=== PATIENT | female | born 1950 | race Caucasian/White ===

== ENCOUNTER 2017-05-13 20:02 | Emergency (ER) | payer MEDICARE ==
--- NOTE | 2017-05-13 23:23 | ER Document Report ---
ED General - General Chief Complaint: Vision Problem Stated Complaint: VISION ISSUE Time Seen by Provider: 05/13/17 23:11 Notes: History of complain-67 years old female was brought in because she was giving conflicting and confusing story. Started seeing unknown person called [place] was stopped by her nephew. And referred to her age as 89. Otherwise has no focal weakness no blurring of vision. No numbness tingling sensation. No fever chills or other constitutional symptoms. REVIEW OF SYSTEMS: CONSTITUTIONAL : Denies fever, chills, or sweats. Denies recent illness. EENT: Denies eye, ear, throat, or mouth pain or symptoms. Denies nasal or sinus congestion or discharge. Denies throat, tongue, or mouth swelling or difficulty swallowing. CARDIOVASCULAR: Denies chest pain. Denies palpitations or racing or irregular heart beat. Denies ankle edema. RESPIRATORY: Denies cough, cold, or chest congestion. Denies shortness of breath, difficulty breathing, or wheezing. GASTROINTESTINAL: Denies abdominal pain or distention. Denies nausea, vomiting , or diarrhea. Denies blood in vomitus, stools, or per rectum. Denies black, tarry stools. Denies constipation. GENITOURINARY: Denies difficulty urinating, painful urination, burning, frequency, blood in urine, or discharge. FEMALE GENITOURINARY: Denies vaginal bleeding, heavy or abnormal periods, irregular periods. Denies vaginal discharge or odor. MUSCULOSKELETAL: Denies back or neck pain or stiffness. Denies joint pain or swelling. SKIN: Denies rash, lesions or sores. HEMATOLOGIC : Denies easy bruising or bleeding. LYMPHATIC: Denies swollen, enlarged glands. NEUROLOGICAL: Denies confusion or altered mental status. Denies passing out or loss of consciousness. Denies dizziness or lightheadedness. Denies headache. Denies weakness or paralysis or loss of use of either side. Denies problems with gait or speech. Denies sensory loss, numbness, or tingling. Denies seizures. PSYCHIATRIC: Denies anxiety or stress. Denies depression, suicidal ideation, or homicidal ideation. ALL OTHER SYSTEMS REVIEWED AND NEGATIVE. PHYSICAL EXAMINATION: GENERAL: Well-appearing, well-nourished and in no acute distress. HEAD: Atraumatic, normocephalic. EYES: Pupils equal round and reactive to light, extraocular movements intact, conjunctiva are normal. ENT: Nares patent, oropharynx clear without exudates. Moist mucous membranes. NECK: Normal range of motion, supple without lymphadenopathy LUNGS: Breath sounds clear to auscultation bilaterally and equal. No wheezes rales or rhonchi. HEART: Regular rate and rhythm without murmurs ABDOMEN: Soft, nontender, nondistended abdomen. No guarding, no rebound. No masses appreciated. Female : deferred Musculoskeletal: Normal range of motion, no pitting or edema. No cyanosis. NEUROLOGICAL: Cranial nerves grossly intact. Normal speech, normal gait. Normal sensory, motor exams PSYCH: Normal mood, normal affect. SKIN: Warm, Dry, normal turgor, no rashes or lesions noted. Dictation was performed using [employer] voice recognition software history of complain TRAVEL OUTSIDE OF THE [place] IN LAST 30 DAYS: No - HPI Onset: Last week - Related Data Allergies/Adverse Reactions: No Known Allergies Allergy (Unverified 05/13/17 20:54) Past Medical History - Social History Smoking Status: Former Smoker Chew tobacco use (# tins/day): No Frequency of alcohol use: None Drug Abuse: None Family History: Reviewed & Not Pertinent Patient has suicidal ideation: No Patient has homicidal ideation: No Renal/ Medical History: Denies: Hx Peritoneal Dialysis Review of Systems - Review of Systems Notes: As per history of complain Physical Exam - Vital signs Vitals: Temp Pulse Resp BP Pulse Ox 98.5 F 72 16 137/75 H 96 05/13/17 20:34 05/13/17 20:34 05/13/17 20:34 05/13/17 20:34 05/13/17 20:34 Course - Re-evaluation Re-evalutation: 05/14/17 02:03 Patient case was discussed with [facility] neurology service, Dr. Banks. Currently arrangements are made to transfer. She was given Decadron 10 and Keppra thousand IV - Vital Signs Vital signs: Temp Pulse Resp BP Pulse Ox 97.4 F 72 14 115/69 97 05/14/17 03:40 05/13/17 20:34 05/14/17 03:40 05/14/17 03:40 05/14/17 03:40 - Laboratory Result Diagrams: 05/13/17 23:30 05/13/17 23:30 Laboratory results interpreted by me: 05/13/17 23:30 Calcium 10.3 H - Diagnostic Test Radiology reviewed: Reports reviewed - CT of the head reported by radiologist reviewed, indicates to intracerebral tumors one on the right side frontal region one on the left side the parietal region. Discharge - Discharge Clinical Impression: Intracranial malignant neoplasm Condition: Poor Disposition: [facility] Referrals: BEBETO WONG MD [Primary Care Provider] - Follow up as needed
[2017-05-13 23:44] LABS: ABSOLUTE BASOPHILS # (AUTO) 0.1 10^3/uL (0.0-0.2); ABSOLUTE EOSINOPHILS # (AUTO) 0.1 10^3/uL (0.0-0.6); ABSOLUTE LYMPHOCYTES (AUTO) 1.9 10^3/uL (0.5-4.7); ABSOLUTE MONOCYTES (AUTO) 0.6 10^3/uL (0.1-1.4); ABSOLUTE NEUT (AUTO) 4.4 10^3/uL (1.7-8.2); BASOPHILS % (AUTO) 0.9 % (0-2); HEMATOCRIT 39.7 % (36.0-47.0); HEMOGLOBIN 13.3 g/dL (12.0-15.5); MEAN CORPUSCULAR HEMOGLOBIN 29.7 pg (27.0-33.4); MEAN CORPUSCULAR HGB CONC 33.5 g/dL (32.0-36.0); MEAN CORPUSCULAR VOLUME 89 fl (80-97); MONOCYTES % (AUTO) 8.6 % (3-13); PLATELET COUNT 188 10^3/uL (150-450); RED BLOOD COUNT 4.48 10^6/uL (3.72-5.28); SEGMENTED NEUTROPHILS % (AUTO) 61.5 % (42-78); TOTAL CELLS COUNTED % (AUTO) 100 %; WHITE BLOOD COUNT 7.2 10^3/uL (4.0-10.5)
[2017-05-13 23:53] LABS: ALANINE AMINOTRANSFERASE 21 U/L (9-52); ALBUMIN 4.6 g/dL (3.5-5.0); ALKALINE PHOSPHATASE 60 U/L (38-126); ANION GAP 13 (5-19); ASPARTATE AMINO TRANSFERASE 23 U/L (14-36); BILIRUBIN,DIRECT 0.2 mg/dL (0.0-0.4); BILIRUBIN,TOTAL 0.5 mg/dL (0.2-1.3); BLOOD UREA NITROGEN 17 mg/dL (7-20); CALCIUM 10.3 mg/dL (8.4-10.2); CARBON DIOXIDE 25 mmol/L (22-30); CHLORIDE 104 mmol/L (98-107); GLUCOSE 102 mg/dL (75-110); POTASSIUM 3.9 mmol/L (3.6-5.0); SODIUM 142.2 mmol/L (137-145); TOTAL PROTEIN 7.2 g/dL (6.3-8.2)
--- NOTE | 2017-05-14 00:33 | RADIOLOGY REPORT (SQ) ---
EXAM DESCRIPTION: CT HEAD WITHOUT CLINICAL HISTORY: 67 years Female, confusion COMPARISON: None. TECHNIQUE: No contrast. Coronal and sagittal reformat. This exam was performed according to our departmental dose-optimization program, which includes automated exposure control, adjustment of the mA and/or kV according to patient size and/or use of iterative reconstruction technique. FINDINGS: Complex left frontal lobe mass near the midline measures 3.5 x 2.5 x 3.4 cm, extensive frontal cytotoxic edema. The mass crosses/displaces the midline by 1.0 cm from right to left. Moderate compression of the frontal horns of the lateral ventricles, left more than right. There is a second complex 1.4 x 1.8 x 1.4 cm ovoid right parietal mass at the cortex with small cytotoxic edema. Extra-axial structures appear otherwise grossly intact. Impression: 3.5 cm left frontal mass and 1.8 cm right parietal mass. The 3.5 cm left frontal mass crosses/displaces the midline and causes moderate compression of the frontal horns of the ventricular system. Malignancy/metastases including glioblastoma multiforme (GBM) is of first consideration. Contrast MRI of the brain and Neurosurgical consultation recommended.
[2017-05-14] MEDS ORDERED: LEVETIRACETAM 1000 MG/NACL-ISO 1,000 MG/100 ML RTUPB IV ONE (01:05)
[2017-05-14] MEDS ORDERED: DEXAMETHASONE SOD PHOS INJ 10 MG/1 ML VIAL IV ONE (01:05)
--- NOTE | 2017-05-14 02:31 | RADIOLOGY REPORT (SQ) ---
EXAM DESCRIPTION: CHEST SINGLE VIEW CLINICAL HISTORY: 67 years Female, Lung tumor COMPARISON: None. NUMBER OF VIEWS/TECHNIQUE: 1/AP LIMITATIONS: None. FINDINGS: Increased lung volume, clear parenchyma, normal cardiac silhouette, and intact bony thorax. IMPRESSION: No acute cardiopulmonary findings.
[2017-05-14 03:54] VITALS: BP 115/69
== END 2017-05-14 04:05 | disposition short-term general hospital (02) ==
LOC: ER 20:02
DX: C71.9 Malignant neoplasm of brain, unspecified (principal); Z87.891 Personal history of nicotine dependence
CPT/HCPCS: 99285; 96375; 96365; 36415; 85025; 80053; 71045; 70450; J1100; J1953

== ENCOUNTER → 2017-06-13 | Outpatient (CLI) | payer MEDICARE ==
--- NOTE | 2017-06-14 11:34 | RADIOLOGY REPORT (SQ) ---
EXAM DESCRIPTION: PET CT WHOLE BODY COMPLETED DATE/TIME: 06/13/2017 9:12 pm REASON FOR STUDY: MALIGNANT NEOPLASM BREAST/MELANOMA C50.811 MALIGNANT NEOPLASM OF OVRLP SITES OF R IGHT FEMALE BR C43.59 MALIGNANT MELANOMA OF OTHER PART OF TRUNK COMPARISON: CT brain 05/13/2017 RADIONUCLIDE AND DOSE: 12.0 mCi F18 FDG The route of agent administration: Intravenous FASTING BLOOD SUGAR: 85 mg/dl CONTRAST TYPE AND DOSE: No CT contrast given. TECHNIQUE: Blood glucose level was verified. Above dose of FDG was injected intravenously. 2-D seg mented attenuation correction images were obtained through the entire body. Noncontrast CT images we re obtained for attenuation correction and fusion with emission images. CT images were performed wit hout oral or intravenous contrast and are not sensitive for parenchymal lesions. A series of overlap ping emission PET images were obtained. Images reviewed and manipulated at independent work station by the radiologist. Images stored on PACS. LIMITATIONS: None. FINDINGS: HEAD AND NECK: Post frontal craniotomy for resection of an anterior falx melanoma metastat ic lesion. There is decreased cerebral edema in the left frontal lobe compared to CT brain 05/13/2017 . Persistent 1.5 x 1.6 right parieto-occipital lowe-white junction cortical metastatic lesion unchanged from 05/13/2017. CHEST: 8 mm hypermetabolic nodule left upper lobe axial image 121, with SUV of 3.6. There is minimal airspace disease in the medial right lung base with SUV 2.5, question early or devel oping pneumonia. ABDOMEN AND PELVIS: A 5 mm aortocaval lymph node is present on axial image 230, with SUV of 5.0. There is a non metabolic 4.5 x 3.5 cm well-circumscribed cystic lesion in the left deep pelvic ischio rectal fossa fat. This is non metabolic and best shown on axial image 274. LOWER EXTREMITIES: No areas of abnormal metabolic activity in the soft tissues of the lower extremiti es. BONES: No abnormal metabolic activity in the visualized skeleton. ADDITIONAL CT FINDINGS: Bilateral mastectomies with implants. Calcified aortic valve. Minimal coron jovita artery calcifications. Tiny calcified gallstones. Few colonic diverticuli without CT signs of a cute diverticulitis. OTHER: Liver background activity 1.8 SUV. Blood pool background activity 1.6 SUV. IMPRESSION: 8 mm hypermetabolic nodule left upper lobe. 5 mm hypermetabolic aortocaval lymph node. TECHNICAL DOCUMENTATION: JOB ID: [id number] [employer]- All Rights Reserved Reading location - IP/workstation name: [email or web address]
== END ==
LOC: RAD 19:02
PROVIDERS: ATTEND Internal Medicine Medical Oncology
DX: C50.811 Malignant neoplasm of overlapping sites of right female breast (principal); C43.59 Malignant melanoma of other part of trunk; Z90.13 Acquired absence of bilateral breasts and nipples
CPT/HCPCS: 78816; A9552

== ENCOUNTER → 2017-06-21 | Outpatient (CLI) | payer MEDICARE ==
[2017-06-21 13:58] LABS: ABSOLUTE BASOPHILS # (AUTO) 0.1 10^3/uL (0.0-0.2); ABSOLUTE EOSINOPHILS # (AUTO) 0.1 10^3/uL (0.0-0.6); ABSOLUTE LYMPHOCYTES (AUTO) 1.6 10^3/uL (0.5-4.7); ABSOLUTE MONOCYTES (AUTO) 0.8 10^3/uL (0.1-1.4); ABSOLUTE NEUT (AUTO) 4.2 10^3/uL (1.7-8.2); BASOPHILS % (AUTO) 1.3 % (0-2); EOSINOPHILS % (AUTO) 1.9 % (0-6); HEMOGLOBIN 12.1 g/dL (12.0-15.5); LYMPHOCYTES % (AUTO) 23.1 % (13-45); MEAN CORPUSCULAR HEMOGLOBIN 30.6 pg (27.0-33.4); MEAN CORPUSCULAR HGB CONC 33.6 g/dL (32.0-36.0); MEAN CORPUSCULAR VOLUME 91 fl (80-97); MONOCYTES % (AUTO) 11.5 % (3-13); PLATELET COUNT 390 10^3/uL (150-450); RED BLOOD COUNT 3.95 10^6/uL (3.72-5.28); RED CELL DISTRIBUTION WIDTH 15.2 % (11.5-14.0); SEGMENTED NEUTROPHILS % (AUTO) 62.2 % (42-78); TOTAL CELLS COUNTED % (AUTO) 100 %; WHITE BLOOD COUNT 6.8 10^3/uL (4.0-10.5)
== END ==
LOC: OD 13:05
PROVIDERS: ATTEND Radiology Radiation Oncology
DX: C43.61 Malignant melanoma of right upper limb, including shoulder (principal); C79.31 Secondary malignant neoplasm of brain
CPT/HCPCS: 36415; 85025

== ENCOUNTER → 2017-09-13 | Outpatient (CLI) | payer MEDICARE ==
[2017-09-13 16:43] LABS: HEMATOCRIT 43.2 % (36.0-47.0); MEAN CORPUSCULAR HEMOGLOBIN 29.7 pg (27.0-33.4); MEAN CORPUSCULAR HGB CONC 34.7 g/dL (32.0-36.0); MEAN CORPUSCULAR VOLUME 86 fl (80-97); PLATELET COUNT 354 10^3/uL (150-450); RED BLOOD COUNT 5.04 10^6/uL (3.72-5.28); RED CELL DISTRIBUTION WIDTH 14.5 % (11.5-14.0); WHITE BLOOD COUNT 20.5 10^3/uL (4.0-10.5)
== END ==
LOC: OD 15:47
PROVIDERS: ATTEND Internal Medicine Gastroenterology
DX: R19.7 Diarrhea, unspecified (principal)
CPT/HCPCS: 36415; 85027

== ENCOUNTER 2017-09-14 15:15 | Inpatient (IN) | payer MEDICARE ==
[2017-09-14] MEDS ORDERED: NORMAL SALINE 1000 ML 1,000 ML IV ONE ×2 (15:55→18:46)
[2017-09-14] MEDS ORDERED: LANSOPRAZOLE 30 MG TAB.RAP.DR PO ONE (16:22)
[2017-09-14] MEDS ORDERED: LIDOCAINE 2% VISCOUS SOLN 20 ML UDCUP PO ONE (16:22)
--- NOTE | 2017-09-14 16:25 | ER Document Report ---
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 chacko office due to dehydration and low blood pressure despite 2 liters of NS. Her friend Mary drove her. She has caregivers daily. Chief c/o watery diarrhea 3 x per day for 2 weeks with blood 1-2 days ago. No cx. done. saw Dr. Neal but no studies yet. No abd. pain but does get hearburrn. Chemo 7 weeks ago. Last void 3 hours ago. TRAVEL OUTSIDE OF THE [place] IN LAST 30 DAYS: No - Related Data Allergies/Adverse Reactions: No Known Allergies Allergy (Unverified 05/13/17 20:54) Past Medical History - General Information source: Patient - Social History Smoking Status: Former Smoker Chew tobacco use (# tins/day): No Frequency of alcohol use: None Drug Abuse: None Lives with: Family Family History: Reviewed & Not Pertinent Patient has suicidal ideation: No Patient has homicidal ideation: No - Past Medical History Cardiac Medical History: Reports: Hx Heart Murmur Other: heart murmur years Neurological Medical History: Reports: Other - brain cancer Endocrine Medical History: Denies: Hx Hypothyroidism Renal/ Medical History: Denies: Hx Peritoneal Dialysis Malignancy Medical History: Reports: Hx Brain Cancer, Hx Breast Cancer, Hx Skin Cancer Review of Systems - Review of Systems Constitutional: Weakness - 2-3 weeks EENT: No symptoms reported Cardiovascular: No symptoms reported Respiratory: No symptoms reported Gastrointestinal: Diarrhea, Poor appetite, Poor fluid intake Genitourinary: No symptoms reported Female Genitourinary: No symptoms reported Musculoskeletal: No symptoms reported Skin: No symptoms reported Hematologic/Lymphatic: No symptoms reported Neurological/Psychological: No symptoms reported Physical Exam - Vital signs Vitals: BP 92/60 L 09/14/17 15:31 Interpretation: Hypotensive, Tachycardic - General General appearance: Alert, Other - chornically ill appearring - HEENT Head: Normocephalic, Atraumatic Eyes: Normal Conjunctiva: Normal Pupils: PERRL Mucous membranes: Dry Neck: Supple. No: Lymphadenopathy - Respiratory Respiratory status: No respiratory distress Chest status: Nontender Breath sounds: Normal Chest palpation: Normal - Cardiovascular Rhythm: Regular Heart sounds: Normal auscultation Murmur: Yes - Abdominal Inspection: Normal Distension: No distension Bowel sounds: Normal Tenderness: Nontender. No: Tender Organomegaly: No organomegaly - Back Back: Normal, Nontender. No: CVA tenderness - Extremities General upper extremity: Normal inspection, Nontender, Normal color, Normal ROM , Normal temperature General lower extremity: Normal inspection, Nontender, Normal color, Normal ROM , Normal temperature, Normal weight bearing. No: Blas's sign - Neurological Neuro grossly intact: Yes Cognition: Normal Orientation: AAOx4 Nessa Coma Scale Eye Opening: Spontaneous [place] Coma Scale Verbal: Oriented Nessa Coma Scale Motor: Obeys Commands Nessa Coma Scale Total: 15 Speech: Normal Motor strength normal: LUE, RUE, LLE, RLE Sensory: Normal - Psychological Associated symptoms: Normal affect, Normal mood - Skin Skin Temperature: Warm Skin Moisture: Dry Skin Color: Normal Skin irregularity: negative: Rash Course - Re-evaluation Re-evalutation: 09/14/17 18:41 Patient looks better her sodium is 130 that is after 2 L, her systolic blood pressure is 95. Stool is Hemoccult positive the C. difficile is pending. White count is 18.6 with segs 84%. Lactic acid is 1.2. PCP is Dr. Rouse. Urinalysis is negative for UTI. Specific gravity is 1.014. She was started back on dexamethasone By Dr. Richter. no chemo for 7 weeks. One diarrhea stool here in the emergency department. C. difficile is negative. 09/14/17 19:02 I discussed the case with Dr. Swartz and if the patient wants to go home she can probably go home but she did also be admitted for the hyponatremia diarrhea and dehydration. The patient wants to go home but Mary who would be staying with her is hesitant about her going home the patient does have an a follow-up appointment with Dr. Neal on September 23. Oxygen d/c'd to see how she does without it. 09/14/17 19:15 09/14/17 19:37 will admit to IMCU, pt willing to be admitted. - Vital Signs Vital signs: Temp Pulse Resp BP Pulse Ox 22 H 100/53 L 95 09/14/17 19:45 09/14/17 19:45 09/14/17 19:45 - Laboratory Result Diagrams: 09/14/17 16:55 09/14/17 16:55 Laboratory results interpreted by me: 09/14/17 09/14/17 09/14/17 16:55 16:55 17:20 WBC 18.6 H RDW 14.5 H Seg Neuts % (Manual) 84 H Band Neutrophils % 2 L Lymphocytes % (Manual) 7 L Abs Neuts (Manual) 16.0 H VBG pH VBG HCO3 Sodium 130.0 L Carbon Dioxide 17 L Calcium 7.5 L Total Protein 4.4 L Albumin 2.2 L Urine Glucose (UA) 50 H Urine Ascorbic Acid 40 H 09/14/17 18:55 WBC RDW Seg Neuts % (Manual) Band Neutrophils % Lymphocytes % (Manual) Abs Neuts (Manual) VBG pH 7.28 L VBG HCO3 18.8 L Sodium Carbon Dioxide Calcium Total Protein Albumin Urine Glucose (UA) Urine Ascorbic Acid Discharge - Discharge Clinical Impression: Leukocytosis, Diarrhea, Positive stool for Hemoccult, Weakness, Dehydration, Hyponatremia Condition: Fair Disposition: ADMITTED INPATIENT Admitting Provider: Hospitalist Unit Admitted: IMCU Referrals: PEDRO RICHTER MD [Primary Care Provider] - Follow up as needed
[2017-09-14 17:16] LABS: HEMATOCRIT 37.2 % (36.0-47.0); MEAN CORPUSCULAR HEMOGLOBIN 29.5 pg (27.0-33.4); MEAN CORPUSCULAR HGB CONC 34.1 g/dL (32.0-36.0); MEAN CORPUSCULAR VOLUME 87 fl (80-97); PLATELET COUNT 286 10^3/uL (150-450); RED CELL DISTRIBUTION WIDTH 14.5 % (11.5-14.0); WHITE BLOOD COUNT 18.6 10^3/uL (4.0-10.5)
[2017-09-14 17:22] LABS: PROTHROMBIN TIME 14.8 SEC (11.4-15.4)
[2017-09-14 17:25] LABS: HEMOGLOBIN 12.7 g/dL (12.0-15.5)
[2017-09-14 17:34] LABS: ALANINE AMINOTRANSFERASE 24 U/L (9-52); ALBUMIN 2.2 g/dL (3.5-5.0); ALKALINE PHOSPHATASE 49 U/L (38-126); ANION GAP 9 (5-19); ASPARTATE AMINO TRANSFERASE 18 U/L (14-36); BILIRUBIN,DIRECT 0.2 mg/dL (0.0-0.4); BILIRUBIN,TOTAL 0.3 mg/dL (0.2-1.3); BLOOD UREA NITROGEN 15 mg/dL (7-20); CALCIUM 7.5 mg/dL (8.4-10.2); CARBON DIOXIDE 17 mmol/L (22-30); CHLORIDE 104 mmol/L (98-107); CREATINE KINASE 80 U/L (30-135); GLUCOSE 80 mg/dL (75-110); LIPASE 44.6 U/L (23-300); POTASSIUM 4.3 mmol/L (3.6-5.0); TOTAL PROTEIN 4.4 g/dL (6.3-8.2)
[2017-09-14 17:44] LABS: ABSOLUTE LYMPHOCYTES# (MANUAL) 1.3 10^3/uL (0.5-4.7); ABSOLUTE MONOCYTES # (MANUAL) 1.1 10^3/uL (0.1-1.4); BAND NEUTROPHILS % (MANUAL) 2 % (3-5); BASOPHILS % (MANUAL) 0 % (0-2); EOSINOPHILS % (MANUAL) 1 % (0-6); LYMPHOCYTES % (MANUAL) 7 % (13-45); MONOCYTES % (MANUAL) 6 % (3-13); SEGMENTED NEUTROPHILS % (MAN) 84 % (42-78); TOTAL CELLS COUNTED 100
[2017-09-14 17:45] LABS: ANISOCYTOSIS SLIGHT; CREATINE KINASE MB 2.79 ng/mL (<4.55); PLATELET COMMENT ADEQUATE; TOXIC GRANULATION SLIGHT
[2017-09-14 17:46] LABS: TROPONIN I < 0.012 ng/mL
[2017-09-14 18:10] LABS: APPEARANCE,URINE SLIGHTLY-CLOUDY; BILIRUBIN,URINE NEGATIVE (NEGATIVE); COLOR,URINE AMBER; GLUCOSE, URINE 50 mg/dL (NEGATIVE); KETONES,URINE NEGATIVE (NEGATIVE); LEUKOCYTE ESTERASE,URINE NEGATIVE (NEGATIVE); NITRITE,URINE NEGATIVE (NEGATIVE); PROTEIN,URINE NEGATIVE (NEGATIVE); URINE SPECIFIC GRAVITY 1.014; UROBILINOGEN,URINE NEGATIVE mg/dL (<2.0)
[2017-09-14] MEDS ORDERED: CEFTRIAXONE INJ 1000 MG VIAL IV ONE (18:16)
[2017-09-14] MEDS ORDERED: LOPERAMIDE HCL 2 MG CAPSULE PO ONE (19:01)
[2017-09-14 19:34] LABS: VENOUS BLOOD BASE EXCESS -7.5 mmol/L; VENOUS BLOOD HCO3 18.8 mmol/L (20-32); VENOUS BLOOD PH 7.28 (7.30-7.42)
[2017-09-14] MEDS ORDERED: ONDANSETRON HCL INJ/PF 4 MG/2 ML SDV IV PRN (19:47)
[2017-09-14] MEDS ORDERED: ACETAMINOPHEN 325 MG TABLET PO PRN (19:47)
--- NOTE | 2017-09-14 20:48 | PDOC H&P ---
History of Present Illness Admission Date/PCP: 09/14/17 20:06 PEDRO RICHTER MD Patient complains of: diarrhea; weakness History of Present Illness: HILARY PEDERSEN is a 67 year old female with metastatic melanoma with metastases to brain who is currently under chemotherapy; last chemo was 7 weeks ago presents to the emergency room with persistent diarrhea for last 3 weeks. Patient reports multiple episode of watery diarrhea at least 4 times a day for last 3 weeks. Patient reports mainly watery diarrhea however she had noticed some time sticks of blood. Patient denies fever or chills or abdominal pain however she had sometimes cramps. Patient denies nausea or vomiting. Patient reports that she is feeling extremely fatigued and weak. She has been started on dexamethasone by oncologist a few days ago. Patient went to see oncologist today and she was found hypotensive and dehydrated and was given 2 L of IV bolus fluid in clinic. Patient remained persistently hypotensive so was sent to the emergency room for further evaluation. On arrival to emergency room patient's initial blood pressure was 87/54 with heart rate of 110. Patient was afebrile. Patient received another liter of fluid in the emergency room however she is persistently on the lower blood pressure site. Her laboratory workup shows white count of 18,000 with normal hemoglobin and platelets. Serum chemistry is unremarkable except low bicarb 17. TSH is normal. UA is unremarkable. Stool for C. difficile is negative. Stool for guaiac is scantly positive. Patient was referred to hospitalist service. Patient is scheduled to see GI service next week for persistent diarrhea. Past Medical History Cardiac Medical History: Reports: Heart Murmur Neurological Medical History: Reports: Other - brain cancer Endocrine Medical History: Denies: Hypothyroidism Malignancy Medical History: Reports: Brain Cancer, Breast Cancer, Skin Cancer Past Surgical History Past Surgical History: Reports: Mastectomy Social History Information Source: Patient Lives with: Family Smoking Status: Current Some Day Smoker Frequency of Alcohol Use: None Hx Recreational Drug Use: No Family History Family History: Reviewed & Not Pertinent Parental Family History Reviewed: No Children Family History Reviewed: No Sibling(s) Family History Reviewed.: No Medication/Allergy Home Medications: Buspirone HCl [Buspar 15 mg Tablet] 15 mg PO Q12 09/14/17 Dexamethasone 2 mg PO DAILY 09/14/17 Duloxetine HCl [Cymbalta] 30 mg PO Q12 09/14/17 Eszopiclone [Lunesta] 2 mg PO HSP PRN 09/14/17 Gabapentin [Neurontin] 800 mg PO 0800,1100,1700,2200 09/14/17 Lisinopril [Prinivil 5 mg Tablet] 5 mg PO DAILY 09/14/17 Lorazepam [Ativan 1 mg Tablet] 1 mg PO Q6HP PRN 09/14/17 Omeprazole 40 mg PO DAILY 09/14/17 Allergies/Adverse Reactions: No Known Allergies Allergy (Unverified 05/13/17 20:54) Review of Systems All systems: reviewed and no additional remarkable complaints except as stated Physical Exam Vital Signs: Temp Pulse Resp BP Pulse Ox 97.5 F 19 96/54 L 97 09/14/17 20:19 09/14/17 20:00 09/14/17 20:00 09/14/17 20:00 General appearance: PRESENT: no acute distress, cooperative, mild distress, well -developed, well-nourished Head exam: PRESENT: atraumatic, normocephalic Eye exam: ABSENT: conjunctival injection, conjunctiva pink, conjunctiva pale, EOMI, nystagmus, periorbital swelling, PERRLA, scleral icterus, other Ear exam: ABSENT: bleeding, drainage, normal external ear exam, TM's normal bilaterally, other Mouth exam: PRESENT: dry mucosa Neck exam: ABSENT: carotid bruit, JVD, thyromegaly Respiratory exam: PRESENT: clear to auscultation dex. ABSENT: crackles, wheezes Cardiovascular exam: PRESENT: RRR, +S1, +S2, tachycardia Vascular exam: PRESENT: normal capillary refill GI/Abdominal exam: PRESENT: normal bowel sounds, soft. ABSENT: organolmegaly, tenderness Rectal exam: PRESENT: heme (+) stool Gentrourinary exam: ABSENT: ecchymosis, erythema, lacerations, lesions, scrotal swelling, testicular tenderness, urethral discharge, indwelling catheter, other Extremities exam: ABSENT: calf tenderness, clubbing, full ROM, joint swelling, pedal edema, tenderness, +1 edema, +2 edema, other Musculoskeletal exam: PRESENT: ambulatory Neurological exam: PRESENT: alert, altered, awake, oriented to person, oriented to place, oriented to time, oriented to situation. ABSENT: motor sensory deficit Psychiatric exam: ABSENT: homicidal ideation, suicidal ideation Skin exam: ABSENT: rash Results Laboratory Results: All labs reviewed EKG Comments: Sinus tach with nonspecific ST-T changes. Personally reviewed by me. Status: Image reviewed by me Assessment & Plan - Diagnosis (1) Diarrhea Is this a current diagnosis for this admission?: Yes Plan: Patient with 3 weeks of persistent diarrhea. Likely chemotherapy-induced. Patient is currently on dexamethasone. Patient has a leukocytosis secondary to that. Patient has scant guaiac positive stool but no sadiq blood in stool. C. difficile is negative. Will check stool for ova parasite as well as WBC and culture. Consider GI evaluation. (2) Dehydration Is this a current diagnosis for this admission?: Yes Plan: Patient is extremely dehydrated secondary to diarrhea. Patient was hypotensive. No signs of sepsis or infection. Will continue IV fluid and resuscitation. Patient will be admitted to IM for close monitoring. (3) Hyponatremia Is this a current diagnosis for this admission?: Yes Plan: Secondary to dehydration and diarrhea. Continue IV fluid. (4) Metastatic melanoma Is this a current diagnosis for this admission?: No Plan: Patient is on chemotherapy. - Time Time Spent: 30 to 50 Minutes - Inpatient Certification Based on my medical assessment, after consideration of the patient's comorbidities, presenting symptoms, or acuity I expect that the services needed warrant INPATIENT care.: Yes I certify that my determination is in accordance with my understanding of Medicare's requirements for reasonable and necessary INPATIENT services [42 CFR 412.3e].: Yes Medical Necessity: Need For IV Fluids, Need For Continuous Telemetry Monitoring
--- NOTE | 2017-09-14 22:19 | EKG REPORT ---
SEVERITY:- ABNORMAL ECG - SINUS TACHYCARDIA PROBABLE LEFT ATRIAL ABNORMALITY LEFT VENTRICULAR HYPERTROPHY NONSPECIFIC T ABNORMALITIES, INFERIOR LEADS : Confirmed by: Inge Wooten 14-Sep-2017 22:18:24
[2017-09-15] MEDS ORDERED: NORMAL SALINE 1000 ML 1,000 ML IV PRN (01:12)
[2017-09-15] MEDS ORDERED: (PENDING PHARMACY ID) (Eszopiclone [Lunesta] 2 MG) PO PRN (01:21)
[2017-09-15] MEDS ORDERED: LOPERAMIDE HCL 2 MG CAPSULE PO ONE (01:30)
[2017-09-15] MEDS ORDERED: GABAPENTIN 400 MG CAPSULE PO ONE (02:00)
[2017-09-15 05:00] LABS: ANION GAP 7 (5-19); BLOOD UREA NITROGEN 8 mg/dL (7-20); CALCIUM 7.1 mg/dL (8.4-10.2); CARBON DIOXIDE 15 mmol/L (22-30); CHLORIDE 110 mmol/L (98-107); GLUCOSE 77 mg/dL (75-110); POTASSIUM 3.7 mmol/L (3.6-5.0); SODIUM 131.7 mmol/L (137-145)
[2017-09-15 05:32] LABS: ABSOLUTE LYMPHOCYTES (AUTO) 0.8 10^3/uL (0.5-4.7); ABSOLUTE MONOCYTES (AUTO) 0.8 10^3/uL (0.1-1.4); ABSOLUTE NEUT (AUTO) 14.9 10^3/uL (1.7-8.2); BASOPHILS % (AUTO) 0.1 % (0-2); EOSINOPHILS % (AUTO) 0.1 % (0-6); HEMATOCRIT 32.5 % (36.0-47.0); HEMOGLOBIN 11.4 g/dL (12.0-15.5); MEAN CORPUSCULAR HEMOGLOBIN 29.5 pg (27.0-33.4); MEAN CORPUSCULAR VOLUME 84 fl (80-97); MONOCYTES % (AUTO) 5.1 % (3-13); PLATELET COUNT 267 10^3/uL (150-450); RED BLOOD COUNT 3.86 10^6/uL (3.72-5.28); RED CELL DISTRIBUTION WIDTH 14.6 % (11.5-14.0); SEGMENTED NEUTROPHILS % (AUTO) 89.7 % (42-78); TOTAL CELLS COUNTED % (AUTO) 100 %; WHITE BLOOD COUNT 16.6 10^3/uL (4.0-10.5)
[2017-09-15] MEDS: LANSOPRAZOLE 30 MG TAB.RAP.DR PO SCH (06:01)
[2017-09-15] MEDS ORDERED: DEXTROSE 5%-WATER 1000 ML 1,000 ML with SODIUM BICARBONATE 50 MEQ IV PRN ×2 (07:52)
[2017-09-15] MEDS ORDERED: POTASSI CL 20 MEQ/1/2NS 1L 20 MEQ/1,000 ML RTUINJ IV PRN (07:52)
[2017-09-15] MEDS: BUSPIRONE HCL 10 MG TABLET PO SCH ×2 (09:57→22:51)
[2017-09-15] MEDS: DULOXETINE HCL 30 MG CAPSULE.DR PO SCH ×2 (09:58→22:51)
[2017-09-15] MEDS: DEXAMETHASONE 4 MG TABLET PO SCH (09:58)
[2017-09-15] MEDS: GABAPENTIN 400 MG CAPSULE PO SCH ×4 (09:59→22:51)
[2017-09-15] MEDS: LISINOPRIL 5 MG TABLET PO SCH (10:00)
[2017-09-15] MEDS: SODIUM BICARBONATE IV PRN ×6 (14:13→23:12)
[2017-09-15] MEDS: POTASSIUM CHLORIDE IV PRN ×6 (14:13→23:12)
[2017-09-15] MEDS: 1/2 NORMAL SALINE IV PRN ×6 (14:13→23:12)
[2017-09-15 18:22] LABS: HEMATOCRIT 34.5 % (36.0-47.0); HEMOGLOBIN 11.7 g/dL (12.0-15.5); MEAN CORPUSCULAR HEMOGLOBIN 28.9 pg (27.0-33.4); MEAN CORPUSCULAR HGB CONC 33.9 g/dL (32.0-36.0); MEAN CORPUSCULAR VOLUME 85 fl (80-97); PLATELET COUNT 294 10^3/uL (150-450); RED BLOOD COUNT 4.05 10^6/uL (3.72-5.28); RED CELL DISTRIBUTION WIDTH 14.4 % (11.5-14.0)
--- NOTE | 2017-09-15 19:27 | PDOC PROGRESS REPORT ---
Subjective Progress Note for:: 09/15/17 Subjective:: The patient is an unfortunate 67-year-old female with metastatic melanoma. She has known brain metastases. She currently is undergoing treatment directed by Dr. Argueta. Her last chemo was 7 weeks ago. The patient presented to the emergency room with persistent diarrhea for the past 3 weeks. She has had no fever or chills. She has had no abdominal pain. She was started on dexamethasone by her oncologist a few days ago. The patient went for her the patient went for an outpatient appointment was found to be quite hypotensive in the clinic. She was given a 2 L IV fluid bolus but remained persistently hypotensive so she was sent to the emergency room for further evaluation. In the emergency room she remained hypotensive. She received another liter of fluid with improvement of her blood pressure. White blood cell count is 18, 000. She has normal hemoglobin and platelets. UA is unremarkable and her stool tested negative for Clostridium difficile infection. Stool was positive for occult blood. The patient does have an outpatient appointment to see the GI service next week for the persistent diarrhea. Today when I saw her she states she has had 3 episodes of watery diarrhea. She is quite frustrated over this because it is keeping her from getting further therapy for her cancer. She denies fever chills. No chest pain, shortness of breath or cough. She has no abdominal pain. She is feeling better after receiving IV fluids. She does not feel as weak. She denies any urinary complaints. She states that she has been having increasing difficulty ambulating and would like to see physical therapy. Later in the day I received a call from the nurse. The patient had eaten some red Jell-O earlier in the day. She had a bowel movement that was red color. I did obtain a repeat H&H and her hemoglobin actually has gone up a little bit. It is stable at 11.7. Reason For Visit: DEHYDRATION,DIARRHEA Physical Exam Vital Signs: Temp Pulse Resp BP Pulse Ox 97.8 F 112 H 19 110/49 L 98 09/15/17 18:10 09/15/17 18:10 09/15/17 18:10 09/15/17 18:10 09/15/17 18:10 Intake & Output 09/14/17 09/15/17 09/16/17 06:59 06:59 06:59 Intake Total 4154 Balance 4154 Weight 70 kg General appearance: PRESENT: no acute distress, well-developed, well-nourished Head exam: PRESENT: atraumatic, normocephalic Mouth exam: PRESENT: moist, tongue midline Respiratory exam: PRESENT: clear to auscultation dex. ABSENT: rales, rhonchi, wheezes Cardiovascular exam: PRESENT: RRR. ABSENT: diastolic murmur, rubs, systolic murmur GI/Abdominal exam: PRESENT: hyperactive bowel sounds, soft. ABSENT: distended, guarding, mass, organolmegaly, rebound, tenderness Rectal exam: PRESENT: deferred Extremities exam: PRESENT: full ROM. ABSENT: calf tenderness, clubbing, pedal edema Neurological exam: PRESENT: alert, awake, oriented to person, oriented to place , oriented to time, oriented to situation, CN II-XII grossly intact. ABSENT: motor sensory deficit Psychiatric exam: PRESENT: appropriate affect, normal mood. ABSENT: homicidal ideation, suicidal ideation Skin exam: PRESENT: dry, intact, warm. ABSENT: cyanosis, rash Results Laboratory Results: 09/15/17 18:15 09/15/17 04:30 09/15/17 09/15/17 09/15/17 00:55 04:30 04:30 WBC 16.6 H RBC 3.86 Hgb 11.4 L Hct 32.5 L MCV 84 MCH 29.5 MCHC 35.0 RDW 14.6 H Plt Count 267 Seg Neutrophils % 89.7 H Lymphocytes % 5.0 L Monocytes % 5.1 Eosinophils % 0.1 Basophils % 0.1 Absolute Neutrophils 14.9 H Absolute Lymphocytes 0.8 Absolute Monocytes 0.8 Absolute Eosinophils 0.0 Absolute Basophils 0.0 Sodium 131.7 L Potassium 3.7 Chloride 110 H Carbon Dioxide 15 L Anion Gap 7 BUN 8 Creatinine 0.44 L Est GFR ( Amer) > 60 Est GFR (Non-Af Amer) > 60 Glucose 77 Calcium 7.1 L Stool for White Cells NO WBCs SEEN 09/15/17 18:15 WBC 16.0 H RBC 4.05 Hgb 11.7 L Hct 34.5 L MCV 85 MCH 28.9 MCHC 33.9 RDW 14.4 H Plt Count 294 Seg Neutrophils % Lymphocytes % Monocytes % Eosinophils % Basophils % Absolute Neutrophils Absolute Lymphocytes Absolute Monocytes Absolute Eosinophils Absolute Basophils Sodium Potassium Chloride Carbon Dioxide Anion Gap BUN Creatinine Est GFR ( Amer) Est GFR (Non-Af Amer) Glucose Calcium Stool for White Cells Assessment & Plan - Diagnosis (1) Intractable diarrhea Is this a current diagnosis for this admission?: Yes Plan: The patient has been receiving Opdiva which can cause diarrhea and up to 35% of the people who receive it. She has not received treatment in 6 weeks I am not sure if this could be the cause of her diarrhea. Stool cultures are pending. She tested negative for Clostridium difficile infection. We will hold off on antibiotics at this point she does not appear to be acutely infected. She does have leukocytosis but she has been on dexamethasone. Nursing staff did report that she had a stool that appeared to have blood in it. Will check serial H&H' s overnight to document stability of her hemoglobin. (2) Metastatic melanoma Is this a current diagnosis for this admission?: Yes Plan: Her oncologist has been consulted for further recommendations. She has not seen the patient at the time of my visit. (3) Dehydration Is this a current diagnosis for this admission?: Yes Plan: Secondary to diarrhea. Resolving (4) Hyponatremia Is this a current diagnosis for this admission?: Yes Plan: Somewhat improved. This is likely due to dehydration as well as her underlying malignancy. (5) Anemia Is this a current diagnosis for this admission?: Yes Plan: Her hemoglobin was normal at the time of admission. She has had a little drop in her hemoglobin likely due to hemodilution. (6) Metabolic acidosis Is this a current diagnosis for this admission?: Yes Plan: Secondary to diarrhea. Her CO2 level dropped further. I have added an amp of bicarb to her IV fluids. She will have a chemistry panel checked in the morning. (7) Full code status Is this a current diagnosis for this admission?: Yes - Time Time Spent with patient: 25-34 minutes - Inpatient Certification Medical Necessity: Need For IV Fluids - Inpatient hospitalization remains necessary. This patient has multiple comorbidities. She has ongoing diarrhea. She is borderline hypotensive. She is requiring IV fluids. She now may be having bloody stools. She needs close monitoring of her hemoglobin. Timing of disposition will be determined by her clinical course, Other
[2017-09-15 19:58] LABS: HEMATOCRIT 30.6 % (36.0-47.0); HEMOGLOBIN 10.8 g/dL (12.0-15.5); MEAN CORPUSCULAR HEMOGLOBIN 29.6 pg (27.0-33.4); MEAN CORPUSCULAR HGB CONC 35.1 g/dL (32.0-36.0); MEAN CORPUSCULAR VOLUME 84 fl (80-97); PLATELET COUNT 268 10^3/uL (150-450); RED BLOOD COUNT 3.63 10^6/uL (3.72-5.28); RED CELL DISTRIBUTION WIDTH 14.5 % (11.5-14.0); WHITE BLOOD COUNT 14.7 10^3/uL (4.0-10.5)
[2017-09-15 20:16] LABS: ABSOLUTE LYMPHOCYTES# (MANUAL) 0.7 10^3/uL (0.5-4.7); ABSOLUTE MONOCYTES # (MANUAL) 0.7 10^3/uL (0.1-1.4); ABSOLUTE NEUTROPHILS# (MANUAL) 13.1 10^3/uL (1.7-8.2); BAND NEUTROPHILS % (MANUAL) 3 % (3-5); BASOPHILS % (MANUAL) 0 % (0-2); EOSINOPHILS % (MANUAL) 1 % (0-6); LYMPHOCYTES % (MANUAL) 5 % (13-45); MONOCYTES % (MANUAL) 5 % (3-13); SEGMENTED NEUTROPHILS % (MAN) 86 % (42-78); TOTAL CELLS COUNTED 100
[2017-09-15 20:17] LABS: ANISOCYTOSIS SLIGHT; OVALOCYTES SLIGHT; PLATELET COMMENT ADEQUATE; TOXIC GRANULATION SLIGHT
[2017-09-16 03:55] LABS: HEMATOCRIT 33.4 % (36.0-47.0); HEMOGLOBIN 11.8 g/dL (12.0-15.5); MEAN CORPUSCULAR HEMOGLOBIN 29.6 pg (27.0-33.4); MEAN CORPUSCULAR HGB CONC 35.2 g/dL (32.0-36.0); MEAN CORPUSCULAR VOLUME 84 fl (80-97); PLATELET COUNT 281 10^3/uL (150-450); RED BLOOD COUNT 3.97 10^6/uL (3.72-5.28); RED CELL DISTRIBUTION WIDTH 14.7 % (11.5-14.0); WHITE BLOOD COUNT 15.2 10^3/uL (4.0-10.5)
[2017-09-16 04:03] LABS: ANION GAP 6 (5-19); BLOOD UREA NITROGEN 4 mg/dL (7-20); CALCIUM 7.7 mg/dL (8.4-10.2); CARBON DIOXIDE 24 mmol/L (22-30); CHLORIDE 105 mmol/L (98-107); GLUCOSE 86 mg/dL (75-110); POTASSIUM 3.8 mmol/L (3.6-5.0); SODIUM 134.7 mmol/L (137-145)
[2017-09-16 04:22] LABS: ABSOLUTE LYMPHOCYTES# (MANUAL) 1.7 10^3/uL (0.5-4.7); ABSOLUTE MONOCYTES # (MANUAL) 0.6 10^3/uL (0.1-1.4); ABSOLUTE NEUTROPHILS# (MANUAL) 12.9 10^3/uL (1.7-8.2); BAND NEUTROPHILS % (MANUAL) 2 % (3-5); BASOPHILS % (MANUAL) 0 % (0-2); EOSINOPHILS % (MANUAL) 0 % (0-6); LYMPHOCYTES % (MANUAL) 11 % (13-45); MONOCYTES % (MANUAL) 4 % (3-13); MYELOCYTES % (MANUAL) 1 % (0); SEGMENTED NEUTROPHILS % (MAN) 82 % (42-78); TOTAL CELLS COUNTED 100; TOXIC GRANULATION 1+; TOXIC VACUOLATION PRESENT
[2017-09-16 04:23] LABS: ANISOCYTOSIS SLIGHT; BURR CELLS 1+; OVALOCYTES SLIGHT; PLATELET CLUMPS PRESENT; PLATELET COMMENT ADEQUATE; POIKILOCYTOSIS 1+; SCHISTOCYTES 1+
[2017-09-16] MEDS: LANSOPRAZOLE 30 MG TAB.RAP.DR PO SCH (05:19)
[2017-09-16] MEDS: SODIUM BICARBONATE IV PRN ×6 (08:17→17:30)
[2017-09-16] MEDS: 1/2 NORMAL SALINE IV PRN ×6 (08:17→17:30)
[2017-09-16] MEDS: POTASSIUM CHLORIDE IV PRN ×6 (08:17→17:30)
[2017-09-16] MEDS: BUSPIRONE HCL 10 MG TABLET PO SCH ×2 (09:25→21:33)
[2017-09-16] MEDS: DEXAMETHASONE 4 MG TABLET PO SCH (09:26)
[2017-09-16] MEDS: DULOXETINE HCL 30 MG CAPSULE.DR PO SCH ×2 (09:26→21:33)
[2017-09-16] MEDS: GABAPENTIN 400 MG CAPSULE PO SCH ×4 (09:27→21:33)
[2017-09-16] MEDS: LISINOPRIL 5 MG TABLET PO SCH (09:27)
[2017-09-16] MEDS ORDERED: ZOLPIDEM TARTRATE 5 MG TABLET PO PRN (09:29)
[2017-09-16] MEDS ORDERED: ONDANSETRON HCL INJ/PF 4 MG/2 ML SDV IV PRN (09:30)
[2017-09-16 13:08] LABS: HEMATOCRIT 32.4 % (36.0-47.0); HEMOGLOBIN 11.2 g/dL (12.0-15.5); MEAN CORPUSCULAR HEMOGLOBIN 29.3 pg (27.0-33.4); MEAN CORPUSCULAR HGB CONC 34.5 g/dL (32.0-36.0); MEAN CORPUSCULAR VOLUME 85 fl (80-97); PLATELET COUNT 273 10^3/uL (150-450); RED BLOOD COUNT 3.82 10^6/uL (3.72-5.28); RED CELL DISTRIBUTION WIDTH 14.7 % (11.5-14.0)
[2017-09-16 13:35] LABS: ABSOLUTE LYMPHOCYTES# (MANUAL) 0.9 10^3/uL (0.5-4.7); ABSOLUTE MONOCYTES # (MANUAL) 0.9 10^3/uL (0.1-1.4); ABSOLUTE NEUTROPHILS# (MANUAL) 15.3 10^3/uL (1.7-8.2); BAND NEUTROPHILS % (MANUAL) 1 % (3-5); BASOPHILS % (MANUAL) 0 % (0-2); EOSINOPHILS % (MANUAL) 0 % (0-6); LYMPHOCYTES % (MANUAL) 5 % (13-45); MONOCYTES % (MANUAL) 5 % (3-13); PLATELET COMMENT ADEQUATE; RBC MORPHOLOGY COMMENT NORMO-CYTIC/CHROMIC; SEGMENTED NEUTROPHILS % (MAN) 89 % (42-78); TOTAL CELLS COUNTED 100; TOXIC GRANULATION SLIGHT
--- NOTE | 2017-09-16 16:53 | PDOC PROGRESS REPORT ---
Subjective Progress Note for:: 09/16/17 Subjective:: Patient has metastatic melanoma and going chemo treatment. She was admitted for chronic diarrhea for over 3 weeks. She also was receiving dexamethasone by her oncologist. I spoke with Dr. Argueta regarding this case. Patient apparently was receiving opdivo which is known to cause colitis and diarrhea. So far she responded to conservative management and now has more formed stool and about 3 times daily now. She is on clear liquid diet and we will advance her diet today. She has no abdominal pain. Reason For Visit: DEHYDRATION,DIARRHEA Physical Exam Vital Signs: Temp Pulse Resp BP Pulse Ox 97.2 F 88 16 109/49 L 98 09/16/17 11:35 09/16/17 14:00 09/16/17 11:35 09/16/17 11:35 09/16/17 11:35 Intake & Output 09/15/17 09/16/17 09/17/17 06:59 06:59 06:59 Intake Total 5214 1060 Output Total 0 Balance 5214 1060 Weight 154 lb 5.177 oz 154 lb 5.177 oz Additional comments: Patient no acute distress Alert oriented to time place person No anxiety or depression Head atraumatic normocephalic Pupils are equal reactive Regular rate and rhythm Lungs clear no distress Abdomen nontender nondistended Neurological exam unremarkable Results Laboratory Results: 09/16/17 12:23 09/16/17 03:44 09/15/17 09/15/17 09/16/17 18:15 19:45 03:44 WBC 16.0 H 14.7 H 15.2 H RBC 4.05 3.63 L 3.97 Hgb 11.7 L 10.8 L 11.8 L Hct 34.5 L 30.6 L 33.4 L MCV 85 84 84 MCH 28.9 29.6 29.6 MCHC 33.9 35.1 35.2 RDW 14.4 H 14.5 H 14.7 H Plt Count 294 268 281 Seg Neutrophils % Not Reportable Not Reportable Lymphocytes % Not Reportable Not Reportable Monocytes % Not Reportable Not Reportable Eosinophils % Not Reportable Not Reportable Basophils % Not Reportable Not Reportable Absolute Neutrophils Not Reportable Not Reportable Absolute Lymphocytes Not Reportable Not Reportable Absolute Monocytes Not Reportable Not Reportable Absolute Eosinophils Not Reportable Not Reportable Absolute Basophils Not Reportable Not Reportable Sodium Potassium Chloride Carbon Dioxide Anion Gap BUN Creatinine Est GFR ( Amer) Est GFR (Non-Af Amer) Glucose Calcium Magnesium 09/16/17 09/16/17 03:44 12:23 WBC 17.0 H RBC 3.82 Hgb 11.2 L Hct 32.4 L MCV 85 MCH 29.3 MCHC 34.5 RDW 14.7 H Plt Count 273 Seg Neutrophils % Not Reportable Lymphocytes % Not Reportable Monocytes % Not Reportable Eosinophils % Not Reportable Basophils % Not Reportable Absolute Neutrophils Not Reportable Absolute Lymphocytes Not Reportable Absolute Monocytes Not Reportable Absolute Eosinophils Not Reportable Absolute Basophils Not Reportable Sodium 134.7 L Potassium 3.8 Chloride 105 Carbon Dioxide 24 Anion Gap 6 BUN 4 L Creatinine 0.45 L Est GFR ( Amer) > 60 Est GFR (Non-Af Amer) > 60 Glucose 86 Calcium 7.7 L Magnesium 1.8 Assessment & Plan - Diagnosis (1) Intractable diarrhea Is this a current diagnosis for this admission?: Yes Plan: Most likely due to chemotherapy and steroids. She is responded to conservative management. Continue to monitor today and advance her diet. Possible discharge in the morning (2) Metastatic melanoma Is this a current diagnosis for this admission?: Yes Plan: She should continue treatment with oncology after discharge (3) Dehydration Is this a current diagnosis for this admission?: Yes Plan: Responding well to IV fluid hydration (4) Anemia Is this a current diagnosis for this admission?: Yes Plan: Hemoglobin is stable continue to monitor (5) Hyponatremia Is this a current diagnosis for this admission?: Yes
[2017-09-17] MEDS: POTASSIUM CHLORIDE IV PRN ×6 (04:07→14:15)
[2017-09-17] MEDS: 1/2 NORMAL SALINE IV PRN ×6 (04:07→14:15)
[2017-09-17] MEDS: SODIUM BICARBONATE IV PRN ×6 (04:07→14:15)
[2017-09-17] MEDS: LANSOPRAZOLE 30 MG TAB.RAP.DR PO SCH (06:06)
[2017-09-17 06:20] LABS: HEMATOCRIT 30.8 % (36.0-47.0); HEMOGLOBIN 10.7 g/dL (12.0-15.5); MEAN CORPUSCULAR HEMOGLOBIN 29.4 pg (27.0-33.4); MEAN CORPUSCULAR HGB CONC 34.9 g/dL (32.0-36.0); MEAN CORPUSCULAR VOLUME 84 fl (80-97); PLATELET COUNT 304 10^3/uL (150-450); RED BLOOD COUNT 3.65 10^6/uL (3.72-5.28); RED CELL DISTRIBUTION WIDTH 14.6 % (11.5-14.0); WHITE BLOOD COUNT 15.8 10^3/uL (4.0-10.5)
[2017-09-17 06:31] LABS: ALANINE AMINOTRANSFERASE 24 U/L (9-52); ALBUMIN 1.9 g/dL (3.5-5.0); ALKALINE PHOSPHATASE 42 U/L (38-126); ANION GAP 7 (5-19); ASPARTATE AMINO TRANSFERASE 19 U/L (14-36); BILIRUBIN,DIRECT 0.1 mg/dL (0.0-0.4); BILIRUBIN,TOTAL 0.1 mg/dL (0.2-1.3); BLOOD UREA NITROGEN 4 mg/dL (7-20); CALCIUM 7.7 mg/dL (8.4-10.2); CARBON DIOXIDE 23 mmol/L (22-30); CHLORIDE 104 mmol/L (98-107); GLUCOSE 69 mg/dL (75-110); POTASSIUM 3.8 mmol/L (3.6-5.0); SODIUM 134.3 mmol/L (137-145)
[2017-09-17 06:43] LABS: ABSOLUTE LYMPHOCYTES# (MANUAL) 0.8 10^3/uL (0.5-4.7); ABSOLUTE MONOCYTES # (MANUAL) 0.3 10^3/uL (0.1-1.4); ABSOLUTE NEUTROPHILS# (MANUAL) 14.7 10^3/uL (1.7-8.2); BAND NEUTROPHILS % (MANUAL) 9 % (3-5); BASOPHILS % (MANUAL) 0 % (0-2); EOSINOPHILS % (MANUAL) 0 % (0-6); LYMPHOCYTES % (MANUAL) 5 % (13-45); MONOCYTES % (MANUAL) 2 % (3-13); PROMYELOCYTES % (MANUAL) 1 % (0); SEGMENTED NEUTROPHILS % (MAN) 83 % (42-78); TOTAL CELLS COUNTED 100
[2017-09-17 06:44] LABS: ACANTHOCYTES SLIGHT; ANISOCYTOSIS SLIGHT; BURR CELLS SLIGHT; PLATELET COMMENT ADEQUATE; POIKILOCYTOSIS 1+; SCHISTOCYTES SLIGHT
[2017-09-17] MEDS: BUSPIRONE HCL 10 MG TABLET PO SCH ×2 (10:17→21:35)
[2017-09-17] MEDS: DEXAMETHASONE 4 MG TABLET PO SCH (10:19)
[2017-09-17] MEDS: GABAPENTIN 400 MG CAPSULE PO SCH ×4 (10:19→21:35)
[2017-09-17] MEDS: LISINOPRIL 5 MG TABLET PO SCH (10:19)
[2017-09-17] MEDS: DULOXETINE HCL 30 MG CAPSULE.DR PO SCH ×2 (10:19→21:35)
--- NOTE | 2017-09-17 10:54 | CONSULTATION REPORT E ---
Consultation Report NAME: HILARY PEDERSEN : 1950 AGE: 67Y DATE: 09/16/2017 325 A TO: PEDRO RICHTER M.D. FROM: MATILDE PURDY M.D. Requesting Physician REFERRED BY: SURENDRA Schmitt REASON FOR CONSULTATION: Malignant melanoma with colitis. CONSULTATION REPORT: The patient is a 67-year-old woman who has metastatic melanoma. She had presented with altered mental status, changes, in May 2017. She underwent craniotomy with tumor resection, was started on Keppra and Decadron taper, and referred to both medical and radiation oncology. She underwent gamma knife radiation in [place] in July 2017, and was started on ipilimumab and nivolumab on 07/31/2017. She received a total of 2 cycles, and has had diarrhea for about 3 weeks. She was hydrated as an outpatient. However, she continued to have electrolyte imbalance and was hyponatremic. Referred to the hospital for hospitalization. She is currently doing a lot better. She has been on IV hydration. Steroids were restarted and she has had 4 bowel movements yesterday, but in the last 24 hours she has only had 3 bowel movements. She was sitting at the bedside. She is alert, awake, answering all questions appropriately. PAST MEDICAL HISTORY: 1. History of malignant melanoma. 2. History of breast cancer. She was diagnosed in 2010, underwent bilateral mastectomy followed by chemotherapy. She had stage 2 breast cancer. At the time of her breast reconstruction, she was found to have melanoma in her shoulder, Anthony level 2. She underwent a wide local excision. Was doing well until the recent recurrence. 3. History of degenerative joint disease. 4. Diverticulosis. 5. Prior history of gastrointestinal bleeding. 6. Emphysema. PHYSICAL EXAMINATION: GENERAL: She is an elderly woman. She is not acutely ill looking. She is alert and answers all questions appropriately. EXTREMITIES: Lower extremities with no edema. ABDOMEN: Soft. LABORATORY: From 09/14/2017: White count 18, hemoglobin 12.7, platelet count 286. Her electrolytes from 09/16/2017: Sodium 134.7, magnesium 1.8, potassium 3.8. IMPRESSION/PLAN: THE PATIENT IS A 67-YEAR-OLD WITH MALIGNANT MELANOMA ON IMMUNOTHERAPY, WITH IPILIMUMAB AND NIVOLUMAB. SHE UNFORTUNATELY HAS DIARRHEA AND COLITIS THAT IS ASSOCIATED WITH TREATMENT WITH THESE IMMUNOTHERAPY DRUGS. SHE HAS SYMPTOMS WITH 4-6 PER DAY OVER HER BASELINE. SHE WAS STARTED ON ORAL STEROIDS AN OUTPATIENT--CONTINUES. THE DIARRHEA TENDS TO BE BETTER. SHE HAS BEEN HYDRATED AND HER ELECTROLYTES HAVE BEEN REPLACED. I HAD A LONG DISCUSSION WITH HER, EXPLAINING TO HER THAT IF THE DIARRHEA PERSISTS, THEN THE TREATMENT OF CHOICE WILL BE (INFLIXIMAB) 0.5 MG/KG GIVEN A SINGLE DOSE. THIS IS RECOMMENDED FOR PATIENTS WHO DO NOT RESPOND TO HYDRATION, LOMOTIL, AND STEROIDS. SHE APPEARS TO BE DOING A LOT BETTER CLINICALLY, SO THIS CAN BE OMITTED FOR NOW. I EXPLAINED THAT FOLLOWING DISCHARGE, I WILL CONSIDER RESTARTING CHEMOTHERAPY, POSSIBLY OMITTING THE IPILIMUMAB AND USING NIVOLUMAB A SINGLE AGENT. SHE TO CONTINUE TREATMENTS BECAUSE OF HER MALIGNANT MELANOMA. IN THE INTERIM, I HAVE ASKED HER TO CONCENTRATE ON GETTING BETTER AND GETTING THE COLITIS AND THE SYMPTOMS RESOLVED. I HAVE ENCOURAGED HER TO TRY TO GET OUT OF BED. SHE WAS SEEN BY PHYSICAL THERAPY TODAY AND PLANS ON DOING ALL OF THE EXERCISES PRESCRIBED. IF SHE GETS DISCHARGED, I WILL BE GLAD TO SEE HER AN OUTPATIENT ON WEDNESDAY. Thank you for during this hospitalization and for allowing me to be part of her care. DICTATING PHYSICIAN: PEDRO RICHTER M.D. [id number] PHY#: [id number] ID: [id number] JOB#: [id number] ACCT: [id number] cc:PEDRO RICHTER M.D. >
--- NOTE | 2017-09-17 15:14 | PDOC PROGRESS REPORT ---
Subjective Progress Note for:: 09/17/17 Subjective:: Patient has metastatic melanoma and on chemo treatment. She was admitted for chronic diarrhea for over 3 weeks. She also was receiving dexamethasone by her oncologist. I spoke with Dr. Argueta regarding this case. Patient apparently was receiving opdivo which is known to cause colitis and diarrhea. she was doing better yesterday but since last night she has had much more severe diarrhea. Reason For Visit: DEHYDRATION,DIARRHEA Physical Exam Vital Signs: Temp Pulse Resp BP Pulse Ox 97.7 F 89 16 105/52 L 98 09/17/17 11:23 09/17/17 11:23 09/17/17 11:23 09/17/17 11:23 09/17/17 11:23 Intake & Output 09/16/17 09/17/17 09/18/17 06:59 06:59 06:59 Intake Total 5214 5150 1415 Output Total 0 Balance 5214 5150 1415 Weight 154 lb 5.177 oz 157 lb 6.561 oz General appearance: PRESENT: no acute distress, cooperative Head exam: ABSENT: atraumatic Eye exam: ABSENT: conjunctival injection Ear exam: ABSENT: bleeding, drainage Throat exam: ABSENT: post pharyngeal erythema Neck exam: ABSENT: JVD, tenderness, thyromegaly Respiratory exam: PRESENT: clear to auscultation dex. ABSENT: rales, rhonchi Cardiovascular exam: PRESENT: RRR GI/Abdominal exam: PRESENT: normal bowel sounds, soft. ABSENT: distended, guarding, mass, organolmegaly, rebound, tenderness Musculoskeletal exam: PRESENT: normal inspection. ABSENT: tenderness Neurological exam: PRESENT: alert, awake, oriented to person, oriented to place , oriented to time, oriented to situation, CN II-XII grossly intact. ABSENT: motor sensory deficit Results Laboratory Results: 09/17/17 05:25 09/17/17 05:25 09/17/17 09/17/17 05:25 05:25 WBC 15.8 H RBC 3.65 L Hgb 10.7 L Hct 30.8 L MCV 84 MCH 29.4 MCHC 34.9 RDW 14.6 H Plt Count 304 Seg Neutrophils % Not Reportable Lymphocytes % Not Reportable Monocytes % Not Reportable Eosinophils % Not Reportable Basophils % Not Reportable Absolute Neutrophils Not Reportable Absolute Lymphocytes Not Reportable Absolute Monocytes Not Reportable Absolute Eosinophils Not Reportable Absolute Basophils Not Reportable Sodium 134.3 L Potassium 3.8 Chloride 104 Carbon Dioxide 23 Anion Gap 7 BUN 4 L Creatinine 0.38 L Est GFR ( Amer) > 60 Est GFR (Non-Af Amer) > 60 Glucose 69 L Calcium 7.7 L Total Bilirubin 0.1 L AST 19 ALT 24 Alkaline Phosphatase 42 Total Protein 4.0 L Albumin 1.9 L Assessment & Plan - Diagnosis (1) Intractable diarrhea Is this a current diagnosis for this admission?: Yes Plan: Most likely due to chemotherapy. She responded initially to conservative management but now she is worsening. Continue dexamethasone treatment. (2) Metastatic melanoma Is this a current diagnosis for this admission?: Yes Plan: She should continue treatment with oncology after discharge (3) Dehydration Is this a current diagnosis for this admission?: Yes Plan: Continue IV fluid hydration (4) Anemia Is this a current diagnosis for this admission?: Yes Plan: Hemoglobin is stable continue to monitor (5) Hyponatremia Is this a current diagnosis for this admission?: Yes
[2017-09-18 05:23] LABS: HEMATOCRIT 32.6 % (36.0-47.0); HEMOGLOBIN 11.2 g/dL (12.0-15.5); MEAN CORPUSCULAR HEMOGLOBIN 29.1 pg (27.0-33.4); MEAN CORPUSCULAR HGB CONC 34.4 g/dL (32.0-36.0); MEAN CORPUSCULAR VOLUME 85 fl (80-97); PLATELET COUNT 340 10^3/uL (150-450); RED BLOOD COUNT 3.86 10^6/uL (3.72-5.28); RED CELL DISTRIBUTION WIDTH 14.8 % (11.5-14.0); WHITE BLOOD COUNT 18.9 10^3/uL (4.0-10.5)
[2017-09-18 05:41] LABS: ALANINE AMINOTRANSFERASE 28 U/L (9-52); ALKALINE PHOSPHATASE 47 U/L (38-126); ANION GAP 6 (5-19); ASPARTATE AMINO TRANSFERASE 20 U/L (14-36); BILIRUBIN,DIRECT 0.1 mg/dL (0.0-0.4); BILIRUBIN,TOTAL 0.1 mg/dL (0.2-1.3); BLOOD UREA NITROGEN 4 mg/dL (7-20); CALCIUM 7.8 mg/dL (8.4-10.2); CARBON DIOXIDE 25 mmol/L (22-30); CHLORIDE 104 mmol/L (98-107); GLUCOSE 72 mg/dL (75-110); POTASSIUM 3.8 mmol/L (3.6-5.0); SODIUM 135.4 mmol/L (137-145); TOTAL PROTEIN 4.1 g/dL (6.3-8.2)
[2017-09-18] MEDS: LANSOPRAZOLE 30 MG TAB.RAP.DR PO SCH (05:58)
[2017-09-18 07:32] LABS: ABSOLUTE LYMPHOCYTES# (MANUAL) 1.3 10^3/uL (0.5-4.7); ABSOLUTE MONOCYTES # (MANUAL) 1.1 10^3/uL (0.1-1.4); ABSOLUTE NEUTROPHILS# (MANUAL) 16.4 10^3/uL (1.7-8.2); BASOPHILS % (MANUAL) 0 % (0-2); EOSINOPHILS % (MANUAL) 0 % (0-6); LYMPHOCYTES % (MANUAL) 5 % (13-45); MONOCYTES % (MANUAL) 6 % (3-13); SEGMENTED NEUTROPHILS % (MAN) 87 % (42-78); TOTAL CELLS COUNTED 100
[2017-09-18 07:34] LABS: ANISOCYTOSIS SLIGHT; OVALOCYTES SLIGHT; PLATELET COMMENT ADEQUATE; POIKILOCYTOSIS SLIGHT; POLYCHROMASIA SLIGHT
[2017-09-18 09:40] VITALS: BP 126/60
[2017-09-18] MEDS: BUSPIRONE HCL 10 MG TABLET PO SCH (09:47)
[2017-09-18] MEDS: DULOXETINE HCL 30 MG CAPSULE.DR PO SCH (09:48)
[2017-09-18] MEDS: GABAPENTIN 400 MG CAPSULE PO SCH (09:48)
[2017-09-18] MEDS: DEXAMETHASONE 4 MG TABLET PO SCH (09:48)
[2017-09-18] MEDS: LISINOPRIL 5 MG TABLET PO SCH (09:49)
--- NOTE | 2017-09-18 14:24 | PDOC DISCHARGE SUMMARY ---
General - Admit/Disc Date/PCP Admission Date/Primary Care Provider: 09/14/17 20:06 PEDRO RICHTER MD Discharge Date: 09/18/17 - Discharge Diagnosis (1) Intractable diarrhea Is this a current diagnosis for this admission?: Yes (2) Metastatic melanoma Is this a current diagnosis for this admission?: Yes (3) Dehydration Is this a current diagnosis for this admission?: Yes (4) Anemia Is this a current diagnosis for this admission?: Yes (5) Hyponatremia Is this a current diagnosis for this admission?: Yes - Additional Information Resuscitation Status: Full Code Discharge Diet: As Tolerated Discharge Activity: Activity As Tolerated Home Medications: Buspirone HCl [Buspar 15 mg Tablet] 15 mg PO Q12 09/14/17 Dexamethasone 2 mg PO DAILY 09/14/17 Duloxetine HCl [Cymbalta] 30 mg PO Q12 09/14/17 Eszopiclone [Lunesta] 2 mg PO HSP PRN 09/14/17 Gabapentin [Neurontin] 800 mg PO 0800,1100,1700,2200 09/14/17 Lisinopril [Prinivil 5 mg Tablet] 5 mg PO DAILY 09/14/17 Lorazepam [Ativan 1 mg Tablet] 1 mg PO Q6HP PRN 09/14/17 Omeprazole 40 mg PO DAILY 09/14/17 History of Present Illness History of Present Illness: HILARY PEDERSEN is a 67 year old female Who has history of metastatic melanoma undergoing chemotherapy. Her last chemotherapy was 7 weeks prior to admission. Patient received Opdivo treatment. She was complaining of persistent diarrhea for at least 3 weeks prior to admission. She was admitted and was treated conservatively with IV fluids and steroids. Infectious etiology has been ruled out. Patient was also being followed up in the hospital by oncology. At one point we were about to start Remicade treatment but she improved and had a good solid bowel movements and she is tolerating diet and stable for discharge. Physical Exam Vital Signs: Temp Pulse Resp BP Pulse Ox 97.7 F 88 12 126/60 H 94 09/18/17 11:47 09/18/17 11:47 09/18/17 11:47 09/18/17 11:47 09/18/17 11:47 Intake & Output 09/17/17 09/18/17 09/19/17 06:59 06:59 06:59 Intake Total 5150 1651 340 Balance 5150 1651 340 Weight 157 lb 6.561 oz 158 lb 11.725 oz General appearance: PRESENT: cooperative. ABSENT: no acute distress Eye exam: ABSENT: conjunctival injection, periorbital swelling Ear exam: ABSENT: bleeding, drainage Throat exam: ABSENT: post pharyngeal erythema Neck exam: ABSENT: JVD, tenderness, thyromegaly Respiratory exam: PRESENT: clear to auscultation dex. ABSENT: rales, rhonchi, wheezes Cardiovascular exam: PRESENT: RRR. ABSENT: diastolic murmur, rubs, systolic murmur Vascular exam: PRESENT: normal capillary refill GI/Abdominal exam: PRESENT: normal bowel sounds, soft. ABSENT: distended, guarding, mass, organolmegaly, rebound, tenderness Neurological exam: PRESENT: alert, awake, oriented to person, oriented to place , oriented to time, oriented to situation, CN II-XII grossly intact. ABSENT: motor sensory deficit Results Laboratory Results: 09/18/17 04:33 09/18/17 04:33 09/18/17 09/18/17 04:33 04:33 WBC 18.9 H RBC 3.86 Hgb 11.2 L Hct 32.6 L MCV 85 MCH 29.1 MCHC 34.4 RDW 14.8 H Plt Count 340 Seg Neutrophils % Not Reportable Lymphocytes % Not Reportable Monocytes % Not Reportable Eosinophils % Not Reportable Basophils % Not Reportable Absolute Neutrophils Not Reportable Absolute Lymphocytes Not Reportable Absolute Monocytes Not Reportable Absolute Eosinophils Not Reportable Absolute Basophils Not Reportable Sodium 135.4 L Potassium 3.8 Chloride 104 Carbon Dioxide 25 Anion Gap 6 BUN 4 L Creatinine 0.35 L Est GFR ( Amer) > 60 Est GFR (Non-Af Amer) > 60 Glucose 72 L Calcium 7.8 L Total Bilirubin 0.1 L AST 20 ALT 28 Alkaline Phosphatase 47 Total Protein 4.1 L Albumin 2.0 L Qualifiers - * PATIENT BEING DISCHARGED WITH ANY OF THE FOLLOWING DIAGNOSIS: No
== END 2017-09-18 13:43 | disposition home or self-care (01) | DRG 394 ==
LOC: ER 15:15 → EH 20:06 → 3W 22:13
PROVIDERS: ADMIT Internal Medicine; ATTEND Internal Medicine
DX: K52.1 Toxic gastroenteritis and colitis (principal); C79.31 Secondary malignant neoplasm of brain; E87.1 Hypo-osmolality and hyponatremia; E87.2 Acidosis; C43.60 Malignant melanoma of unspecified upper limb, including shoulder; E86.0 Dehydration; T45.1X5A Adverse effect of antineoplastic and immunosuppressive drugs, initial encounter; I95.89 Other hypotension; F17.200 Nicotine dependence, unspecified, uncomplicated; R19.5 Other fecal abnormalities; J43.9 Emphysema, unspecified; D64.9 Anemia, unspecified; Z79.899 Other long term (current) drug therapy; Z85.3 Personal history of malignant neoplasm of breast; Z90.13 Acquired absence of bilateral breasts and nipples; Z98.890 Other specified postprocedural states
CPT/HCPCS: 36415; 51701; 80048; 80053; 81001; 82272; 82550; 82553; 82803; 83605; 83690; 83735; 84443; 84484; 85025; 85027; 85610; 87040; 87045; 87086; 87177; 87205; 87493; 89055; 93005; 93010; 99285; G8978-GP; G8979-GP; J3480; J3490; J7030; J7060

== ENCOUNTER 2017-09-21 06:02 | Emergency (ER) | payer MEDICARE ==
--- NOTE | 2017-09-21 07:27 | ER Document Report ---
ED General - General Chief Complaint: Bloody Stools Stated Complaint: BLOODY STOOL Time Seen by Provider: 09/21/17 06:42 Mode of Arrival: Ambulatory Information source: Patient TRAVEL OUTSIDE OF THE [place] 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 States blood is red in color, denies any coffee-ground emesis or black tarry stools. Patient has undergone 2 rounds of chemotherapy patient states that she has had diarrhea intermittently over the last month or so, was recently admitted on September 14 for dehydration and diarrhea, patient states she was recently seen in Dr. Ajith Neal's office last week where she tested negative for C. difficile. She is under the care of Dr. Salguero, oncologist. Patient states that the bloody stools new for her. Denies fevers, chills, chest pain,palpitations, shortness of breath, dyspnea, nausea, vomiting, abdominal pain, hematuria,blurred vision, double vision, loss of vision, speech changes, LH, dizziness, syncope, headaches, wheezing, ST, URI, neck pain, weakness, bowel or bladder dysfunction, saddle anesthesia, numbness or tingling in bilateral upper or lower extremities equally, muscle paralysis, weakness in bilateral upper or lower extremities equally or rash. Denies IV drug use. - Related Data Allergies/Adverse Reactions: No Known Allergies Allergy (Verified 09/21/17 07:52) Past Medical History - General Information source: Patient, Relative - Social History Smoking Status: Unknown if Ever Smoked Family History: Reviewed & Not Pertinent - Past Medical History Cardiac Medical History: Reports: Hx Heart Murmur Endocrine Medical History: Denies: Hx Hypothyroidism Renal/ Medical History: Denies: Hx Peritoneal Dialysis Malignancy Medical History: Reports: Hx Brain Cancer, Hx Breast Cancer, Hx Skin Cancer Past Surgical History: Reports: Hx Mastectomy - Immunizations Hx Pneumococcal Vaccination: 11/15/16 Review of Systems - Review of Systems Constitutional: No symptoms reported, See HPI EENT: No symptoms reported Cardiovascular: No symptoms reported Respiratory: No symptoms reported Gastrointestinal: See HPI Genitourinary: No symptoms reported Female Genitourinary: No symptoms reported Musculoskeletal: No symptoms reported Skin: No symptoms reported Hematologic/Lymphatic: See HPI Neurological/Psychological: No symptoms reported Physical Exam - Vital signs Vitals: Temp Pulse Resp BP Pulse Ox 98.0 F 99 18 94/72 L 95 09/21/17 06:08 09/21/17 06:08 09/21/17 06:08 09/21/17 06:08 09/21/17 06:08 - Notes Notes: PHYSICAL EXAMINATION: GENERAL: Well-appearing, well-nourished and in no acute distress. HEAD: Atraumatic, normocephalic. EYES: Pupils equal round and reactive to light, extraocular movements intact, conjunctiva are normal. ENT: Nares patent, oropharynx clear without exudates. Moist mucous membranes. NECK: Normal range of motion, supple without lymphadenopathy LUNGS: Breath sounds clear to auscultation bilaterally and equal. No wheezes rales or rhonchi. HEART: Regular rate and rhythm without murmurs ABDOMEN: Soft, nontender, nondistended abdomen. No guarding, no rebound. No masses appreciated. Female : deferred rectal: Normal sphincter tone, no hemorrhoids or masses palpable Musculoskeletal: Normal range of motion, no pitting or edema. No cyanosis. NEUROLOGICAL: Cranial nerves grossly intact. Normal speech, normal gait. Normal sensory, motor exams PSYCH: Normal mood, normal affect. SKIN: Warm, Dry, normal turgor, no rashes or lesions noted. Course - Re-evaluation Re-evalutation: 09/21/17 10:33 67-year-old female with a medical history of metastatic melanoma presents for evaluation of bloody stools that started last night. Patient has been battling colitis due to her immunoglobulin therapy for the last 2 weeks. Patient reports that bloody stools no for her. CBC shows a leukocytosis of 24.2. H&H normal, CMP unremarkable, no hyponatremia, hypokalemia, no hepatic or renal deficiency. Urinalysis does show a slight leukocytosis however for culture, unsure if this is not contaminated specimen. Cardiac enzymes negative, patient was not complaining of any chest pain or shortness of breath, guaiac was negative. Consulted with Dr. Arnol Swartz, ER attending, advised to consult Dr. Salguero regarding pertinent lab results. Attempted to consult dr. salguero at 10am, was unable to reach Dr. Salguero. called office again at 1030- spoke with Dr. Alina Salguero. She stated that patient's leukocytosis is due to taking oral steroids to help treat her colitis that can be a caused by immunotherapy. Dr. Salguero stated that she is tapering her down from steriods, however, the next step of treatment will be taking Remicade for her colitis which they do use and ulcerative colitis. No bloody stool while patient is in the emergency room. Patient has remained afebrile, vitals stable and in no distress. C. difficile negative while at Dr. Neal's office, patient did see Dr. Salguero last week, they ruled out any infectious source. patient does have an appointment today, Dr. Salguero stated for patient to come to her office now for medication. I have reevaluated this patient multiple times and no significant life threatening changes, no signs of toxicity, sepsis or peritonitis are noted. The patient and I have discussed the diagnosis and risks , and we agree with discharging home and close follow-up. We also discussed returning to the Emergency Department immediately if new or worsening symptoms occur with the understanding that symptoms and presentations can change. At this time will discharge with return precautions and follow-up recommendations. Verbal discharge instructions given a the bedside and opportunity for questions given. We have discussed the symptoms which are most concerning (e.g. , saddle anesthesia, black tarry stool, urinary or bowel incontinence or retention, changing or worsening pain) that necessitate immediate return. Medication warnings reviewed. All questions and concerns answered by this provider. Patient is in agreement with this plan and has verbalized understanding of return precautions and the need for primary care follow-up in the next 24-72 hours. Patient verbalized understanding of plan of care and agree with plan of care. - Vital Signs Vital signs: Temp Pulse Resp BP Pulse Ox 98.1 F 99 20 117/68 98 09/21/17 11:01 09/21/17 06:08 09/21/17 11:01 09/21/17 11:00 09/21/17 11:01 - Laboratory Result Diagrams: 09/21/17 07:30 09/21/17 07:30 Laboratory results interpreted by me: 09/21/17 09/21/17 09/21/17 07:30 07:30 07:30 WBC 24.2 H RDW 14.6 H Seg Neuts % (Manual) 79 H Band Neutrophils % 2 L Lymphocytes % (Manual) 9 L Abs Neuts (Manual) 19.6 H Abs Monocytes (Manual) 2.2 H Creatinine 0.45 L Glucose 63 L Creatine Kinase < 20 L Total Protein 5.4 L Albumin 2.6 L Urine Protein Ur Leukocyte Esterase 09/21/17 08:00 WBC RDW Seg Neuts % (Manual) Band Neutrophils % Lymphocytes % (Manual) Abs Neuts (Manual) Abs Monocytes (Manual) Creatinine Glucose Creatine Kinase Total Protein Albumin Urine Protein 30 H Ur Leukocyte Esterase SMALL H - EKG Interpretation by Oh EKG shows normal: Sinus rhythm Rate: Normal Rhythm: NSR - no stemi Discharge - Discharge Clinical Impression: Leukocytosis secondary to steroids, Colitis, Metastatic melanoma, Diarrhea Condition: Stable Disposition: HOME, SELF-CARE Instructions: Colitis, Nonspecific ([facility]), Diarrhea, Nonspecific ([facility]) Additional Instructions: Go to Dr. Salguero's office right after leaving the emergency room. She is expecting you to arrive. Return immediately for any new or worsening symptoms. Follow up with primary care provider, call tomorrow to make followup appointment. Referrals: ALINA SALGUERO MD [Primary Care Provider] - 09/21/17 (go right to her office per Dr. Salguero. )
[2017-09-21] MEDS ORDERED: NORMAL SALINE 1000 ML 1,000 ML IV ONE (07:30)
[2017-09-21 07:55] LABS: HEMATOCRIT 38.1 % (36.0-47.0); HEMOGLOBIN 12.8 g/dL (12.0-15.5); MEAN CORPUSCULAR HEMOGLOBIN 29.2 pg (27.0-33.4); MEAN CORPUSCULAR HGB CONC 33.7 g/dL (32.0-36.0); MEAN CORPUSCULAR VOLUME 87 fl (80-97); PLATELET COUNT 402 10^3/uL (150-450); RED CELL DISTRIBUTION WIDTH 14.6 % (11.5-14.0); WHITE BLOOD COUNT 24.2 10^3/uL (4.0-10.5)
[2017-09-21 07:56] LABS: INTERNATIONAL RATION (INR) 0.97; PROTHROMBIN TIME 13.3 SEC (11.4-15.4)
[2017-09-21 07:57] LABS: PARTIAL THROMBOPLASTIN TIME 25.1 SEC (23.5-35.8)
[2017-09-21 08:05] LABS: ALANINE AMINOTRANSFERASE 33 U/L (9-52); ALBUMIN 2.6 g/dL (3.5-5.0); ALKALINE PHOSPHATASE 52 U/L (38-126); ANION GAP 8 (5-19); ASPARTATE AMINO TRANSFERASE 27 U/L (14-36); BILIRUBIN,DIRECT 0.3 mg/dL (0.0-0.4); BILIRUBIN,TOTAL 0.4 mg/dL (0.2-1.3); BLOOD UREA NITROGEN 11 mg/dL (7-20); CALCIUM 8.6 mg/dL (8.4-10.2); CARBON DIOXIDE 27 mmol/L (22-30); CHLORIDE 104 mmol/L (98-107); GLUCOSE 63 mg/dL (75-110); POTASSIUM 3.6 mmol/L (3.6-5.0); SODIUM 139.3 mmol/L (137-145); TOTAL PROTEIN 5.4 g/dL (6.3-8.2)
[2017-09-21 08:15] LABS: ABSOLUTE LYMPHOCYTES# (MANUAL) 2.4 10^3/uL (0.5-4.7); ABSOLUTE MONOCYTES # (MANUAL) 2.2 10^3/uL (0.1-1.4); ABSOLUTE NEUTROPHILS# (MANUAL) 19.6 10^3/uL (1.7-8.2); BAND NEUTROPHILS % (MANUAL) 2 % (3-5); BASOPHILS % (MANUAL) 0 % (0-2); EOSINOPHILS % (MANUAL) 0 % (0-6); LYMPHOCYTES % (MANUAL) 9 % (13-45); MONOCYTES % (MANUAL) 9 % (3-13); SEGMENTED NEUTROPHILS % (MAN) 79 % (42-78); TOTAL CELLS COUNTED 100
[2017-09-21 08:16] LABS: ANISOCYTOSIS SLIGHT; OVALOCYTES 1+; PLATELET COMMENT ADEQUATE; POIKILOCYTOSIS 1+; SCHISTOCYTES SLIGHT; TOXIC GRANULATION 2+; TOXIC VACUOLATION PRESENT
[2017-09-21 08:28] LABS: CREATINE KINASE MB 0.46 ng/mL (<4.55)
[2017-09-21 08:30] LABS: TROPONIN I < 0.012 ng/mL
[2017-09-21 08:32] LABS: APPEARANCE,URINE CLOUDY; BILIRUBIN,URINE NEGATIVE (NEGATIVE); GLUCOSE, URINE NEGATIVE (NEGATIVE); KETONES,URINE NEGATIVE (NEGATIVE); LEUKOCYTE ESTERASE,URINE SMALL (NEGATIVE); NITRITE,URINE NEGATIVE (NEGATIVE); PROTEIN,URINE 30 mg/dL (NEGATIVE); URINE SPECIFIC GRAVITY 1.018; UROBILINOGEN,URINE NEGATIVE mg/dL (<2.0)
[2017-09-21 08:33] LABS: COLOR,URINE YELLOW
--- NOTE | 2017-09-21 08:59 | RADIOLOGY REPORT (SQ) ---
EXAM DESCRIPTION: CHEST SINGLE VIEW COMPLETED DATE/TIME: 09/21/2017 8:29 am REASON FOR STUDY: hypotension COMPARISON: None. EXAM PARAMETERS: NUMBER OF VIEWS: One view. TECHNIQUE: Single frontal radiographic view of the chest acquired. RADIATION DOSE: NA LIMITATIONS: None. FINDINGS: LUNGS AND PLEURA: Hyperinflation. No infiltrates or effusions. MEDIASTINUM AND HILAR STRUCTURES: No masses. Contour normal. HEART AND VASCULAR STRUCTURES: Heart normal in size. Normal vasculature. BONES: No acute findings. HARDWARE: None in the chest. OTHER: No other significant finding. IMPRESSION: NO ACUTE RADIOGRAPHIC FINDING IN THE CHEST. COPD. TECHNICAL DOCUMENTATION: JOB ID: [id number] [employer]- All Rights Reserved Reading location - IP/workstation name: [email or web address]
[2017-09-21 11:18] VITALS: BP 117/68
--- NOTE | 2017-09-21 13:45 | EKG REPORT ---
SEVERITY:- ABNORMAL ECG - SINUS RHYTHM LVH WITH SECONDARY REPOLARIZATION ABNORMALITY : Confirmed by: Irene Hathaway MD 21-Sep-2017 13:44:07
== END 2017-09-21 11:18 | disposition home or self-care (01) ==
LOC: ER 06:02
DX: D72.829 Elevated white blood cell count, unspecified (principal); R19.7 Diarrhea, unspecified; C79.81 Secondary malignant neoplasm of breast; C78.00 Secondary malignant neoplasm of unspecified lung; C79.31 Secondary malignant neoplasm of brain; R19.5 Other fecal abnormalities; Z79.52 Long term (current) use of systemic steroids
CPT/HCPCS: 93005; 99285; 96360; 36415; 87045; 87086; 87205; 82553; 82550; 85025; 85610; 85730; 82272; 80053; 81001; 84484; 87493; 71045; 93010; J7030

== ENCOUNTER → 2017-09-26 | Outpatient (CLI) | payer MEDICARE ==
--- NOTE | 2017-09-27 10:17 | RADIOLOGY REPORT (SQ) ---
EXAM DESCRIPTION: PET CT WHOLE BODY COMPLETED DATE/TIME: 09/26/2017 7:38 pm REASON FOR STUDY: SECONDARY MALIGNANT NEOPLASM BRAIN,MELANONA C79.31 SECONDARY MALIGNANT NEOPLASM O F BRAIN C43.8 MALIGNANT MELANOMA OF OVERLAPPING SITES OF SKIN COMPARISON: 06/13/2017 RADIONUCLIDE AND DOSE: 10.6 mCi F18 FDG The route of agent administration: Intravenous FASTING BLOOD SUGAR: 98 mg/dl CONTRAST TYPE AND DOSE: No CT contrast given. TECHNIQUE: Blood glucose level was verified. Above dose of FDG was injected intravenously. 2-D seg mented attenuation correction images were obtained through the entire body. Noncontrast CT images we re obtained for attenuation correction and fusion with emission images. CT images were performed wit hout oral or intravenous contrast and are not sensitive for parenchymal lesions. A series of overlap ping emission PET images were obtained. Images reviewed and manipulated at independent work station by the radiologist. Images stored on PACS. LIMITATIONS: None. FINDINGS: HEAD AND NECK: Prior frontal craniotomy. Unchanged right parieto-occipital lowe-white mat ter junction lesion measuring about 1.5 cm. CHEST: Hypermetabolic left upper lobe nodule 3.9 to 4.4 SUV. Morphologically 8 mm not significantly changed. ABDOMEN AND PELVIS: New hypermetabolic 1 cm right aortocaval node 3.9 to 4.2 SUV. The previously rukhsana cribed smaller aortocaval node is unchanged morphologically but no longer hypermetabolic. LOWER EXTREMITIES: No areas of abnormal metabolic activity in the soft tissues of the lower extremiti es. BONES: No abnormal metabolic activity in the visualized skeleton. ADDITIONAL CT FINDINGS: No significant change since prior. OTHER: No other significant findings. IMPRESSION: Hypermetabolic left upper lobe nodule not significantly changed. 1 cm right aortocaval node. See above . TECHNICAL DOCUMENTATION: JOB ID: [id number] [employer]- All Rights Reserved Reading location - IP/workstation name: [email or web address]
== END ==
LOC: RAD 16:49
PROVIDERS: ATTEND Internal Medicine Medical Oncology
DX: C79.31 Secondary malignant neoplasm of brain (principal); C43.8 Malignant melanoma of overlapping sites of skin
CPT/HCPCS: 78816; A9552

== ENCOUNTER 2017-10-19 07:49 | Inpatient (IN) | payer MEDICARE ==
--- NOTE | 2017-10-19 08:35 | ER Document Report ---
ED General - General Information source: Patient TRAVEL OUTSIDE OF THE [place] IN LAST 30 DAYS: No <CAROLE LAINEZ - Last Filed: 10/19/17 13:44> <ADRIANE DAVIS - Last Filed: 10/19/17 16:52> - General Chief Complaint: Diarrhea Stated Complaint: DIARRHEA Time Seen by Provider: 10/19/17 08:26 Notes: 67-year-old female who presents to the emergency department today with complaints of diarrhea. Patient has had ongoing diarrhea for months now. At the end of August she was negative for C. difficile, white blood cells in her stool, and had negative cultures done. Patient has metastatic melanoma with known lesions to her kidneys and brain. (CAROLE LAINEZ) - Related Data Allergies/Adverse Reactions: No Known Allergies Allergy (Verified 09/21/17 07:52) Past Medical History - General Information source: Patient - Social History Smoking Status: Unknown if Ever Smoked Cigarette use (# per day): No Frequency of alcohol use: None Drug Abuse: None Lives with: Family Family History: Reviewed & Not Pertinent Patient has suicidal ideation: No Patient has homicidal ideation: No - Past Medical History Cardiac Medical History: Reports: Hx Heart Murmur Endocrine Medical History: Denies: Hx Hypothyroidism Malignancy Medical History: Reports: Hx Brain Cancer, Hx Breast Cancer, Hx Skin Cancer Past Surgical History: Reports: Hx Abdominal Surgery - hernia repair, Hx Section - x2, Hx Mastectomy - Immunizations Hx Pneumococcal Vaccination: 11/15/16 <CAROLE LAINEZ - Last Filed: 10/19/17 13:44> Review of Systems - Review of Systems Constitutional: No symptoms reported EENT: No symptoms reported Cardiovascular: No symptoms reported Respiratory: No symptoms reported Gastrointestinal: See HPI, Diarrhea Genitourinary: No symptoms reported Female Genitourinary: No symptoms reported Musculoskeletal: No symptoms reported Skin: No symptoms reported Hematologic/Lymphatic: No symptoms reported Neurological/Psychological: No symptoms reported -: Yes All other systems reviewed and negative <CAROLE LAINEZ - Last Filed: 10/19/17 13:44> Physical Exam <CAROLE LAINEZ - Last Filed: 10/19/17 13:44> <ADRIANE DAVIS - Last Filed: 10/19/17 16:52> - Vital signs Vitals: Temp Pulse Resp BP Pulse Ox 97.5 F 121 H 16 89/49 L 97 10/19/17 07:58 10/19/17 07:58 10/19/17 07:58 10/19/17 07:58 10/19/17 07:58 - Notes Notes: Physical Exam: General: Alert, appears dry. HEENT: Normocephalic. Atraumatic. PERRL. Extraocular movements intact. Oropharynx clear. Neck: Supple. Non-tender. Respiratory: No respiratory distress. Clear and equal breath sounds bilaterally. Cardiovascular: Tachycardic, regular rhythm. Abdominal: Normal Inspection. Non-tender. No distension. Normal Bowel Sounds. Back: Non-tender. No deformity or step off. Extremities: Moves all four extremities. Upper extremities: Normal inspection. Normal ROM. Lower extremities: Normal inspection. No edema. Normal ROM. Neurological: Normal cognition. AAOx4. Normal speech. Psychological: Normal affect. Normal Mood. Skin: Warm. Dry. Normal color. (CAROLE LAINEZ) Course - Laboratory Result Diagrams: 10/19/17 08:11 10/19/17 08:11 <CAROLE LAINEZ - Last Filed: 10/19/17 13:44> - Laboratory Result Diagrams: 10/19/17 08:11 10/19/17 08:11 - Consults Dr. Dunn Time consulted: 16:47 Consulted provider: will come to ER <ADRIANE DAVIS - Last Filed: 10/19/17 16:52> - Re-evaluation Re-evalutation: 10/19/17 14:19 About an hour ago, the patient went to the restroom where she had a diarrheal stool. She states it is the first 1 she is had today. When she was getting up and walking toward the sink she felt a little lightheaded and had to let herself down to the floor. She did bump her head but states she really was not injured. At this time she is feeling better, her blood pressure is 102 systolic with heart rate is 69. The patient would very much like to not have to stay in the hospital if we can get her adequately hydrated to go home. She is quite dehydrated, as her hemoglobin has gone from 11.2 to 14.7 in 1 month. 10/19/17 16:49 The patient was walked in the hallway, she did not tolerate walking due to orthostatic symptoms. At this point, I would consider her very high risk for falls and fractures, so she will be admitted to the hospital. (ADRIANE DAVIS) - Vital Signs Vital signs: Temp Pulse Resp BP Pulse Ox 97.5 F 121 H 21 H 107/65 98 10/19/17 07:58 10/19/17 07:58 10/19/17 16:40 10/19/17 16:40 10/19/17 16:40 - Laboratory Laboratory results interpreted by me: 10/19/17 10/19/17 08:11 08:11 WBC 19.4 H RDW 15.4 H Absolute Neutrophils 12.4 H Absolute Lymphocytes 4.9 H Absolute Monocytes 1.9 H Sodium 131.9 L Potassium 3.5 L Chloride 97 L Est GFR (Non-Af Amer) 55 L Glucose 111 H Total Protein 6.2 L Albumin 3.0 L Discharge <CAROLE LAINEZ - Last Filed: 10/19/17 13:44> - Discharge Admitting Provider: Hospitalist <ADRIANE DAVIS - Last Filed: 10/19/17 16:52> - Discharge Clinical Impression: Chronic diarrhea, Dehydration Hypotension Qualifiers: Hypotension type: other hypotension type Qualified Code(s): I95.89 - Other hypotension Condition: Stable Disposition: ADMITTED INPATIENT Referrals: SAE SANDHU PA-C [Primary Care Provider] - Follow up as needed Scribe Attestation: 10/19/17 09:05 I personally performed the services described in the documentation, reviewed and edited the documentation which was dictated to the scribe in my presence, and it accurately records my words and actions. (ADRIANE DAVIS) Scribe Documentation - Scribe Written by Scribe:: Mela Collins, 10/19/2017 1350 acting as scribe for :: Fiona <CAROLE LAINEZ - Last Filed: 10/19/17 13:44>
[2017-10-19] MEDS ORDERED: NORMAL SALINE 1000 ML 1,000 ML IV ONE (08:41)
[2017-10-19 08:46] LABS: ABSOLUTE EOSINOPHILS # (AUTO) 0.1 10^3/uL (0.0-0.6); ABSOLUTE LYMPHOCYTES (AUTO) 4.9 10^3/uL (0.5-4.7); ABSOLUTE MONOCYTES (AUTO) 1.9 10^3/uL (0.1-1.4); ABSOLUTE NEUT (AUTO) 12.4 10^3/uL (1.7-8.2); BASOPHILS % (AUTO) 0.2 % (0-2); EOSINOPHILS % (AUTO) 0.7 % (0-6); HEMATOCRIT 43.3 % (36.0-47.0); HEMOGLOBIN 14.7 g/dL (12.0-15.5); LYMPHOCYTES % (AUTO) 25.3 % (13-45); MEAN CORPUSCULAR HEMOGLOBIN 28.5 pg (27.0-33.4); MEAN CORPUSCULAR HGB CONC 34.1 g/dL (32.0-36.0); MEAN CORPUSCULAR VOLUME 84 fl (80-97); MONOCYTES % (AUTO) 9.8 % (3-13); PLATELET COUNT 283 10^3/uL (150-450); RED BLOOD COUNT 5.17 10^6/uL (3.72-5.28); RED CELL DISTRIBUTION WIDTH 15.4 % (11.5-14.0); TOTAL CELLS COUNTED % (AUTO) 100 %; WHITE BLOOD COUNT 19.4 10^3/uL (4.0-10.5)
[2017-10-19 08:49] LABS: ALANINE AMINOTRANSFERASE 15 U/L (9-52); ALKALINE PHOSPHATASE 87 U/L (38-126); ANION GAP 11 (5-19); ASPARTATE AMINO TRANSFERASE 21 U/L (14-36); BILIRUBIN,DIRECT 0.3 mg/dL (0.0-0.4); BILIRUBIN,TOTAL 0.5 mg/dL (0.2-1.3); BLOOD UREA NITROGEN 20 mg/dL (7-20); CALCIUM 9.8 mg/dL (8.4-10.2); CARBON DIOXIDE 24 mmol/L (22-30); CHLORIDE 97 mmol/L (98-107); GLUCOSE 111 mg/dL (75-110); POTASSIUM 3.5 mmol/L (3.6-5.0); SODIUM 131.9 mmol/L (137-145); TOTAL PROTEIN 6.2 g/dL (6.3-8.2)
[2017-10-19] MEDS ORDERED: DEXTROSE 5%-LACTATED RINGERS 1,000 ML IV ONE ×2 (09:06→12:19)
[2017-10-19] MEDS ORDERED: DIPHENOXYLATE HCL/ATROP SULF 2.5-0.025 MG TABLET PO ONE (12:19)
[2017-10-19 17:41] LABS: APPEARANCE,URINE SLIGHTLY-CLOUDY; BILIRUBIN,URINE NEGATIVE (NEGATIVE); CALCIUM OXALATE CRYSTALS,URINE RARE /HPF; COLOR,URINE YELLOW; GLUCOSE, URINE 150 mg/dL (NEGATIVE); KETONES,URINE NEGATIVE (NEGATIVE); LEUKOCYTE ESTERASE,URINE NEGATIVE (NEGATIVE); NITRITE,URINE NEGATIVE (NEGATIVE); PROTEIN,URINE 30 mg/dL (NEGATIVE); URINE SPECIFIC GRAVITY 1.017; UROBILINOGEN,URINE NEGATIVE mg/dL (<2.0)
--- NOTE | 2017-10-19 18:04 | PDOC H&P ---
History of Present Illness Admission Date/PCP: SAE SANDHU PA-C Patient complains of: Weakness, diarrhea. History of Present Illness: HILARY PEDERSEN is a 67 year old female who has metastatic melanoma with mets to kidneys and brain. She presents complaining of weakness due to diarrhea that she has had for months. The patient is not a good historian. She is not sure if her diarrhea is from her chemotherapy or another cause. She states that she has about 5 loose BM's a day. She states that lately it has been worse. She states that she "treats it" at home, but can't tell me how or with what. She cannot tell me what her chemotherapy is. She was recently inpatient and cultures were taken then were negative and she was negative for C diff colitis. This was more than a month ago. In the ED the patient has been tachycardic and orthostatic. She is unable to walk on her own. Past Medical History Cardiac Medical History: Reports: Heart Murmur Endocrine Medical History: Denies: Hypothyroidism Malignancy Medical History: Reports: Brain Cancer, Breast Cancer, Skin Cancer, Other - 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 Past Surgical History Past Surgical History: Reports: Section - x2, Mastectomy Social History Lives with: Family Smoking Status: Unknown if Ever Smoked Frequency of Alcohol Use: None Hx Recreational Drug Use: No Family History Family History: Reviewed & Not Pertinent Parental Family History Reviewed: Yes Children Family History Reviewed: Yes Sibling(s) Family History Reviewed.: Yes Medication/Allergy Home Medications: Buspirone HCl [Buspar 15 mg Tablet] 15 mg PO Q12 09/14/17 Dexamethasone 2 mg PO DAILY 09/14/17 Duloxetine HCl [Cymbalta] 30 mg PO Q12 09/14/17 Eszopiclone [Lunesta] 2 mg PO HSP PRN 09/14/17 Gabapentin [Neurontin] 800 mg PO 0800,1100,1700,2200 09/14/17 Lisinopril [Prinivil 5 mg Tablet] 5 mg PO DAILY 09/14/17 Lorazepam [Ativan 1 mg Tablet] 1 mg PO Q6HP PRN 09/14/17 Omeprazole 40 mg PO DAILY 09/14/17 Allergies/Adverse Reactions: No Known Allergies Allergy (Verified 09/21/17 07:52) Review of Systems ROS unobtainable: Other - The patient is very confusing in her history with multiple ramblings and contradictions. There is no family present. I am unable to get a history from her for this reason. Physical Exam Vital Signs: Temp Pulse Resp BP Pulse Ox 97.5 F 121 H 25 H 122/64 98 10/19/17 07:58 10/19/17 07:58 10/19/17 17:01 10/19/17 17:00 10/19/17 17:01 Intake & Output 10/18/17 10/19/17 10/20/17 06:59 06:59 06:59 Intake Total 3000 Balance 3000 Weight 60.328 kg General appearance: PRESENT: no acute distress, cooperative, thin, other - The patient is elderly, weak, and frail. No acute distress. Eye exam: PRESENT: EOMI, PERRLA. ABSENT: conjunctival injection, scleral icterus Ear exam: PRESENT: normal external ear exam. ABSENT: bleeding, drainage Mouth exam: PRESENT: dry mucosa, tongue midline. ABSENT: laceration Throat exam: ABSENT: post pharyngeal erythema, tonsillar erythema, tonsillar exudate, tonsillogmegaly Neck exam: ABSENT: JVD, lymphadenopathy, tenderness, thyromegaly Respiratory exam: PRESENT: other - No increased work of breathing.. ABSENT: rales, rhonchi, wheezes Cardiovascular exam: PRESENT: RRR. ABSENT: gallop, rubs, systolic murmur GI/Abdominal exam: PRESENT: distended - slightly, hyperactive bowel sounds, soft. ABSENT: mass, organolmegaly, tenderness Extremities exam: ABSENT: joint swelling, pedal edema, tenderness Musculoskeletal exam: PRESENT: full ROM, normal inspection. ABSENT: deformity, dislocation, tenderness Neurological exam: PRESENT: alert, awake, oriented to person, oriented to place , oriented to time, oriented to situation, CN II-XII grossly intact. ABSENT: motor sensory deficit Psychiatric exam: PRESENT: appropriate affect, normal mood Skin exam: PRESENT: dry, intact, warm Results Laboratory Results: 10/19/17 08:11 10/19/17 08:11 10/19/17 10/19/17 08:11 08:11 WBC 19.4 H RBC 5.17 Hgb 14.7 Hct 43.3 MCV 84 MCH 28.5 MCHC 34.1 RDW 15.4 H Plt Count 283 Seg Neutrophils % 64.0 Lymphocytes % 25.3 Monocytes % 9.8 Eosinophils % 0.7 Basophils % 0.2 Absolute Neutrophils 12.4 H Absolute Lymphocytes 4.9 H Absolute Monocytes 1.9 H Absolute Eosinophils 0.1 Absolute Basophils 0.0 Sodium 131.9 L Potassium 3.5 L Chloride 97 L Carbon Dioxide 24 Anion Gap 11 BUN 20 Creatinine 1.00 Est GFR ( Amer) > 60 Est GFR (Non-Af Amer) 55 L Glucose 111 H Calcium 9.8 Total Bilirubin 0.5 AST 21 ALT 15 Alkaline Phosphatase 87 Total Protein 6.2 L Albumin 3.0 L Assessment & Plan - Diagnosis (1) Metastatic melanoma Is this a current diagnosis for this admission?: Yes Plan: Pt states that she is receiving "aromatherapy" and chemotherapy. She states that she believes that her diarrhea is due to her chemotherapy, abut she isn't sure. I believe when she says that she is receiving aromatherapy she means aromatase therapy for her history of breast cancer. (2) Orthostatic hypotension Is this a current diagnosis for this admission?: Yes Plan: Will give IV fluids and follow orthostatic vitals. (3) Chronic diarrhea Is this a current diagnosis for this admission?: Yes Plan: Unsure of cause. Possibly due to chemotherapy. The patient has previously been admitted for this complaint. At that time cultures were negative as was C Diff studies. I will consult GI tomorrow. The patient states that she has been "treated" for this diarrhea, but is unable to tell me how. (4) Dehydration Plan: Mild. Volume depletion is more severe. (5) Full code status Is this a current diagnosis for this admission?: Yes (6) Volume depletion, gastrointestinal loss Is this a current diagnosis for this admission?: Yes Plan: IV fluids. - Time Time Spent: Greater than 70 Minutes Medications reviewed and adjusted accordingly: Yes
[2017-10-20] MEDS: RINGERS SOLUTION,LACTATED 1,000 ML IV PRN ×2 (01:52→14:40)
[2017-10-20 05:36] LABS: ABSOLUTE EOSINOPHILS # (AUTO) 0.2 10^3/uL (0.0-0.6); ABSOLUTE MONOCYTES (AUTO) 1.4 10^3/uL (0.1-1.4); ABSOLUTE NEUT (AUTO) 10.8 10^3/uL (1.7-8.2); ALANINE AMINOTRANSFERASE 16 U/L (9-52); ALBUMIN 2.4 g/dL (3.5-5.0); ALKALINE PHOSPHATASE 71 U/L (38-126); ANION GAP 6 (5-19); ASPARTATE AMINO TRANSFERASE 55 U/L (14-36); BASOPHILS % (AUTO) 0.2 % (0-2); BILIRUBIN,DIRECT 0.3 mg/dL (0.0-0.4); BILIRUBIN,TOTAL 0.4 mg/dL (0.2-1.3); BLOOD UREA NITROGEN 13 mg/dL (7-20); CARBON DIOXIDE 25 mmol/L (22-30); CHLORIDE 100 mmol/L (98-107); EOSINOPHILS % (AUTO) 1.5 % (0-6); GLUCOSE 83 mg/dL (75-110); HEMATOCRIT 35.1 % (36.0-47.0); LYMPHOCYTES % (AUTO) 19.2 % (13-45); MEAN CORPUSCULAR HEMOGLOBIN 29.3 pg (27.0-33.4); MEAN CORPUSCULAR HGB CONC 35.2 g/dL (32.0-36.0); MEAN CORPUSCULAR VOLUME 83 fl (80-97); MONOCYTES % (AUTO) 9.2 % (3-13); PHOSPHORUS 2.7 mg/dL (2.5-4.5); PLATELET COUNT 205 10^3/uL (150-450); RED BLOOD COUNT 4.22 10^6/uL (3.72-5.28); RED CELL DISTRIBUTION WIDTH 15.3 % (11.5-14.0); SEGMENTED NEUTROPHILS % (AUTO) 69.9 % (42-78); SODIUM 131.1 mmol/L (137-145); TOTAL CELLS COUNTED % (AUTO) 100 %; TOTAL PROTEIN 5.2 g/dL (6.3-8.2); WHITE BLOOD COUNT 15.4 10^3/uL (4.0-10.5)
[2017-10-20 05:41] LABS: HEMOGLOBIN 12.4 g/dL (12.0-15.5)
[2017-10-20 06:06] LABS: POTASSIUM 2.4 mmol/L (3.6-5.0)
[2017-10-20] MEDS ORDERED: POTASSIUM CHLORIDE 20 MEQ/50 ML RTU IV ONE (06:15)
[2017-10-20] MEDS ORDERED: POTASSIUM CHLORIDE 10 MEQ CAPSULE.ER PO ONE (07:00)
[2017-10-20] MEDS: ONDANSETRON HCL INJ/PF 4 MG/2 ML SDV IV PRN ×2 (10:12→16:20)
[2017-10-20] MEDS: ENOXAPARIN SODIUM INJ 30 MG/0.3 ML DISP.SYRIN SUBCUT SCH (10:12)
--- NOTE | 2017-10-20 12:54 | PDOC PROGRESS REPORT ---
Subjective Progress Note for:: 10/20/17 Subjective:: The patient is unable to report to me the number or timing of stools. She thinks that they are better, but cannot remember specifics. I wonder if this patient has some cognitive deficits related to her brain mets, chemotherapy, or even dementia. She continues to be a terrible historian. Reason For Visit: ORTHOSTATIC HYPOTENSION,DIARRHEA Physical Exam Vital Signs: Temp Pulse Resp BP Pulse Ox 97.4 F 115 H 16 120/78 92 10/20/17 08:11 10/20/17 08:11 10/20/17 08:11 10/20/17 08:11 10/20/17 08:11 Intake & Output 10/19/17 10/20/17 10/21/17 06:59 06:59 06:59 Intake Total 100 Balance 100 Weight 60.6 kg General appearance: PRESENT: no acute distress, thin Respiratory exam: PRESENT: other - No increased work of breathing.. ABSENT: rales, rhonchi, wheezes Cardiovascular exam: PRESENT: RRR, other - No lateral PMI No thrills.. ABSENT: diastolic murmur, systolic murmur Pulses: PRESENT: normal femoral pulses, normal dorsalis pedis pul GI/Abdominal exam: PRESENT: distended - slightly, soft. ABSENT: guarding, hernia, mass, organolmegaly, tenderness Extremities exam: ABSENT: clubbing, pedal edema, tenderness Musculoskeletal exam: PRESENT: normal inspection. ABSENT: deformity, dislocation, tenderness Neurological exam: PRESENT: alert, awake, oriented to person, oriented to place , oriented to time, oriented to situation, CN II-XII grossly intact. ABSENT: motor sensory deficit Skin exam: PRESENT: dry, intact, warm Results Laboratory Results: 10/20/17 04:27 10/20/17 04:27 10/20/17 10/20/17 04:27 04:27 WBC 15.4 H RBC 4.22 Hgb 12.4 D Hct 35.1 L MCV 83 MCH 29.3 MCHC 35.2 RDW 15.3 H Plt Count 205 Seg Neutrophils % 69.9 Lymphocytes % 19.2 Monocytes % 9.2 Eosinophils % 1.5 Basophils % 0.2 Absolute Neutrophils 10.8 H Absolute Lymphocytes 3.0 Absolute Monocytes 1.4 Absolute Eosinophils 0.2 Absolute Basophils 0.0 Sodium 131.1 L Potassium 2.4 L* D Chloride 100 Carbon Dioxide 25 Anion Gap 6 BUN 13 Creatinine 0.38 L Est GFR ( Amer) > 60 Est GFR (Non-Af Amer) > 60 Glucose 83 Calcium 8.0 L Phosphorus 2.7 Magnesium 1.6 Total Bilirubin 0.4 AST 55 H ALT 16 Alkaline Phosphatase 71 Total Protein 5.2 L Albumin 2.4 L 10/19/17 10/19/17 10/20/17 08:11 08:11 04:27 WBC 19.4 H 15.4 H RBC 5.17 4.22 Hgb 14.7 12.4 D Hct 43.3 35.1 L MCV 84 83 MCH 28.5 29.3 MCHC 34.1 35.2 RDW 15.4 H 15.3 H Plt Count 283 205 Seg Neutrophils % 64.0 69.9 Lymphocytes % 25.3 19.2 Monocytes % 9.8 9.2 Eosinophils % 0.7 1.5 Basophils % 0.2 0.2 Absolute Neutrophils 12.4 H 10.8 H Absolute Lymphocytes 4.9 H 3.0 Absolute Monocytes 1.9 H 1.4 Absolute Eosinophils 0.1 0.2 Absolute Basophils 0.0 0.0 Sodium 131.9 L Potassium 3.5 L Chloride 97 L Carbon Dioxide 24 Anion Gap 11 BUN 20 Creatinine 1.00 Est GFR ( Amer) > 60 Est GFR (Non-Af Amer) 55 L Glucose 111 H Calcium 9.8 Phosphorus Magnesium Total Bilirubin 0.5 Direct Bilirubin 0.3 AST 21 ALT 15 Alkaline Phosphatase 87 Total Protein 6.2 L Albumin 3.0 L 10/20/17 04:27 WBC RBC Hgb Hct MCV MCH MCHC RDW Plt Count Seg Neutrophils % Lymphocytes % Monocytes % Eosinophils % Basophils % Absolute Neutrophils Absolute Lymphocytes Absolute Monocytes Absolute Eosinophils Absolute Basophils Sodium 131.1 L Potassium 2.4 L* D Chloride 100 Carbon Dioxide 25 Anion Gap 6 BUN 13 Creatinine 0.38 L Est GFR ( Amer) > 60 Est GFR (Non-Af Amer) > 60 Glucose 83 Calcium 8.0 L Phosphorus 2.7 Magnesium 1.6 Total Bilirubin 0.4 Direct Bilirubin 0.3 AST 55 H ALT 16 Alkaline Phosphatase 71 Total Protein 5.2 L Albumin 2.4 L Assessment & Plan - Diagnosis (1) Metastatic melanoma Is this a current diagnosis for this admission?: Yes Plan: Pt states that she is receiving "aromatherapy" and chemotherapy. She states that she believes that her diarrhea is due to her chemotherapy, abut she isn't sure. I believe when she says that she is receiving aromatherapy she means aromatase therapy for her history of breast cancer and chemotherapy for her metastatic melanoma. The patient is a very poor historian. (2) Orthostatic hypotension Is this a current diagnosis for this admission?: Yes Plan: Will give IV fluids and follow orthostatic vitals. (3) Chronic diarrhea Is this a current diagnosis for this admission?: Yes Plan: Unsure of cause. Possibly due to mucositis and chemotherapy. Another note i n the patient's EHR suggest colitis. The patient has previously been admitted for this complaint. At that time cultures were negative as was C Diff studies. I will consult GI tomorrow. The patient states that she has been "treated" for this diarrhea, but is unable to tell me how. Dr. Cervantes for GI has been consulted and stool studies ordered. Does pt need colonoscopy? (4) Dehydration Is this a current diagnosis for this admission?: Yes Plan: IV fluids. (5) Full code status Is this a current diagnosis for this admission?: Yes (6) Volume depletion, gastrointestinal loss Is this a current diagnosis for this admission?: Yes Plan: IV fluids and check orthostatics. - Time Time Spent with patient: 25-34 minutes Medications reviewed and adjusted accordingly: Yes
--- NOTE | 2017-10-20 14:28 | PDOC CONSULTATION ---
Consultation Consult Date: 10/20/17 Attending physician:: TOREY HALL Consult reason:: Chronic diarrhea with associated hypokalemia History of Present Illness Admission Date/PCP: 10/19/17 18:12 SAE SANDHU PA-C History of Present Illness: HILARY PEDERSEN is a 67 year old female Asked to see this patient who is having chronic diarrhea along with associated hypokalemia is on chemo due to metastatic melanoma patient is a poor historian patient is negative for C.Diff denies any abdominal pain potassium is being corrected GI consultation is requested rule out any colonic source for her diarrhea patient may have a small bowel source as well Past Medical History Cardiac Medical History: Reports: Heart Murmur Endocrine Medical History: Denies: Hypothyroidism Malignancy Medical History: Reports: Brain Cancer, Breast Cancer, Skin Cancer, Other - 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 Past Surgical History Past Surgical History: Reports: Section - x2, Mastectomy Social History Lives with: Family Smoking Status: Current Every Day Smoker Cigarettes Packs Per Day: 1 Frequency of Alcohol Use: None Hx Recreational Drug Use: No Drugs: None Family History Family History: Reviewed & Not Pertinent Parental Family History Reviewed: Yes Children Family History Reviewed: Unknown Sibling(s) Family History Reviewed.: Unknown Medication/Allergy Home Medications: Buspirone HCl [Buspar 15 mg Tablet] 15 mg PO Q12 09/14/17 Duloxetine HCl [Cymbalta] 30 mg PO Q12 09/14/17 Eszopiclone [Lunesta] 2 mg PO HSP PRN 09/14/17 Gabapentin [Neurontin] 800 mg PO 0800,1100,1700,2200 09/14/17 Lisinopril [Prinivil 5 mg Tablet] 5 mg PO DAILY 09/14/17 Rivaroxaban [Xarelto] 20 mg PO DAILY 10/19/17 Simvastatin [Zocor 10 mg Tablet] 10 mg PO DAILY 10/19/17 Allergies/Adverse Reactions: No Known Allergies Allergy (Verified 09/21/17 07:52) Review of Systems Constitutional: ABSENT: fever(s), headache(s), night sweats Ears: ABSENT: hearing changes Nose, Mouth, and Throat: ABSENT: mouth pain, sore throat Cardiovascular: ABSENT: edema, orthropnea Respiratory: ABSENT: dyspnea, hemoptysis Gastrointestinal: PRESENT: diarrhea. ABSENT: melena, nausea, vomiting Musculoskeletal: ABSENT: deformity, joint swelling Neurological: ABSENT: syncope, tingling, tremor(s), vertigo Endocrine: ABSENT: polydipsia, polyphagia, polyuria Hematologic/Lymphatic: ABSENT: easy bruising Physical Exam Vital Signs: Temp Pulse Resp BP Pulse Ox 98.3 F 116 H 16 122/53 L 100 10/20/17 12:04 10/20/17 12:04 10/20/17 12:04 10/20/17 12:04 10/20/17 12:04 Intake & Output 10/19/17 10/20/17 10/21/17 06:59 06:59 06:59 Intake Total 100 Balance 100 Weight 60.6 kg General appearance: PRESENT: mild distress Head exam: PRESENT: atraumatic, normocephalic Eye exam: PRESENT: EOMI, PERRLA. ABSENT: nystagmus, periorbital swelling, scleral icterus Mouth exam: PRESENT: moist, neck supple Throat exam: ABSENT: tonsillar exudate, tonsillogmegaly Neck exam: ABSENT: meningismus, tenderness, thyromegaly Respiratory exam: PRESENT: symmetrical, unlabored. ABSENT: tachypnea, wheezes Cardiovascular exam: PRESENT: RRR, +S1, +S2 GI/Abdominal exam: PRESENT: soft. ABSENT: rebound, rigid, tenderness Extremities exam: ABSENT: joint swelling Musculoskeletal exam: PRESENT: full ROM Neurological exam: PRESENT: alert, oriented to time, oriented to situation, CN II-XII grossly intact Focused psych exam: ABSENT: restlessness Skin exam: PRESENT: normal color. ABSENT: pallor, petechiae, urticaria, vesicles Results Laboratory Results: 10/20/17 04:27 10/20/17 10/20/17 04:27 04:27 WBC 15.4 H RBC 4.22 Hgb 12.4 D Hct 35.1 L MCV 83 MCH 29.3 MCHC 35.2 RDW 15.3 H Plt Count 205 Seg Neutrophils % 69.9 Lymphocytes % 19.2 Monocytes % 9.2 Eosinophils % 1.5 Basophils % 0.2 Absolute Neutrophils 10.8 H Absolute Lymphocytes 3.0 Absolute Monocytes 1.4 Absolute Eosinophils 0.2 Absolute Basophils 0.0 Sodium 131.1 L Potassium 2.4 L* D Chloride 100 Carbon Dioxide 25 Anion Gap 6 BUN 13 Creatinine 0.38 L Est GFR ( Amer) > 60 Est GFR (Non-Af Amer) > 60 Glucose 83 Calcium 8.0 L Phosphorus 2.7 Magnesium 1.6 Total Bilirubin 0.4 AST 55 H ALT 16 Alkaline Phosphatase 71 Total Protein 5.2 L Albumin 2.4 L Assessment & Plan - Diagnosis (1) Chronic diarrhea Is this a current diagnosis for this admission?: Yes Plan: C. difficile is negative Consultation requested for colonoscopy; differential would be lymphocytic, microscopic, collagenous colitis We will get colonoscopy done However with metastatic melanoma initiation of chemotherapy could have a secretory diarrhea based on small bowel etiology If colonoscopy is negative, consider Sandostatin use in an attempt to control diarrhea There is evidence alternatives of the procedure including risks of bleeding, perforation requiring surgery are explained to the patient detail informed consent is obtained for the recommendations will be based upon findings - Time Time Spent: 50 to 70 Minutes
[2017-10-20 14:32] LABS: ANION GAP 6 (5-19); BLOOD UREA NITROGEN 12 mg/dL (7-20); CARBON DIOXIDE 22 mmol/L (22-30); CHLORIDE 104 mmol/L (98-107); GLUCOSE 87 mg/dL (75-110); POTASSIUM 3.3 mmol/L (3.6-5.0); SODIUM 131.6 mmol/L (137-145)
[2017-10-20] MEDS ORDERED: PEG 3350/NA SULF,BICARB,CL/KCL 4000 ML PO ONE (16:00)
[2017-10-21 01:14] LABS: ANION GAP 9 (5-19); BLOOD UREA NITROGEN 12 mg/dL (7-20); CALCIUM 7.8 mg/dL (8.4-10.2); CARBON DIOXIDE 21 mmol/L (22-30); CHLORIDE 102 mmol/L (98-107); GLUCOSE 97 mg/dL (75-110); POTASSIUM 3.1 mmol/L (3.6-5.0); SODIUM 131.9 mmol/L (137-145)
[2017-10-21] MEDS: RINGERS SOLUTION,LACTATED 1,000 ML IV PRN (03:57)
[2017-10-21] MEDS: ONDANSETRON HCL INJ/PF 4 MG/2 ML SDV IV PRN (08:05)
[2017-10-21] MEDS: ENOXAPARIN SODIUM INJ 30 MG/0.3 ML DISP.SYRIN SUBCUT SCH (10:34)
[2017-10-21] MEDS ORDERED: DIPHENHYDRAMINE HCL 50 MG/ML VIAL ONE (11:26)
[2017-10-21] MEDS ORDERED: ONDANSETRON HCL INJ/PF 4 MG/2 ML SDV ONE (11:26)
[2017-10-21] MEDS ORDERED: NALOXONE HCL INJ/PF 0.4 MG/1 ML SDV ONE (11:27)
[2017-10-21] MEDS ORDERED: EPINEPHRINE INJ 1 MG/10 ML DISP.SYRIN ONE (11:27)
[2017-10-21] MEDS ORDERED: FLUMAZENIL INJ 0.5 MG/5 ML VIAL ONE (11:27)
[2017-10-21] MEDS ORDERED: GLUCAGON,HUMAN RECOMB 1 MG INJ ONE (11:27)
[2017-10-21] MEDS: MIDAZOLAM 2 MG/2 ML INJ ONE ×2 (12:17→12:21)
[2017-10-21] MEDS: FENTANYL CITRATE INJ/PF 100 MCG/2 ML AMPUL ONE ×2 (12:19→12:23)
--- NOTE | 2017-10-21 12:53 | Operative Report ---
Operative Report DATE OF SURGERY: 10/21/17 Operative Report: Risks, benefits and alternatives of the procedure including the risks of bleeding, perforation requiring surgery are explained to the patient in detail and informed consent was obtained. Patient has brought back to the endoscopy suite and placed in a left, lateral decubital position. Timeout was called. Conscious sedation medications are provided. A rectal examination is done which did not reveal any masses, tears or fissures. An Olympus videoscope was inserted into the patient's rectum. The scope was then carefully advanced all the way to the cecum. The cecum was identified by the usual anatomical landmarks including the ileocecal valve as well as the appendiceal office. Photodocumentation is obtained. The scope was then sequentially pulled back via the rest segments of the colon including the ascending colon, hepatic flexure, transverse colon, splenic flexure, descending colon and finally into the rectosigmoid portions of the colon. Retroflexion maneuver is performed. PREOPERATIVE DIAGNOSIS: Chronic diarrhea POSTOPERATIVE DIAGNOSIS: Diffuse colitis from rectum to the cecum status post biopsy. Diverticulosis. No ulcers noted. No bleeding noted. No pseudomembranes noted. Intubation of the terminal ileum is done biopsies to rule out Crohn's disease. OPERATION: Colonoscopy with biopsy SURGEON: TOREY HALL ANESTHESIA: Moderate Sedation - 4 mg of Versed, 75 mcg of fentanyl. Conscious sedation monitoring time 30 minutes. TISSUE REMOVED OR ALTERED: As noted above. COMPLICATIONS: None. ESTIMATED BLOOD LOSS: None. INTRAOPERATIVE FINDINGS: As noted above. PROCEDURE: Patient tolerated procedure well. No immediate postprocedure comp occasions are noted. Patient is sent back to her room in good condition. Resume previous diet as tolerated Resume previous medications Resume previous activity level Wait on the pathology to determine further treatment
[2017-10-21] MEDS: POTASSI CL 20 MEQ/50 ML RIDER 20 MEQ/50 ML RTUPB IV SCH ×2 (19:25→21:47)
[2017-10-22] MEDS: POTASSI CL 20 MEQ/50 ML RIDER 20 MEQ/50 ML RTUPB IV SCH (02:59)
[2017-10-22 05:53] LABS: BLOOD UREA NITROGEN 10 mg/dL (7-20); CALCIUM 7.7 mg/dL (8.4-10.2); CARBON DIOXIDE 25 mmol/L (22-30); CHLORIDE 102 mmol/L (98-107); GLUCOSE 83 mg/dL (75-110); POTASSIUM 3.2 mmol/L (3.6-5.0); SODIUM 129.8 mmol/L (137-145)
[2017-10-22 05:54] LABS: ANION GAP 3 (5-19)
[2017-10-22] MEDS: ENOXAPARIN SODIUM INJ 30 MG/0.3 ML DISP.SYRIN SUBCUT SCH (10:16)
[2017-10-22] MEDS: RINGERS SOLUTION,LACTATED 1,000 ML IV PRN (10:19)
--- NOTE | 2017-10-22 12:50 | PDOC PROGRESS REPORT ---
Subjective Progress Note for:: 10/22/17 Subjective:: Results of biopsy are noted No Crohn's however there is a diffuse superficial colitis noted from rectum to cecum biopsies do not indicate an ulcerative colitis could be due to chemo that patient received need to try Sandostatin to see if that would help no post procedure complications are noted Reason For Visit: ORTHOSTATIC HYPOTENSION,DIARRHEA Physical Exam Vital Signs: Temp Pulse Resp BP Pulse Ox 98.8 F 106 H 22 H 139/72 H 97 10/22/17 12:00 10/22/17 11:54 10/22/17 11:54 10/22/17 11:54 10/22/17 11:54 Intake & Output 10/21/17 10/22/17 10/23/17 06:59 06:59 06:59 Intake Total 470 520 Balance 470 520 Weight 51.8 kg General appearance: PRESENT: mild distress, well-developed, well-nourished Head exam: PRESENT: atraumatic, normocephalic Eye exam: PRESENT: EOMI, PERRLA. ABSENT: nystagmus, periorbital swelling, scleral icterus Mouth exam: PRESENT: moist, neck supple Throat exam: ABSENT: tonsillar exudate, tonsillogmegaly Respiratory exam: PRESENT: symmetrical, unlabored. ABSENT: tachypnea, wheezes Cardiovascular exam: PRESENT: RRR, +S1, +S2 GI/Abdominal exam: PRESENT: soft. ABSENT: rebound, rigid, tenderness Extremities exam: ABSENT: joint swelling Musculoskeletal exam: PRESENT: full ROM Neurological exam: PRESENT: awake, oriented to time, oriented to situation, CN II-XII grossly intact Focused psych exam: ABSENT: restlessness Skin exam: PRESENT: normal color. ABSENT: mottled, pallor, urticaria, vesicles Results Laboratory Results: 10/22/17 05:02 10/22/17 05:02 Sodium 129.8 L Potassium 3.2 L Chloride 102 Carbon Dioxide 25 Anion Gap 3 L BUN 10 Creatinine 0.37 L Est GFR ( Amer) > 60 Est GFR (Non-Af Amer) > 60 Glucose 83 Calcium 7.7 L Assessment & Plan - Diagnosis (1) Chronic diarrhea Is this a current diagnosis for this admission?: Yes Plan: no evidence of lymphocytic, collagenous , ulcerative colitis biopsies are negative for Crohn's C.Diff is stool culture negative consider chemo induced colitis consider use of Sandostatin to see if that would help - Time Time Spent with patient: 15-24 minutes
[2017-10-23] MEDS: ENOXAPARIN SODIUM INJ 30 MG/0.3 ML DISP.SYRIN SUBCUT SCH (09:30)
[2017-10-23 11:46] LABS: ANION GAP 7 (5-19); BLOOD UREA NITROGEN 9 mg/dL (7-20); CALCIUM 7.7 mg/dL (8.4-10.2); CARBON DIOXIDE 26 mmol/L (22-30); CHLORIDE 100 mmol/L (98-107); GLUCOSE 67 mg/dL (75-110); POTASSIUM 3.2 mmol/L (3.6-5.0); SODIUM 132.6 mmol/L (137-145)
--- NOTE | 2017-10-23 17:53 | PDOC PROGRESS REPORT ---
Subjective Progress Note for:: 10/22/17 Subjective:: The patient continues to have diarrhea. No new complaints. Reason For Visit: DIFFUSE COLITIS, ORTHOSTATIC HYPOTENSION, Physical Exam Vital Signs: Temp Pulse Resp BP Pulse Ox 100.5 F H 108 H 17 130/67 H 97 10/23/17 15:57 10/23/17 15:57 10/23/17 15:57 10/23/17 15:57 10/23/17 15:57 Intake & Output 10/22/17 10/23/17 10/24/17 06:59 06:59 06:59 Intake Total 470 1375 Balance 470 1375 Weight 51.8 kg 61.2 kg General appearance: PRESENT: no acute distress, cooperative Respiratory exam: ABSENT: rales, rhonchi, wheezes Cardiovascular exam: PRESENT: RRR. ABSENT: gallop, rubs, systolic murmur GI/Abdominal exam: PRESENT: distended, normal bowel sounds, soft. ABSENT: hernia, mass, organolmegaly, tenderness Extremities exam: ABSENT: clubbing, pedal edema, tenderness Musculoskeletal exam: PRESENT: normal inspection. ABSENT: deformity, dislocation, tenderness Neurological exam: PRESENT: alert, awake, oriented to person, oriented to place , oriented to time, oriented to situation, CN II-XII grossly intact. ABSENT: motor sensory deficit Psychiatric exam: PRESENT: appropriate affect, normal mood Skin exam: PRESENT: dry, intact, warm Results Laboratory Results: 10/23/17 10:17 10/23/17 10:17 Sodium 132.6 L Potassium 3.2 L Chloride 100 Carbon Dioxide 26 Anion Gap 7 BUN 9 Creatinine 0.40 L Est GFR ( Amer) > 60 Est GFR (Non-Af Amer) > 60 Glucose 67 L Calcium 7.7 L Assessment & Plan - Diagnosis (1) Orthostatic hypotension Is this a current diagnosis for this admission?: Yes Plan: IV fluids. Orthostatic vitals. (2) Chronic diarrhea Is this a current diagnosis for this admission?: Yes Plan: Unsure of cause. Possibly due to mucositis and chemotherapy. Another note i n the patient's EHR suggest colitis. The patient has previously been admitted for this complaint. At that time cultures were negative as was C Diff studies. I will consult GI tomorrow. The patient states that she has been "treated" for this diarrhea, but is unable to tell me how. The patient has undergone a colonoscopy. Biopsies are taken. Pathology pending. (3) Dehydration Is this a current diagnosis for this admission?: Yes Plan: IV fluids. (4) Metastatic melanoma Is this a current diagnosis for this admission?: Yes (5) Full code status Is this a current diagnosis for this admission?: Yes (6) Volume depletion, gastrointestinal loss Is this a current diagnosis for this admission?: Yes - Time Time Spent with patient: 25-34 minutes
--- NOTE | 2017-10-23 18:03 | PDOC PROGRESS REPORT ---
Subjective Progress Note for:: 10/23/17 Subjective:: The patient continues to have diarrhea. No new complaints. Reason For Visit: DIFFUSE COLITIS, ORTHOSTATIC HYPOTENSION, Physical Exam Vital Signs: Temp Pulse Resp BP Pulse Ox 100.5 F H 108 H 17 130/67 H 97 10/23/17 15:57 10/23/17 15:57 10/23/17 15:57 10/23/17 15:57 10/23/17 15:57 Intake & Output 10/22/17 10/23/17 10/24/17 06:59 06:59 06:59 Intake Total 470 1375 Balance 470 1375 Weight 51.8 kg 61.2 kg General appearance: PRESENT: no acute distress Respiratory exam: PRESENT: other - No increased work of breathing. ABSENT: rales, rhonchi, wheezes Cardiovascular exam: PRESENT: RRR. ABSENT: gallop, +S2 Pulses: PRESENT: other - Diminished distal pulses GI/Abdominal exam: PRESENT: distended, hyperactive bowel sounds, soft. ABSENT: mass, organolmegaly, tenderness Extremities exam: ABSENT: clubbing, pedal edema, tenderness Musculoskeletal exam: PRESENT: deformity, dislocation, normal inspection. ABSENT: tenderness Neurological exam: PRESENT: alert, awake, oriented to person, oriented to place , oriented to time, oriented to situation, CN II-XII grossly intact. ABSENT: motor sensory deficit Skin exam: PRESENT: dry, intact, warm Results Laboratory Results: 10/23/17 10:17 10/23/17 10:17 Sodium 132.6 L Potassium 3.2 L Chloride 100 Carbon Dioxide 26 Anion Gap 7 BUN 9 Creatinine 0.40 L Est GFR ( Amer) > 60 Est GFR (Non-Af Amer) > 60 Glucose 67 L Calcium 7.7 L Assessment & Plan - Diagnosis (1) Orthostatic hypotension Is this a current diagnosis for this admission?: Yes Plan: IV fluids. Orthostatic vitals. (2) Chronic diarrhea Is this a current diagnosis for this admission?: Yes Plan: Pt underwent colonoscopy yesterday. I appreciate GI's assistance. He feels that this diarrhea is most likely due to the patient's chemotherapy and is s secretory diarrhea. I will start the patient on sandostatin as he recommends. (3) Dehydration Is this a current diagnosis for this admission?: Yes Plan: Resolved. (4) Metastatic melanoma Is this a current diagnosis for this admission?: Yes Plan: Pt states that she is receiving "aromatherapy" and chemotherapy. She states that she believes that her diarrhea is due to her chemotherapy, abut she isn't sure. I believe when she says that she is receiving aromatherapy she means aromatase therapy for her history of breast cancer and chemotherapy for her metastatic melanoma. The patient is a very poor historian. (5) Full code status Is this a current diagnosis for this admission?: Yes Plan: Noted. (6) Volume depletion, gastrointestinal loss Is this a current diagnosis for this admission?: Yes Plan: IV fluids and check orthostatics. - Time Time Spent with patient: 25-34 minutes Medications reviewed and adjusted accordingly: Yes
[2017-10-23] MEDS: POTASSI CL 20 MEQ/50 ML RIDER 20 MEQ/50 ML RTUPB IV SCH ×2 (18:56→22:54)
[2017-10-23] MEDS: RINGERS SOLUTION,LACTATED 1,000 ML IV PRN (22:37)
[2017-10-23] MEDS ORDERED: OCTREOTIDE ACETATE INJ/PF 100 MCG/1 ML SDV ONE (22:42)
[2017-10-23] MEDS: OCTREOTIDE ACETATE INJ/PF 100 MCG/1 ML SDV SUBCUT SCH (22:49)
[2017-10-24] MEDS: POTASSI CL 20 MEQ/50 ML RIDER 20 MEQ/50 ML RTUPB IV SCH (00:51)
[2017-10-24] MEDS: OCTREOTIDE ACETATE INJ/PF 100 MCG/1 ML SDV SUBCUT SCH ×3 (06:45→23:15)
[2017-10-24 07:27] LABS: ANION GAP 5 (5-19); BLOOD UREA NITROGEN 8 mg/dL (7-20); CALCIUM 7.5 mg/dL (8.4-10.2); CARBON DIOXIDE 23 mmol/L (22-30); CHLORIDE 102 mmol/L (98-107); GLUCOSE 74 mg/dL (75-110); POTASSIUM 3.7 mmol/L (3.6-5.0)
[2017-10-24] MEDS ORDERED: NORMAL SALINE 1000 ML 500 ML IV ONE (09:31)
[2017-10-24] MEDS: ENOXAPARIN SODIUM INJ 30 MG/0.3 ML DISP.SYRIN SUBCUT SCH (09:55)
[2017-10-25] MEDS: OCTREOTIDE ACETATE INJ/PF 100 MCG/1 ML SDV SUBCUT SCH ×3 (05:48→21:09)
[2017-10-25 06:45] LABS: BLOOD UREA NITROGEN 9 mg/dL (7-20); CALCIUM 7.2 mg/dL (8.4-10.2); GLUCOSE 75 mg/dL (75-110); POTASSIUM 3.5 mmol/L (3.6-5.0)
[2017-10-25 06:51] LABS: CARBON DIOXIDE 22 mmol/L (22-30); CHLORIDE 104 mmol/L (98-107); SODIUM 130.4 mmol/L (137-145)
[2017-10-25 06:57] LABS: ANION GAP 4 (5-19)
[2017-10-25 07:04] LABS: HEMATOCRIT 34.1 % (36.0-47.0); HEMOGLOBIN 11.8 g/dL (12.0-15.5); MEAN CORPUSCULAR HEMOGLOBIN 28.4 pg (27.0-33.4); MEAN CORPUSCULAR HGB CONC 34.4 g/dL (32.0-36.0); MEAN CORPUSCULAR VOLUME 83 fl (80-97); PLATELET COUNT 167 10^3/uL (150-450); RED BLOOD COUNT 4.14 10^6/uL (3.72-5.28); RED CELL DISTRIBUTION WIDTH 15.1 % (11.5-14.0); WHITE BLOOD COUNT 14.1 10^3/uL (4.0-10.5)
[2017-10-25 07:28] LABS: ABSOLUTE LYMPHOCYTES# (MANUAL) 1.3 10^3/uL (0.5-4.7); ABSOLUTE MONOCYTES # (MANUAL) 0.8 10^3/uL (0.1-1.4); ACANTHOCYTES SLIGHT; BAND NEUTROPHILS % (MANUAL) 7 % (3-5); BASOPHILS % (MANUAL) 0 % (0-2); EOSINOPHILS % (MANUAL) 0 % (0-6); LYMPHOCYTES % (MANUAL) 9 % (13-45); METAMYELOCYTES % (MANUAL) 2 % (0); MONOCYTES % (MANUAL) 6 % (3-13); OVALOCYTES SLIGHT; PLATELET COMMENT ADEQUATE; POIKILOCYTOSIS SLIGHT; SEGMENTED NEUTROPHILS % (MAN) 76 % (42-78); TOTAL CELLS COUNTED 100
[2017-10-25] MEDS: ENOXAPARIN SODIUM INJ 30 MG/0.3 ML DISP.SYRIN SUBCUT SCH (10:53)
--- NOTE | 2017-10-25 16:19 | PDOC PROGRESS REPORT ---
Subjective Progress Note for:: 10/24/17 Subjective:: The patient states that she is still having sever diarrhea. Six stools so far this am. Reason For Visit: DIFFUSE COLITIS, ORTHOSTATIC HYPOTENSION, Physical Exam Vital Signs: Temp Pulse Resp BP Pulse Ox 98.0 F 102 H 17 100/87 H 96 10/25/17 11:13 10/25/17 11:13 10/25/17 11:13 10/25/17 11:13 10/25/17 11:13 Intake & Output 10/24/17 10/25/17 10/26/17 06:59 06:59 06:59 Intake Total 1059 2100 Balance 1059 2100 Weight 53.9 kg 55.5 kg General appearance: PRESENT: no acute distress, cooperative Respiratory exam: PRESENT: other - No increased work of breathing.. ABSENT: rales, rhonchi, wheezes Cardiovascular exam: PRESENT: RRR. ABSENT: diastolic murmur, rubs, systolic murmur Pulses: PRESENT: other - Diminished distal pulses. GI/Abdominal exam: PRESENT: distended, hyperactive bowel sounds, soft. ABSENT: hernia, mass, organolmegaly, tenderness Extremities exam: ABSENT: clubbing, pedal edema, tenderness Musculoskeletal exam: PRESENT: normal inspection. ABSENT: deformity, dislocation, tenderness Neurological exam: PRESENT: alert, awake, oriented to person, oriented to place , oriented to time, oriented to situation, CN II-XII grossly intact. ABSENT: motor sensory deficit Psychiatric exam: PRESENT: appropriate affect, normal mood Skin exam: PRESENT: dry, intact, warm Results Laboratory Results: 10/25/17 05:47 10/25/17 05:47 10/25/17 10/25/17 05:47 05:47 WBC 14.1 H RBC 4.14 Hgb 11.8 L Hct 34.1 L MCV 83 MCH 28.4 MCHC 34.4 RDW 15.1 H Plt Count 167 Seg Neutrophils % Not Reportable Lymphocytes % Not Reportable Monocytes % Not Reportable Eosinophils % Not Reportable Basophils % Not Reportable Absolute Neutrophils Not Reportable Absolute Lymphocytes Not Reportable Absolute Monocytes Not Reportable Absolute Eosinophils Not Reportable Absolute Basophils Not Reportable Sodium 130.4 L Potassium 3.5 L Chloride 104 Carbon Dioxide 22 Anion Gap 4 L BUN 9 Creatinine 0.35 L Est GFR ( Amer) > 60 Est GFR (Non-Af Amer) > 60 Glucose 75 Calcium 7.2 L Assessment & Plan - Diagnosis (1) Orthostatic hypotension Is this a current diagnosis for this admission?: Yes Plan: Continue IV fluids. (2) Chronic diarrhea Is this a current diagnosis for this admission?: Yes Plan: Thus far Sandostatin does not seem to have helped the patient's diarrhea. Will continue. (3) Dehydration Is this a current diagnosis for this admission?: Yes (4) Metastatic melanoma Is this a current diagnosis for this admission?: Yes (5) Full code status Is this a current diagnosis for this admission?: Yes (6) Volume depletion, gastrointestinal loss Is this a current diagnosis for this admission?: Yes - Time Time Spent with patient: 25-34 minutes Medications reviewed and adjusted accordingly: Yes
--- NOTE | 2017-10-25 16:23 | PDOC PROGRESS REPORT ---
Subjective Progress Note for:: 10/25/17 Subjective:: The patient states that she believes that her stools are becoming fewer. No new complaints. Reason For Visit: DIFFUSE COLITIS, ORTHOSTATIC HYPOTENSION, Physical Exam Vital Signs: Temp Pulse Resp BP Pulse Ox 98.0 F 102 H 17 100/87 H 96 10/25/17 11:13 10/25/17 11:13 10/25/17 11:13 10/25/17 11:13 10/25/17 11:13 Intake & Output 10/24/17 10/25/17 10/26/17 06:59 06:59 06:59 Intake Total 1059 2100 Balance 1059 2100 Weight 53.9 kg 55.5 kg General appearance: PRESENT: no acute distress, cooperative Respiratory exam: PRESENT: other - No increased work of breathing.. ABSENT: rales, rhonchi, wheezes Cardiovascular exam: PRESENT: RRR, other - No lateral PMI. No thrills.. ABSENT : gallop, rubs, systolic murmur Pulses: PRESENT: other - Diminished distal pulses. GI/Abdominal exam: PRESENT: soft. ABSENT: distended, hernia, mass, organolmegaly, tenderness Extremities exam: PRESENT: tenderness. ABSENT: clubbing, pedal edema Musculoskeletal exam: PRESENT: normal inspection. ABSENT: deformity, dislocation, tenderness Neurological exam: PRESENT: alert, awake, oriented to person, oriented to place , oriented to time, oriented to situation, CN II-XII grossly intact. ABSENT: motor sensory deficit Psychiatric exam: PRESENT: appropriate affect, normal mood Skin exam: PRESENT: dry, intact, warm Results Laboratory Results: 10/25/17 05:47 10/25/17 05:47 10/25/17 10/25/17 05:47 05:47 WBC 14.1 H RBC 4.14 Hgb 11.8 L Hct 34.1 L MCV 83 MCH 28.4 MCHC 34.4 RDW 15.1 H Plt Count 167 Seg Neutrophils % Not Reportable Lymphocytes % Not Reportable Monocytes % Not Reportable Eosinophils % Not Reportable Basophils % Not Reportable Absolute Neutrophils Not Reportable Absolute Lymphocytes Not Reportable Absolute Monocytes Not Reportable Absolute Eosinophils Not Reportable Absolute Basophils Not Reportable Sodium 130.4 L Potassium 3.5 L Chloride 104 Carbon Dioxide 22 Anion Gap 4 L BUN 9 Creatinine 0.35 L Est GFR ( Amer) > 60 Est GFR (Non-Af Amer) > 60 Glucose 75 Calcium 7.2 L Assessment & Plan - Diagnosis (1) Orthostatic hypotension Is this a current diagnosis for this admission?: Yes Plan: Will stop IV fluids and evaluate orthostatics in the am. If negative the patient can be discharged to home. (2) Chronic diarrhea Is this a current diagnosis for this admission?: Yes Plan: Stools are decreasing per patient. Will continue sandostatin and stop IV fluids to assess whether or not the patient will be able to maintain her own volume status at home. (3) Dehydration Is this a current diagnosis for this admission?: Yes Plan: Resolved. (4) Metastatic melanoma Is this a current diagnosis for this admission?: Yes (5) Full code status Is this a current diagnosis for this admission?: Yes (6) Volume depletion, gastrointestinal loss Is this a current diagnosis for this admission?: Yes Plan: Resolving. - Time Time Spent with patient: 25-34 minutes Medications reviewed and adjusted accordingly: Yes
[2017-10-25] MEDS: NORMAL SALINE 1000 ML 1,000 ML IV PRN (20:56)
--- NOTE | 2017-10-25 23:05 | EKG REPORT ---
SEVERITY:- ABNORMAL ECG - SINUS TACHYCARDIA MARITZA, CONSIDER BIATRIAL ABNORMALITIES NONSPECIFIC T ABNORMALITIES, LATERAL LEADS : Confirmed by: Inge Wooten 25-Oct-2017 23:05:06
[2017-10-26] MEDS: OCTREOTIDE ACETATE INJ/PF 100 MCG/1 ML SDV SUBCUT SCH ×3 (05:14→21:21)
[2017-10-26] MEDS: NORMAL SALINE 1000 ML 1,000 ML IV PRN ×2 (06:12→16:34)
[2017-10-26] MEDS: ENOXAPARIN SODIUM INJ 30 MG/0.3 ML DISP.SYRIN SUBCUT SCH (10:23)
--- NOTE | 2017-10-26 15:19 | PDOC PROGRESS REPORT ---
Subjective Progress Note for:: 10/26/17 Subjective:: Patient was admitted with diarrhea. He was also found to be dehydrated. She has been started on octreotide. She does have a history of chronic diarrhea. Patient has a history of metastatic melanoma. She has a history of DVT and had been on Xarelto prior to admission. Currently she is not on Xarelto although not sure why. Patient had a colonoscopy done which revealed diffuse colitis from rectum to the cecum status post biopsy. There is no pseudomembranes noted Reason For Visit: DIFFUSE COLITIS, ORTHOSTATIC HYPOTENSION, Physical Exam Vital Signs: Temp Pulse Resp BP Pulse Ox 98.3 F 113 H 16 129/66 H 96 10/26/17 11:22 10/26/17 11:22 10/26/17 11:22 10/26/17 11:22 10/26/17 11:22 Intake & Output 10/25/17 10/26/17 10/27/17 06:59 06:59 06:59 Intake Total 2100 1335 236 Balance 2100 1335 236 Weight 55.5 kg 55.6 kg General appearance: PRESENT: no acute distress, well-developed, well-nourished Head exam: PRESENT: atraumatic, normocephalic Eye exam: PRESENT: conjunctiva pink, EOMI, PERRLA. ABSENT: scleral icterus Ear exam: PRESENT: normal external ear exam Mouth exam: PRESENT: moist, tongue midline Neck exam: ABSENT: carotid bruit, JVD, lymphadenopathy, thyromegaly Respiratory exam: PRESENT: clear to auscultation dex. ABSENT: rales, rhonchi, wheezes Cardiovascular exam: PRESENT: RRR. ABSENT: diastolic murmur, rubs, systolic murmur Pulses: PRESENT: normal dorsalis pedis pul Vascular exam: PRESENT: normal capillary refill GI/Abdominal exam: PRESENT: normal bowel sounds, soft. ABSENT: distended, guarding, mass, organolmegaly, rebound, tenderness Rectal exam: PRESENT: deferred Extremities exam: PRESENT: full ROM. ABSENT: calf tenderness, clubbing, pedal edema Neurological exam: PRESENT: alert, awake, oriented to person, oriented to place , oriented to time, oriented to situation, CN II-XII grossly intact. ABSENT: motor sensory deficit Psychiatric exam: PRESENT: appropriate affect, normal mood. ABSENT: homicidal ideation, suicidal ideation Skin exam: PRESENT: dry, intact, warm. ABSENT: cyanosis, rash Results Laboratory Results: 10/25/17 05:47 10/25/17 05:47 Assessment & Plan - Time Time Spent with patient: 15-24 minutes Medications reviewed and adjusted accordingly: Yes Anticipated discharge: Home Within: within 48 hours - Inpatient Certification Based on my medical assessment, after consideration of the patient's comorbidities, presenting symptoms, or acuity I expect that the services needed warrant INPATIENT care.: Yes Medical Necessity: Need For IV Fluids, Risk of Complication if Not Cared For in Hospital - Plan Summary Plan Summary: Orthostatic hypotension this has improved. Will continue with IV fluids 2. Chronic diarrhea with diffuse colitis. Will follow up with biopsy. Symptoms seem to have improved with subcutaneous octreotide. Is unclear if patient will be able to afford this as outpatient and will need case management involvement #3 dehydration we will continue with cautious IV fluid 4. History of metastatic melanoma 5. Questionable history of deep venous thrombosis on Xarelto
[2017-10-26] MEDS: RIVAROXABAN 10 MG TABLET PO SCH (17:35)
[2017-10-26] MEDS: DULOXETINE HCL 30 MG CAPSULE.DR PO SCH (21:20)
[2017-10-26] MEDS: BUSPIRONE HCL 10 MG TABLET PO SCH (21:21)
[2017-10-27] MEDS: NORMAL SALINE 1000 ML 1,000 ML IV PRN ×2 (02:53→14:48)
[2017-10-27] MEDS: OCTREOTIDE ACETATE INJ/PF 100 MCG/1 ML SDV SUBCUT SCH ×3 (05:20→21:00)
[2017-10-27] MEDS: SIMVASTATIN 10 MG TABLET PO SCH (09:08)
[2017-10-27] MEDS: DULOXETINE HCL 30 MG CAPSULE.DR PO SCH ×2 (09:08→21:00)
[2017-10-27] MEDS: BUSPIRONE HCL 10 MG TABLET PO SCH ×2 (09:08→21:00)
[2017-10-27] MEDS: RIVAROXABAN 10 MG TABLET PO SCH (09:08)
--- NOTE | 2017-10-27 17:42 | PDOC PROGRESS REPORT ---
Subjective Progress Note for:: 10/27/17 Subjective:: Patient was admitted with diarrhea. He was also found to be dehydrated. She has been started on octreotide. She does have a history of chronic diarrhea. Patient has a history of metastatic melanoma. She has a history of DVT and had been on Xarelto prior to admission. Currently she is not on Xarelto although not sure why. Patient had a colonoscopy done which revealed diffuse colitis from rectum to the cecum status post biopsy. There is no pseudomembranes noted Reason For Visit: DIFFUSE COLITIS, ORTHOSTATIC HYPOTENSION, Physical Exam Vital Signs: Temp Pulse Resp BP Pulse Ox 98.3 F 112 H 16 127/71 H 96 10/27/17 08:00 10/27/17 08:00 10/27/17 08:00 10/27/17 08:00 10/27/17 08:00 Intake & Output 10/26/17 10/27/17 10/28/17 06:59 06:59 06:59 Intake Total 1335 2576 Balance 1335 2576 Weight 55.6 kg 54.6 kg General appearance: PRESENT: no acute distress, other Head exam: PRESENT: atraumatic, normocephalic Eye exam: PRESENT: EOMI, PERRLA, other - mild pink discoloration. ABSENT: scleral icterus Ear exam: PRESENT: normal external ear exam Mouth exam: PRESENT: moist, tongue midline Neck exam: ABSENT: carotid bruit, JVD, lymphadenopathy, thyromegaly Respiratory exam: PRESENT: clear to auscultation dex. ABSENT: rales, rhonchi, wheezes Cardiovascular exam: PRESENT: RRR. ABSENT: diastolic murmur, rubs, systolic murmur Pulses: PRESENT: normal dorsalis pedis pul Vascular exam: PRESENT: normal capillary refill GI/Abdominal exam: PRESENT: normal bowel sounds, soft. ABSENT: distended, guarding, mass, organolmegaly, rebound, tenderness Rectal exam: PRESENT: deferred Extremities exam: PRESENT: full ROM. ABSENT: calf tenderness, clubbing, pedal edema Neurological exam: PRESENT: alert, awake, oriented to person, oriented to place , oriented to time, CN II-XII grossly intact, other - confused. ABSENT: motor sensory deficit Psychiatric exam: PRESENT: appropriate affect, normal mood. ABSENT: homicidal ideation, suicidal ideation Skin exam: PRESENT: dry, intact, warm. ABSENT: cyanosis, rash Results Laboratory Results: 10/25/17 05:47 10/25/17 05:47 Assessment & Plan - Time Time Spent with patient: 15-24 minutes Medications reviewed and adjusted accordingly: Yes Anticipated discharge: Home Within: within 48 hours - Inpatient Certification Medical Necessity: Need Close Monitoring Due to Risk of Patient Decompensation, Risk of Complication if Not Cared For in Hospital - Plan Summary Plan Summary: Orthostatic hypotension this has resolved 2. Chronic diarrhea with diffuse colitis. Will follow up with biopsy. Symptoms seem to have improved with subcutaneous octreotide. Is unclear if patient will be able to afford this as outpatient and will need case management involvement #3 dehydration we will continue with cautious IV fluid 4. History of metastatic melanoma 5. history of deep venous thrombosis on Xarelto Patient requesting Rehab at [place] Will consult PT, manager public
[2017-10-27] MEDS ORDERED: POLYVINYL ALCOHOL 1.4% OPH SOLN 15 ML OU PRN (17:45)
[2017-10-27] MEDS: GABAPENTIN 400 MG CAPSULE PO SCH (21:03)
[2017-10-27] MEDS ORDERED: (PENDING PHARMACY ID) (Gabapentin [Neurontin] 400 MG) PO SCH (22:00)
[2017-10-28] MEDS: NORMAL SALINE 1000 ML 1,000 ML IV PRN ×2 (00:56→18:10)
[2017-10-28 05:32] LABS: HEMATOCRIT 38.5 % (36.0-47.0); HEMOGLOBIN 12.9 g/dL (12.0-15.5); MEAN CORPUSCULAR HEMOGLOBIN 28.2 pg (27.0-33.4); MEAN CORPUSCULAR HGB CONC 33.4 g/dL (32.0-36.0); MEAN CORPUSCULAR VOLUME 84 fl (80-97); PLATELET COUNT 163 10^3/uL (150-450); RED BLOOD COUNT 4.57 10^6/uL (3.72-5.28); RED CELL DISTRIBUTION WIDTH 15.7 % (11.5-14.0); WHITE BLOOD COUNT 16.9 10^3/uL (4.0-10.5)
[2017-10-28 05:49] LABS: ALANINE AMINOTRANSFERASE 27 U/L (9-52); ALBUMIN 1.6 g/dL (3.5-5.0); ALKALINE PHOSPHATASE 76 U/L (38-126); ANION GAP 6 (5-19); ASPARTATE AMINO TRANSFERASE 19 U/L (14-36); BILIRUBIN,DIRECT 0.3 mg/dL (0.0-0.4); BILIRUBIN,TOTAL 0.4 mg/dL (0.2-1.3); BLOOD UREA NITROGEN 11 mg/dL (7-20); CALCIUM 7.1 mg/dL (8.4-10.2); CARBON DIOXIDE 19 mmol/L (22-30); CHLORIDE 109 mmol/L (98-107); GLUCOSE 69 mg/dL (75-110); POTASSIUM 3.2 mmol/L (3.6-5.0); SODIUM 133.7 mmol/L (137-145); TOTAL PROTEIN 4.1 g/dL (6.3-8.2)
[2017-10-28 06:18] LABS: ABSOLUTE LYMPHOCYTES# (MANUAL) 0.8 10^3/uL (0.5-4.7); BASOPHILS % (MANUAL) 0 % (0-2); EOSINOPHILS % (MANUAL) 0 % (0-6); LYMPHOCYTES % (MANUAL) 4 % (13-45); MONOCYTES % (MANUAL) 6 % (3-13); TOTAL CELLS COUNTED 100
[2017-10-28 06:21] LABS: TOXIC GRANULATION 1+; TOXIC VACUOLATION PRESENT
[2017-10-28 06:22] LABS: ANISOCYTOSIS 1+; BURR CELLS 3+; HELMET CELLS 3+; PLATELET COMMENT ADEQUATE; POIKILOCYTOSIS 1+; TEAR DROP CELLS SLIGHT
[2017-10-28] MEDS: OCTREOTIDE ACETATE INJ/PF 100 MCG/1 ML SDV SUBCUT SCH ×3 (06:22→21:36)
[2017-10-28] MEDS: GABAPENTIN 400 MG CAPSULE PO SCH ×4 (08:36→21:35)
[2017-10-28] MEDS: RIVAROXABAN 10 MG TABLET PO SCH (10:44)
[2017-10-28] MEDS: LISINOPRIL 5 MG TABLET PO SCH (10:44)
[2017-10-28] MEDS: SIMVASTATIN 10 MG TABLET PO SCH (10:44)
[2017-10-28] MEDS: DULOXETINE HCL 30 MG CAPSULE.DR PO SCH ×2 (10:45→21:35)
[2017-10-28] MEDS: BUSPIRONE HCL 10 MG TABLET PO SCH ×2 (10:45→21:35)
--- NOTE | 2017-10-28 11:54 | PDOC PROGRESS REPORT ---
Subjective Progress Note for:: 10/28/17 Subjective:: Patient was admitted with diarrhea. He was also found to be dehydrated. She has been started on octreotide. She does have a history of chronic diarrhea. Patient has a history of metastatic melanoma. She has a history of DVT and had been on Xarelto prior to admission. Currently she is not on Xarelto although not sure why. Patient had a colonoscopy done which revealed diffuse colitis from rectum to the cecum status post biopsy. There is no pseudomembranes noted Patient says she has less diarrhea, denies abdominal pain Reason For Visit: DIFFUSE COLITIS, ORTHOSTATIC HYPOTENSION, Physical Exam Vital Signs: Temp Pulse Resp BP Pulse Ox 97.5 F 122 H 14 118/96 H 90 L 10/28/17 07:28 10/28/17 07:28 10/28/17 07:28 10/28/17 07:28 10/28/17 07:28 Intake & Output 10/27/17 10/28/17 10/29/17 06:59 06:59 06:59 Intake Total 2576 2494 Balance 2576 2494 Weight 54.6 kg 55.2 kg General appearance: PRESENT: no acute distress, thin, well-developed Head exam: PRESENT: atraumatic, normocephalic Eye exam: PRESENT: conjunctiva pink, EOMI, PERRLA. ABSENT: scleral icterus Ear exam: PRESENT: normal external ear exam Mouth exam: PRESENT: moist, tongue midline Neck exam: ABSENT: carotid bruit, JVD, lymphadenopathy, thyromegaly Respiratory exam: PRESENT: clear to auscultation dex. ABSENT: rales, rhonchi, wheezes Cardiovascular exam: PRESENT: RRR, +S1, +S2. ABSENT: diastolic murmur, rubs, systolic murmur Pulses: PRESENT: normal dorsalis pedis pul Vascular exam: PRESENT: normal capillary refill GI/Abdominal exam: PRESENT: normal bowel sounds, soft. ABSENT: distended, guarding, mass, organolmegaly, rebound, tenderness Rectal exam: PRESENT: deferred Extremities exam: PRESENT: full ROM. ABSENT: calf tenderness, clubbing, pedal edema Neurological exam: PRESENT: alert, awake, oriented to person, oriented to place , CN II-XII grossly intact, other - confused. ABSENT: motor sensory deficit Psychiatric exam: PRESENT: appropriate affect, normal mood. ABSENT: homicidal ideation, suicidal ideation Skin exam: PRESENT: dry, intact, warm. ABSENT: cyanosis, rash Results Laboratory Results: 10/28/17 04:25 10/28/17 04:25 10/28/17 10/28/17 04:25 04:25 WBC 16.9 H RBC 4.57 Hgb 12.9 Hct 38.5 MCV 84 MCH 28.2 MCHC 33.4 RDW 15.7 H Plt Count 163 Seg Neutrophils % Not Reportable Lymphocytes % Not Reportable Monocytes % Not Reportable Eosinophils % Not Reportable Basophils % Not Reportable Absolute Neutrophils Not Reportable Absolute Lymphocytes Not Reportable Absolute Monocytes Not Reportable Absolute Eosinophils Not Reportable Absolute Basophils Not Reportable Sodium 133.7 L Potassium 3.2 L Chloride 109 H Carbon Dioxide 19 L Anion Gap 6 BUN 11 Creatinine 0.41 L Est GFR ( Amer) > 60 Est GFR (Non-Af Amer) > 60 Glucose 69 L Calcium 7.1 L Total Bilirubin 0.4 AST 19 ALT 27 Alkaline Phosphatase 76 Total Protein 4.1 L Albumin 1.6 L Assessment & Plan - Time Time Spent with patient: 15-24 minutes Medications reviewed and adjusted accordingly: Yes Anticipated discharge: SNF Within: within 72 hours - Inpatient Certification Based on my medical assessment, after consideration of the patient's comorbidities, presenting symptoms, or acuity I expect that the services needed warrant INPATIENT care.: Yes Medical Necessity: Need Close Monitoring Due to Risk of Patient Decompensation, Risk of Complication if Not Cared For in Hospital - Plan Summary Plan Summary: 1. Patient noted to still be tachycardic and has worsening leukocytosis. There is no fever. Etiology of this is really not clear. Patient is largely asymptomatic however she is immunosuppressed. Patient does have diffuse colitis and she has not been on any antibiotics so I will go ahead and start on empiric antibiotic. If needed further interventions will be obtained C. difficile PCR was negative. 2. Chronic diarrhea with diffuse colitis. follow up with biopsy. Symptoms seem to have improved with subcutaneous octreotide. I #3 dehydration we will continue with cautious IV fluid 4. History of metastatic melanoma 5. history of deep venous thrombosis on Xarelto Patient requesting Rehab at [place]. 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
--- NOTE | 2017-10-28 13:05 | RADIOLOGY REPORT (SQ) ---
EXAM DESCRIPTION: CHEST 2 VIEWS COMPLETED DATE/TIME: 10/28/2017 12:55 pm REASON FOR STUDY: Abdominal pain, leukocytosis COMPARISON: 09/21/2017 EXAM PARAMETERS: NUMBER OF VIEWS: two views TECHNIQUE: Digital Frontal and Lateral radiographic views of the chest acquired. RADIATION DOSE: NA LIMITATIONS: none FINDINGS: LUNGS AND PLEURA: Interval development of parenchymal opacity at the right lung base. Lef t lung is clear. No pneumothorax. MEDIASTINUM AND HILAR STRUCTURES: No masses or contour abnormalities. HEART AND VASCULAR STRUCTURES: Heart normal size. No evidence for failure. BONES: No acute findings. HARDWARE: None in the chest. OTHER: No other significant finding. IMPRESSION: Right basilar pneumonitis. TECHNICAL DOCUMENTATION: JOB ID: [id number] [employer]- All Rights Reserved Reading location - IP/workstation name: [email or web address]
[2017-10-28] MEDS: METRONIDAZOLE 500 MG/NS RTU 500 MG/100 ML RTUPB IV SCH ×2 (14:26→18:02)
[2017-10-28] MEDS: POTASSIUM CHLORIDE 10 MEQ CAPSULE.ER PO SCH ×2 (14:26→21:35)
[2017-10-29] MEDS: METRONIDAZOLE 500 MG/NS RTU 500 MG/100 ML RTUPB IV SCH ×4 (01:47→17:10)
[2017-10-29] MEDS: ONDANSETRON HCL INJ/PF 4 MG/2 ML SDV IV PRN (04:23)
[2017-10-29] MEDS: OCTREOTIDE ACETATE INJ/PF 100 MCG/1 ML SDV SUBCUT SCH ×3 (05:45→21:22)
[2017-10-29 06:30] LABS: HEMATOCRIT 46.3 % (36.0-47.0); HEMOGLOBIN 14.9 g/dL (12.0-15.5); MEAN CORPUSCULAR HEMOGLOBIN 27.6 pg (27.0-33.4); MEAN CORPUSCULAR HGB CONC 32.1 g/dL (32.0-36.0); MEAN CORPUSCULAR VOLUME 86 fl (80-97); PLATELET COUNT 146 10^3/uL (150-450); RED BLOOD COUNT 5.39 10^6/uL (3.72-5.28); RED CELL DISTRIBUTION WIDTH 15.9 % (11.5-14.0); WHITE BLOOD COUNT 20.1 10^3/uL (4.0-10.5)
[2017-10-29 06:42] LABS: ANION GAP 10 (5-19); BLOOD UREA NITROGEN 14 mg/dL (7-20); CALCIUM 7.6 mg/dL (8.4-10.2); CARBON DIOXIDE 19 mmol/L (22-30); CHLORIDE 107 mmol/L (98-107); GLUCOSE 126 mg/dL (75-110); POTASSIUM 3.8 mmol/L (3.6-5.0); SODIUM 136.3 mmol/L (137-145)
[2017-10-29 06:45] LABS: ABSOLUTE MONOCYTES # (MANUAL) 2.8 10^3/uL (0.1-1.4); ABSOLUTE NEUTROPHILS# (MANUAL) 15.1 10^3/uL (1.7-8.2); BAND NEUTROPHILS % (MANUAL) 9 % (3-5); BASOPHILS % (MANUAL) 0 % (0-2); EOSINOPHILS % (MANUAL) 1 % (0-6); LYMPHOCYTES % (MANUAL) 10 % (13-45); MONOCYTES % (MANUAL) 14 % (3-13); PROMYELOCYTES % (MANUAL) 1 % (0); SEGMENTED NEUTROPHILS % (MAN) 65 % (42-78); TOTAL CELLS COUNTED 100
[2017-10-29 06:48] LABS: ANISOCYTOSIS SLIGHT; BURR CELLS 2+; OVALOCYTES 1+; PLATELET COMMENT ADEQUATE; POIKILOCYTOSIS 2+; TOXIC GRANULATION SLIGHT
[2017-10-29] MEDS: GABAPENTIN 400 MG CAPSULE PO SCH ×4 (07:38→21:21)
[2017-10-29] MEDS: NORMAL SALINE 1000 ML 1,000 ML IV PRN (08:42)
[2017-10-29] MEDS: DULOXETINE HCL 30 MG CAPSULE.DR PO SCH ×2 (09:04→21:21)
[2017-10-29] MEDS: RIVAROXABAN 10 MG TABLET PO SCH (09:04)
[2017-10-29] MEDS: BUSPIRONE HCL 10 MG TABLET PO SCH ×2 (09:04→21:21)
[2017-10-29] MEDS: SIMVASTATIN 10 MG TABLET PO SCH (09:06)
[2017-10-29] MEDS: LISINOPRIL 5 MG TABLET PO SCH (09:07)
--- NOTE | 2017-10-29 11:55 | PDOC PROGRESS REPORT ---
Subjective Progress Note for:: 10/29/17 Subjective:: Patient was admitted with diarrhea. He was also found to be dehydrated. She has been started on octreotide. She does have a history of chronic diarrhea. Patient has a history of metastatic melanoma. She has a history of DVT and had been on Xarelto prior to admission. Currently restarted on Xarelto. Patient had a colonoscopy done which revealed diffuse colitis from rectum to the cecum status post biopsy. There is no pseudomembranes noted Patient says she has less diarrhea, denies abdominal pain She remains confused Reason For Visit: DIFFUSE COLITIS, ORTHOSTATIC HYPOTENSION, Physical Exam Vital Signs: Temp Pulse Resp BP Pulse Ox 98 F 123 H 16 104/54 L 90 L 10/29/17 08:00 10/29/17 08:00 10/29/17 08:00 10/29/17 08:00 10/29/17 08:00 Intake & Output 10/28/17 10/29/17 10/30/17 06:59 06:59 06:59 Intake Total 2494 3340 Balance 2494 3340 Weight 55.2 kg General appearance: PRESENT: no acute distress, well-developed, well-nourished Head exam: PRESENT: atraumatic, normocephalic Eye exam: PRESENT: conjunctiva pink, EOMI, PERRLA. ABSENT: scleral icterus Ear exam: PRESENT: normal external ear exam Mouth exam: PRESENT: moist, tongue midline Neck exam: ABSENT: carotid bruit, JVD, lymphadenopathy, thyromegaly Respiratory exam: PRESENT: clear to auscultation dex. ABSENT: rales, rhonchi, wheezes Cardiovascular exam: PRESENT: +S1, +S2, tachycardia. ABSENT: diastolic murmur, rubs, systolic murmur Pulses: PRESENT: normal dorsalis pedis pul Vascular exam: PRESENT: normal capillary refill GI/Abdominal exam: PRESENT: normal bowel sounds, soft. ABSENT: distended, guarding, mass, organolmegaly, rebound, tenderness Rectal exam: PRESENT: deferred Extremities exam: PRESENT: full ROM. ABSENT: calf tenderness, clubbing, pedal edema Neurological exam: PRESENT: alert, awake, oriented to person, oriented to place , oriented to situation, other - confused. ABSENT: motor sensory deficit Psychiatric exam: PRESENT: appropriate affect, normal mood. ABSENT: homicidal ideation, suicidal ideation Skin exam: PRESENT: dry, intact, warm. ABSENT: cyanosis, rash Results Laboratory Results: 10/29/17 05:16 10/29/17 05:16 10/29/17 10/29/17 05:16 05:16 WBC 20.1 H RBC 5.39 H Hgb 14.9 Hct 46.3 MCV 86 MCH 27.6 MCHC 32.1 RDW 15.9 H Plt Count 146 L Seg Neutrophils % Not Reportable Lymphocytes % Not Reportable Monocytes % Not Reportable Eosinophils % Not Reportable Basophils % Not Reportable Absolute Neutrophils Not Reportable Absolute Lymphocytes Not Reportable Absolute Monocytes Not Reportable Absolute Eosinophils Not Reportable Absolute Basophils Not Reportable Sodium 136.3 L Potassium 3.8 Chloride 107 Carbon Dioxide 19 L Anion Gap 10 BUN 14 Creatinine 0.50 L Est GFR ( Amer) > 60 Est GFR (Non-Af Amer) > 60 Glucose 126 H Calcium 7.6 L Magnesium 1.7 Impressions: Chest X-Ray 10/28/17 00:00 IMPRESSION: Right basilar pneumonitis. Assessment & Plan - Time Time Spent with patient: 15-24 minutes Medications reviewed and adjusted accordingly: Yes Anticipated discharge: SNF Within: within 48 hours - Inpatient Certification Based on my medical assessment, after consideration of the patient's comorbidities, presenting symptoms, or acuity I expect that the services needed warrant INPATIENT care.: Yes Medical Necessity: Need for IV Antibiotics - Plan Summary Plan Summary: 1. Patient still tachycardic and has worsening leukocytosis. There is no fever. Etiology of this is really not clear. Patient is largely asymptomatic however she is immunosuppressed. Patient does have diffuse colitis and she has not been on any antibiotics so i started on Cipro and Flagyl. If needed further interventions will be obtained C. difficile PCR was negative. 2. Chronic diarrhea with diffuse colitis. follow up with biopsy. Diarrhea seem to have improved with subcutaneous octreotide. I #3 dehydration we will continue with cautious IV fluid 4. 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 history of deep venous thrombosis on Xarelto 6. Will consider echo and other interventions if needed. At this time her tachycardia, hypotension and leukocytosis may be secondary to sepsis. Continue to monitor closely Patient requesting Rehab at [place] Will consult PT, recreation facility manager
[2017-10-30] MEDS: METRONIDAZOLE 500 MG/NS RTU 500 MG/100 ML RTUPB IV SCH ×4 (01:13→17:55)
[2017-10-30] MEDS: NORMAL SALINE 1000 ML 1,000 ML IV PRN ×2 (01:14→14:37)
[2017-10-30 04:01] LABS: HEMATOCRIT 39.8 % (36.0-47.0); HEMOGLOBIN 13.5 g/dL (12.0-15.5); MEAN CORPUSCULAR HEMOGLOBIN 28.6 pg (27.0-33.4); MEAN CORPUSCULAR HGB CONC 33.9 g/dL (32.0-36.0); MEAN CORPUSCULAR VOLUME 84 fl (80-97); PLATELET COUNT 127 10^3/uL (150-450); RED BLOOD COUNT 4.72 10^6/uL (3.72-5.28); RED CELL DISTRIBUTION WIDTH 15.7 % (11.5-14.0); WHITE BLOOD COUNT 19.9 10^3/uL (4.0-10.5)
[2017-10-30 04:17] LABS: BLOOD UREA NITROGEN 14 mg/dL (7-20); CALCIUM 7.3 mg/dL (8.4-10.2); GLUCOSE 101 mg/dL (75-110); POTASSIUM 3.6 mmol/L (3.6-5.0)
[2017-10-30 04:23] LABS: CARBON DIOXIDE 20 mmol/L (22-30); CHLORIDE 110 mmol/L (98-107); SODIUM 132.7 mmol/L (137-145)
[2017-10-30 04:25] LABS: ANION GAP 3 (5-19)
[2017-10-30 04:27] LABS: ABSOLUTE MONOCYTES # (MANUAL) 0.4 10^3/uL (0.1-1.4); ABSOLUTE NEUTROPHILS# (MANUAL) 18.5 10^3/uL (1.7-8.2); BASOPHILS % (MANUAL) 0 % (0-2); EOSINOPHILS % (MANUAL) 0 % (0-6); LYMPHOCYTES % (MANUAL) 4 % (13-45); MONOCYTES % (MANUAL) 2 % (3-13); SEGMENTED NEUTROPHILS % (MAN) 93 % (42-78); TOTAL CELLS COUNTED 100
[2017-10-30 04:29] LABS: TOXIC GRANULATION 3+
[2017-10-30 04:30] LABS: ANISOCYTOSIS 1+; BURR CELLS 3+; HELMET CELLS SLIGHT; OVALOCYTES SLIGHT; PLATELET COMMENT ADEQUATE; POIKILOCYTOSIS 2+; TEAR DROP CELLS 1+; TOXIC VACUOLATION PRESENT
[2017-10-30] MEDS: OCTREOTIDE ACETATE INJ/PF 100 MCG/1 ML SDV SUBCUT SCH ×3 (06:10→22:37)
[2017-10-30] MEDS: GABAPENTIN 400 MG CAPSULE PO SCH ×4 (09:11→22:30)
[2017-10-30] MEDS: RIVAROXABAN 10 MG TABLET PO SCH (11:31)
[2017-10-30] MEDS: DULOXETINE HCL 30 MG CAPSULE.DR PO SCH ×2 (11:31→22:27)
[2017-10-30] MEDS: BUSPIRONE HCL 10 MG TABLET PO SCH ×2 (11:31→22:26)
[2017-10-30] MEDS: LISINOPRIL 5 MG TABLET PO SCH (11:31)
[2017-10-30] MEDS: SIMVASTATIN 10 MG TABLET PO SCH (11:31)
--- NOTE | 2017-10-30 13:05 | PDOC PROGRESS REPORT ---
Subjective Progress Note for:: 10/30/17 Subjective:: Patient was admitted with diarrhea. He was also found to be dehydrated. She has been started on octreotide. She does have a history of chronic diarrhea. Patient has a history of metastatic melanoma. She has a history of DVT and had been on Xarelto prior to admission. Currently restarted on Xarelto. Patient had a colonoscopy done which revealed diffuse colitis from rectum to the cecum status post biopsy. There is no pseudomembranes noted Patient says she has less diarrhea, denies abdominal pain She remains confused She is still tachycardic, no chest pain or difficulty breathing Reason For Visit: DIFFUSE COLITIS, ORTHOSTATIC HYPOTENSION, Physical Exam Vital Signs: Temp Pulse Resp BP Pulse Ox 97.4 F 127 H 20 128/72 H 92 10/30/17 08:30 10/30/17 08:30 10/30/17 08:30 10/30/17 08:00 10/30/17 08:30 Intake & Output 10/29/17 10/30/17 10/31/17 06:59 06:59 06:59 Intake Total 3340 1938 100 Balance 3340 1938 100 General appearance: PRESENT: no acute distress, thin Head exam: PRESENT: atraumatic Eye exam: PRESENT: conjunctiva pink, EOMI, PERRLA. ABSENT: scleral icterus Ear exam: PRESENT: normal external ear exam Mouth exam: PRESENT: moist, tongue midline Neck exam: ABSENT: carotid bruit, JVD, lymphadenopathy, thyromegaly Respiratory exam: PRESENT: clear to auscultation dex. ABSENT: rales, rhonchi, wheezes Cardiovascular exam: PRESENT: +S1, +S2, tachycardia. ABSENT: diastolic murmur, rubs, systolic murmur Pulses: PRESENT: normal dorsalis pedis pul Vascular exam: PRESENT: normal capillary refill GI/Abdominal exam: PRESENT: normal bowel sounds, soft. ABSENT: distended, guarding, mass, organolmegaly, rebound, tenderness Rectal exam: PRESENT: deferred Extremities exam: PRESENT: full ROM. ABSENT: calf tenderness, clubbing, pedal edema Neurological exam: PRESENT: alert, awake, oriented to person, oriented to place. ABSENT: motor sensory deficit Psychiatric exam: PRESENT: appropriate affect, normal mood Skin exam: PRESENT: dry, intact, warm. ABSENT: cyanosis, rash Results Laboratory Results: 10/30/17 03:53 10/30/17 03:53 10/30/17 10/30/17 03:53 03:53 WBC 19.9 H RBC 4.72 Hgb 13.5 Hct 39.8 MCV 84 MCH 28.6 MCHC 33.9 RDW 15.7 H Plt Count 127 L Seg Neutrophils % Not Reportable Lymphocytes % Not Reportable Monocytes % Not Reportable Eosinophils % Not Reportable Basophils % Not Reportable Absolute Neutrophils Not Reportable Absolute Lymphocytes Not Reportable Absolute Monocytes Not Reportable Absolute Eosinophils Not Reportable Absolute Basophils Not Reportable Sodium 132.7 L Potassium 3.6 Chloride 110 H Carbon Dioxide 20 L Anion Gap 3 L BUN 14 Creatinine 0.46 L Est GFR ( Amer) > 60 Est GFR (Non-Af Amer) > 60 Glucose 101 Calcium 7.3 L Impressions: Chest X-Ray 10/28/17 00:00 IMPRESSION: Right basilar pneumonitis. Assessment & Plan - Time Time Spent with patient: 15-24 minutes Medications reviewed and adjusted accordingly: Yes Anticipated discharge: SNF Within: within 72 hours - Inpatient Certification Based on my medical assessment, after consideration of the patient's comorbidities, presenting symptoms, or acuity I expect that the services needed warrant INPATIENT care.: Yes Medical Necessity: Need For IV Fluids, Need for IV Antibiotics - Plan Summary Plan Summary: 1. Patient still tachycardic with leukocytosis. There is no fever. Etiology of this is still not clear. Patient is largely asymptomatic however she is immunosuppressed. Patient does have diffuse colitis and she has not been on any antibiotics so i started on Cipro and Flagyl. If needed further interventions will be obtained C. difficile PCR was negative. 2. Chronic diarrhea with diffuse colitis. follow up with biopsy. Diarrhea seem to have improved with subcutaneous octreotide. #3 dehydration we will continue with cautious IV fluid 4. 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 history of deep venous thrombosis on Xarelto. No symptoms to suggest VTE however further imaging tests if needed due to tachycardia 6. At this time her tachycardia, hypotension and leukocytosis may be secondary to sepsis. Continue to monitor closely Started on low dose Bystolic and ordered echo EKG shows sinus tachycardia Patient requesting Rehab at [place]. Will consult PT, hospitality manager
[2017-10-30] MEDS: CIPROFLOXACIN 400 MG/D5W RTU 400 MG/200 ML RTUPB IV SCH ×2 (14:09→22:27)
[2017-10-30] MEDS: NEBIVOLOL HCL 2.5 MG TABLET PO SCH ×2 (14:20→22:38)
[2017-10-31] MEDS: METRONIDAZOLE 500 MG/NS RTU 500 MG/100 ML RTUPB IV SCH ×4 (02:06→19:12)
[2017-10-31] MEDS: OCTREOTIDE ACETATE INJ/PF 100 MCG/1 ML SDV SUBCUT SCH ×3 (05:37→21:14)
[2017-10-31 05:56] LABS: HEMATOCRIT 37.3 % (36.0-47.0); HEMOGLOBIN 12.5 g/dL (12.0-15.5); MEAN CORPUSCULAR HEMOGLOBIN 28.2 pg (27.0-33.4); MEAN CORPUSCULAR HGB CONC 33.5 g/dL (32.0-36.0); MEAN CORPUSCULAR VOLUME 84 fl (80-97); PLATELET COUNT 115 10^3/uL (150-450); RED BLOOD COUNT 4.43 10^6/uL (3.72-5.28); RED CELL DISTRIBUTION WIDTH 15.8 % (11.5-14.0); WHITE BLOOD COUNT 17.5 10^3/uL (4.0-10.5)
[2017-10-31 06:08] LABS: ALANINE AMINOTRANSFERASE 27 U/L (9-52); ALBUMIN 1.3 g/dL (3.5-5.0); ALKALINE PHOSPHATASE 75 U/L (38-126); ANION GAP 5 (5-19); ASPARTATE AMINO TRANSFERASE 22 U/L (14-36); BILIRUBIN,DIRECT 0.8 mg/dL (0.0-0.4); BILIRUBIN,TOTAL 0.8 mg/dL (0.2-1.3); BLOOD UREA NITROGEN 13 mg/dL (7-20); CARBON DIOXIDE 20 mmol/L (22-30); CHLORIDE 108 mmol/L (98-107); GLUCOSE 82 mg/dL (75-110); SODIUM 133.3 mmol/L (137-145); TOTAL PROTEIN 3.6 g/dL (6.3-8.2)
[2017-10-31 06:15] LABS: ABSOLUTE LYMPHOCYTES# (MANUAL) 0.2 10^3/uL (0.5-4.7); ABSOLUTE MONOCYTES # (MANUAL) 0.5 10^3/uL (0.1-1.4); ABSOLUTE NEUTROPHILS# (MANUAL) 16.8 10^3/uL (1.7-8.2); BAND NEUTROPHILS % (MANUAL) 3 % (3-5); BASOPHILS % (MANUAL) 0 % (0-2); EOSINOPHILS % (MANUAL) 0 % (0-6); LYMPHOCYTES % (MANUAL) 1 % (13-45); MONOCYTES % (MANUAL) 3 % (3-13); SEGMENTED NEUTROPHILS % (MAN) 93 % (42-78); TOTAL CELLS COUNTED 100
[2017-10-31 06:16] LABS: TOXIC GRANULATION SLIGHT
[2017-10-31 06:17] LABS: ANISOCYTOSIS SLIGHT; BURR CELLS SLIGHT; OVALOCYTES 1+; PLATELET COMMENT DECREASED; POIKILOCYTOSIS SLIGHT
[2017-10-31 07:23] LABS: POTASSIUM 2.9 mmol/L (3.6-5.0)
[2017-10-31 07:29] LABS: CALCIUM 6.9 mg/dL (8.4-10.2)
[2017-10-31] MEDS: GABAPENTIN 400 MG CAPSULE PO SCH ×4 (07:36→21:15)
[2017-10-31] MEDS ORDERED: POTASSIUM CHLORIDE 10 MEQ CAPSULE.ER PO ONE (08:06)
[2017-10-31] MEDS: NORMAL SALINE 1000 ML 1,000 ML IV PRN ×2 (08:07→21:13)
[2017-10-31] MEDS: BUSPIRONE HCL 10 MG TABLET PO SCH ×2 (10:17→21:14)
[2017-10-31] MEDS: DULOXETINE HCL 30 MG CAPSULE.DR PO SCH ×2 (10:18→21:14)
[2017-10-31] MEDS: LISINOPRIL 5 MG TABLET PO SCH (10:18)
[2017-10-31] MEDS: CIPROFLOXACIN 400 MG/D5W RTU 400 MG/200 ML RTUPB IV SCH ×2 (10:18→21:14)
[2017-10-31] MEDS: RIVAROXABAN 10 MG TABLET PO SCH (10:18)
[2017-10-31] MEDS: SIMVASTATIN 10 MG TABLET PO SCH (10:18)
[2017-10-31] MEDS: NEBIVOLOL HCL 2.5 MG TABLET PO SCH ×2 (10:19→21:14)
[2017-10-31] MEDS ORDERED: ACETAMINOPHEN 325 MG TABLET ONE (11:44)
--- NOTE | 2017-10-31 13:21 | PDOC PROGRESS REPORT ---
Subjective Progress Note for:: 10/31/17 Subjective:: This is a very pleasant but unfortunate 67 years old female patient with history of metastatic melanoma with metastasis to the brain and kidney presented with generalized body weakness and she has underlying chronic diarrhea which has been going on for months. Morning I seen patient lying in bed. She does not have new complaint. Her blood work shows hypokalemia with potassium was 2.9. Hypocalcemia 6 calcium 6.9. Reason For Visit: DIFFUSE COLITIS, ORTHOSTATIC HYPOTENSION, Physical Exam Vital Signs: Temp Pulse Resp BP Pulse Ox 97.7 F 85 13 99/53 L 94 10/31/17 07:49 10/31/17 07:49 10/31/17 07:49 10/31/17 07:49 10/31/17 07:49 Intake & Output 10/30/17 10/31/17 11/01/17 06:59 06:59 06:59 Intake Total 2780 3600 Balance 2780 3600 Weight 56 kg General appearance: PRESENT: no acute distress Mouth exam: PRESENT: dry mucosa Respiratory exam: PRESENT: clear to auscultation dex. ABSENT: rales, rhonchi, wheezes Cardiovascular exam: PRESENT: RRR. ABSENT: diastolic murmur, rubs, systolic murmur GI/Abdominal exam: PRESENT: normal bowel sounds, soft. ABSENT: distended, guarding, mass, organolmegaly, rebound, tenderness Neurological exam: PRESENT: alert, awake Results Laboratory Results: 10/31/17 04:05 10/31/17 04:05 10/31/17 10/31/17 04:05 04:05 WBC 17.5 H RBC 4.43 Hgb 12.5 Hct 37.3 MCV 84 MCH 28.2 MCHC 33.5 RDW 15.8 H Plt Count 115 L Seg Neutrophils % Not Reportable Lymphocytes % Not Reportable Monocytes % Not Reportable Eosinophils % Not Reportable Basophils % Not Reportable Absolute Neutrophils Not Reportable Absolute Lymphocytes Not Reportable Absolute Monocytes Not Reportable Absolute Eosinophils Not Reportable Absolute Basophils Not Reportable Sodium 133.3 L Potassium 2.9 L* Chloride 108 H Carbon Dioxide 20 L Anion Gap 5 BUN 13 Creatinine 0.44 L Est GFR ( Amer) > 60 Est GFR (Non-Af Amer) > 60 Glucose 82 Calcium 6.9 L* Total Bilirubin 0.8 AST 22 ALT 27 Alkaline Phosphatase 75 Total Protein 3.6 L Albumin 1.3 L Impressions: Chest X-Ray 10/28/17 00:00 IMPRESSION: Right basilar pneumonitis. Assessment & Plan - Diagnosis (1) Hypokalemia Is this a current diagnosis for this admission?: Yes Plan: We will replete and check her BMP in a.m. (2) Hypocalcemia Is this a current diagnosis for this admission?: Yes Plan: Most probably due to hypoalbuminemia. We will determine the ionized fraction of calcium (3) Metastatic melanoma Is this a current diagnosis for this admission?: Yes Plan: Management per her primary oncologist. (4) Orthostatic hypotension Is this a current diagnosis for this admission?: Yes Plan: Stable
[2017-10-31] MEDS ORDERED: ACETAMINOPHEN 325 MG TABLET PO PRN (20:57)
[2017-11-01] MEDS: METRONIDAZOLE 500 MG/NS RTU 500 MG/100 ML RTUPB IV SCH ×4 (01:04→17:11)
[2017-11-01 05:54] LABS: HEMATOCRIT 36.7 % (36.0-47.0); HEMOGLOBIN 12.4 g/dL (12.0-15.5); MEAN CORPUSCULAR HEMOGLOBIN 28.5 pg (27.0-33.4); MEAN CORPUSCULAR HGB CONC 33.6 g/dL (32.0-36.0); MEAN CORPUSCULAR VOLUME 85 fl (80-97); PLATELET COUNT 113 10^3/uL (150-450); RED BLOOD COUNT 4.34 10^6/uL (3.72-5.28); RED CELL DISTRIBUTION WIDTH 15.8 % (11.5-14.0); WHITE BLOOD COUNT 19.8 10^3/uL (4.0-10.5)
[2017-11-01] MEDS: OCTREOTIDE ACETATE INJ/PF 100 MCG/1 ML SDV SUBCUT SCH ×3 (06:03→21:35)
[2017-11-01 06:21] LABS: ABSOLUTE LYMPHOCYTES# (MANUAL) 3.6 10^3/uL (0.5-4.7); ABSOLUTE MONOCYTES # (MANUAL) 0.4 10^3/uL (0.1-1.4); ABSOLUTE NEUTROPHILS# (MANUAL) 15.8 10^3/uL (1.7-8.2); BAND NEUTROPHILS % (MANUAL) 2 % (3-5); BASOPHILS % (MANUAL) 0 % (0-2); EOSINOPHILS % (MANUAL) 0 % (0-6); LYMPHOCYTES % (MANUAL) 18 % (13-45); MONOCYTES % (MANUAL) 2 % (3-13); SEGMENTED NEUTROPHILS % (MAN) 78 % (42-78); TOTAL CELLS COUNTED 100
[2017-11-01 06:22] LABS: ALANINE AMINOTRANSFERASE 32 U/L (9-52); ALBUMIN 1.3 g/dL (3.5-5.0); ALKALINE PHOSPHATASE 91 U/L (38-126); ANISOCYTOSIS 1+; ASPARTATE AMINO TRANSFERASE 30 U/L (14-36); BLOOD UREA NITROGEN 15 mg/dL (7-20); BURR CELLS 1+; CALCIUM 7.2 mg/dL (8.4-10.2); GLUCOSE 94 mg/dL (75-110); PLATELET COMMENT ADEQUATE; POLYCHROMASIA 1+; TOTAL PROTEIN 3.6 g/dL (6.3-8.2)
[2017-11-01 06:27] LABS: ANION GAP 5 (5-19); CARBON DIOXIDE 17 mmol/L (22-30); CHLORIDE 113 mmol/L (98-107); SODIUM 134.5 mmol/L (137-145)
[2017-11-01 06:44] LABS: POTASSIUM 2.7 mmol/L (3.6-5.0)
[2017-11-01] MEDS: GABAPENTIN 400 MG CAPSULE PO SCH ×4 (07:48→21:38)
[2017-11-01] MEDS: POTASSIUM CHLORIDE 20 MEQ/50 ML RTU IV SCH ×4 (08:41→21:39)
[2017-11-01] MEDS ORDERED: POTASSIUM CHLORIDE 20 MEQ/50 ML RTU IV SCH ×2 (09:00)
[2017-11-01] MEDS: NEBIVOLOL HCL 2.5 MG TABLET PO SCH ×2 (10:09→23:27)
[2017-11-01] MEDS: POTASSIUM CHLORIDE 10 MEQ CAPSULE.ER PO SCH (10:12)
[2017-11-01] MEDS: SIMVASTATIN 10 MG TABLET PO SCH (10:12)
[2017-11-01] MEDS: CIPROFLOXACIN 400 MG/D5W RTU 400 MG/200 ML RTUPB IV SCH ×2 (10:12→21:38)
[2017-11-01] MEDS: DULOXETINE HCL 30 MG CAPSULE.DR PO SCH ×2 (10:12→21:35)
[2017-11-01] MEDS: BUSPIRONE HCL 10 MG TABLET PO SCH ×2 (10:13→21:36)
[2017-11-01] MEDS: RIVAROXABAN 10 MG TABLET PO SCH (10:14)
[2017-11-01] MEDS: LISINOPRIL 5 MG TABLET PO SCH (10:14)
[2017-11-01] MEDS ORDERED: DRONABINOL 2.5 MG CAPSULE PO PRN (10:54)
[2017-11-01] MEDS: CYPROHEPTADINE HCL 4 MG TABLET PO SCH ×2 (13:28→21:41)
[2017-11-01] MEDS: CALCIUM CARBONATE 250 MG/VITAMIN D3 125 UNIT TABLET PO SCH ×2 (13:28→17:12)
[2017-11-01] MEDS: MEGESTROL ACETATE SUSP 400 MG/10 ML UDCUP PO SCH (13:29)
[2017-11-01 15:13] LABS: BAND NEUTROPHILS % (MANUAL) 10 % (3-5)
[2017-11-01 15:14] LABS: SEGMENTED NEUTROPHILS % (MAN) 79 % (42-78)
[2017-11-01 15:15] LABS: PATH REVIEW PATHOLOGIST REVIEWED
--- NOTE | 2017-11-01 18:25 | PDOC PROGRESS REPORT ---
Subjective Progress Note for:: 11/01/17 Subjective:: Patient is lying in bed. She is awake alert. Per the nurse in charge of her patients to has on and off brownies diarrhea. She is also anorexic. She has been started on cyproheptadine, Marinol and Megace to boost her appetite. Reason For Visit: DIFFUSE COLITIS, ORTHOSTATIC HYPOTENSION, Physical Exam Vital Signs: Temp Pulse Resp BP Pulse Ox 97.4 F 84 20 88/58 L 90 L 11/01/17 16:00 11/01/17 16:00 11/01/17 16:00 11/01/17 16:00 11/01/17 16:00 Intake & Output 10/31/17 11/01/17 11/02/17 06:59 06:59 06:59 Intake Total 3600 2897 813 Balance 3600 2897 813 Weight 56 kg 55.2 kg General appearance: PRESENT: no acute distress Eye exam: PRESENT: conjunctiva pink Mouth exam: PRESENT: dry mucosa Neck exam: ABSENT: carotid bruit, JVD, lymphadenopathy, thyromegaly Respiratory exam: PRESENT: clear to auscultation dex. ABSENT: rales, rhonchi, wheezes Cardiovascular exam: PRESENT: RRR. ABSENT: diastolic murmur, rubs, systolic murmur GI/Abdominal exam: PRESENT: normal bowel sounds, soft. ABSENT: distended, guarding, mass, organolmegaly, rebound, tenderness Neurological exam: PRESENT: alert Results Laboratory Results: 11/01/17 05:40 11/01/17 05:40 11/01/17 11/01/17 11/01/17 05:40 05:40 05:40 WBC 19.8 H RBC 4.34 Hgb 12.4 Hct 36.7 MCV 85 MCH 28.5 MCHC 33.6 RDW 15.8 H Plt Count 113 L Seg Neutrophils % Not Reportable Lymphocytes % Not Reportable Monocytes % Not Reportable Eosinophils % Not Reportable Basophils % Not Reportable Absolute Neutrophils Not Reportable Absolute Lymphocytes Not Reportable Absolute Monocytes Not Reportable Absolute Eosinophils Not Reportable Absolute Basophils Not Reportable Sodium 134.5 L Potassium 2.7 L* Chloride 113 H Carbon Dioxide 17 L Anion Gap 5 BUN 15 Creatinine 0.62 Est GFR ( Amer) > 60 Est GFR (Non-Af Amer) > 60 Glucose 94 Calcium 7.2 L Ionized Calcium Sindi 1.12 L Total Bilirubin 1.0 AST 30 ALT 32 Alkaline Phosphatase 91 Total Protein 3.6 L Albumin 1.3 L Impressions: Chest X-Ray 10/28/17 00:00 IMPRESSION: Right basilar pneumonitis. Assessment & Plan - Diagnosis (1) Hypokalemia Is this a current diagnosis for this admission?: Yes Plan: Patient still hypokalemic with potassium of 2.7. Patient has been started on K rider. (2) Hypocalcemia Is this a current diagnosis for this admission?: Yes Plan: Potassium relatively improved from 6.927.5. Her ionized fraction is also low. Patient has been on calcium carbonate in combination with vitamin D3 (3) Metastatic melanoma Is this a current diagnosis for this admission?: Yes Plan: Management per her primary oncologist. (4) Orthostatic hypotension Is this a current diagnosis for this admission?: Yes Plan: Stable
[2017-11-01] MEDS: NORMAL SALINE 1000 ML 1,000 ML IV PRN (23:28)
[2017-11-02] MEDS: METRONIDAZOLE 500 MG/NS RTU 500 MG/100 ML RTUPB IV SCH ×4 (00:21→19:42)
[2017-11-02] MEDS: OCTREOTIDE ACETATE INJ/PF 100 MCG/1 ML SDV SUBCUT SCH ×3 (05:42→23:55)
[2017-11-02] MEDS: CYPROHEPTADINE HCL 4 MG TABLET PO SCH ×3 (05:49→23:48)
[2017-11-02 06:54] LABS: ANION GAP 7 (5-19); BLOOD UREA NITROGEN 18 mg/dL (7-20); CALCIUM 7.7 mg/dL (8.4-10.2); CARBON DIOXIDE 20 mmol/L (22-30); CHLORIDE 113 mmol/L (98-107); GLUCOSE 98 mg/dL (75-110); POTASSIUM 3.5 mmol/L (3.6-5.0); SODIUM 139.7 mmol/L (137-145)
[2017-11-02] MEDS: GABAPENTIN 400 MG CAPSULE PO SCH ×4 (07:24→23:46)
[2017-11-02] MEDS: CALCIUM CARBONATE 250 MG/VITAMIN D3 125 UNIT TABLET PO SCH ×2 (07:24→16:37)
[2017-11-02] MEDS: CIPROFLOXACIN 400 MG/D5W RTU 400 MG/200 ML RTUPB IV SCH ×2 (09:30→23:38)
[2017-11-02] MEDS: DULOXETINE HCL 30 MG CAPSULE.DR PO SCH ×2 (09:30→23:45)
[2017-11-02] MEDS: POTASSIUM CHLORIDE 10 MEQ CAPSULE.ER PO SCH (09:30)
[2017-11-02] MEDS: SIMVASTATIN 10 MG TABLET PO SCH (09:30)
[2017-11-02] MEDS: LISINOPRIL 5 MG TABLET PO SCH (09:30)
[2017-11-02] MEDS: BUSPIRONE HCL 10 MG TABLET PO SCH ×2 (09:31→23:46)
[2017-11-02] MEDS: NEBIVOLOL HCL 2.5 MG TABLET PO SCH ×2 (09:32→23:46)
[2017-11-02] MEDS: MEGESTROL ACETATE SUSP 400 MG/10 ML UDCUP PO SCH (09:33)
[2017-11-02] MEDS: RIVAROXABAN 10 MG TABLET PO SCH (09:33)
[2017-11-02 18:47] LABS: HEMATOCRIT 42.2 % (36.0-47.0); HEMOGLOBIN 14.1 g/dL (12.0-15.5); MEAN CORPUSCULAR HEMOGLOBIN 28.4 pg (27.0-33.4); MEAN CORPUSCULAR HGB CONC 33.4 g/dL (32.0-36.0); MEAN CORPUSCULAR VOLUME 85 fl (80-97); PLATELET COUNT 113 10^3/uL (150-450); RED BLOOD COUNT 4.96 10^6/uL (3.72-5.28); RED CELL DISTRIBUTION WIDTH 16.6 % (11.5-14.0); WHITE BLOOD COUNT 22.9 10^3/uL (4.0-10.5)
--- NOTE | 2017-11-02 18:58 | PDOC PROGRESS REPORT ---
Subjective Progress Note for:: 11/02/17 Subjective:: HILARY PEDERSEN is a 67 year old female who has breast cancer 2011 is status post right breast reconstruction and chemotherapy, metastatic melanoma to kidneys and brain diagnosed in 1999-12-27. As per patient she has been having chronic diarrhea after her first chemotherapy in 2010 for breast cancer. However as per my conversation with his son who lives in [place] patient started having diarrhea about 8 months ago when she started having immunomodulators for her metastatic melanoma. He does not remember the name of immunomodulators. Her diarrhea resolved however patient developed another persistent diarrhea after receiving her latest dose of immunomodulators about 2 months ago. Patient had a colonoscopy on 10/21/2017 which showed diffuse colitis diverticulosis. A biopsy was obtained which came back has small bowel mucosa with flattened villi and reactive lymphoid aggregates. Patient still has a very low appetite which has mildly improved since started on Megace. She has had 2 bouts of diarrhea and she is complaining of generalized weakness. Denies any fever, chest pain, shortness of breath, nausea , vomiting, abdominal pain. Reason For Visit: DIFFUSE COLITIS, ORTHOSTATIC HYPOTENSION, Physical Exam Vital Signs: Temp Pulse Resp BP Pulse Ox 97.4 F 86 17 115/68 99 11/02/17 12:00 11/02/17 12:00 11/02/17 12:00 11/02/17 12:00 11/02/17 12:00 Intake & Output 11/01/17 11/02/17 11/03/17 06:59 06:59 06:59 Intake Total 2897 1657 400 Balance 2897 1657 400 Weight 55.2 kg 58.8 kg General appearance: PRESENT: no acute distress, well-developed, well-nourished Head exam: PRESENT: atraumatic, normocephalic Eye exam: PRESENT: conjunctiva pink, EOMI, PERRLA. ABSENT: scleral icterus Ear exam: PRESENT: normal external ear exam Mouth exam: PRESENT: moist, tongue midline Neck exam: ABSENT: carotid bruit, JVD, lymphadenopathy, thyromegaly Respiratory exam: PRESENT: clear to auscultation dex. ABSENT: rales, rhonchi, wheezes Cardiovascular exam: PRESENT: RRR. ABSENT: diastolic murmur, rubs, systolic murmur Pulses: PRESENT: normal dorsalis pedis pul Vascular exam: PRESENT: normal capillary refill GI/Abdominal exam: PRESENT: normal bowel sounds, soft. ABSENT: distended, guarding, mass, organolmegaly, rebound, tenderness Rectal exam: PRESENT: deferred Extremities exam: PRESENT: full ROM, +2 edema, other - Bilateral lower extremity edema.. ABSENT: calf tenderness, clubbing, pedal edema Neurological exam: PRESENT: alert, awake, oriented to person, oriented to place , oriented to time, oriented to situation, CN II-XII grossly intact. ABSENT: motor sensory deficit Psychiatric exam: PRESENT: appropriate affect, normal mood. ABSENT: homicidal ideation, suicidal ideation Skin exam: PRESENT: dry, intact, warm. ABSENT: cyanosis, rash Results Laboratory Results: 11/01/17 05:40 11/02/17 06:24 11/02/17 06:24 Sodium 139.7 Potassium 3.5 L Chloride 113 H Carbon Dioxide 20 L Anion Gap 7 BUN 18 Creatinine 0.75 Est GFR ( Amer) > 60 Est GFR (Non-Af Amer) > 60 Glucose 98 Calcium 7.7 L Impressions: Chest X-Ray 10/28/17 00:00 IMPRESSION: Right basilar pneumonitis. Assessment & Plan - Diagnosis (1) Leukocytosis Is this a current diagnosis for this admission?: Yes Plan: Persistent leukocytosis however tachycardia has improved. Unclear etiology. Stool workup has been negative. Currently on Cipro and metronidazole. Will get a blood culture. Patient remains afebrile. (2) Dehydration Is this a current diagnosis for this admission?: Yes Plan: Due to underlying intractable diarrhea with diffuse colitis. Volume resuscitation. (3) Hypocalcemia Is this a current diagnosis for this admission?: Yes Plan: Multi electrolyte abnormality possibly due to underlying intractable diarrhea. Replace electrolytes as needed. (4) Hypokalemia Is this a current diagnosis for this admission?: Yes Plan: Due to underlying intractable diarrhea. Replace electrolytes as needed. Daily CMP. (5) Metastatic melanoma Is this a current diagnosis for this admission?: Yes Plan: History of metastatic melanoma. Patient has outpatient oncology follow patient. Recent immunomodulator treatment x two months (6) Volume depletion, gastrointestinal loss Is this a current diagnosis for this admission?: Yes (7) Intractable diarrhea Is this a current diagnosis for this admission?: Yes Plan: Status post colonoscopy which showed diffuse colitis and biopsy showing flattened villi and reactive lymphoid aggregates. Will reconsult gastroenterology for further recommendation. Continue octreotide. Volume resuscitation and electrolyte replacement.
[2017-11-02 19:00] LABS: ALANINE AMINOTRANSFERASE 34 U/L (9-52); ALBUMIN 1.6 g/dL (3.5-5.0); ALKALINE PHOSPHATASE 128 U/L (38-126); ASPARTATE AMINO TRANSFERASE 35 U/L (14-36); BILIRUBIN,DIRECT 1.3 mg/dL (0.0-0.4); BILIRUBIN,TOTAL 1.4 mg/dL (0.2-1.3); BLOOD UREA NITROGEN 20 mg/dL (7-20); CALCIUM 7.8 mg/dL (8.4-10.2); CARBON DIOXIDE 21 mmol/L (22-30); GLUCOSE 104 mg/dL (75-110); POTASSIUM 3.7 mmol/L (3.6-5.0); TOTAL PROTEIN 4.3 g/dL (6.3-8.2)
[2017-11-02 19:02] LABS: ABSOLUTE LYMPHOCYTES# (MANUAL) 1.8 10^3/uL (0.5-4.7); ABSOLUTE MONOCYTES # (MANUAL) 1.4 10^3/uL (0.1-1.4); ABSOLUTE NEUTROPHILS# (MANUAL) 19.7 10^3/uL (1.7-8.2); BASOPHILS % (MANUAL) 0 % (0-2); EOSINOPHILS % (MANUAL) 0 % (0-6); LYMPHOCYTES % (MANUAL) 6 % (13-45); MONOCYTES % (MANUAL) 6 % (3-13); SEGMENTED NEUTROPHILS % (MAN) 86 % (42-78); TOTAL CELLS COUNTED 100
[2017-11-02 19:03] LABS: ANISOCYTOSIS 1+; BURR CELLS 2+; POIKILOCYTOSIS 2+; TOXIC GRANULATION 1+
[2017-11-02 19:04] LABS: OVALOCYTES 1+; PLATELET COMMENT DECREASED; SCHISTOCYTES SLIGHT
[2017-11-02 19:05] LABS: CHLORIDE 114 mmol/L (98-107); SODIUM 136.7 mmol/L (137-145)
[2017-11-02 19:08] LABS: ANION GAP 2 (5-19)
--- NOTE | 2017-11-02 19:47 | Operative Report ---
Operative Report DATE OF SURGERY: 11/02/17 PREOPERATIVE DIAGNOSIS: Colitis. Dehydration. Critical need for intravenous access. POSTOPERATIVE DIAGNOSIS: same OPERATION: Attempted left subclavian central line placement, right femoral triple-lumen central venous catheter placement SURGEON: JOSH ALCANTARA ANESTHESIA: Local TISSUE REMOVED OR ALTERED: None COMPLICATIONS: None ESTIMATED BLOOD LOSS: Minimal INTRAOPERATIVE FINDINGS: Unable to cannulate left subclavian vein. PROCEDURE: Informed consent was obtained. Procedure was done at the patient's bedside. Patient's left neck and chest were prepped and draped in usual sterile fashion. Local anesthetic was administered. Patient was placed in a Trendelenburg position. Despite multiple attempts, I was unable to cannulate the left subclavian vein. I suspect that the vein is collapsed due to her severe dehydration. Attempt at subclavian vein cannulation was aborted. I discussed with the patient risk of infection and deep venous thrombosis with a femoral central line but with her severe dehydration I felt that it would be a good option for her temporarily. Patient agreed to proceed. Her right femoral region was prepped and draped in usual sterile fashion. Local anesthetic was administered. Femoral artery was palpated and the needle was placed medial but initial stick yielded pulsatile flow and therefore the needle was removed and pressure applied. Subsequent stick yielded dark nonpulsatile flow. Guidewire was placed. Triple-lumen central venous catheter was placed via the Seldinger technique without difficulty. It withdrew blood and flushed easily. It was sutured in place. Dressings were applied. Patient had no apparent hematoma. patient tolerated procedure well with no apparent complications. Stat portable chest x-ray was ordered since she had an attempted subclavian cannulation.
--- NOTE | 2017-11-02 22:41 | RADIOLOGY REPORT (SQ) ---
EXAM DESCRIPTION: XR CHEST 1 VIEW COMPLETED DATE/TME: 11/02/2017 00:00 CLINICAL HISTORY: 67 years, Female, Attempted central line placement COMPARISON: None. NUMBER OF VIEWS: EXAM DESCRIPTION: CLINICAL HISTORY: Attempted central line placement COMPARISON: 10/28/2017 FINDINGS: Single view of the chest is submitted. Cardiac silhouette is enlarged. There are bilateral consolidations at the lung bases and there is a small left pleural effusion. IMPRESSION: Bilateral consolidations. Left pleural effusion.
[2017-11-02] MEDS: NORMAL SALINE 1000 ML 1,000 ML IV PRN (23:36)
[2017-11-03] MEDS: METRONIDAZOLE 500 MG/NS RTU 500 MG/100 ML RTUPB IV SCH ×4 (03:55→17:15)
[2017-11-03] MEDS: OCTREOTIDE ACETATE INJ/PF 100 MCG/1 ML SDV SUBCUT SCH ×3 (06:02→22:07)
[2017-11-03] MEDS: CYPROHEPTADINE HCL 4 MG TABLET PO SCH ×3 (06:02→22:06)
[2017-11-03] MEDS: GABAPENTIN 400 MG CAPSULE PO SCH ×4 (07:43→22:06)
[2017-11-03] MEDS: CALCIUM CARBONATE 250 MG/VITAMIN D3 125 UNIT TABLET PO SCH ×2 (07:43→17:16)
[2017-11-03 08:04] LABS: HEMATOCRIT 35.1 % (36.0-47.0); MEAN CORPUSCULAR HEMOGLOBIN 28.6 pg (27.0-33.4); MEAN CORPUSCULAR HGB CONC 33.3 g/dL (32.0-36.0); MEAN CORPUSCULAR VOLUME 86 fl (80-97); PLATELET COUNT 129 10^3/uL (150-450); RED CELL DISTRIBUTION WIDTH 16.8 % (11.5-14.0)
[2017-11-03 08:13] LABS: HEMOGLOBIN 11.7 g/dL (12.0-15.5)
[2017-11-03 08:25] LABS: ALANINE AMINOTRANSFERASE 32 U/L (9-52); ALBUMIN 1.3 g/dL (3.5-5.0); ALKALINE PHOSPHATASE 110 U/L (38-126); ASPARTATE AMINO TRANSFERASE 25 U/L (14-36); BILIRUBIN,DIRECT 1.2 mg/dL (0.0-0.4); BILIRUBIN,TOTAL 1.2 mg/dL (0.2-1.3); BLOOD UREA NITROGEN 20 mg/dL (7-20); CALCIUM 7.5 mg/dL (8.4-10.2); CARBON DIOXIDE 18 mmol/L (22-30); CHLORIDE 117 mmol/L (98-107); GLUCOSE 92 mg/dL (75-110); POTASSIUM 3.1 mmol/L (3.6-5.0); TOTAL PROTEIN 3.6 g/dL (6.3-8.2)
[2017-11-03 08:30] LABS: SODIUM 138.9 mmol/L (137-145)
[2017-11-03 08:38] LABS: ABSOLUTE LYMPHOCYTES# (MANUAL) 0.6 10^3/uL (0.5-4.7); ABSOLUTE MONOCYTES # (MANUAL) 0.8 10^3/uL (0.1-1.4); ABSOLUTE NEUTROPHILS# (MANUAL) 18.6 10^3/uL (1.7-8.2); BAND NEUTROPHILS % (MANUAL) 2 % (3-5); BASOPHILS % (MANUAL) 0 % (0-2); EOSINOPHILS % (MANUAL) 0 % (0-6); LYMPHOCYTES % (MANUAL) 3 % (13-45); MONOCYTES % (MANUAL) 4 % (3-13); SEGMENTED NEUTROPHILS % (MAN) 91 % (42-78); TOTAL CELLS COUNTED 100
[2017-11-03 08:39] LABS: ANISOCYTOSIS 1+; BURR CELLS 2+; OVALOCYTES 1+; PLATELET COMMENT DECREASED; POIKILOCYTOSIS 2+; TOXIC GRANULATION 1+
[2017-11-03 08:59] LABS: ANION GAP 4 (5-19)
[2017-11-03] MEDS: DULOXETINE HCL 30 MG CAPSULE.DR PO SCH (09:22)
[2017-11-03] MEDS: MEGESTROL ACETATE SUSP 400 MG/10 ML UDCUP PO SCH (09:22)
[2017-11-03] MEDS: SIMVASTATIN 10 MG TABLET PO SCH (09:23)
[2017-11-03] MEDS: POTASSIUM CHLORIDE 10 MEQ CAPSULE.ER PO SCH ×2 (09:23→18:47)
[2017-11-03] MEDS: BUSPIRONE HCL 10 MG TABLET PO SCH ×2 (09:23→22:06)
[2017-11-03] MEDS: RIVAROXABAN 10 MG TABLET PO SCH (09:23)
[2017-11-03] MEDS: CIPROFLOXACIN 400 MG/D5W RTU 400 MG/200 ML RTUPB IV SCH (09:24)
[2017-11-03] MEDS: LISINOPRIL 5 MG TABLET PO SCH (09:32)
[2017-11-03] MEDS: NEBIVOLOL HCL 2.5 MG TABLET PO SCH ×2 (09:32→22:26)
[2017-11-03] MEDS: NORMAL SALINE 1000 ML 1,000 ML IV PRN (11:29)
[2017-11-03] MEDS: DEXTROSE 5%-NORMAL SALINE 1,000 ML IV PRN (18:44)
[2017-11-03] MEDS: ALBUMIN HUMAN 12.5 GM/50 ML RTUINJ IV SCH ×2 (18:54→22:13)
--- NOTE | 2017-11-03 21:00 | PDOC PROGRESS REPORT ---
Subjective Subjective:: HILARY PEDERSEN is a 67 year old female who has breast cancer 2011 is status post right breast reconstruction and chemotherapy, metastatic melanoma to kidneys and brain diagnosed in 1999-12-27. As per patient she has been having chronic diarrhea after her first chemotherapy in 2010 for breast cancer. However as per my conversation with his son who lives in [place] patient started having diarrhea about 8 months ago when she started having immunomodulators for her metastatic melanoma. He does not remember the name of immunomodulators. Her diarrhea resolved however patient developed another persistent diarrhea after receiving her latest dose of immunomodulators about 2 months ago. Patient had a colonoscopy on 10/21/2017 which showed diffuse colitis diverticulosis. A biopsy was obtained which came back has small bowel mucosa with flattened villi and reactive lymphoid aggregates. Patient still has a very low appetite which has mildly improved since started on Megace. She has had 2 bouts of diarrhea and she is complaining of generalized weakness. Denies any fever, chest pain, shortness of breath, nausea , vomiting, abdominal pain. Reason For Visit: DIFFUSE COLITIS, ORTHOSTATIC HYPOTENSION, Physical Exam Vital Signs: Temp Pulse Resp BP Pulse Ox 97.3 F 53 L 14 99/59 L 91 L 11/03/17 19:55 11/03/17 19:55 11/03/17 19:55 11/03/17 19:55 11/03/17 19:55 Intake & Output 11/02/17 11/03/17 11/04/17 06:59 06:59 06:59 Intake Total 1657 2060 1650 Balance 1657 2060 1650 Weight 58.8 kg 54.2 kg General appearance: PRESENT: no acute distress Respiratory exam: PRESENT: clear to auscultation dex. ABSENT: rales, rhonchi, wheezes Cardiovascular exam: PRESENT: RRR. ABSENT: diastolic murmur, rubs, systolic murmur GI/Abdominal exam: PRESENT: normal bowel sounds, soft. ABSENT: distended, guarding, mass, organolmegaly, rebound, tenderness Extremities exam: PRESENT: +2 edema Results Laboratory Results: 11/03/17 06:30 11/03/17 06:30 11/03/17 11/03/17 06:30 06:30 WBC 20.0 H RBC 4.10 Hgb 11.7 L D Hct 35.1 L MCV 86 MCH 28.6 MCHC 33.3 RDW 16.8 H Plt Count 129 L Seg Neutrophils % Not Reportable Lymphocytes % Not Reportable Monocytes % Not Reportable Eosinophils % Not Reportable Basophils % Not Reportable Absolute Neutrophils Not Reportable Absolute Lymphocytes Not Reportable Absolute Monocytes Not Reportable Absolute Eosinophils Not Reportable Absolute Basophils Not Reportable Sodium 138.9 Potassium 3.1 L Chloride 117 H Carbon Dioxide 18 L Anion Gap 4 L BUN 20 Creatinine 0.73 Est GFR ( Amer) > 60 Est GFR (Non-Af Amer) > 60 Glucose 92 Calcium 7.5 L Magnesium 1.7 Total Bilirubin 1.2 AST 25 ALT 32 Alkaline Phosphatase 110 Total Protein 3.6 L Albumin 1.3 L Impressions: Chest X-Ray 11/02/17 00:00 pleural effusion. IMPRESSION: Bilateral consolidations. Left pleural effusion. Assessment & Plan - Diagnosis (1) Leukocytosis Is this a current diagnosis for this admission?: Yes Plan: Persistent leukocytosis however tachycardia has improved. Recent x-ray showed bilateral consolidation likely pneumonia. DC Cipro start ceftriaxone. Follow blood cultures. Patient remains afebrile. (2) Dehydration Is this a current diagnosis for this admission?: Yes Plan: Due to underlying intractable diarrhea with diffuse colitis. Continue IV fluids. (3) Hypocalcemia Is this a current diagnosis for this admission?: Yes Plan: Multi electrolyte abnormality possibly due to underlying intractable diarrhea. Replace electrolytes as needed. (4) Hypokalemia Is this a current diagnosis for this admission?: Yes Plan: Due to underlying intractable diarrhea. Increased to potassium 40 mEq twice daily. Daily CMP. (5) Metastatic melanoma Is this a current diagnosis for this admission?: Yes Plan: History of metastatic melanoma. Patient has outpatient oncology follow patient. Recent immunotherapy treatment x two months (6) Volume depletion, gastrointestinal loss Is this a current diagnosis for this admission?: Yes Plan: Continue volume resuscitation and electrolyte replacement. Continue octreotide subcutaneous. GI biopsy biopsy positive for atrophic villi and lymphocytic aggregates. Pending GI recommendations (7) Intractable diarrhea Is this a current diagnosis for this admission?: Yes Plan: Status post colonoscopy which showed diffuse colitis and biopsy showing flattened villi and reactive lymphoid aggregates. Pending GIs recommendation. Continue octreotide. Volume resuscitation and electrolyte replacement.
[2017-11-03] MEDS ORDERED: CEFTRIAXONE SODIUM 1,000 MG in DEXTROSE 5%-WATER 50 ML IV SCH (22:00)
[2017-11-03] MEDS: MIRTAZAPINE 15 MG TABLET PO SCH (22:04)
[2017-11-04] MEDS: ALBUMIN HUMAN 12.5 GM/50 ML RTUINJ IV SCH (01:16)
[2017-11-04] MEDS: METRONIDAZOLE 500 MG/NS RTU 500 MG/100 ML RTUPB IV SCH ×3 (01:16→13:30)
[2017-11-04] MEDS: CYPROHEPTADINE HCL 4 MG TABLET PO SCH ×3 (06:03→23:22)
[2017-11-04] MEDS: OCTREOTIDE ACETATE INJ/PF 100 MCG/1 ML SDV SUBCUT SCH ×3 (06:03→23:21)
[2017-11-04] MEDS: POTASSIUM CHLORIDE 10 MEQ CAPSULE.ER PO SCH ×2 (06:04→17:20)
[2017-11-04 06:56] LABS: HEMATOCRIT 30.6 % (36.0-47.0); HEMOGLOBIN 10.2 g/dL (12.0-15.5); MEAN CORPUSCULAR HEMOGLOBIN 28.5 pg (27.0-33.4); MEAN CORPUSCULAR HGB CONC 33.3 g/dL (32.0-36.0); MEAN CORPUSCULAR VOLUME 86 fl (80-97); PLATELET COUNT 118 10^3/uL (150-450); RED BLOOD COUNT 3.57 10^6/uL (3.72-5.28); RED CELL DISTRIBUTION WIDTH 17.1 % (11.5-14.0); WHITE BLOOD COUNT 15.2 10^3/uL (4.0-10.5)
[2017-11-04 07:14] LABS: ALANINE AMINOTRANSFERASE 29 U/L (9-52); ALBUMIN 1.7 g/dL (3.5-5.0); ALKALINE PHOSPHATASE 88 U/L (38-126); ASPARTATE AMINO TRANSFERASE 27 U/L (14-36); BILIRUBIN,DIRECT 1.2 mg/dL (0.0-0.4); BILIRUBIN,TOTAL 1.2 mg/dL (0.2-1.3); BLOOD UREA NITROGEN 17 mg/dL (7-20); GLUCOSE 156 mg/dL (75-110); POTASSIUM 3.5 mmol/L (3.6-5.0); TOTAL PROTEIN 3.9 g/dL (6.3-8.2)
[2017-11-04 07:19] LABS: CARBON DIOXIDE 19 mmol/L (22-30); CHLORIDE 120 mmol/L (98-107); SODIUM 142.3 mmol/L (137-145)
[2017-11-04 07:24] LABS: ANION GAP 3 (5-19)
[2017-11-04 08:07] LABS: ABSOLUTE LYMPHOCYTES# (MANUAL) 0.9 10^3/uL (0.5-4.7); ABSOLUTE MONOCYTES # (MANUAL) 0.2 10^3/uL (0.1-1.4); ABSOLUTE NEUTROPHILS# (MANUAL) 14.1 10^3/uL (1.7-8.2); ANISOCYTOSIS 2+; BAND NEUTROPHILS % (MANUAL) 2 % (3-5); BASOPHILS % (MANUAL) 0 % (0-2); EOSINOPHILS % (MANUAL) 0 % (0-6); LYMPHOCYTES % (MANUAL) 6 % (13-45); METAMYELOCYTES % (MANUAL) 1 % (0); MONOCYTES % (MANUAL) 1 % (3-13); POIKILOCYTOSIS 1+; SEGMENTED NEUTROPHILS % (MAN) 90 % (42-78); TOTAL CELLS COUNTED 100; TOXIC GRANULATION 1+
[2017-11-04 08:08] LABS: ACANTHOCYTES SLIGHT; BURR CELLS SLIGHT; PLATELET COMMENT DECREASED; SCHISTOCYTES 1+
[2017-11-04] MEDS: CALCIUM CARBONATE 250 MG/VITAMIN D3 125 UNIT TABLET PO SCH ×2 (09:00→17:20)
[2017-11-04] MEDS: GABAPENTIN 400 MG CAPSULE PO SCH ×4 (09:00→23:22)
[2017-11-04] MEDS: DEXTROSE 5%-NORMAL SALINE 1,000 ML IV PRN ×2 (09:00→18:31)
[2017-11-04] MEDS: NEBIVOLOL HCL 2.5 MG TABLET PO SCH ×2 (09:01→23:42)
[2017-11-04] MEDS: BUSPIRONE HCL 10 MG TABLET PO SCH ×2 (09:01→23:22)
[2017-11-04] MEDS: SIMVASTATIN 10 MG TABLET PO SCH (09:02)
[2017-11-04] MEDS: LISINOPRIL 5 MG TABLET PO SCH (09:02)
[2017-11-04] MEDS: MEGESTROL ACETATE SUSP 400 MG/10 ML UDCUP PO SCH (09:02)
[2017-11-04] MEDS: MAGNESIUM OXIDE 400 MG TABLET PO SCH (09:02)
[2017-11-04] MEDS: RIVAROXABAN 10 MG TABLET PO SCH (09:02)
[2017-11-04] MEDS ORDERED: POTASSIUM CHLORIDE 10 MEQ CAPSULE.ER PO SCH (10:00)
--- NOTE | 2017-11-04 18:51 | PDOC PROGRESS REPORT ---
Subjective Progress Note for:: 11/04/17 Subjective:: No adverse events overnight. No new complaints. Vital signs been stable. She said she still having several bouts of diarrhea, and that sometimes it comes out of her when she is changing position and she does not even realize it until it is too late. Oral intake is fair but she does not have a very good appetite. Reason For Visit: DIFFUSE COLITIS, ORTHOSTATIC HYPOTENSION, Physical Exam Vital Signs: Temp Pulse Resp BP Pulse Ox 98.2 F 84 16 114/57 L 92 11/04/17 15:15 11/04/17 15:15 11/04/17 15:15 11/04/17 15:15 11/04/17 15:15 Intake & Output 11/03/17 11/04/17 11/05/17 06:59 06:59 06:59 Intake Total 0 2850 1684 Output Total 300 Balance 2059 2550 1684 Weight 54.2 kg 80.1 kg General appearance: PRESENT: no acute distress, cooperative, disheveled, other - Looks fatigued Respiratory exam: PRESENT: crackles - Bibasilar, symmetrical, unlabored. ABSENT : rhonchi, stridor, tachypnea, wheezes Cardiovascular exam: PRESENT: RRR, +S1, +S2, systolic murmur - 2 out of 6. ABSENT: diastolic murmur GI/Abdominal exam: PRESENT: diminished bowel sounds, soft. ABSENT: distended, guarding, rebound, tenderness Extremities exam: PRESENT: pedal edema - Bilateral lower extremities, +2 edema Musculoskeletal exam: ABSENT: deformity, tenderness Neurological exam: PRESENT: alert, awake, oriented to person, oriented to place , oriented to time, other - Her speech seemed very weak without any focal dysarthria Skin exam: PRESENT: dry, warm Results Laboratory Results: 11/04/17 05:15 11/04/17 05:15 11/04/17 11/04/17 11/04/17 02:00 05:15 05:15 WBC 15.2 H RBC 3.57 L Hgb 10.2 L Hct 30.6 L MCV 86 MCH 28.5 MCHC 33.3 RDW 17.1 H Plt Count 118 L Seg Neutrophils % Not Reportable Lymphocytes % Not Reportable Monocytes % Not Reportable Eosinophils % Not Reportable Basophils % Not Reportable Absolute Neutrophils Not Reportable Absolute Lymphocytes Not Reportable Absolute Monocytes Not Reportable Absolute Eosinophils Not Reportable Absolute Basophils Not Reportable Sodium 142.3 Potassium 3.5 L Chloride 120 H Carbon Dioxide 19 L Anion Gap 3 L BUN 17 Creatinine 0.63 Est GFR ( Amer) > 60 Est GFR (Non-Af Amer) > 60 Glucose 156 H Calcium 8.0 L Magnesium 1.7 Total Bilirubin 1.2 AST 27 ALT 29 Alkaline Phosphatase 88 Total Protein 3.9 L Albumin 1.7 L Stool for White Cells NO WBCs SEEN Impressions: Chest X-Ray 11/02/17 00:00 pleural effusion. IMPRESSION: Bilateral consolidations. Left pleural effusion. Assessment & Plan - Diagnosis (1) Chronic diarrhea Is this a current diagnosis for this admission?: Yes Plan: She is currently on octreotide. She is diffusely edematous and I think it is important due to her cancer and poor nutrition contributing to a degree of hypoalbuminemia. Monitoring electrolytes and try to replace ongoing GI losses. (2) Dehydration Is this a current diagnosis for this admission?: Yes Plan: We continue to replace her IV fluids because she continues to have some ongoing losses. (3) Leukocytosis Qualifiers: Leukocytosis type: unspecified Qualified Code(s): D72.829 - Elevated white blood cell count, unspecified Is this a current diagnosis for this admission?: Yes Plan: She is on antibiotics for possible pneumonia, but I suspect this is pulmonary edema and possibly some atelectasis because she is diffusely edematous. We will monitor her response but I may take her off antibiotics. - Time Time Spent with patient: 25-34 minutes
[2017-11-04] MEDS: CEFTRIAXONE SODIUM 1,000 MG in NORMAL SALINE 50 ML IV SCH (23:21)
[2017-11-05] MEDS: MIRTAZAPINE 15 MG TABLET PO SCH (01:07)
[2017-11-05] MEDS: POTASSIUM CHLORIDE 10 MEQ CAPSULE.ER PO SCH ×2 (05:28→17:19)
[2017-11-05] MEDS: CYPROHEPTADINE HCL 4 MG TABLET PO SCH ×2 (05:28→13:32)
[2017-11-05] MEDS: OCTREOTIDE ACETATE INJ/PF 100 MCG/1 ML SDV SUBCUT SCH ×2 (05:32→14:44)
[2017-11-05] MEDS: DEXTROSE 5%-NORMAL SALINE 1,000 ML IV PRN (05:33)
[2017-11-05] MEDS: CALCIUM CARBONATE 250 MG/VITAMIN D3 125 UNIT TABLET PO SCH ×3 (07:36→16:49)
[2017-11-05] MEDS: GABAPENTIN 400 MG CAPSULE PO SCH ×4 (07:36→16:48)
[2017-11-05] MEDS: NEBIVOLOL HCL 2.5 MG TABLET PO SCH (09:48)
[2017-11-05] MEDS: LISINOPRIL 5 MG TABLET PO SCH (09:50)
[2017-11-05] MEDS: MEGESTROL ACETATE SUSP 400 MG/10 ML UDCUP PO SCH (09:53)
[2017-11-05] MEDS: BUSPIRONE HCL 10 MG TABLET PO SCH (09:53)
[2017-11-05] MEDS: SIMVASTATIN 10 MG TABLET PO SCH (09:54)
[2017-11-05] MEDS: MAGNESIUM OXIDE 400 MG TABLET PO SCH (09:54)
[2017-11-05] MEDS: RIVAROXABAN 10 MG TABLET PO SCH (09:54)
[2017-11-05 12:26] LABS: ARTERIAL BLOOD BASE EXCESS -9.2 mmol/L; ARTERIAL BLOOD H2CO3 0.76 mmol/L (1.05-1.35); ARTERIAL BLOOD HCO3 14.4 mmol/L (20-24); ARTERIAL BLOOD O2 SATURATION 98.6 % (94-98); ARTERIAL BLOOD PCO2 25.4 mmHg (35-45); ARTERIAL BLOOD PH 7.37 (7.35-7.45); ARTERIAL BLOOD PO2 128.6 mmHg (80-100); ARTERIAL BLOOD TOTAL CO2 15.2 mmol/L (21-25)
[2017-11-05 12:28] LABS: ARTERIAL BLOOD FIO2 70%
[2017-11-05] MEDS: FUROSEMIDE INJ/PF 40 MG/4 ML SDV IV SCH (13:44)
[2017-11-05 15:21] LABS: ALANINE AMINOTRANSFERASE 30 U/L (9-52); ALBUMIN 1.8 g/dL (3.5-5.0); ALKALINE PHOSPHATASE 106 U/L (38-126); ANION GAP 6 (5-19); ASPARTATE AMINO TRANSFERASE 37 U/L (14-36); BILIRUBIN,TOTAL 1.2 mg/dL (0.2-1.3); BLOOD UREA NITROGEN 11 mg/dL (7-20); CALCIUM 8.3 mg/dL (8.4-10.2); CARBON DIOXIDE 18 mmol/L (22-30); CHLORIDE 121 mmol/L (98-107); GLUCOSE 162 mg/dL (75-110); POTASSIUM 3.8 mmol/L (3.6-5.0); SODIUM 145.4 mmol/L (137-145); TOTAL PROTEIN 4.4 g/dL (6.3-8.2)
[2017-11-06] MEDS: NEBIVOLOL HCL 2.5 MG TABLET PO SCH (00:28)
[2017-11-06] MEDS: FUROSEMIDE INJ/PF 40 MG/4 ML SDV IV SCH (00:28)
[2017-11-06] MEDS ORDERED: NORMAL SALINE 1000 ML 1,000 ML IV ONE ×2 (00:30→08:30)
[2017-11-06] MEDS: BUSPIRONE HCL 10 MG TABLET PO SCH ×3 (00:30→21:50)
[2017-11-06] MEDS: MIRTAZAPINE 15 MG TABLET PO SCH ×2 (00:31→21:53)
[2017-11-06] MEDS: GABAPENTIN 400 MG CAPSULE PO SCH ×5 (00:31→21:52)
[2017-11-06] MEDS: CYPROHEPTADINE HCL 4 MG TABLET PO SCH ×4 (00:32→21:53)
[2017-11-06] MEDS: CEFTRIAXONE SODIUM 1,000 MG in NORMAL SALINE 50 ML IV SCH (00:36)
[2017-11-06] MEDS: OCTREOTIDE ACETATE INJ/PF 100 MCG/1 ML SDV SUBCUT SCH ×4 (00:44→21:54)
[2017-11-06] MEDS ORDERED: DEXTROSE 5%-WATER 250 ML with NOREPINEPHRINE BITARTRATE 4 MG IV PRN ×2 (03:51)
[2017-11-06] MEDS ORDERED: NOREPINEPHRINE BITARTRATE INJ/PF 4 MG/4 ML SDV IV ONE (04:37)
[2017-11-06] MEDS: POTASSIUM CHLORIDE 10 MEQ CAPSULE.ER PO SCH ×2 (05:37→17:06)
[2017-11-06] MEDS ORDERED: VANCOMYCIN HCL 0 MG in DEXTROSE 5%-WATER 250 ML IV NR (08:45)
[2017-11-06 09:07] LABS: HEMATOCRIT 38.9 % (36.0-47.0); MEAN CORPUSCULAR HEMOGLOBIN 28.5 pg (27.0-33.4); MEAN CORPUSCULAR HGB CONC 33.3 g/dL (32.0-36.0); MEAN CORPUSCULAR VOLUME 86 fl (80-97); PLATELET COUNT 143 10^3/uL (150-450); RED BLOOD COUNT 4.55 10^6/uL (3.72-5.28); RED CELL DISTRIBUTION WIDTH 17.1 % (11.5-14.0)
--- NOTE | 2017-11-06 09:09 | RADIOLOGY REPORT (SQ) ---
EXAM DESCRIPTION: CHEST SINGLE VIEW COMPLETED DATE/TIME: 11/06/2017 8:58 am REASON FOR STUDY: dyspnea COMPARISON: PET-CT 09/26/2017 Chest films 10/28/2017, 11/02/2017 EXAM PARAMETERS: NUMBER OF VIEWS: One view. TECHNIQUE: Single frontal radiographic view of the chest acquired. RADIATION DOSE: NA LIMITATIONS: None. FINDINGS: LUNGS AND PLEURA: Left retrocardiac consolidation with air bronchograms, atelectasis versu s pneumonia. No pleural effusion or pneumothorax. Hazy opacity over the right and left lower lungs from bilateral breast implants. MEDIASTINUM AND HILAR STRUCTURES: No masses. Contour normal. HEART AND VASCULAR STRUCTURES: Heart normal in size. Normal vasculature. BONES: No acute findings. HARDWARE: Bilateral breast implants OTHER: No other significant finding. IMPRESSION: Left retrocardiac consolidation atelectasis versus pneumonia, unchanged TECHNICAL DOCUMENTATION: JOB ID: [id number] [employer]- All Rights Reserved Reading location - IP/workstation name: [email or web address]
[2017-11-06 09:37] LABS: WHITE BLOOD COUNT 31.7 10^3/uL (4.0-10.5)
[2017-11-06 09:51] LABS: ANION GAP 6 (5-19); BLOOD UREA NITROGEN 14 mg/dL (7-20); CALCIUM 8.2 mg/dL (8.4-10.2); CARBON DIOXIDE 18 mmol/L (22-30); CHLORIDE 122 mmol/L (98-107); GLUCOSE 108 mg/dL (75-110); POTASSIUM 4.1 mmol/L (3.6-5.0); SODIUM 146.2 mmol/L (137-145)
[2017-11-06] MEDS: CALCIUM CARBONATE 250 MG/VITAMIN D3 125 UNIT TABLET PO SCH ×2 (10:48→17:06)
[2017-11-06] MEDS: MEGESTROL ACETATE SUSP 400 MG/10 ML UDCUP PO SCH (11:06)
[2017-11-06] MEDS: MAGNESIUM OXIDE 400 MG TABLET PO SCH (11:06)
[2017-11-06] MEDS: SIMVASTATIN 10 MG TABLET PO SCH (11:06)
[2017-11-06] MEDS: VANCOMYCIN HCL 750 MG in DEXTROSE 5%-WATER 250 ML IV SCH ×2 (11:07→17:07)
[2017-11-06] MEDS: CEFEPIME 1 GM/D5W RTU 1 GM/50 ML RTUPB IV SCH ×2 (11:07→21:51)
[2017-11-06 11:34] LABS: APPEARANCE,URINE CLEAR; BILIRUBIN,URINE NEGATIVE (NEGATIVE); COLOR,URINE AMBER; GLUCOSE, URINE NEGATIVE (NEGATIVE); KETONES,URINE NEGATIVE (NEGATIVE); LEUKOCYTE ESTERASE,URINE NEGATIVE (NEGATIVE); NITRITE,URINE NEGATIVE (NEGATIVE); PROTEIN,URINE NEGATIVE (NEGATIVE); URINE SPECIFIC GRAVITY 1.012; UROBILINOGEN,URINE NEGATIVE mg/dL (<2.0)
[2017-11-06] MEDS: METHYLPREDNISOLONE INJ 125 MG/2 ML SDV IV SCH ×2 (12:33→17:10)
--- NOTE | 2017-11-06 14:22 | PDOC PROGRESS REPORT ---
Subjective Progress Note for:: 11/06/17 Subjective:: patient continues to have diarrhea she has been admitted for several weeks patient has metastatic melanoma to the brain she is being seen by Dr Argueta she has been on combination therapy of Yervoy + Opdivo in a recent study, conducted by the researchers at [facility], a 925 patient study showed that the combination of Yervoy + Opdivo extended survival for 7 months when compared to either Yervoy or Opdivo alone however 85% of patients had side effects of colitis and diarrhea on a recent colonoscopy it was noted that the mechanism of action appears to be a direct cytopathologic effect that is going on. it would be been martini to get Dr Argueta as part of the treatment team earlier during this admission. she has now been transfered to the ICU , better, but may require a higher level of care there are no other specific GI recommendation other than to continue with Octreotide to see if the problem will improve the discussion needs to be initiated via Oncology, the outcomes look good, but the side effects i.e. diarrhea and colitis will be manifested after each treatment cycle Reason For Visit: DIFFUSE COLITIS, ORTHOSTATIC HYPOTENSION, Physical Exam Vital Signs: Temp Pulse Resp BP Pulse Ox 98.2 F 96 14 108/73 99 11/06/17 12:00 11/06/17 12:00 11/06/17 12:00 11/06/17 12:00 11/06/17 12:00 Intake & Output 11/05/17 11/06/17 11/07/17 06:59 06:59 06:59 Intake Total 3636 1030 1039 Output Total 0 1480 Balance 3636 1030 -441 Weight 79.9 kg 69.5 kg General appearance: PRESENT: mild distress Head exam: PRESENT: atraumatic, normocephalic Eye exam: PRESENT: EOMI, PERRLA. ABSENT: nystagmus, periorbital swelling Mouth exam: ABSENT: moist Throat exam: ABSENT: tonsillar exudate, tonsillogmegaly Neck exam: ABSENT: meningismus, tracheal deviation Respiratory exam: PRESENT: symmetrical, unlabored. ABSENT: tachypnea, wheezes Cardiovascular exam: PRESENT: RRR, +S1, +S2 GI/Abdominal exam: PRESENT: soft. ABSENT: rebound, rigid, tenderness Extremities exam: ABSENT: tenderness Neurological exam: PRESENT: oriented to time, oriented to situation, CN II-XII grossly intact Focused psych exam: ABSENT: restlessness Skin exam: PRESENT: normal color. ABSENT: mottled, urticaria, vesicles Results Laboratory Results: 11/06/17 08:53 11/06/17 08:53 11/05/17 11/06/17 11/06/17 14:45 08:53 08:53 WBC 31.7 H* D RBC 4.55 Hgb 13.0 D Hct 38.9 MCV 86 MCH 28.5 MCHC 33.3 RDW 17.1 H Plt Count 143 L Sodium 145.4 H 146.2 H Potassium 3.8 4.1 Chloride 121 H 122 H Carbon Dioxide 18 L 18 L Anion Gap 6 6 BUN 11 14 Creatinine 0.60 0.79 Est GFR ( Amer) > 60 > 60 Est GFR (Non-Af Amer) > 60 > 60 Glucose 162 H 108 Calcium 8.3 L 8.2 L Total Bilirubin 1.2 AST 37 H ALT 30 Alkaline Phosphatase 106 Total Protein 4.4 L Albumin 1.8 L Urine Color Urine Appearance Urine pH Ur Specific [place] Urine Protein Urine Glucose (UA) Urine Ketones Urine Blood Urine Nitrite Ur Leukocyte Esterase Urine WBC (Auto) Urine RBC (Auto) 11/06/17 09:30 WBC RBC Hgb Hct MCV MCH MCHC RDW Plt Count Sodium Potassium Chloride Carbon Dioxide Anion Gap BUN Creatinine Est GFR ( Amer) Est GFR (Non-Af Amer) Glucose Calcium Total Bilirubin AST ALT Alkaline Phosphatase Total Protein Albumin Urine Color [place]MENT[place] Urine Appearance CLEAR Urine pH 5.0 Ur Specific [place] 1.012 Urine Protein NEGATIVE Urine Glucose (UA) NEGATIVE Urine Ketones NEGATIVE Urine Blood MODERATE H Urine Nitrite NEGATIVE Ur Leukocyte Esterase NEGATIVE Urine WBC (Auto) 2 Urine RBC (Auto) 7 Impressions: Chest X-Ray 11/06/17 00:00 IMPRESSION: Left retrocardiac consolidation atelectasis versus pneumonia, unchanged Assessment & Plan - Diagnosis (1) Chronic diarrhea Is this a current diagnosis for this admission?: Yes Plan: due to the combination of Yervoy + Opdivo i.e. ipilimumab targets CTLA-4 and nivolumab she has a craniotomy along gamma [facility] at [facility] as well consult Dr Argueta to see if any other treatment is available for her the side effects are clearly noted in the FDA statement that accompanies the treatment continue Octreotide for now if fluid losses become too much of a burden , then she will need transfer to tertiary institution as the current treatment she is on should be managed at a location with an Oncology unit. - Time Time Spent with patient: 35 or more minutes
--- NOTE | 2017-11-06 15:42 | PDOC PROGRESS REPORT ---
Subjective Progress Note for:: 11/06/17 Subjective:: Patient tells me that she is breathing okay, we took her off of the BiPAP to be able to speak with her better and she did fine without it while I was in the room. She tells me that her abdomen is very sensitive but other than that she is not having any pain. She feels that overall she is declining. She is not sure what the treatment plan is for her malignant melanoma. She has a poor appetite. She thinks she continues to have diarrhea, she does not know if there is any blood in the stool. Nothing seems to be making it better. It seems to be associated with abdominal discomfort. Reason For Visit: DIFFUSE COLITIS, ORTHOSTATIC HYPOTENSION, Physical Exam Vital Signs: Temp Pulse Resp BP Pulse Ox 98.8 F 96 13 96/66 L 97 11/06/17 14:00 11/06/17 14:00 11/06/17 14:00 11/06/17 14:00 11/06/17 14:00 Intake & Output 11/05/17 11/06/17 11/07/17 06:59 06:59 06:59 Intake Total 3636 1030 1039 Output Total 0 1520 Balance 3636 1030 -481 Weight 79.9 kg 69.5 kg General appearance: PRESENT: cooperative, mild distress Head exam: PRESENT: atraumatic Eye exam: ABSENT: conjunctival injection, scleral icterus Ear exam: PRESENT: normal external ear exam Mouth exam: PRESENT: dry mucosa, tongue midline Respiratory exam: PRESENT: crackles, decreased breath sounds, unlabored. ABSENT : rales, rhonchi, wheezes Cardiovascular exam: PRESENT: RRR, other - Bilateral knee and below the knee skin mottling. ABSENT: systolic murmur GI/Abdominal exam: PRESENT: distended, hyperactive bowel sounds, soft, tenderness Rectal exam: PRESENT: deferred Gentrourinary exam: PRESENT: indwelling catheter Extremities exam: ABSENT: calf tenderness, joint swelling Musculoskeletal exam: ABSENT: ambulatory Neurological exam: PRESENT: awake, oriented to person, oriented to place. ABSENT: alert, oriented to situation Psychiatric exam: PRESENT: flat affect, unusual affect Skin exam: PRESENT: dry, mottled Results Laboratory Results: 11/06/17 08:53 11/06/17 08:53 11/06/17 11/06/17 11/06/17 08:53 08:53 09:30 WBC 31.7 H* D RBC 4.55 Hgb 13.0 D Hct 38.9 MCV 86 MCH 28.5 MCHC 33.3 RDW 17.1 H Plt Count 143 L Sodium 146.2 H Potassium 4.1 Chloride 122 H Carbon Dioxide 18 L Anion Gap 6 BUN 14 Creatinine 0.79 Est GFR ( Amer) > 60 Est GFR (Non-Af Amer) > 60 Glucose 108 Calcium 8.2 L Urine Color [place] Urine Appearance CLEAR Urine pH 5.0 Ur Specific [place] 1.012 Urine Protein NEGATIVE Urine Glucose (UA) NEGATIVE Urine Ketones NEGATIVE Urine Blood MODERATE H Urine Nitrite NEGATIVE Ur Leukocyte Esterase NEGATIVE Urine WBC (Auto) 2 Urine RBC (Auto) 7 Impressions: Chest X-Ray 11/06/17 00:00 IMPRESSION: Left retrocardiac consolidation atelectasis versus pneumonia, unchanged Assessment & Plan - Diagnosis (1) Sepsis Is this a current diagnosis for this admission?: Yes Plan: Patient had hypotension and tachycardia last night and was transferred to the ICU and started on levo fed. sHe also has elevated white blood cell count. Yesterday she had an elevated respiratory rate is well. Lactic acid is pending. This morning I gave the patient a liter of fluid and her vitals have improved. We have been able to get her off of the levo fed and she has a map greater than 65 consistently for the last few hours. I started her on lactated Ringer's at 75 mL/h. Also started her on broad-spectrum antibiotics for healthcare is associated pneumonia. (2) Healthcare-associated pneumonia Is this a current diagnosis for this admission?: Yes Plan: Several days ago the patient had a chest x-ray showing a possible pneumonia. Ceftriaxone was started. The patient had sepsis criteria today and so I changed her antibiotics to cover healthcare associated pneumonia, she is now on cefepime and vancomycin with pharmacy dosing the vancomycin. She is currently doing well on nasal cannula oxygen. We have BiPAP at the bedside should that be needed as she has been using that intermit lay over the last few days. Chest x-ray repeated today shows an unchanged picture compared to chest x-ray several days ago. (3) Metastatic melanoma Is this a current diagnosis for this admission?: Yes Plan: Patient is followed by Dr. Doll. I spoke with his partner Dr. Crowley today who is correctional officer chief. She will see the patient tomorrow. Based on her recent treatment for metastatic melanoma and the possibility that this is the etiology of her diarrhea we started her on steroids Solu-Medrol 60 mg IV every 6 hours. Overall her vitals are improving. Will monitor her closely. I have asked the oncology group to also speak with her about whether or not there are any treatment options available for her and whether or not we need to start talking about issues related to end-of-life care. (4) Acute diarrhea Is this a current diagnosis for this admission?: Yes Plan: Patient has a history of chronic diarrhea but experienced more acute diarrhea after her treatment was started for metastatic melanoma. Her oncology group is aware that she is in the hospital and I have consulted them to see her. Dr. Crowley recommended the Solu-Medrol 60 mg IV every 6 hours for possible treatment related diarrhea. Also gastric enterology is following, appreciate their recommendations. - Time Time Spent with patient: 35 or more minutes - Inpatient Certification Based on my medical assessment, after consideration of the patient's comorbidities, presenting symptoms, or acuity I expect that the services needed warrant INPATIENT care.: Yes I certify that my determination is in accordance with my understanding of Medicare's requirements for reasonable and necessary INPATIENT services [42 CFR 412.3e].: Yes Medical Necessity: Significant Comorbidiites Make Outpatient Treatment Too Risky , Need Close Monitoring Due to Risk of Patient Decompensation, Need For IV Fluids, Need for IV Antibiotics
[2017-11-06] MEDS: RINGERS SOLUTION,LACTATED 1,000 ML IV PRN (17:07)
[2017-11-06] MEDS ORDERED: NORMAL SALINE 1000 ML 1,000 ML IV PRN (18:33)
[2017-11-06] MEDS ORDERED: NORMAL SALINE 250 ML IV ONE (22:50)
[2017-11-07] MEDS: METHYLPREDNISOLONE INJ 125 MG/2 ML SDV IV SCH ×5 (00:54→22:44)
[2017-11-07] MEDS: VANCOMYCIN HCL 750 MG in DEXTROSE 5%-WATER 250 ML IV SCH ×2 (01:38→10:42)
[2017-11-07] MEDS: POTASSIUM CHLORIDE 10 MEQ CAPSULE.ER PO SCH (05:24)
[2017-11-07] MEDS: OCTREOTIDE ACETATE INJ/PF 100 MCG/1 ML SDV SUBCUT SCH ×2 (05:25→15:03)
[2017-11-07] MEDS: CYPROHEPTADINE HCL 4 MG TABLET PO SCH ×3 (05:26→22:45)
[2017-11-07] MEDS: CALCIUM CARBONATE 250 MG/VITAMIN D3 125 UNIT TABLET PO SCH ×2 (08:20→16:05)
[2017-11-07] MEDS: GABAPENTIN 400 MG CAPSULE PO SCH ×4 (08:20→22:43)
--- NOTE | 2017-11-07 09:41 | PDOC PROGRESS REPORT ---
Subjective Progress Note for:: 11/07/17 Subjective:: Patient tells me she is feeling better today. There were no adverse events overnight. She started to make a little bit more urine but still not adequate. Her appetite is improving a little bit and she has been able to sip on some liquids this morning. She is not having pain. Her diarrhea frequency has decreased. No blood per rectum. No fevers or chills. No dyspnea or chest pain. Reason For Visit: DIFFUSE COLITIS, ORTHOSTATIC HYPOTENSION, Physical Exam Vital Signs: Temp Pulse Resp BP Pulse Ox 98.2 F 98 18 116/74 97 11/07/17 07:59 11/07/17 08:00 11/07/17 07:59 11/07/17 07:59 11/07/17 09:01 Intake & Output 11/06/17 11/07/17 11/08/17 06:59 06:59 06:59 Intake Total 1030 1589 Output Total 0 2010 50 Balance 1030 -422 -50 Weight 69.5 kg 72.8 kg General appearance: PRESENT: no acute distress, thin Head exam: PRESENT: atraumatic, normocephalic Eye exam: ABSENT: conjunctival injection, scleral icterus Ear exam: ABSENT: bleeding Mouth exam: PRESENT: dry mucosa Respiratory exam: PRESENT: decreased breath sounds, unlabored. ABSENT: rales, rhonchi, wheezes Cardiovascular exam: PRESENT: RRR. ABSENT: systolic murmur GI/Abdominal exam: PRESENT: hyperactive bowel sounds, soft, tenderness. ABSENT : distended, guarding Rectal exam: PRESENT: deferred Gentrourinary exam: PRESENT: indwelling catheter - dark yelloe urine in bag Extremities exam: PRESENT: +2 edema, other - dependent edema throughout Neurological exam: PRESENT: altered, awake, oriented to person, oriented to place, oriented to situation Psychiatric exam: PRESENT: unusual affect Skin exam: PRESENT: other - left arm with clean skin tear, bilat darkened heels skin still blances, weeping in dependent aura Results Laboratory Results: 11/06/17 08:53 11/06/17 08:53 11/06/17 11/06/17 11/06/17 08:53 08:53 09:30 WBC 31.7 H* D RBC 4.55 Hgb 13.0 D Hct 38.9 MCV 86 MCH 28.5 MCHC 33.3 RDW 17.1 H Plt Count 143 L Sodium 146.2 H Potassium 4.1 Chloride 122 H Carbon Dioxide 18 L Anion Gap 6 BUN 14 Creatinine 0.79 Est GFR ( Amer) > 60 Est GFR (Non-Af Amer) > 60 Glucose 108 Lactic Acid Calcium 8.2 L Urine Color [place] Urine Appearance CLEAR Urine pH 5.0 Ur Specific [place] 1.012 Urine Protein NEGATIVE Urine Glucose (UA) NEGATIVE Urine Ketones NEGATIVE Urine Blood MODERATE H Urine Nitrite NEGATIVE Ur Leukocyte Esterase NEGATIVE Urine WBC (Auto) 2 Urine RBC (Auto) 7 11/06/17 18:26 WBC RBC Hgb Hct MCV MCH MCHC RDW Plt Count Sodium Potassium Chloride Carbon Dioxide Anion Gap BUN Creatinine Est GFR ( Amer) Est GFR (Non-Af Amer) Glucose Lactic Acid 1.8 Calcium Urine Color Urine Appearance Urine pH Ur Specific [place] Urine Protein Urine Glucose (UA) Urine Ketones Urine Blood Urine Nitrite Ur Leukocyte Esterase Urine WBC (Auto) Urine RBC (Auto) 11/04/17 02:00 Stool - Stool - Final 11/04/17 02:00 Stool - Stool Stool Culture - Final NO SALMONELLA, SHIGELLA, CAMPYLOBACTER, OR E.COLI 0157 RECOVERED. NEGATIVE FOR SHIGA TOXINS 1&2. Impressions: Chest X-Ray 11/06/17 00:00 IMPRESSION: Left retrocardiac consolidation atelectasis versus pneumonia, unchanged Assessment & Plan - Diagnosis (1) Sepsis Is this a current diagnosis for this admission?: Yes Plan: Parameters improving. Lactic acid level was normal yesterday at 1.8. We will continue with broad-spectrum antibiotics for healthcare associated pneumonia. Levophed has been discontinued. (2) Healthcare-associated pneumonia Is this a current diagnosis for this admission?: Yes Plan: Clinically improved with improved heart rate and blood pressure. Afebrile. Normal respiratory rate. Levophed off. Continue vancomycin and cefepime. (3) Metastatic melanoma Is this a current diagnosis for this admission?: Yes Plan: Dr. Crowley has been consulted to see patient. After our conversation yesterday I started pt on steroids for tx induces diarrhea, she has improved with less frequent stools. (4) Acute diarrhea Is this a current diagnosis for this admission?: Yes Plan: improving with steroids, cdiff neg. Cont solumedrol 60 mg IV q 6 hrs. (5) Protein calorie malnutrition Qualifiers: Protein-calorie malnutrition severity: severe Qualified Code(s): E43 - Unspecified severe protein-calorie malnutrition Is this a current diagnosis for this admission?: Yes Plan: po intake has been very poor, low alb 1.8 Will help patient with ensure supplement as much as is possible with goal of 3 a day. (6) Skin abnormality Is this a current diagnosis for this admission?: Yes Plan: bilat heels darkened, pressure offload boots to be added today, will montior closely for breakdown. (7) Oliguria Is this a current diagnosis for this admission?: Yes Plan: When patient was admitted to the ICU yesterday she had not had any urine output for an unknown period of time. She was also septic when she came to the ICU. And she is probably also dehydrated secondary to poor oral intake and diarrhea. Dorsey catheter was placed and she returned about 1.5 L of urine. 4 hours after that she did not have further urine output. She has received 1 L of fluid +2 500 mL boluses and about a 24 hour. In addition to LR at 75 mL an hour and she is just now starting to make urine. This is complicated by the fact that she is third spacing fluids. We will continue with fluid administration as she will tolerate, fortunately her oral intake is improving. Will monitor urine output closely. - Time Time Spent with patient: 25-34 minutes Medications reviewed and adjusted accordingly: Yes - Inpatient Certification Based on my medical assessment, after consideration of the patient's comorbidities, presenting symptoms, or acuity I expect that the services needed warrant INPATIENT care.: Yes I certify that my determination is in accordance with my understanding of Medicare's requirements for reasonable and necessary INPATIENT services [42 CFR 412.3e].: Yes Medical Necessity: Need For IV Fluids, Need for IV Antibiotics, Risk of Complication if Not Cared For in Hospital
[2017-11-07] MEDS: SIMVASTATIN 10 MG TABLET PO SCH (10:41)
[2017-11-07] MEDS: BUSPIRONE HCL 10 MG TABLET PO SCH ×2 (10:41→22:43)
[2017-11-07] MEDS: MEGESTROL ACETATE SUSP 400 MG/10 ML UDCUP PO SCH (10:42)
[2017-11-07] MEDS: CEFEPIME 1 GM/D5W RTU 1 GM/50 ML RTUPB IV SCH ×2 (10:42→22:44)
[2017-11-07] MEDS: MAGNESIUM OXIDE 400 MG TABLET PO SCH (10:42)
[2017-11-07] MEDS: RINGERS SOLUTION,LACTATED 1,000 ML IV PRN ×2 (10:43→22:45)
[2017-11-07] MEDS ORDERED: NORMAL SALINE 500 ML IV ONE (11:00)
[2017-11-07 11:10] LABS: HEMATOCRIT 34.1 % (36.0-47.0); HEMOGLOBIN 11.3 g/dL (12.0-15.5); MEAN CORPUSCULAR HEMOGLOBIN 28.6 pg (27.0-33.4); MEAN CORPUSCULAR VOLUME 87 fl (80-97); PLATELET COUNT 158 10^3/uL (150-450); RED BLOOD COUNT 3.94 10^6/uL (3.72-5.28); RED CELL DISTRIBUTION WIDTH 17.5 % (11.5-14.0)
[2017-11-07 11:25] LABS: ALANINE AMINOTRANSFERASE 31 U/L (9-52); ALBUMIN 1.7 g/dL (3.5-5.0); ALKALINE PHOSPHATASE 100 U/L (38-126); ASPARTATE AMINO TRANSFERASE 29 U/L (14-36); BILIRUBIN,DIRECT 1.4 mg/dL (0.0-0.4); BILIRUBIN,TOTAL 1.7 mg/dL (0.2-1.3); BLOOD UREA NITROGEN 14 mg/dL (7-20); CALCIUM 7.7 mg/dL (8.4-10.2); CARBON DIOXIDE 19 mmol/L (22-30); GLUCOSE 160 mg/dL (75-110); POTASSIUM 4.3 mmol/L (3.6-5.0); TOTAL PROTEIN 4.1 g/dL (6.3-8.2)
[2017-11-07 11:29] LABS: VANCOMYCIN,TROUGH 19.3 ug/mL (5.0-20.0)
[2017-11-07 11:40] LABS: CHLORIDE 120 mmol/L (98-107); SODIUM 143.5 mmol/L (137-145)
[2017-11-07 11:49] LABS: ANION GAP 5 (5-19)
[2017-11-07] MEDS: MIRTAZAPINE 15 MG TABLET PO SCH (22:43)
[2017-11-08] MEDS: METHYLPREDNISOLONE INJ 125 MG/2 ML SDV IV SCH ×3 (05:35→19:10)
[2017-11-08] MEDS: CYPROHEPTADINE HCL 4 MG TABLET PO SCH ×2 (05:35→15:03)
[2017-11-08] MEDS: VANCOMYCIN HCL 1,000 MG in DEXTROSE 5%-WATER 250 ML IV SCH ×2 (05:36→19:10)
[2017-11-08] MEDS: CALCIUM CARBONATE 250 MG/VITAMIN D3 125 UNIT TABLET PO SCH ×2 (10:17→19:10)
[2017-11-08] MEDS: MAGNESIUM OXIDE 400 MG TABLET PO SCH (10:17)
[2017-11-08] MEDS: CEFEPIME 1 GM/D5W RTU 1 GM/50 ML RTUPB IV SCH ×2 (10:17→21:27)
[2017-11-08] MEDS: MEGESTROL ACETATE SUSP 400 MG/10 ML UDCUP PO SCH (10:17)
[2017-11-08] MEDS: GABAPENTIN 400 MG CAPSULE PO SCH ×4 (10:17→21:27)
[2017-11-08] MEDS: SIMVASTATIN 10 MG TABLET PO SCH (10:17)
[2017-11-08] MEDS: BUSPIRONE HCL 10 MG TABLET PO SCH ×2 (10:17→21:43)
[2017-11-08 10:56] LABS: PATH REVIEW PATHOLOGIST REVIEWED
[2017-11-08 11:14] LABS: HEMATOCRIT 33.1 % (36.0-47.0); HEMOGLOBIN 11.1 g/dL (12.0-15.5); MEAN CORPUSCULAR HGB CONC 33.7 g/dL (32.0-36.0); MEAN CORPUSCULAR VOLUME 86 fl (80-97); PLATELET COUNT 140 10^3/uL (150-450); RED BLOOD COUNT 3.84 10^6/uL (3.72-5.28); RED CELL DISTRIBUTION WIDTH 17.1 % (11.5-14.0); WHITE BLOOD COUNT 19.3 10^3/uL (4.0-10.5)
[2017-11-08 11:30] LABS: ABSOLUTE LYMPHOCYTES# (MANUAL) 1.2 10^3/uL (0.5-4.7); ABSOLUTE MONOCYTES # (MANUAL) 0.8 10^3/uL (0.1-1.4); ABSOLUTE NEUTROPHILS# (MANUAL) 17.4 10^3/uL (1.7-8.2); ANISOCYTOSIS 1+; BASOPHILS % (MANUAL) 0 % (0-2); EOSINOPHILS % (MANUAL) 0 % (0-6); LYMPHOCYTES % (MANUAL) 6 % (13-45); MONOCYTES % (MANUAL) 4 % (3-13); OVALOCYTES SLIGHT; POIKILOCYTOSIS 1+; SEGMENTED NEUTROPHILS % (MAN) 90 % (42-78); TEAR DROP CELLS SLIGHT; TOTAL CELLS COUNTED 100
[2017-11-08 11:31] LABS: PLATELET COMMENT DECREASED; SCHISTOCYTES 1+
[2017-11-08 11:47] LABS: BLOOD UREA NITROGEN 16 mg/dL (7-20); CALCIUM 7.8 mg/dL (8.4-10.2); CHLORIDE 116 mmol/L (98-107); GLUCOSE 167 mg/dL (75-110); POTASSIUM 3.9 mmol/L (3.6-5.0)
[2017-11-08 11:52] LABS: CARBON DIOXIDE 22 mmol/L (22-30); SODIUM 140.5 mmol/L (137-145)
[2017-11-08 11:57] LABS: ANION GAP 3 (5-19)
--- NOTE | 2017-11-08 18:32 | PDOC PROGRESS REPORT ---
Subjective Progress Note for:: 11/08/17 Subjective:: Patient is more awake today. She is confused and a little bit dysarthric. She is not having any pain. She is able to drink the Ensure is without too much difficulty. Able to move her extremities without difficulty though slow and she does feel weak. No abdominal pain nausea or vomiting rated per nurse her diarrhea is improving. Is making more urine than yesterday. No fevers or chills. Mild cough and no sputum. Reason For Visit: DIFFUSE COLITIS, ORTHOSTATIC HYPOTENSION, Physical Exam Vital Signs: Temp Pulse Resp BP Pulse Ox 99.0 F 89 19 134/88 H 96 11/08/17 17:00 11/08/17 16:00 11/08/17 17:00 11/08/17 16:01 11/08/17 17:00 Intake & Output 11/07/17 11/08/17 11/09/17 06:59 06:59 06:59 Intake Total 1889 2752 480 Output Total 2010 527 285 Balance -122 2127 195 Weight 72.8 kg 76.3 kg General appearance: PRESENT: no acute distress, cooperative Head exam: PRESENT: atraumatic, normocephalic Eye exam: ABSENT: conjunctival injection, scleral icterus Mouth exam: PRESENT: dry mucosa, tongue midline Respiratory exam: PRESENT: decreased breath sounds, rhonchi, unlabored. ABSENT : rales, wheezes Cardiovascular exam: PRESENT: RRR. ABSENT: systolic murmur Pulses: PRESENT: normal radial pulses GI/Abdominal exam: PRESENT: hyperactive bowel sounds, soft. ABSENT: distended, guarding, tenderness Rectal exam: PRESENT: deferred Gentrourinary exam: PRESENT: indwelling catheter, other - Dark urine in bag Musculoskeletal exam: ABSENT: deformity Neurological exam: PRESENT: alert, awake, oriented to person, other - patient is confused and slightly disoreinted. ABSENT: oriented to place, oriented to situation Psychiatric exam: PRESENT: unusual affect Skin exam: PRESENT: dry, intact, pallor, warm Results Laboratory Results: 11/08/17 10:45 11/08/17 10:45 11/08/17 11/08/17 11/08/17 04:40 10:45 10:45 WBC 19.3 H RBC 3.84 Hgb 11.1 L Hct 33.1 L MCV 86 MCH 29.0 MCHC 33.7 RDW 17.1 H Plt Count 140 L Seg Neutrophils % Not Reportable Lymphocytes % Not Reportable Monocytes % Not Reportable Eosinophils % Not Reportable Basophils % Not Reportable Absolute Neutrophils Not Reportable Absolute Lymphocytes Not Reportable Absolute Monocytes Not Reportable Absolute Eosinophils Not Reportable Absolute Basophils Not Reportable Sodium 140.5 Potassium 3.9 Chloride 116 H Carbon Dioxide 22 Anion Gap 3 L BUN 16 Creatinine 0.56 Est GFR ( Amer) > 60 Est GFR (Non-Af Amer) > 60 Glucose 167 H Calcium 7.8 L Magnesium 1.8 1.8 11/06/17 09:30 Catheterized Urine Urine Culture - Final NO GROWTH 2 DAYS 11/03/17 07:30 Blood Blood Culture - Final NO GROWTH IN 5 DAYS 11/03/17 06:30 Blood Blood Culture - Final NO GROWTH IN 5 DAYS Impressions: Chest X-Ray 11/06/17 00:00 IMPRESSION: Left retrocardiac consolidation atelectasis versus pneumonia, unchanged Assessment & Plan - Diagnosis (1) Sepsis Is this a current diagnosis for this admission?: Yes Plan: Parameters resolved. We will continue cefepime and vancomycin for healthcare associated pneumonia and sepsis. (2) Healthcare-associated pneumonia Is this a current diagnosis for this admission?: Yes Plan: Please see sepsis. (3) Metastatic melanoma Is this a current diagnosis for this admission?: Yes Plan: I had a long talk with the patient's oncologist Dr. Argueta today. The patient unfortunately is not a candidate for treatment given the acuity of her illness now. Her oncologist will see her back in the clinic if the patient improves from this hospitalization and the patient will need to be restaged. She has had brain metastases and several Cyber[employer] treatments for those. My guess is that she either has recurrence of the brain metastases or she is having confusion related to brain radiation. She has tolerated her immunotherapy poorly and having been off of the immunotherapy recently she is potentially having spread of the melanoma. (4) Acute diarrhea Is this a current diagnosis for this admission?: Yes Plan: Improving with steroids. We will start to taper. The diarrhea is likely secondary to the immunotherapy. Octreotide has been stopped. (5) Protein calorie malnutrition Qualifiers: Protein-calorie malnutrition severity: severe Qualified Code(s): E43 - Unspecified severe protein-calorie malnutrition Is this a current diagnosis for this admission?: Yes Plan: Patient is drinking ensures fairly well. We are really pushing the protein supplements. (6) Skin abnormality Is this a current diagnosis for this admission?: Yes Plan: Patient's heels were soft and boggy. She is now on pressure offloading boots. Skin is intact posteriorly. She is weepy and edematous secondary to protein calorie malnutrition. This seems to be improving some. (7) Oliguria Is this a current diagnosis for this admission?: Yes Plan: Improving and will continue with low rate IV fluids, protein supplement drinks and monitoring with Dorsey catheter. - Time Time Spent with patient: 25-34 minutes Medications reviewed and adjusted accordingly: Yes - Inpatient Certification Based on my medical assessment, after consideration of the patient's comorbidities, presenting symptoms, or acuity I expect that the services needed warrant INPATIENT care.: Yes I certify that my determination is in accordance with my understanding of Medicare's requirements for reasonable and necessary INPATIENT services [42 CFR 412.3e].: Yes Medical Necessity: Need Close Monitoring Due to Risk of Patient Decompensation, Need For IV Fluids, Need for IV Antibiotics, Risk of Complication if Not Cared For in Hospital
[2017-11-08] MEDS: MIRTAZAPINE 15 MG TABLET PO SCH (21:27)
[2017-11-08] MEDS: RINGERS SOLUTION,LACTATED 1,000 ML IV PRN (21:28)
[2017-11-08] MEDS: RIVAROXABAN 10 MG TABLET PO SCH (21:29)
[2017-11-09] MEDS: METHYLPREDNISOLONE INJ 125 MG/2 ML SDV IV SCH ×3 (01:37→17:58)
[2017-11-09 04:22] LABS: ABSOLUTE LYMPHOCYTES (AUTO) 1.2 10^3/uL (0.5-4.7); ABSOLUTE MONOCYTES (AUTO) 0.6 10^3/uL (0.1-1.4); BASOPHILS % (AUTO) 0.1 % (0-2); HEMOGLOBIN 10.9 g/dL (12.0-15.5); LYMPHOCYTES % (AUTO) 6.8 % (13-45); MEAN CORPUSCULAR HEMOGLOBIN 29.1 pg (27.0-33.4); MEAN CORPUSCULAR HGB CONC 34.1 g/dL (32.0-36.0); MEAN CORPUSCULAR VOLUME 85 fl (80-97); MONOCYTES % (AUTO) 3.6 % (3-13); PLATELET COUNT 118 10^3/uL (150-450); RED BLOOD COUNT 3.75 10^6/uL (3.72-5.28); RED CELL DISTRIBUTION WIDTH 16.8 % (11.5-14.0); SEGMENTED NEUTROPHILS % (AUTO) 89.5 % (42-78); TOTAL CELLS COUNTED % (AUTO) 100 %; WHITE BLOOD COUNT 17.9 10^3/uL (4.0-10.5)
[2017-11-09 04:40] LABS: ALANINE AMINOTRANSFERASE 35 U/L (9-52); ALBUMIN 1.8 g/dL (3.5-5.0); ALKALINE PHOSPHATASE 232 U/L (38-126); ASPARTATE AMINO TRANSFERASE 38 U/L (14-36); BILIRUBIN,DIRECT 1.8 mg/dL (0.0-0.4); BILIRUBIN,TOTAL 2.1 mg/dL (0.2-1.3); BLOOD UREA NITROGEN 16 mg/dL (7-20); CALCIUM 7.6 mg/dL (8.4-10.2); GLUCOSE 173 mg/dL (75-110); POTASSIUM 3.2 mmol/L (3.6-5.0); TOTAL PROTEIN 4.1 g/dL (6.3-8.2)
[2017-11-09 04:45] LABS: CARBON DIOXIDE 25 mmol/L (22-30); CHLORIDE 112 mmol/L (98-107); SODIUM 138.9 mmol/L (137-145)
[2017-11-09 04:47] LABS: ANION GAP 2 (5-19)
[2017-11-09] MEDS: VANCOMYCIN HCL 1,000 MG in DEXTROSE 5%-WATER 250 ML IV SCH ×2 (05:35→17:52)
[2017-11-09] MEDS ORDERED: POTASSIUM CHLORIDE 20 MEQ/50 ML RTU IV ONE (06:00)
[2017-11-09] MEDS: SIMVASTATIN 10 MG TABLET PO SCH (09:12)
[2017-11-09] MEDS: CALCIUM CARBONATE 250 MG/VITAMIN D3 125 UNIT TABLET PO SCH ×2 (09:12→17:57)
[2017-11-09] MEDS: BUSPIRONE HCL 10 MG TABLET PO SCH ×2 (09:12→21:45)
[2017-11-09] MEDS: MAGNESIUM OXIDE 400 MG TABLET PO SCH (09:12)
[2017-11-09] MEDS: MEGESTROL ACETATE SUSP 400 MG/10 ML UDCUP PO SCH (09:12)
[2017-11-09] MEDS: POTASSI CL 20 MEQ/50 ML RIDER 20 MEQ/50 ML RTUPB IV SCH ×3 (09:14→13:44)
[2017-11-09] MEDS: CEFEPIME 1 GM/D5W RTU 1 GM/50 ML RTUPB IV SCH ×2 (09:15→21:44)
[2017-11-09] MEDS: GABAPENTIN 400 MG CAPSULE PO SCH ×4 (09:41→21:45)
[2017-11-09] MEDS ORDERED: ALTEPLASE INJ 2 MG VIAL (CATH CLEARANCE) IV ONE ×2 (10:30→11:30)
[2017-11-09] MEDS: RINGERS SOLUTION,LACTATED 1,000 ML IV PRN (12:58)
[2017-11-09] MEDS: RIVAROXABAN 10 MG TABLET PO SCH (17:58)
[2017-11-09] MEDS ORDERED: DEXTROSE 50%-WATER 25 GM/50 ML DISP.SYRIN IV PRN ×2 (18:17)
[2017-11-09] MEDS ORDERED: DEXTROSE 40% GEL 15 GM TUBE PO PRN ×2 (18:17)
[2017-11-09] MEDS ORDERED: GLUCAGON,HUMAN RECOMB 1 MG INJ IM PRN (18:17)
[2017-11-09 18:23] LABS: VANCOMYCIN,TROUGH 19.4 ug/mL (5.0-20.0)
--- NOTE | 2017-11-09 18:24 | PDOC PROGRESS REPORT ---
Subjective Progress Note for:: 11/09/17 Subjective:: Patient is feeling better today. She is thinking a little bit more clearly. She is not having abdominal pain. 1 episode of small amount of diarrhea without blood. No chest pain or difficulty breathing. We discussed her metastatic melanoma diagnosis and difficulty with treatment at this point at length. Once I determine she was more oriented I discussed with her what her oncologist explained to me about the need for restaging and the probability that the melanoma is continuing to spread while she is off treatment. She expresses understanding. Reason For Visit: DIFFUSE COLITIS, ORTHOSTATIC HYPOTENSION, Physical Exam Vital Signs: Temp Pulse Resp BP Pulse Ox 99.1 F 107 H 24 H 115/77 95 11/09/17 18:02 11/09/17 16:56 11/09/17 18:02 11/09/17 18:02 11/09/17 16:56 Intake & Output 11/08/17 11/09/17 11/10/17 06:59 06:59 06:59 Intake Total 2752 2080 1590 Output Total 625 935 700 Balance 2127 1145 890 Weight 76.3 kg 75.4 kg General appearance: PRESENT: no acute distress, cooperative Head exam: PRESENT: atraumatic, normocephalic Eye exam: PRESENT: EOMI. ABSENT: conjunctival injection, scleral icterus Mouth exam: PRESENT: moist Respiratory exam: PRESENT: clear to auscultation dex, decreased breath sounds, rales, rhonchi, unlabored. ABSENT: wheezes Cardiovascular exam: PRESENT: RRR. ABSENT: systolic murmur Pulses: PRESENT: normal radial pulses GI/Abdominal exam: PRESENT: normal bowel sounds, soft, other - Small soft brown stool. ABSENT: distended, tenderness Gentrourinary exam: PRESENT: indwelling catheter Extremities exam: PRESENT: pedal edema, other - Has dependent edema Neurological exam: PRESENT: alert, awake, oriented to person, oriented to place , oriented to situation. ABSENT: oriented to time Psychiatric exam: PRESENT: appropriate affect. ABSENT: anxious Skin exam: PRESENT: other - Weeping has improved. Results Laboratory Results: 11/09/17 04:10 11/09/17 04:10 11/09/17 11/09/17 04:10 04:10 WBC 17.9 H RBC 3.75 Hgb 10.9 L Hct 32.0 L MCV 85 MCH 29.1 MCHC 34.1 RDW 16.8 H Plt Count 118 L Seg Neutrophils % 89.5 H Lymphocytes % 6.8 L Monocytes % 3.6 Eosinophils % 0.0 Basophils % 0.1 Absolute Neutrophils 16.0 H Absolute Lymphocytes 1.2 Absolute Monocytes 0.6 Absolute Eosinophils 0.0 Absolute Basophils 0.0 Sodium 138.9 Potassium 3.2 L Chloride 112 H Carbon Dioxide 25 Anion Gap 2 L BUN 16 Creatinine 0.55 Est GFR ( Amer) > 60 Est GFR (Non-Af Amer) > 60 Glucose 173 H Calcium 7.6 L Magnesium 1.7 Total Bilirubin 2.1 H AST 38 H ALT 35 Alkaline Phosphatase 232 H Total Protein 4.1 L Albumin 1.8 L Impressions: Chest X-Ray 11/06/17 00:00 IMPRESSION: Left retrocardiac consolidation atelectasis versus pneumonia, unchanged Assessment & Plan - Diagnosis (1) Sepsis Is this a current diagnosis for this admission?: Yes Plan: Sepsis parameters improved. Patient will continue on Vanco and cefepime for healthcare associated pneumonia. Hydration continues and urine output is improving. (2) Healthcare-associated pneumonia Is this a current diagnosis for this admission?: Yes Plan: Improving. She does have a cough today. Continue vancomycin as dosed by pharmacy and cefepime. (3) Metastatic melanoma Is this a current diagnosis for this admission?: Yes Plan: Patient will need to be restaged if she survives this hospitalization. She is clearly not a candidate for immunotherapy for her metastatic melanoma at this time. Her goal is to get back to her oncologist office for restaging and continued treatment. She understands that this may not be possible. (4) Acute diarrhea Is this a current diagnosis for this admission?: Yes Plan: The diarrhea was secondary to the immunotherapy for metastatic melanoma. It has almost completely resolved with steroids. We will continue steroid taper. Octreotide has been discontinued. (5) Protein calorie malnutrition Qualifiers: Protein-calorie malnutrition severity: severe Qualified Code(s): E43 - Unspecified severe protein-calorie malnutrition Is this a current diagnosis for this admission?: Yes Plan: And is drinking at least 2 Ensure bottles a day. We will continue to push the protein. (6) Oliguria Is this a current diagnosis for this admission?: Yes Plan: Urine output is improving. We will continue fluid hydration. - Time Time Spent with patient: 25-34 minutes Medications reviewed and adjusted accordingly: Yes - Inpatient Certification Based on my medical assessment, after consideration of the patient's comorbidities, presenting symptoms, or acuity I expect that the services needed warrant INPATIENT care.: Yes I certify that my determination is in accordance with my understanding of Medicare's requirements for reasonable and necessary INPATIENT services [42 CFR 412.3e].: Yes Medical Necessity: Need Close Monitoring Due to Risk of Patient Decompensation, Need For IV Fluids, Need for IV Antibiotics, Risk of Complication if Not Cared For in Hospital
[2017-11-09] MEDS: MIRTAZAPINE 15 MG TABLET PO SCH (21:45)
[2017-11-09] MEDS: INSULIN LISPRO 100 UNIT/ML 3 ML VIAL SUBCUT PRN (23:37)
[2017-11-10] MEDS: METHYLPREDNISOLONE INJ 125 MG/2 ML SDV IV SCH ×3 (02:29→21:13)
[2017-11-10] MEDS: RINGERS SOLUTION,LACTATED 1,000 ML IV PRN ×2 (02:29→19:40)
[2017-11-10 05:04] LABS: HEMATOCRIT 32.6 % (36.0-47.0); HEMOGLOBIN 11.1 g/dL (12.0-15.5); MEAN CORPUSCULAR HEMOGLOBIN 29.2 pg (27.0-33.4); MEAN CORPUSCULAR HGB CONC 34.1 g/dL (32.0-36.0); MEAN CORPUSCULAR VOLUME 86 fl (80-97); PLATELET COUNT 114 10^3/uL (150-450); RED CELL DISTRIBUTION WIDTH 16.6 % (11.5-14.0); WHITE BLOOD COUNT 20.3 10^3/uL (4.0-10.5)
[2017-11-10 05:13] LABS: ANION GAP 5 (5-19); BLOOD UREA NITROGEN 14 mg/dL (7-20); CALCIUM 7.6 mg/dL (8.4-10.2); CARBON DIOXIDE 26 mmol/L (22-30); CHLORIDE 109 mmol/L (98-107); GLUCOSE 152 mg/dL (75-110); POTASSIUM 3.5 mmol/L (3.6-5.0); SODIUM 139.7 mmol/L (137-145)
[2017-11-10] MEDS: POTASSI CL 20 MEQ/50 ML RIDER 20 MEQ/50 ML RTUPB IV SCH ×3 (09:29→14:50)
[2017-11-10] MEDS: MEGESTROL ACETATE SUSP 400 MG/10 ML UDCUP PO SCH (09:29)
[2017-11-10] MEDS: CEFEPIME 1 GM/D5W RTU 1 GM/50 ML RTUPB IV SCH ×2 (09:30→21:15)
[2017-11-10] MEDS: MAGNESIUM OXIDE 400 MG TABLET PO SCH (09:31)
[2017-11-10] MEDS: SIMVASTATIN 10 MG TABLET PO SCH (09:31)
[2017-11-10] MEDS: BUSPIRONE HCL 10 MG TABLET PO SCH ×2 (09:31→21:14)
[2017-11-10] MEDS: CALCIUM CARBONATE 250 MG/VITAMIN D3 125 UNIT TABLET PO SCH ×2 (09:31→17:31)
[2017-11-10] MEDS: GABAPENTIN 400 MG CAPSULE PO SCH ×4 (09:35→21:14)
[2017-11-10] MEDS ORDERED: DILTIAZEM HCL/D5W 125 MG/125 ML RTUINJ IV ONE (10:03)
[2017-11-10] MEDS ORDERED: DILTIAZEM HCL/D5W 125 MG/125 ML RTUINJ IV PRN (10:06)
[2017-11-10 10:24] LABS: CREATINE KINASE < 20 U/L (30-135)
[2017-11-10 10:33] LABS: CREATINE KINASE MB 1.28 ng/mL (<4.55); TROPONIN I 0.035 ng/mL
[2017-11-10] MEDS: VANCOMYCIN HCL 750 MG in DEXTROSE 5%-WATER 250 ML IV SCH ×2 (11:14→21:12)
[2017-11-10] MEDS ORDERED: LORAZEPAM INJ 2 MG/1 ML VIAL IV ONE (12:30)
[2017-11-10] MEDS ORDERED: LORAZEPAM 0.5 MG TABLET PO PRN (14:53)
[2017-11-10 16:18] LABS: CREATINE KINASE MB 1.14 ng/mL (<4.55); TROPONIN I 0.024 ng/mL
[2017-11-10] MEDS ORDERED: DIGOXIN INJ 0.5 MG/2 ML AMPULE ONE (16:37)
[2017-11-10] MEDS: RIVAROXABAN 10 MG TABLET PO SCH (17:31)
[2017-11-10] MEDS: DEXTROSE 5%-WATER 500 ML with AMIODARONE HCL 900 MG IV PRN ×2 (18:43)
--- NOTE | 2017-11-10 18:48 | PDOC PROGRESS REPORT ---
Subjective Progress Note for:: 11/10/17 Subjective:: pt is agitated today, also her HR is elevated, especially when she is getting agitated. She tells me she is not hurting, she is breathing okay. He does not remember me I had seen her for the last 4 days. Per nurse she has been increasingly agitated. Her heart rate has been up into the 160s intermittently. Output has improved. Skin weeping improved. Diarrhea frequency and volume improved. Reason For Visit: DIFFUSE COLITIS, ORTHOSTATIC HYPOTENSION, Physical Exam Vital Signs: Temp Pulse Resp BP Pulse Ox 98.2 F 117 H 20 106/75 100 11/10/17 18:03 11/10/17 16:00 11/10/17 18:03 11/10/17 18:03 11/10/17 18:03 Intake & Output 11/09/17 11/10/17 11/11/17 06:59 06:59 06:59 Intake Total 2080 2690 483 Output Total 935 1300 550 Balance 1145 1390 -67 Weight 75.4 kg 77.7 kg General appearance: PRESENT: disheveled, mild distress. ABSENT: cooperative Head exam: PRESENT: atraumatic, normocephalic Eye exam: ABSENT: conjunctival injection, scleral icterus Ear exam: PRESENT: normal external ear exam Mouth exam: PRESENT: dry mucosa Respiratory exam: PRESENT: unlabored. ABSENT: wheezes Cardiovascular exam: PRESENT: irregular rhythm, tachycardia Vascular exam: PRESENT: other - Bilateral knee mottling GI/Abdominal exam: PRESENT: hyperactive bowel sounds, soft. ABSENT: distended, tenderness Gentrourinary exam: PRESENT: indwelling catheter Extremities exam: PRESENT: other - Dependant edema throughout Musculoskeletal exam: ABSENT: ambulatory Neurological exam: PRESENT: alert, altered, awake, oriented to person. ABSENT: oriented to place, oriented to time, oriented to situation Psychiatric exam: PRESENT: agitated. ABSENT: appropriate affect Focused psych exam: PRESENT: delusional, pressured speech Skin exam: PRESENT: other - Overall the overall the weeping has improved. She does have mottling over the bilateral knees. Results Laboratory Results: 11/10/17 04:45 11/10/17 04:45 11/10/17 11/10/17 11/10/17 04:45 04:45 09:30 WBC 20.3 H RBC 3.80 Hgb 11.1 L Hct 32.6 L MCV 86 MCH 29.2 MCHC 34.1 RDW 16.6 H Plt Count 114 L Sodium 139.7 Potassium 3.5 L Chloride 109 H Carbon Dioxide 26 Anion Gap 5 BUN 14 Creatinine 0.41 L Est GFR ( Amer) > 60 Est GFR (Non-Af Amer) > 60 Glucose 152 H Calcium 7.6 L Magnesium 1.6 11/10/17 11/10/17 11/10/17 09:30 09:30 15:30 Creatine Kinase < 20 L < 20 L CK-MB (CK-2) 1.28 Troponin I 0.035 11/10/17 15:30 Creatine Kinase CK-MB (CK-2) 1.14 Troponin I 0.024 Impressions: Chest X-Ray 11/06/17 00:00 IMPRESSION: Left retrocardiac consolidation atelectasis versus pneumonia, unchanged Assessment & Plan - Diagnosis (1) Multifocal atrial tachycardia Is this a current diagnosis for this admission?: Yes Plan: This was a new acute problem today. The patient had an EKG and multifocal atrial tachycardia has been diagnosed. She is now on a diltiazem drip and heart rate is improving from the 160s down to about [address] Hathaway, aircraft cabin cleaner, is consulting. Cardiac enzymes are being followed. (2) Sepsis Is this a current diagnosis for this admission?: Yes Plan: Parameters resolved with treatment of healthcare associated pneumonia. Patient continues on IV fluids as her oral intake is poor. She continues on vancomycin and cefepime and blood cultures are pending. (3) Healthcare-associated pneumonia Is this a current diagnosis for this admission?: Yes Plan: Continue vancomycin per pharmacy protocol. Continue cefepime. Will continue antibiotics for total of 7 days and then reevaluate. Blood cultures are pending. Her symptoms are improving. (4) Agitation Is this a current diagnosis for this admission?: Yes Plan: Secondary to severe agitation today I started the patient on Ativan. I started with a 0.5 mg IV dose x1 and she had a very good response, she calm down quite a bit. I have continue the Ativan at 0.5 mg IV every 4 hours as needed severe agitation. (5) Metastatic melanoma Is this a current diagnosis for this admission?: Yes Plan: Patient has been on treatment for metastatic melanoma as an outpatient. She has received several [employer] treatments but there is the thought that perhaps the brain lesions are returning. She is admitted to the hospital this time with the acute diarrhea related to the chemotherapy. The diarrhea has almost completely resolved with the steroid administration which we are tapering slowly. Dr. Argueta and I spoke about this patient. She will need to be seen in the clinic for restaging and to see if she is a candidate for any further treatment. I tried to discuss this with the patient yesterday when she was a little bit more headed but today she is unable to engage in complex decisions or discussions in a reasonable way. Informed her sister of this conversation with Dr. Argueta. (6) Acute diarrhea Is this a current diagnosis for this admission?: Yes Plan: Secondary to treatment for melanoma. Improving with IV steroids. We will continue to taper slowly. (7) Protein calorie malnutrition Qualifiers: Protein-calorie malnutrition severity: severe Qualified Code(s): E43 - Unspecified severe protein-calorie malnutrition Is this a current diagnosis for this admission?: Yes Plan: Patient has anasarca secondary to this. Her urine output has been poor and she continues on IV fluids. We have been pushing the Ensure and if we insist and help her bring the straw to her mouth she will drink the Ensure so we are continuing to push this. (8) Oliguria Is this a current diagnosis for this admission?: Yes Plan: Improving. We will continue to monitor. Continue IV fluids. - Time Time Spent with patient: 25-34 minutes Medications reviewed and adjusted accordingly: Yes - Plan Summary Plan Summary: This patient is insistent upon leaving the hospital. I do not think she has decisional capacity to make complex medical decisions. Her sister is at the bedside and agrees that she is confused. Her son is her healthcare power of attorney general and from has been told he is coming to town and we will need to speak with him about a discharge plan should she survive to discharge.
[2017-11-10] MEDS ORDERED: AMIODARONE HCL 150 MG in DEXTROSE 5%-WATER 100 ML IV ONE ×2 (19:00→20:00)
--- NOTE | 2017-11-10 19:38 | EKG REPORT ---
SEVERITY:- BORDERLINE ECG - MULTIFOCAL ATRIAL TACHYCARDIA : Confirmed by: Irene Hathaway MD 10-Nov-2017 19:37:58
[2017-11-10] MEDS ORDERED: DEXTROSE 5%-WATER 500 ML with AMIODARONE HCL 900 MG IV PRN ×2 (20:00)
[2017-11-10] MEDS: LORAZEPAM INJ 2 MG/1 ML VIAL IV PRN (21:12)
[2017-11-10] MEDS: MIRTAZAPINE 15 MG TABLET PO SCH (21:14)
[2017-11-10 21:39] LABS: CREATINE KINASE MB 1.37 ng/mL (<4.55); TROPONIN I 0.03 ng/mL
[2017-11-10] MEDS: INSULIN LISPRO 100 UNIT/ML 3 ML VIAL SUBCUT PRN (23:50)
[2017-11-11] MEDS: LORAZEPAM INJ 2 MG/1 ML VIAL IV PRN ×2 (03:52→10:17)
[2017-11-11] MEDS: CEFEPIME 1 GM/D5W RTU 1 GM/50 ML RTUPB IV SCH ×2 (10:17→21:17)
[2017-11-11] MEDS: VANCOMYCIN HCL 750 MG in DEXTROSE 5%-WATER 250 ML IV SCH ×2 (10:17→23:01)
[2017-11-11] MEDS: METHYLPREDNISOLONE INJ 125 MG/2 ML SDV IV SCH ×2 (10:17→21:17)
[2017-11-11] MEDS: SIMVASTATIN 10 MG TABLET PO SCH (10:18)
[2017-11-11] MEDS: CALCIUM CARBONATE 250 MG/VITAMIN D3 125 UNIT TABLET PO SCH ×2 (10:19→17:43)
[2017-11-11] MEDS: BUSPIRONE HCL 10 MG TABLET PO SCH ×2 (10:19→21:18)
[2017-11-11] MEDS: MAGNESIUM OXIDE 400 MG TABLET PO SCH (10:19)
[2017-11-11] MEDS: RINGERS SOLUTION,LACTATED 1,000 ML IV PRN ×2 (10:24→22:30)
[2017-11-11] MEDS: GABAPENTIN 400 MG CAPSULE PO SCH ×4 (10:25→21:18)
[2017-11-11] MEDS ORDERED: ALTEPLASE INJ 2 MG VIAL (CATH CLEARANCE) IV PRN (10:25)
[2017-11-11] MEDS: MEGESTROL ACETATE SUSP 400 MG/10 ML UDCUP PO SCH (10:25)
[2017-11-11 11:57] LABS: HEMATOCRIT 29.5 % (36.0-47.0); HEMOGLOBIN 10.2 g/dL (12.0-15.5); MEAN CORPUSCULAR HEMOGLOBIN 29.6 pg (27.0-33.4); MEAN CORPUSCULAR HGB CONC 34.6 g/dL (32.0-36.0); MEAN CORPUSCULAR VOLUME 86 fl (80-97); PLATELET COUNT 127 10^3/uL (150-450); RED BLOOD COUNT 3.44 10^6/uL (3.72-5.28); RED CELL DISTRIBUTION WIDTH 16.6 % (11.5-14.0); WHITE BLOOD COUNT 21.7 10^3/uL (4.0-10.5)
--- NOTE | 2017-11-11 11:59 | PDOC PROGRESS REPORT ---
Subjective Progress Note for:: 11/11/17 Subjective:: 67-year-old female less confused and agitated today. Seen by cardiology started on amiodarone drip for MAT. Currently in a sinus rhythm by telemetry. Femoral line clotted not drawing well. A.m. labs pending. Reason For Visit: DIFFUSE COLITIS, ORTHOSTATIC HYPOTENSION, Physical Exam Vital Signs: Temp Pulse Resp BP Pulse Ox 97.9 F 88 16 128/79 H 100 11/11/17 10:03 11/11/17 08:00 11/11/17 10:03 11/11/17 10:03 11/11/17 10:03 Intake & Output 11/10/17 11/11/17 11/12/17 06:59 06:59 06:59 Intake Total 2690 1976 1050 Output Total 1300 985 135 Balance 1390 991 915 Weight 77.7 kg 78 kg General appearance: PRESENT: no acute distress, other - Confused Eye exam: PRESENT: conjunctiva pink, EOMI, PERRLA. ABSENT: scleral icterus Neck exam: ABSENT: carotid bruit, JVD, lymphadenopathy, thyromegaly Respiratory exam: PRESENT: clear to auscultation dex. ABSENT: rales, rhonchi, wheezes Cardiovascular exam: PRESENT: RRR. ABSENT: diastolic murmur, rubs, systolic murmur Pulses: PRESENT: other - Anasarca GI/Abdominal exam: PRESENT: mass, normal bowel sounds, soft, other - Diarrhea. ABSENT: distended, guarding, rebound, tenderness Neurological exam: PRESENT: awake, other - Confused no focal motor deficit Results Laboratory Results: 11/11/17 09:30 11/11/17 09:30 11/11/17 11/11/17 09:30 09:30 WBC Cancelled RBC Cancelled Hgb Cancelled Hct Cancelled MCV Cancelled MCH Cancelled MCHC Cancelled RDW Cancelled Plt Count Cancelled Seg Neutrophils % Cancelled Lymphocytes % Cancelled Monocytes % Cancelled Eosinophils % Cancelled Basophils % Cancelled Absolute Neutrophils Cancelled Absolute Lymphocytes Cancelled Absolute Monocytes Cancelled Absolute Eosinophils Cancelled Absolute Basophils Cancelled Sodium Cancelled Potassium Cancelled Chloride Cancelled Carbon Dioxide Cancelled Anion Gap Cancelled BUN Cancelled Creatinine Cancelled Est GFR ( Amer) Cancelled Est GFR (Non-Af Amer) Cancelled Glucose Cancelled Calcium Cancelled Phosphorus Cancelled 11/10/17 11/10/17 11/10/17 09:30 09:30 15:30 Creatine Kinase < 20 L < 20 L CK-MB (CK-2) 1.28 Troponin I 0.035 11/10/17 11/10/17 11/10/17 15:30 21:06 21:06 Creatine Kinase < 20 L CK-MB (CK-2) 1.14 1.37 Troponin I 0.024 0.030 Impressions: Chest X-Ray 11/06/17 00:00 IMPRESSION: Left retrocardiac consolidation atelectasis versus pneumonia, unchanged Assessment & Plan - Diagnosis (1) Acute diarrhea Is this a current diagnosis for this admission?: Yes (2) Agitation Is this a current diagnosis for this admission?: Yes (3) Multifocal atrial tachycardia Is this a current diagnosis for this admission?: Yes Plan: Cardiology consulted seen by Dr. Hathaway. Amiodarone initiated. Currently in sinus rhythm (4) Protein calorie malnutrition Qualifiers: Protein-calorie malnutrition severity: severe Qualified Code(s): E43 - Unspecified severe protein-calorie malnutrition Is this a current diagnosis for this admission?: Yes Plan: Severe patient on Megace continue nutritional support. (5) Healthcare-associated pneumonia Is this a current diagnosis for this admission?: Yes Plan: CBC pending. Patient currently on vancomycin and cefepime (6) Metastatic melanoma Is this a current diagnosis for this admission?: Yes Plan: Patient with static disease to brain and other extracranial sites. Dr. Fuller discussed with treating oncologist patient will need to be restaged. Given the advanced nature of her disease conversation with power of milk collector which is the son will have to be had regarding palliative therapy CODE STATUS and possible hospice. (7) Sepsis Qualifiers: Sepsis type: sepsis due to unspecified organism Qualified Code(s): A41.9 - Sepsis, unspecified organism Is this a current diagnosis for this admission?: Yes Plan: Resolved continue to monitor - Time Time Spent with patient: 25-34 minutes
[2017-11-11 12:15] LABS: BLOOD UREA NITROGEN 13 mg/dL (7-20); CALCIUM 7.5 mg/dL (8.4-10.2); CHLORIDE 104 mmol/L (98-107); GLUCOSE 178 mg/dL (75-110); PHOSPHORUS 1.5 mg/dL (2.5-4.5); POTASSIUM 3.8 mmol/L (3.6-5.0)
[2017-11-11 12:32] LABS: ABSOLUTE LYMPHOCYTES# (MANUAL) 1.1 10^3/uL (0.5-4.7); ABSOLUTE MONOCYTES # (MANUAL) 0.9 10^3/uL (0.1-1.4); ABSOLUTE NEUTROPHILS# (MANUAL) 19.7 10^3/uL (1.7-8.2); BASOPHILS % (MANUAL) 0 % (0-2); EOSINOPHILS % (MANUAL) 0 % (0-6); HYPERSEGMENTED NEUTROPHILS PRESENT; LYMPHOCYTES % (MANUAL) 5 % (13-45); MONOCYTES % (MANUAL) 4 % (3-13); SEGMENTED NEUTROPHILS % (MAN) 91 % (42-78); TOTAL CELLS COUNTED 100
[2017-11-11 12:34] LABS: ANISOCYTOSIS 1+; HYPOCHROMASIA 1+; PLATELET COMMENT DECREASED; POLYCHROMASIA SLIGHT; TOXIC GRANULATION SLIGHT; TOXIC VACUOLATION PRESENT
[2017-11-11 12:41] LABS: ANION GAP 0 (5-19); CARBON DIOXIDE 30 mmol/L (22-30); SODIUM 134.4 mmol/L (137-145)
--- NOTE | 2017-11-11 12:47 | RADIOLOGY REPORT (SQ) ---
EXAM DESCRIPTION: PICC INSERTION; U/S GUIDE FOR VASCULAR ACCESS COMPLETED DATE/TIME: 11/11/2017 11:44 am REASON FOR STUDY: Access; IV ACCESS COMPARISON: None. FLUOROSCOPY TIME: Performed without fluoroscopy. 1 images saved to PACS. TECHNIQUE: Ultrasound guided PICC placement. LIMITATIONS: None. PROCEDURE: The procedure was performed at the patient's bedside in the ICU. Written consent and ass essment were obtained. Ultrasound evaluation of potential access sites were performed. After successf ully identifying a patent left basilic vein, the left arm was prepped and draped in a sterile fashion along with the ultrasound probe. The entry site was anesthetized with 1% lidocaine. A 21 gauge 7 cm needle was advanced through the skin and into the basilic vein under live ultrasound guidance. An ul trasound image was saved to PACS confirming access site. A .018 guide wire was then inserted through the needle and into the venous system. The needle was then removed and an 11 blade scalpel was used to make a 1cm skin incision. A 5 fr peel-away sheath was advanced over the wire and into the venous system. A measurement was then made using the existing wire and x-ray confirmation. The wire was then removed and trimmed. The PICC was advanced through the peel-away sheath and into the venous system. The peel-away sheath was removed and the catheter was adhered to the patients arm with a stat lock. T he catheter was then aspirated and flushed and a sterile bandage was placed over the access site. A chest radiographic image was saved to PACS confirming the catheter tip within the superior vena cava. IMPRESSION: SUCCESSFUL PLACEMENT OF A 5 FR DUAL LUMEN 38 CM PICC IN THE LEFT BASILIC VEIN. COMMENT: Patient medication list reviewed: Yes- Quality ID# 130:Eligible professional attests to doc umenting in the medical record they obtained, updated, or reviewed the patient's current medications. . Quality ID 145: Final reports for procedures using fluoroscopy that document radiation exposure yamilka hilary, or exposure time and number of fluorographic images (if radiation exposure indices are not avail able) Quality ID #76: The patient was prepped and draped using maximum sterile barrier technique including cap, mask, sterile gown, sterile gloves, a large sterile sheet, hand hygiene, and 2% Chlorhexidine fo r cutaneous antisepsis. When ultrasound is used, sterile ultrasound techniques are followed requiring sterile gel and sterile probes. TECHNICAL DOCUMENTATION: JOB ID: [id number] [employer]- All Rights Reserved rev-07/02 Reading location - IP/workstation name: [facility], [id number]
--- NOTE | 2017-11-11 14:40 | EKG REPORT ---
SEVERITY:- ABNORMAL ECG - SINUS RHYTHM PROBABLE LEFT ATRIAL ABNORMALITY ST ELEVATION, PROBABLE INFERIOR INJURY NONSPECIFIC T ABNORMALITIES, ANT-LAT LEADS : Confirmed by: Irene Hathaway MD 11-Nov-2017 14:39:31
[2017-11-11] MEDS: RIVAROXABAN 10 MG TABLET PO SCH (17:43)
[2017-11-11] MEDS: DEXTROSE 5%-WATER 500 ML with AMIODARONE HCL 900 MG IV PRN ×2 (17:44)
--- NOTE | 2017-11-11 20:55 | Progress Note ---
Provider Note Provider Note: CARDIOLOGY PROGRESS NOTE by Dr. Irene Hathaway on 11/11/2017. SUBJECTIVE: The patient last evening/night went to the atrial fibrillation with rapid ventricular response. Cardizem drip was discontinued and the patient was bolused with amiodarone and started on infusion of amiodarone as per protocol. This morning the patient is in atrial flutter with a controlled ventricular response. The patient denies any chest pain or discomfort. She denies any PND orthopnea or shortness of breath. There is no wheezing. The patient denies any cough or sputum production. The patient's thinking is not. She is also slow mentation. But still appears to be in no acute distress. PHYSICAL EXAMINATION: The patient is a frail build, and looks chronically ill. But at present she is in no acute distress. 3L by NC O2 11/11/17 11/11/17 11/11/17 12:03 12:32 14:33 Temperature 98.2 F 98.2 F Heart Rate ( 83 87 Monitors) Respiratory 14 13 Rate Blood Pressure 121/86 H 124/69 Blood Pressure 87 Mean O2 Sat by Pulse 92 Oximetry 11/11/17 15:00 Temperature Heart Rate ( Monitors) Respiratory Rate Blood Pressure Blood Pressure Mean O2 Sat by Pulse 99 Oximetry HEAD: Head is atraumatic normocephalic. EYES: Pupils are equal round regular reactive light accommodation. External ocular movements are normal. There is no conjunctival pallor. There is no scleral icterus. EARS: Tympanic membranes are intact, external auditory canals are clear. NOSE: There is no deviated nasal septum, there is no nasal polyps. There is no inflammation of the nasal mucous membrane. MOUTH: Mucous membranes of mouth and tongue are moist. There is no ulcers. THROAT: There is no redness of the oropharynx there is no exudates. SKIN: There is no petechia or ecchymosis. There is no skin lesions or skin rashes. NECK: Neck is supple there is no JVD carotids are equal there is no bruit there is no lymphadenopathy. There is no goiter. Trachea central. LUNGS: There is echo for knee and decreased breath sounds in the left base. There are a few dry crackles also. The rest of the lungs are clear. HEART: S1- S2 is heard S1 is of normal intensity there is no S3 gallop there is no S4 gallop the systolic murmur left sternal border and apex there is no rub ABDOMEN : Abdomen is soft nontender there is no paraspinal megaly bowel sounds well heard. Extremities scattered EXTREMITIES: Femorals are diminished. There is no femoral bruits. Leg pulses are diminished there is moderate bilateral pedal edema present and also edema of the upper extremities. There is no DVT or cellulitis. There is no cyanosis or clubbing. DOCKET SPECIALIST the patient is conscious but of slow mentation is no focal deficits. PSYCHIATRIC the patient does not appear to be agitated at present. Full psychiatric exam could not be done. 11/11/17 11/11/17 11:45 11:45 WBC 21.7 H Hgb 10.2 L Hct 29.5 L Plt Count 127 L Sodium 134.4 L Potassium 3.8 Chloride 104 Carbon Dioxide 30 BUN 13 Creatinine 0.39 L Est GFR (Non-Af Amer) > 60 Glucose 178 H Calcium 7.5 L Phosphorus 1.5 L IMPRESSION/ RECOMMENDATION: 1. ATRIAL FIBRILLATION, with rapid ventricular response. At present on amiodarone drip the patient is in a flutter, with a favorable ventricular response. Would recommend continue the patient's amiodarone infusion rate for maintenance. Would recommend checking patient's thyroid function test, and liver function tests. Later would get a pulmonary function test with DLCO. 2. Melanoma with metastasis to the brain, breast and kidney.. Follow recommendation by oncologist. 3. Generalized edema secondary to malnutrition, with low albumin levels. 4. PNEUMONIA: Left retrocardiac pneumonia causing consolidation: Continue antibiotics. 5. 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 6. Hypertension: Blood pressure is stable at present. 7. Mild hypokalemia. We will replace the patient's potassium. 8. Depression: We will recommend continue the patient's anti-depressants. 9 Chronic Diarrhea: Patient probably has diffuse colitis. 10. Probably has intravascular depletion of volume, in spite of the patient's edema which is generalized, most likely secondary to hypoalbuminemia. Consider albumin infusions. This may not work except probably temporary. Medications to be reviewed with will continue the patient's amiodarone. Discussed with the caregiving providers on the case. Not medical decision making is of high complexity. Good 40 minutes. This patient, more than 50% of time spent in direct patient care. We will follow with you. Note thyroid function tests, and liver function tests were ordered.
[2017-11-11] MEDS: MIRTAZAPINE 15 MG TABLET PO SCH (21:18)
[2017-11-11] MEDS: NORMAL SALINE 10 ML SDV (SCHEDULED) IV SCH (21:19)
[2017-11-11 21:51] LABS: VANCOMYCIN,TROUGH 19.3 ug/mL (5.0-20.0)
[2017-11-12 04:09] LABS: HEMATOCRIT 28.3 % (36.0-47.0); HEMOGLOBIN 9.5 g/dL (12.0-15.5); MEAN CORPUSCULAR HGB CONC 33.5 g/dL (32.0-36.0); MEAN CORPUSCULAR VOLUME 87 fl (80-97); PLATELET COUNT 124 10^3/uL (150-450); RED BLOOD COUNT 3.27 10^6/uL (3.72-5.28); RED CELL DISTRIBUTION WIDTH 16.8 % (11.5-14.0); WHITE BLOOD COUNT 17.4 10^3/uL (4.0-10.5)
[2017-11-12 04:28] LABS: ABSOLUTE LYMPHOCYTES# (MANUAL) 0.3 10^3/uL (0.5-4.7); ABSOLUTE MONOCYTES # (MANUAL) 0.3 10^3/uL (0.1-1.4); ABSOLUTE NEUTROPHILS# (MANUAL) 16.7 10^3/uL (1.7-8.2); ALANINE AMINOTRANSFERASE 57 U/L (9-52); ALBUMIN 1.8 g/dL (3.5-5.0); ALKALINE PHOSPHATASE 319 U/L (38-126); ASPARTATE AMINO TRANSFERASE 46 U/L (14-36); BASOPHILS % (MANUAL) 0 % (0-2); BILIRUBIN,DIRECT 1.5 mg/dL (0.0-0.4); EOSINOPHILS % (MANUAL) 0 % (0-6); LYMPHOCYTES % (MANUAL) 2 % (13-45); MONOCYTES % (MANUAL) 2 % (3-13); SEGMENTED NEUTROPHILS % (MAN) 96 % (42-78); TOTAL CELLS COUNTED 100; TOTAL PROTEIN 3.8 g/dL (6.3-8.2)
[2017-11-12 04:29] LABS: ANISOCYTOSIS 1+; PLATELET COMMENT DECREASED; TOXIC GRANULATION SLIGHT
[2017-11-12 04:30] LABS: TOXIC VACUOLATION PRESENT
[2017-11-12 04:43] LABS: FREE T3 1.92 pg/mL (2.77-5.27); FREE T4 (FREE THYROXINE) 1.19 ng/dL (0.78-2.19)
[2017-11-12 04:56] LABS: THYROID STIMULATING HORMONE 1.62 uIU/mL (0.47-4.68)
[2017-11-12] MEDS: GABAPENTIN 400 MG CAPSULE PO SCH ×3 (08:00→17:49)
[2017-11-12] MEDS: CALCIUM CARBONATE 250 MG/VITAMIN D3 125 UNIT TABLET PO SCH ×2 (08:00→17:49)
[2017-11-12] MEDS ORDERED: POTASSIUM PHOS,M-BASIC-D-BASIC 30 MMOL in NORMAL SALINE 500 ML IV ONE (09:00)
[2017-11-12] MEDS: CEFEPIME 1 GM/D5W RTU 1 GM/50 ML RTUPB IV SCH (09:37)
[2017-11-12] MEDS: RINGERS SOLUTION,LACTATED 1,000 ML IV PRN (09:37)
[2017-11-12] MEDS: BUSPIRONE HCL 10 MG TABLET PO SCH (09:38)
[2017-11-12] MEDS: SIMVASTATIN 10 MG TABLET PO SCH (09:38)
[2017-11-12] MEDS: NORMAL SALINE 10 ML SDV (SCHEDULED) IV SCH (09:40)
[2017-11-12] MEDS: MAGNESIUM OXIDE 400 MG TABLET PO SCH (09:43)
[2017-11-12] MEDS: MEGESTROL ACETATE SUSP 400 MG/10 ML UDCUP PO SCH (09:44)
[2017-11-12] MEDS: METHYLPREDNISOLONE INJ 125 MG/2 ML SDV IV SCH (10:15)
[2017-11-12 11:46] LABS: PATH REVIEW PATHOLOGIST REVIEWED
--- NOTE | 2017-11-12 12:57 | PDOC PROGRESS REPORT ---
Subjective Progress Note for:: 11/12/17 Subjective:: 67-year-old female less confused and agitated today. Seen by cardiology started on amiodarone drip for MAT. Currently in a flutter rhythm by telemetry. PICC line has been placed. Patient's phosphorus is low at 1.5 replacement has been ordered. Patient is awake but remains confused. Son who is the power of trust and estates attorney is expected to arrive from out of state this weekend. Diarrhea has decreased to 3 episodes daily but the stool remains liquidy she continues to have significant edema and poor nutritional intake. Reason For Visit: DIFFUSE COLITIS, ORTHOSTATIC HYPOTENSION, Physical Exam Vital Signs: Temp Pulse Resp BP Pulse Ox 98.2 F 84 14 128/73 H 100 11/12/17 12:04 11/12/17 07:44 11/12/17 12:04 11/12/17 12:04 11/12/17 12:04 Intake & Output 11/11/17 11/12/17 11/13/17 06:59 06:59 06:59 Intake Total 1976 2794 884 Output Total 985 935 525 Balance 991 1859 359 Weight 78 kg 80.9 kg General appearance: PRESENT: no acute distress, well-developed, well-nourished Respiratory exam: PRESENT: clear to auscultation dex. ABSENT: rales, rhonchi, wheezes Cardiovascular exam: PRESENT: RRR. ABSENT: diastolic murmur, rubs, systolic murmur GI/Abdominal exam: PRESENT: normal bowel sounds, soft. ABSENT: distended, guarding, mass, organolmegaly, rebound, tenderness Extremities exam: PRESENT: full ROM, other - Diffuse anasarca. ABSENT: calf tenderness, clubbing, pedal edema Results Laboratory Results: 11/12/17 04:00 11/11/17 11:45 11/12/17 11/12/17 11/12/17 04:00 04:00 04:00 WBC 17.4 H RBC 3.27 L Hgb 9.5 L Hct 28.3 L MCV 87 MCH 29.0 MCHC 33.5 RDW 16.8 H Plt Count 124 L Seg Neutrophils % Not Reportable Lymphocytes % Not Reportable Monocytes % Not Reportable Eosinophils % Not Reportable Basophils % Not Reportable Absolute Neutrophils Not Reportable Absolute Lymphocytes Not Reportable Absolute Monocytes Not Reportable Absolute Eosinophils Not Reportable Absolute Basophils Not Reportable Magnesium 1.7 Total Bilirubin 2.0 H AST 46 H ALT 57 H Alkaline Phosphatase 319 H Total Protein 3.8 L Albumin 1.8 L TSH 1.62 Free T4 1.19 Free T3 pg/mL 1.92 L 11/10/17 11/10/17 11/10/17 09:30 09:30 15:30 Creatine Kinase < 20 L < 20 L CK-MB (CK-2) 1.28 Troponin I 0.035 11/10/17 11/10/17 11/10/17 15:30 21:06 21:06 Creatine Kinase < 20 L CK-MB (CK-2) 1.14 1.37 Troponin I 0.024 0.030 Impressions: Chest X-Ray 11/06/17 00:00 IMPRESSION: Left retrocardiac consolidation atelectasis versus pneumonia, unchanged Interventional Vascular Procedure 11/11/17 00:00 IMPRESSION: SUCCESSFUL PLACEMENT OF A 5 FR DUAL LUMEN 38 CM PICC IN THE LEFT BASILIC VEIN. PICC Line Insertion 11/11/17 00:00 IMPRESSION: SUCCESSFUL PLACEMENT OF A 5 FR DUAL LUMEN 38 CM PICC IN THE LEFT BASILIC VEIN. Assessment & Plan - Diagnosis (1) Acute diarrhea Is this a current diagnosis for this admission?: Yes Plan: Chronic diarrhea by history. Patient having 3 loose bowel movements daily not large volume. 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 Will discuss with son on his arrival patient's CODE STATUS the recommendation by treating oncologist to Dr. Fuller that she will need to be restaged and the likelihood of treatment having a significant impact on her disease. (4) Sepsis Qualifiers: Sepsis type: sepsis due to unspecified organism Qualified Code(s): A41.9 - Sepsis, unspecified organism Is this a current diagnosis for this admission?: Yes (5) Encephalopathy acute Is this a current diagnosis for this admission?: Yes Plan: Patient confused but does not appear delirious. Able to respond to questions. (6) Atrial fibrillation Is this a current diagnosis for this admission?: Yes Plan: Veins on amiodarone and as per Dr. Hathaway. EKG this morning appears to be a flutter. Check TSH. (7) Hypophosphatemia Is this a current diagnosis for this admission?: Yes Plan: Replace with potassium phosphate repeat phosphorus level in a.m. (8) Protein calorie malnutrition Qualifiers: Protein-calorie malnutrition severity: severe Qualified Code(s): E43 - Unspecified severe protein-calorie malnutrition Is this a current diagnosis for this admission?: Yes Plan: Continue nutritional support. - Time Time Spent with patient: 25-34 minutes
[2017-11-12] MEDS: RIVAROXABAN 10 MG TABLET PO SCH (17:49)
[2017-11-12] MEDS: LORAZEPAM INJ 2 MG/1 ML VIAL IV PRN (19:11)
--- NOTE | 2017-11-12 21:05 | EKG REPORT ---
SEVERITY:- ABNORMAL ECG - BORDERLINE PROLONGED QT INTERVAL A-FLUTTER W/ PREDOM 3:1 AV BLOCK, A-RATE 0 : Confirmed by: Irene Hathaway MD 12-Nov-2017 21:04:10
--- NOTE | 2017-11-12 21:55 | Progress Note ---
Provider Note Provider Note: CARDIOLOGY PROGRESS NOTE by Dr. Irene Hathaway on 11/12/2017. Subjective: The patient continues to be in atrial flutter but with a controlled ventricular response. She denies chest pain and surprisingly denies any shortness of breath. She complains of cough with scanty production of clear sputum. There is no PND orthopnea. Her leg edema is about the same. There is no ventricular arrhythmias seen. There is no bradycardia of any significance. The patient denies any TIA or CVA symptoms, I do think he is still not clear. PHYSICAL EXAMINATION: The patient is a frail build and appears chronically ill. Presently no acute distress. Selected Entries 11/12/17 11/12/17 11/12/17 04:11 10:00 10:04 Temperature 98.1 F Heart Rate ( 84 Monitors) Respiratory 14 Rate Blood Pressure 129/85 H Blood Pressure 99 Mean O2 Sat by Pulse 97 100 Oximetry Oxygen Delivery Nasal Cannula Nasal Cannula Method ( includes room air) Oxygen Flow 3 2 Rate 11/12/17 12:34 Temperature 98.2 F Heart Rate ( 89 Monitors) Respiratory 17 Rate Blood Pressure 137/85 H Blood Pressure 102 Mean O2 Sat by Pulse 100 Oximetry Oxygen Delivery Method ( includes room air) Oxygen Flow Rate 11/12/17 11/12/17 11/12/17 04:00 04:00 04:00 WBC 17.4 H RBC 3.27 L Hgb 9.5 L Hct 28.3 L Plt Count 124 L Magnesium 1.7 Total Bilirubin 2.0 H Direct Bilirubin 1.5 H Neonat Total Bilirubin Not Reportable Neonat Direct Bilirubin Not Reportable Neonat Indirect Bili Not Reportable AST 46 H ALT 57 H Alkaline Phosphatase 319 H Total Protein 3.8 L Albumin 1.8 L TSH 1.62 Free T4 1.19 Free T3 pg/mL 1.92 L .
[2017-11-13] MEDS: BUSPIRONE HCL 10 MG TABLET PO SCH ×3 (00:16→21:47)
[2017-11-13] MEDS: METHYLPREDNISOLONE INJ 125 MG/2 ML SDV IV SCH ×2 (00:17→09:12)
[2017-11-13] MEDS: MIRTAZAPINE 15 MG TABLET PO SCH ×2 (00:17→21:46)
[2017-11-13] MEDS: GABAPENTIN 400 MG CAPSULE PO SCH ×5 (00:17→21:48)
[2017-11-13] MEDS: CEFEPIME 1 GM/D5W RTU 1 GM/50 ML RTUPB IV SCH (00:19)
[2017-11-13] MEDS: NORMAL SALINE 10 ML SDV (SCHEDULED) IV SCH ×3 (00:26→21:47)
[2017-11-13] MEDS: VANCOMYCIN HCL 1,000 MG in DEXTROSE 5%-WATER 250 ML IV SCH ×2 (00:39→21:46)
[2017-11-13] MEDS: DEXTROSE 5%-WATER 500 ML with AMIODARONE HCL 900 MG IV PRN ×2 (00:41)
[2017-11-13 05:39] LABS: HEMATOCRIT 32.4 % (36.0-47.0); HEMOGLOBIN 10.9 g/dL (12.0-15.5); MEAN CORPUSCULAR HEMOGLOBIN 29.3 pg (27.0-33.4); MEAN CORPUSCULAR HGB CONC 33.6 g/dL (32.0-36.0); MEAN CORPUSCULAR VOLUME 87 fl (80-97); PLATELET COUNT 161 10^3/uL (150-450); RED BLOOD COUNT 3.72 10^6/uL (3.72-5.28); RED CELL DISTRIBUTION WIDTH 17.1 % (11.5-14.0); WHITE BLOOD COUNT 22.5 10^3/uL (4.0-10.5)
[2017-11-13 05:44] LABS: BLOOD UREA NITROGEN 10 mg/dL (7-20); CALCIUM 7.7 mg/dL (8.4-10.2); CARBON DIOXIDE 29 mmol/L (22-30); CHLORIDE 104 mmol/L (98-107); GLUCOSE 189 mg/dL (75-110); PHOSPHORUS 2.5 mg/dL (2.5-4.5); POTASSIUM 3.9 mmol/L (3.6-5.0); SODIUM 136.5 mmol/L (137-145)
[2017-11-13 05:52] LABS: ANION GAP 4 (5-19)
[2017-11-13 06:05] LABS: ABSOLUTE LYMPHOCYTES# (MANUAL) 1.1 10^3/uL (0.5-4.7); ABSOLUTE MONOCYTES # (MANUAL) 0.2 10^3/uL (0.1-1.4); ABSOLUTE NEUTROPHILS# (MANUAL) 21.2 10^3/uL (1.7-8.2); ANISOCYTOSIS 1+; BAND NEUTROPHILS % (MANUAL) 1 % (3-5); BASOPHILS % (MANUAL) 0 % (0-2); EOSINOPHILS % (MANUAL) 0 % (0-6); LYMPHOCYTES % (MANUAL) 5 % (13-45); METAMYELOCYTES % (MANUAL) 1 % (0); MONOCYTES % (MANUAL) 1 % (3-13); POIKILOCYTOSIS 1+; SEGMENTED NEUTROPHILS % (MAN) 92 % (42-78); TOTAL CELLS COUNTED 100
[2017-11-13 06:06] LABS: HYPERSEGMENTED NEUTROPHILS PRESENT; OVALOCYTES SLIGHT; PLATELET COMMENT ADEQUATE; PLATELET LARGE PRESENT; POLYCHROMASIA SLIGHT; SCHISTOCYTES SLIGHT; TEAR DROP CELLS SLIGHT
[2017-11-13] MEDS: RINGERS SOLUTION,LACTATED 1,000 ML IV PRN (06:14)
[2017-11-13] MEDS: INSULIN LISPRO 100 UNIT/ML 3 ML VIAL SUBCUT PRN ×3 (09:09→17:40)
[2017-11-13] MEDS: CALCIUM CARBONATE 250 MG/VITAMIN D3 125 UNIT TABLET PO SCH ×2 (09:10→17:34)
[2017-11-13] MEDS: SIMVASTATIN 10 MG TABLET PO SCH (09:11)
[2017-11-13] MEDS: MAGNESIUM OXIDE 400 MG TABLET PO SCH (09:11)
[2017-11-13] MEDS: MEGESTROL ACETATE SUSP 400 MG/10 ML UDCUP PO SCH (09:20)
[2017-11-13] MEDS: LORAZEPAM INJ 2 MG/1 ML VIAL IV PRN ×2 (09:33→14:55)
[2017-11-13] MEDS ORDERED: RINGERS SOLUTION,LACTATED 1,000 ML IV PRN (12:44)
[2017-11-13] MEDS ORDERED: METHYLPREDNISOLONE INJ 125 MG/2 ML SDV IV SCH (12:44)
--- NOTE | 2017-11-13 12:49 | PDOC PROGRESS REPORT ---
Subjective Progress Note for:: 11/13/17 Subjective:: 67-year-old female less confused and agitated today. Seen by cardiology started on amiodarone drip for MAT. Currently in a flutter rhythm by telemetry. PICC line has been placed. Patient's phosphorus is low at 1.5 replacement has been ordered. Patient is awake but remains confused. Son who is the power of senior attorney is expected to arrive from out of state this weekend. Diarrhea has decreased to 3 episodes daily but the stool remains liquidy she continues to have significant edema and poor nutritional intake. Patient more alert today sensorium clear able to converse. Reason For Visit: DIFFUSE COLITIS, ORTHOSTATIC HYPOTENSION, Physical Exam Vital Signs: Temp Pulse Resp BP Pulse Ox 98.2 F 100 14 102/47 L 99 11/13/17 06:04 11/13/17 05:53 11/13/17 06:04 11/13/17 06:04 11/13/17 06:04 Intake & Output 11/12/17 11/13/17 11/14/17 06:59 06:59 06:59 Intake Total 2794 3184 Output Total 935 1525 Balance 1859 1659 Weight 80.9 kg 84.1 kg General appearance: PRESENT: no acute distress, well-developed, well-nourished Neck exam: ABSENT: carotid bruit, JVD, lymphadenopathy, thyromegaly Respiratory exam: PRESENT: clear to auscultation dex. ABSENT: rales, rhonchi, wheezes Cardiovascular exam: PRESENT: RRR. ABSENT: diastolic murmur, rubs, systolic murmur GI/Abdominal exam: PRESENT: normal bowel sounds, soft. ABSENT: distended, guarding, mass, organolmegaly, rebound, tenderness Extremities exam: PRESENT: full ROM, other. ABSENT: calf tenderness, clubbing, pedal edema Neurological exam: PRESENT: alert, altered, oriented to person, oriented to place, oriented to situation. ABSENT: oriented to time Results Laboratory Results: 11/13/17 05:15 11/13/17 05:15 11/13/17 11/13/17 05:15 05:15 WBC 22.5 H RBC 3.72 Hgb 10.9 L Hct 32.4 L MCV 87 MCH 29.3 MCHC 33.6 RDW 17.1 H Plt Count 161 Seg Neutrophils % Not Reportable Lymphocytes % Not Reportable Monocytes % Not Reportable Eosinophils % Not Reportable Basophils % Not Reportable Absolute Neutrophils Not Reportable Absolute Lymphocytes Not Reportable Absolute Monocytes Not Reportable Absolute Eosinophils Not Reportable Absolute Basophils Not Reportable Sodium 136.5 L Potassium 3.9 Chloride 104 Carbon Dioxide 29 Anion Gap 4 L BUN 10 Creatinine 0.41 L Est GFR ( Amer) > 60 Est GFR (Non-Af Amer) > 60 Glucose 189 H Calcium 7.7 L Phosphorus 2.5 11/10/17 11/10/17 11/10/17 09:30 09:30 15:30 Creatine Kinase < 20 L < 20 L CK-MB (CK-2) 1.28 Troponin I 0.035 11/10/17 11/10/17 11/10/17 15:30 21:06 21:06 Creatine Kinase < 20 L CK-MB (CK-2) 1.14 1.37 Troponin I 0.024 0.030 Impressions: Chest X-Ray 11/06/17 00:00 IMPRESSION: Left retrocardiac consolidation atelectasis versus pneumonia, unchanged Interventional Vascular Procedure 11/11/17 00:00 IMPRESSION: SUCCESSFUL PLACEMENT OF A 5 FR DUAL LUMEN 38 CM PICC IN THE LEFT BASILIC VEIN. PICC Line Insertion 11/11/17 00:00 IMPRESSION: SUCCESSFUL PLACEMENT OF A 5 FR DUAL LUMEN 38 CM PICC IN THE LEFT BASILIC VEIN. Assessment & Plan - Diagnosis (1) Acute diarrhea Is this a current diagnosis for this admission?: Yes Plan: Chronic diarrhea by history. Patient having 3 loose bowel movements daily not large volume. Appears to be patient's baseline. 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 Will discuss with son on his arrival patient's CODE STATUS the recommendation by treating oncologist to Dr. Fuller that she will need to be restaged and the likelihood of treatment having a significant impact on her disease. Discussed with patient her CODE STATUS reviewed treatment pathways to include palliative hospice and continued chemotherapy. Will discuss with patient and son when they are together treatment options. Have offered hospice consult for educational purposes and patient wishes to wait for her son. (4) Encephalopathy acute Is this a current diagnosis for this admission?: Yes Plan: Resolved secondary to pneumonia (5) Atrial fibrillation Is this a current diagnosis for this admission?: Yes Plan: Rhythm is regular we will obtain EKG remains on amiodarone as per Dr. Hathaway (6) Hypophosphatemia Is this a current diagnosis for this admission?: Yes Plan: 2.5 after IV infusion we will repeat in a.m. (7) Protein calorie malnutrition Qualifiers: Protein-calorie malnutrition severity: severe Qualified Code(s): E43 - Unspecified severe protein-calorie malnutrition Is this a current diagnosis for this admission?: Yes Plan: Advance diet to high calorie GI soft new supplements (8) Sepsis Qualifiers: Sepsis type: sepsis due to unspecified organism Qualified Code(s): A41.9 - Sepsis, unspecified organism Is this a current diagnosis for this admission?: Yes Plan: Resolved (9) Anasarca Is this a current diagnosis for this admission?: Yes Plan: Contrary to profound hypoalbuminemia from her nutritional status. We will decrease IV hydration to 50 and initiate gentle diuresis. Mobilization of fluid will be difficult overall prognosis poor - Time Time Spent with patient: 25-34 minutes
[2017-11-13] MEDS ORDERED: DIGOXIN INJ 0.5 MG/2 ML AMPULE IV ONE (13:00)
[2017-11-13] MEDS: FUROSEMIDE 20 MG TABLET PO SCH (13:14)
[2017-11-13] MEDS: RIVAROXABAN 10 MG TABLET PO SCH (17:34)
[2017-11-13] MEDS: METHYLPREDNISOLONE INJ 40 MG/1 ML SDV IV SCH (21:46)
--- NOTE | 2017-11-13 22:07 | Progress Note ---
Provider Note Provider Note: CARDIOLOGY PROGRESS NOTES by Dr. Irene Hathaway on 11/13/2017. Subjective: The patient is more confused and agitated, and is in atrial flutter with a ventricular response of 119's to 128 bpm. Although she appears to be slightly short of breath she denies feeling short of breath. She denies any chest pain or discomfort. She denies cough or sputum production. There is no PND orthopnea. Her leg edema is the same. There is no TIA or CVA symptoms. There is no bleeding on Xarelto. On examination the patient is a frail build and appears chronically ill. She is slightly agitated, and is significantly confused, Selected Entries 11/13/17 11:24 Temperature 97.4 F Temperature Oral Source Pulse Rate 119 H Respiratory 15 Rate Blood Pressure 130/73 H Blood Pressure 92 Mean BP Location Right Arm BP Position Supine O2 Sat by Pulse 94 Oximetry Oxygen Delivery Room Air Method HEAD: Head is atraumatic normocephalic. EYES: Pupils are equal round regular reactive light accommodation. External ocular movements are normal. There is no conjunctival pallor. There is no scleral icterus. EARS: Tympanic membranes are intact, external auditory canals are clear. NOSE: There is no deviated nasal septum, there is no nasal polyps. There is no inflammation of the nasal mucous membrane. MOUTH: Mucous membranes of mouth and tongue are moist. There is no ulcers. THROAT: There is no redness of the oropharynx there is no exudates. SKIN: There is no petechia or ecchymosis. There is no skin lesions or skin rashes. NECK: Neck is supple there is no JVD carotids are equal there is no bruit there is no lymphadenopathy. There is no goiter. Trachea central. LUNGS: There is echo for knee and decreased breath sounds in the left base. There are a few dry crackles also. The rest of the lungs are clear. HEART: S1- S2 is heard S1 is of normal intensity there is no S3 gallop there is no S4 gallop the systolic murmur left sternal border and apex there is no rub ABDOMEN : Abdomen is soft nontender there is no paraspinal megaly bowel sounds well heard. Extremities scattered EXTREMITIES: Femorals are diminished. There is no femoral bruits. Leg pulses are diminished there is moderate bilateral pedal edema present and also edema of the upper extremities. There is no DVT or cellulitis. There is no cyanosis or clubbing. [employer] the patient is conscious but of slow mentation is no focal deficits. PSYCHIATRIC the patient does not appear to be agitated at present. Full psychiatric exam could not be done. 11/13/17 11/13/17 05:15 05:15 WBC 22.5 H RBC 3.72 Hgb 10.9 L Hct 32.4 L MCV 87 Plt Count 161 Sodium 136.5 L Potassium 3.9 Chloride 104 Carbon Dioxide 29 BUN 10 Creatinine 0.41 L Est GFR (Non-Af Amer) > 60 Glucose 189 H Calcium 7.7 L Phosphorus 2.5 IMPRESSION/ RECOMMENDATION: 1. ATRIAL Flutter, with rapid ventricular response. At present on amiodarone drip the patient is in a flutter, with a favorable ventricular response. Would recommend continue the patient's amiodarone infusion rate for maintenance. Would recommend checking patient's thyroid function test, and liver function tests. Later would get a pulmonary function test with DLCO. 2. Melanoma with metastasis to the brain, breast and kidney.. Follow recommendation by oncologist. 3. Generalized edema secondary to malnutrition, with low albumin levels. 4. PNEUMONIA: Left retrocardiac pneumonia causing consolidation: Continue antibiotics. 5. 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 6. Hypertension: Blood pressure is stable at present. 7. Abnormal Liver function tests.: We will recheck since the patient is on amiodarone. 8. Depression: We will recommend continue the patient's anti-depressants. 9 Chronic Diarrhea: Patient probably has diffuse colitis. 10. Probably has intravascular depletion of volume, in spite of the patient's edema which is generalized, most likely secondary to hypoalbuminemia. Consider albumin infusions. This may not work except probably temporary. 11. CONFUSION: Most likely secondary to cerebral metastases. Consider steroids. Note medications reviewed. Decision made to continue amiodarone. Medical decision making is of high complexity. 40 minutes spent on this patient more than 50% of time spent in direct patient care. Lab tests ordered for the a.m. Discussed with other caregiving providers on the case. Also repeat chest x-ray ordered for a.m. Will follow with you.
[2017-11-14 05:10] LABS: ALANINE AMINOTRANSFERASE 59 U/L (9-52); ALBUMIN 1.9 g/dL (3.5-5.0); ALKALINE PHOSPHATASE 271 U/L (38-126); ASPARTATE AMINO TRANSFERASE 42 U/L (14-36); BILIRUBIN,DIRECT 1.3 mg/dL (0.0-0.4); BILIRUBIN,TOTAL 1.6 mg/dL (0.2-1.3); BLOOD UREA NITROGEN 10 mg/dL (7-20); CALCIUM 7.9 mg/dL (8.4-10.2); GLUCOSE 139 mg/dL (75-110); PHOSPHORUS 2.1 mg/dL (2.5-4.5); POTASSIUM 3.4 mmol/L (3.6-5.0); TOTAL PROTEIN 4.1 g/dL (6.3-8.2)
[2017-11-14 05:15] LABS: CARBON DIOXIDE 33 mmol/L (22-30); CHLORIDE 104 mmol/L (98-107); SODIUM 136.6 mmol/L (137-145)
[2017-11-14 05:31] LABS: ANION GAP 0 (5-19)
[2017-11-14] MEDS: CALCIUM CARBONATE 250 MG/VITAMIN D3 125 UNIT TABLET PO SCH ×2 (07:52→16:37)
[2017-11-14] MEDS: DEXTROSE 5%-WATER 500 ML with AMIODARONE HCL 900 MG IV PRN ×2 (07:52)
[2017-11-14] MEDS: GABAPENTIN 400 MG CAPSULE PO SCH ×4 (08:13→21:18)
[2017-11-14] MEDS: PHOSPHORUS #1 250 MG TABLET PO SCH ×4 (08:13→21:18)
--- NOTE | 2017-11-14 08:24 | RADIOLOGY REPORT (SQ) ---
EXAM DESCRIPTION: CHEST SINGLE VIEW COMPLETED DATE/TIME: 11/14/2017 8:05 am REASON FOR STUDY: Left Pneumonia COMPARISON: 11/11/2017. FINDINGS: Single-view chest AP portable upright at approximately 0731 hours. Left PICC line remains in place. Basilar aeration may be very slightly improved. Pleural fluid and hazy opacities in the lung bases w ith dense consolidation left lower lobe particularly. IMPRESSION: Minimally improved basilar aeration. TECHNICAL DOCUMENTATION: JOB ID: [id number] Reading location - IP/workstation name: [email or web address]
[2017-11-14] MEDS: METOPROLOL TARTRATE 25 MG TABLET PO SCH ×2 (09:23→17:20)
[2017-11-14] MEDS: BUSPIRONE HCL 10 MG TABLET PO SCH ×2 (09:25→21:18)
[2017-11-14] MEDS: SIMVASTATIN 10 MG TABLET PO SCH (09:26)
[2017-11-14] MEDS: POTASSIUM CHLORIDE 20 MEQ/15 ML UDCUP PO SCH ×2 (09:26→21:19)
[2017-11-14] MEDS: FUROSEMIDE 20 MG TABLET PO SCH (09:26)
[2017-11-14] MEDS: MAGNESIUM OXIDE 400 MG TABLET PO SCH (09:26)
[2017-11-14] MEDS: METHYLPREDNISOLONE INJ 40 MG/1 ML SDV IV SCH (09:27)
[2017-11-14] MEDS: NORMAL SALINE 10 ML SDV (SCHEDULED) IV SCH ×2 (09:30→21:19)
[2017-11-14] MEDS ORDERED: DIGOXIN INJ 0.5 MG/2 ML AMPULE IV ONE (09:30)
--- NOTE | 2017-11-14 10:49 | PDOC PROGRESS REPORT ---
Subjective Progress Note for:: 11/14/17 Subjective:: 67-year-old female less confused and agitated today. Seen by cardiology started on amiodarone drip for MAT. Currently in a flutter rhythm by telemetry. PICC line has been placed. Patient's phosphorus is low at 1.5 replacement has been ordered. Patient is awake but remains confused. Son who is the power of assistant prosecuting attorney is expected to arrive from out of state this weekend. Diarrhea has decreased to 3 episodes daily but the stool remains liquidy she continues to have significant edema and poor nutritional intake. Patient more alert today sensorium clear able to converse. Patient insistent on being discharged today but clearly not ready for discharge as she still on IV amiodarone. Awaiting son's arrival so we can discuss treatment options patient would need to transition to SNF as she is full care right now but improving. Reason For Visit: DIFFUSE COLITIS, ORTHOSTATIC HYPOTENSION, Physical Exam Vital Signs: Temp Pulse Resp BP Pulse Ox 97.7 F 104 H 10 L 127/71 H 91 L 11/14/17 07:31 11/14/17 07:31 11/14/17 07:31 11/14/17 07:31 11/14/17 07:31 Intake & Output 11/13/17 11/14/17 11/15/17 06:59 06:59 06:59 Intake Total 3184 1980 513 Output Total 1525 2275 Balance 1659 -295 513 Weight 84.1 kg 85.9 kg General appearance: PRESENT: no acute distress, well-developed. ABSENT: well- nourished - Protein malnutrition Respiratory exam: PRESENT: clear to auscultation dex. ABSENT: rales, rhonchi, wheezes Cardiovascular exam: PRESENT: RRR. ABSENT: diastolic murmur, rubs, systolic murmur GI/Abdominal exam: PRESENT: normal bowel sounds, soft. ABSENT: distended, guarding, mass, organolmegaly, rebound, tenderness Extremities exam: PRESENT: full ROM, other - Anasarca. ABSENT: calf tenderness , clubbing Neurological exam: PRESENT: awake, oriented to person, oriented to place, CN II- XII grossly intact. ABSENT: motor sensory deficit Results Laboratory Results: 11/13/17 05:15 11/14/17 04:15 11/14/17 04:15 Sodium 136.6 L Potassium 3.4 L Chloride 104 Carbon Dioxide 33 H Anion Gap 0 L BUN 10 Creatinine 0.45 L Est GFR ( Amer) > 60 Est GFR (Non-Af Amer) > 60 Glucose 139 H Calcium 7.9 L Phosphorus 2.1 L Magnesium 1.8 Total Bilirubin 1.6 H AST 42 H ALT 59 H Alkaline Phosphatase 271 H Total Protein 4.1 L Albumin 1.9 L 11/10/17 11/10/17 11/10/17 09:30 09:30 15:30 Creatine Kinase < 20 L < 20 L CK-MB (CK-2) 1.28 Troponin I 0.035 11/10/17 11/10/17 11/10/17 15:30 21:06 21:06 Creatine Kinase < 20 L CK-MB (CK-2) 1.14 1.37 Troponin I 0.024 0.030 Impressions: Interventional Vascular Procedure 11/11/17 00:00 IMPRESSION: SUCCESSFUL PLACEMENT OF A 5 FR DUAL LUMEN 38 CM PICC IN THE LEFT BASILIC VEIN. PICC Line Insertion 11/11/17 00:00 IMPRESSION: SUCCESSFUL PLACEMENT OF A 5 FR DUAL LUMEN 38 CM PICC IN THE LEFT BASILIC VEIN. Chest X-Ray 11/14/17 06:00 IMPRESSION: Minimally improved basilar aeration. Assessment & Plan - Diagnosis (1) Acute diarrhea Is this a current diagnosis for this admission?: Yes Plan: Appears to be back to baseline chronic diarrhea. (2) Healthcare-associated pneumonia Is this a current diagnosis for this admission?: Yes Plan: Left lower lobe pneumonitis continue vancomycin and cefepime. Chest x-ray shows consolidation in the left lung patient continues to improve clinically however white count remains elevated but patient is on steroids. Consider CAT scan if patient's clinical picture worsens. 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 Will discuss with son on his arrival patient's CODE STATUS the recommendation by treating oncologist to Dr. Fuller that she will need to be restaged and the likelihood of treatment having a significant impact on her disease. Patient insistent on being discharged no doubt she has been in the hospital almost a month however she is not clearly ready for discharge could go to a SNIF to continue antibiotics would have to be transitioned to p.o. amiodarone. Will discuss with Dr. Hathaway but overall patient has a poor prognosis and hospice would be her best choice if she really wants to leave the hospital. (4) Encephalopathy acute Is this a current diagnosis for this admission?: Yes Plan: Resolved secondary to pneumonia. Patient's desire to leave his irrational raising the question of how much cognitive function she has although she seems to answer questions appropriately. Her desire to leave is more of frustration with being in the hospital extended. (5) Atrial fibrillation Is this a current diagnosis for this admission?: Yes Plan: Remains tachycardic mild though. Add metoprolol 12.[address] Hathaway has given additional days of digoxin. If blood pressure becomes an issue will consider digoxin on a daily or every other day basis. Will discuss with Dr. Hathaway transitioning to p.o. amiodarone. Patient is on Xarelto (6) Hypophosphatemia Is this a current diagnosis for this admission?: Yes Plan: Hypo-kalemia as well will initiate p.o. acid and phosphate repeat level (7) Protein calorie malnutrition Qualifiers: Protein-calorie malnutrition severity: severe Qualified Code(s): E43 - Unspecified severe protein-calorie malnutrition Is this a current diagnosis for this admission?: Yes Plan: Continue supplementation diet advanced to high calorie (8) Sepsis Qualifiers: Sepsis type: sepsis due to unspecified organism Qualified Code(s): A41.9 - Sepsis, unspecified organism Is this a current diagnosis for this admission?: Yes (9) Anasarca Is this a current diagnosis for this admission?: Yes Plan: Difficult to mobilize. No change in medication at this time primary causes severe protein malnutrition. - Time Time Spent with patient: 25-34 minutes Anticipated discharge: Other - To be determined
--- NOTE | 2017-11-14 12:10 | Progress Note ---
Provider Note Provider Note: ACP: Discussed with patient, son, sister present in the room the patient's current medical condition to include her metastatic melanoma left lower lobe pneumonia anasarca severe protein malnutrition atrial fibrillation and overall debility. Discussed patient's current CODE STATUS which is a full code reviewing expectations of surviving resuscitative effort quality of life and the fact that her melanoma is widely metastatic. Discussed care pathways to include aggressive full treatment. I DO NOT RESUSCITATE with full treatment palliative care and hospice alternatives. The patient will discuss this information with her son who is power of warp dresser and her sister. It is recommended they discuss the status of her melanoma which the oncologist said will have to be restaged. Patient will have to decide if she wishes to continue with treatment. I have informed the family that patient may be ready to leave the hospital but not quite ready to go home and would be beneficial to be transferred to a SNF for ongoing rehab. Time spent in counseling 25 minutes
[2017-11-14] MEDS: INSULIN LISPRO 100 UNIT/ML 3 ML VIAL SUBCUT PRN ×3 (12:31→23:02)
[2017-11-14] MEDS: MEGESTROL ACETATE SUSP 400 MG/10 ML UDCUP PO SCH (13:00)
[2017-11-14] MEDS: RIVAROXABAN 10 MG TABLET PO SCH (16:37)
--- NOTE | 2017-11-14 16:59 | EKG REPORT ---
SEVERITY:- ABNORMAL ECG - SINUS TACHYCARDIA REPOL ABNRM SUGGESTS ISCHEMIA, LATERAL LEADS : Confirmed by: Irene Hathaway MD 14-Nov-2017 16:58:50
--- NOTE | 2017-11-14 17:00 | EKG REPORT ---
SEVERITY:- ABNORMAL ECG - SINUS TACHYCARDIA BORDERLINE PROLONGED QT INTERVAL DIFFUSE NS T CHANGES : Confirmed by: Irene Hathaway MD 14-Nov-2017 16:59:34
[2017-11-14] MEDS: AMIODARONE HCL 200 MG TABLET PO SCH (17:20)
[2017-11-14] MEDS: PREDNISONE 20 MG TABLET PO SCH (17:20)
[2017-11-14] MEDS: CEFEPIME 2 GM/D5W RTU 2 GM/50 ML RTUPB IV SCH (17:20)
[2017-11-14] MEDS: MIRTAZAPINE 15 MG TABLET PO SCH (21:18)
[2017-11-14] MEDS: VANCOMYCIN HCL 1,000 MG in DEXTROSE 5%-WATER 250 ML IV SCH (21:18)
--- NOTE | 2017-11-14 21:47 | Progress Note ---
Provider Note Provider Note: CARDIOLOGY PROGRESS NOTE by Dr. Irene Hathaway on 11/14/2017. Subjective the patient seems to be at present in sinus tachycardia. She is less confused and seems a little more improved. She denies cough. She denies any chest pain. She denies any shortness of breath. There is no PND orthopnea. There is no ventricular arrhythmias seen. There is no bleeding on Xarelto. There is no TIA CVA symptoms. PHYSICAL EXAM the patient appears to be a frail build. She is chronically ill appearing. But at present in no acute distress. Selected Entries 11/14/17 07:31 Temperature 97.7 F Temperature Oral Source Pulse Rate 104 H Respiratory 10 L Rate Blood Pressure 127/71 H Blood Pressure 89 Mean BP Location Right Arm BP Position Supine O2 Sat by Pulse 91 L Oximetry Oxygen Flow 3.00 Rate Oxygen Delivery Nasal Cannula Method HEAD: Head is atraumatic normocephalic. EYES: Pupils are equal round regular reactive to light and accommodation. Extraocular movements are normal. There is no congenital pallor THERE IS NO SCLERAL ICTERUS. ENT is negative. NECK: Neck is supple. There is no JVD. There is a equal there is no bruits. There is no lymphadenopathy. There is no goiter. Trachea central. LUNGS: There is bronchial breath sounds and egophony in the left base. The right base and the lower most portion of the left base there are absent breath sounds and dullness. There are a few crackles about the area of egophony. On the left side. On the right lung about the area of dullness there is a few dry crackles. There is no rales of CHF. HEART: S1-S2 is heard S1 is of normal intensity. There is no S3 gallop there is no S3 gallop there is systolic murmur left sternal border and apex. ABDOMEN: Soft nontender there is no there is no hepatosplenomegaly, and bowel sounds well heard. There is no tender areas of masses. EXTREMITIES: Femorals are diminished there is no femoral bruits. Leg pulses are diminished. There is bilateral 2- edema. There is no sinus or clubbing. There is no DVT or cellulitis. 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 No focal deficits. PSYCHIATRIC: The patient does not appear to be agitated. She appears to be calm. 11/14/17 04:15 Sodium 136.6 L Potassium 3.4 L Chloride 104 Carbon Dioxide 33 H BUN 10 Creatinine 0.45 L Est GFR (Non-Af Amer) > 60 Glucose 139 H Calcium 7.9 L Phosphorus 2.1 L Magnesium 1.8 Total Bilirubin 1.6 H Direct Bilirubin 1.3 H Neonat Total Bilirubin Not Reportable Neonat Direct Bilirubin Not Reportable Neonat Indirect Bili Not Reportable AST 42 H ALT 59 H Alkaline Phosphatase 271 H Total Protein 4.1 L Albumin 1.9 L EKG: Shows sinus tachycardia. Minor nonspecific changes diffusely. CHEST x-ray : There is dense consolidation in the left lower lobe and left mid zone. There is bibasilar opacities with effusion. There is better aeration today in the bases. 1. ATRIAL Flutter, paroxysmal. At present patient is in sinus tachycardia.. Would recommend, in view of the patient converted to sinus tachycardia, and abnormal liver function tests would discontinue the patient's amiodarone infusion start the patient on p.o amiodarone at 200 mg p.o. twice daily.. Would recommend checking patient's thyroid function test, and liver function tests periodically. Later would get a pulmonary function test with DLCO. Also diet digoxin 0.125 mg p.o. daily 2. Melanoma with metastasis to the brain, breast and kidney.. Follow recommendation by oncologist. 3. Generalized edema secondary to malnutrition, with low albumin levels. 4. PNEUMONIA: Left retrocardiac pneumonia causing consolidation: Continue antibiotics. 5. 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 6. Hypertension: Blood pressure is stable at present. 7. Abnormal Liver function tests.: We will recheck since the patient is jose IV amiodarone. 8. Depression: We will recommend continue the patient's anti-depressants. 9 Chronic Diarrhea: Patient probably has diffuse colitis. 10. Probably has intravascular depletion of volume, in spite of the patient's edema which is generalized, most likely secondary to hypoalbuminemia. Consider albumin infusions. This may not work except probably temporary. 11. CONFUSION: Most likely secondary to cerebral metastases 12. MILD HYPOKALEMIA. We will replace the patient's potassium. Note medications reviewed. Discussed medication changes with the attending physician on the case. Note 40 minutes spent on this patient more than 50% of time spent in direct patient care. Medical decision making is still of a high complexity, in view of the patient's multiple medical problems. We will follow with you. Thanking you
[2017-11-15] MEDS: NORMAL SALINE 10 ML SDV (AFTER EACH USE) IV PRN (04:59)
[2017-11-15] MEDS: CEFEPIME 2 GM/D5W RTU 2 GM/50 ML RTUPB IV SCH ×2 (04:59→18:49)
[2017-11-15] MEDS: GABAPENTIN 400 MG CAPSULE PO SCH ×4 (08:48→21:29)
[2017-11-15] MEDS: CALCIUM CARBONATE 250 MG/VITAMIN D3 125 UNIT TABLET PO SCH ×2 (08:48→17:36)
[2017-11-15] MEDS: PHOSPHORUS #1 250 MG TABLET PO SCH ×4 (08:48→21:29)
[2017-11-15] MEDS: BUSPIRONE HCL 10 MG TABLET PO SCH ×2 (10:37→21:28)
[2017-11-15] MEDS: METOPROLOL TARTRATE 25 MG TABLET PO SCH ×2 (10:40→17:36)
[2017-11-15] MEDS: AMIODARONE HCL 200 MG TABLET PO SCH ×2 (10:44→17:38)
[2017-11-15] MEDS: POTASSIUM CHLORIDE 20 MEQ/15 ML UDCUP PO SCH ×2 (10:45→21:29)
[2017-11-15] MEDS: PREDNISONE 20 MG TABLET PO SCH ×2 (10:45→17:38)
[2017-11-15] MEDS: DIGOXIN 0.125 MG TABLET PO SCH (10:46)
[2017-11-15] MEDS: FUROSEMIDE 20 MG TABLET PO SCH (10:55)
[2017-11-15] MEDS: MAGNESIUM OXIDE 400 MG TABLET PO SCH (10:56)
[2017-11-15] MEDS: SIMVASTATIN 10 MG TABLET PO SCH (10:56)
[2017-11-15] MEDS: MEGESTROL ACETATE SUSP 400 MG/10 ML UDCUP PO SCH (10:57)
[2017-11-15] MEDS: NORMAL SALINE 10 ML SDV (SCHEDULED) IV SCH ×2 (11:07→21:30)
--- NOTE | 2017-11-15 11:41 | PDOC PROGRESS REPORT ---
Subjective Progress Note for:: 11/15/17 Subjective:: 67-year-old female less confused and agitated today. Seen by cardiology started on amiodarone drip for MAT. Currently in a flutter rhythm by telemetry. PICC line has been placed. Patient's phosphorus is low at 2.1 replacement has been ordered. Son present in the room a decision on CODE STATUS has not been reached yet. Patient on high caloric regular diet but has poor p.o. intake is taking supplements however. Patient's rhythm appears to be sinus with mild tachycardia 100-105. Overall patient feels improved she is not requiring oxygen. Reason For Visit: DIFFUSE COLITIS, ORTHOSTATIC HYPOTENSION, Physical Exam Vital Signs: Temp Pulse Resp BP Pulse Ox 98.2 F 100 14 130/59 H 94 11/15/17 08:00 11/15/17 08:00 11/15/17 08:00 11/15/17 08:00 11/15/17 08:00 Intake & Output 11/14/17 11/15/17 11/16/17 06:59 06:59 06:59 Intake Total 1980 1204 Output Total 2275 1325 Balance -295 -121 Weight 85.9 kg 86.3 kg General appearance: PRESENT: no acute distress Neck exam: ABSENT: carotid bruit, JVD, lymphadenopathy, thyromegaly Respiratory exam: PRESENT: clear to auscultation dxe. ABSENT: rales, rhonchi, wheezes Cardiovascular exam: PRESENT: RRR. ABSENT: diastolic murmur, rubs, systolic murmur Vascular exam: PRESENT: other - [place] GI/Abdominal exam: PRESENT: normal bowel sounds, soft. ABSENT: distended, guarding, mass, organolmegaly, rebound, tenderness Extremities exam: PRESENT: full ROM, pedal edema, other - Anasarca. ABSENT: calf tenderness, clubbing Neurological exam: PRESENT: alert, awake, oriented to person, oriented to place , oriented to time, oriented to situation, CN II-XII grossly intact. ABSENT: motor sensory deficit Results Laboratory Results: 11/13/17 05:15 11/14/17 04:15 11/10/17 11/10/17 11/10/17 09:30 09:30 15:30 Creatine Kinase < 20 L < 20 L CK-MB (CK-2) 1.28 Troponin I 0.035 11/10/17 11/10/17 11/10/17 15:30 21:06 21:06 Creatine Kinase < 20 L CK-MB (CK-2) 1.14 1.37 Troponin I 0.024 0.030 Impressions: Interventional Vascular Procedure 11/11/17 00:00 IMPRESSION: SUCCESSFUL PLACEMENT OF A 5 FR DUAL LUMEN 38 CM PICC IN THE LEFT BASILIC VEIN. PICC Line Insertion 11/11/17 00:00 IMPRESSION: SUCCESSFUL PLACEMENT OF A 5 FR DUAL LUMEN 38 CM PICC IN THE LEFT BASILIC VEIN. Chest X-Ray 11/14/17 06:00 IMPRESSION: Minimally improved basilar aeration. Assessment & Plan - Diagnosis (1) Acute diarrhea Is this a current diagnosis for this admission?: Yes Plan: Appears to be back to baseline chronic diarrhea. (2) Healthcare-associated pneumonia Is this a current diagnosis for this admission?: Yes Plan: Left lower lobe pneumonitis continue vancomycin and cefepime. CBC in a.m. clinically improving. Patient can be considered for transfer to [facility] 48 hours PT OT has been ordered. (3) Metastatic melanoma Is this a current diagnosis for this admission?: Yes Plan: Discussed various care pathways with family yesterday. Son will have conversation about CODE STATUS today further treatment of melanoma versus palliative versus hospice will be discussed with treating oncologist after patient discharged (4) Encephalopathy acute Is this a current diagnosis for this admission?: Yes Plan: Resolved secondary to pneumonia. Patient's desire to leave his irrational raising the question of how much cognitive function she has although she seems to answer questions appropriately. Her desire to leave is more of frustration with being in the hospital extended. (5) Atrial fibrillation Is this a current diagnosis for this admission?: Yes Plan: Currently with sinus tachycardia. Continue amiodarone digoxin and metoprolol (6) Hypophosphatemia Is this a current diagnosis for this admission?: Yes Plan: Repeat level in a.m. continue p.o. supplementation (7) Protein calorie malnutrition Qualifiers: Protein-calorie malnutrition severity: severe Qualified Code(s): E43 - Unspecified severe protein-calorie malnutrition Is this a current diagnosis for this admission?: Yes Plan: Encourage supplements and expanded diet. Patient on Megace (8) Anasarca Is this a current diagnosis for this admission?: Yes Plan: Difficult to mobilize. No change in medication at this time primary causes severe protein malnutrition. (9) Sepsis Qualifiers: Sepsis type: sepsis due to unspecified organism Qualified Code(s): A41.9 - Sepsis, unspecified organism Is this a current diagnosis for this admission?: Yes - Time Time Spent with patient: 25-34 minutes Anticipated discharge: SNF Within: within 48 hours
[2017-11-15] MEDS: RIVAROXABAN 10 MG TABLET PO SCH (17:36)
[2017-11-15] MEDS: LORAZEPAM INJ 2 MG/1 ML VIAL IV PRN (17:38)
--- NOTE | 2017-11-15 21:26 | Progress Note ---
Provider Note Provider Note: CARDIOLOGY PROGRESS NOTE for 11/15/2017. SUBJECTIVE: The patient heart rate is sinus tachycardia at a rate of 120 bpm. But the patient is asymptomatic. She is being working with the physical therapy and she is sitting in the side of the bed. She denies any chest pain or discomfort there is no PND orthopnea or shortness of breath. Her leg edema is not increased. There is no ventricular arrhythmias seen on the monitor. There is no AV blocks. There is no recurrence of atrial flutter. The patient is less confused today. There is no cough sputum production or hemoptysis. There is no pleuritic chest pain. PHYSICAL EXAMINATION: The patient is a frail build, and appears to be chronically ill. But appears to be slightly improved compared to x-ray yesterday with respect to general overall condition. 11/15/17 11:52 Temperature 98.0 F Temperature Axillary Source Pulse Rate 117 H Respiratory 16 Rate Blood Pressure 105/79 Blood Pressure 87 Mean BP Location Right Arm BP Position Supine O2 Sat by Pulse 91 L Oximetry Oxygen Flow 3.00 Rate Oxygen Delivery Nasal Cannula Method HEAD: Head is atraumatic normocephalic. EYES: Pupils are equal round regular reactive to light and accommodation. Extraocular movements are normal. There is no congenital pallor THERE IS NO SCLERAL ICTERUS. ENT is negative. NECK: Neck is supple. There is no JVD. There is a equal there is no bruits. There is no lymphadenopathy. There is no goiter. Trachea central. LUNGS: There is bronchial breath sounds and egophony in the left base. The right base and the lower most portion of the left base there are absent breath sounds and dullness. There are a few crackles about the area of egophony. On the left side. On the right lung about the area of dullness there is a few dry crackles. There is no rales of CHF. HEART: S1-S2 is heard S1 is of normal intensity. There is no S3 gallop there is no S3 gallop there is systolic murmur left sternal border and apex. ABDOMEN: Soft nontender there is no there is no hepatosplenomegaly, and bowel sounds well heard. There is no tender areas of masses. EXTREMITIES: Femorals are diminished there is no femoral bruits. Leg pulses are diminished. There is bilateral 2- edema. There is no sinus or clubbing. There is no DVT or cellulitis. 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 No focal deficits. PSYCHIATRIC: The patient does not appear to be agitated. She appears to be calm. 11/15/17 05:29 POC Glucose 11/12/17 11/16/17 11/16/17 04:00 05:38 05:38 WBC 18.9 H Hgb 9.3 L Hct 27.8 L Plt Count 135 L Sodium 141.0 Potassium 3.3 L Chloride 106 Carbon Dioxide 34 H BUN 10 Creatinine 0.43 L Est GFR (Non-Af Amer) > 60 Glucose 96 Calcium 7.7 L Magnesium 1.7 Total Bilirubin 2.0 H Direct Bilirubin 1.5 H Neonat Total Bilirubin Not Reportable Neonat Direct Bilirubin Not Reportable Neonat Indirect Bili Not Reportable AST 46 H 49 H ALT 57 H 73 H Alkaline Phosphatase 319 H 265 H Total Protein 3.8 L 4.0 L Albumin 1.8 L 1.9 L IMPRESSION/RECOMMENDATION: 1. ATRIAL Flutter, paroxysmal. At present patient is in sinus tachycardia.. Would recommend, in view of the patient converted to sinus tachycardia, and abnormal liver function tests the patient's amiodarone infusion was discontinued , and the patient started on p.o amiodarone at 200 mg p.o. twice daily.. Would recommend checking patient's thyroid function test, and liver function tests periodically. Later would get a pulmonary function test with DLCO. Also diet digoxin 0.125 mg p.o. daily 2. Melanoma with metastasis to the brain, breast and kidney.. Follow recommendation by oncologist. 3. Generalized edema secondary to malnutrition, with low albumin levels. 4. PNEUMONIA: Left retrocardiac pneumonia causing consolidation: Continue antibiotics. Will recheck chest x-ray in a.m. 5. 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 6. Hypertension: Blood pressure is stable at present. 7. Abnormal Liver function tests.: We will recheck since the patient is jose IV amiodarone. 8. Depression: We will recommend continue the patient's anti-depressants. 9 Chronic Diarrhea: Patient probably has diffuse colitis. 10. Probably has intravascular depletion of volume, in spite of the patient's edema which is generalized, most likely secondary to hypoalbuminemia. Consider albumin infusions. This may not work except probably temporary. 11. CONFUSION: Most likely secondary to cerebral metastases. Her mentation seems to be slightly improved. 12. Generalized DEBILITY: Agree with physical therapy helping the patient ambulate. Note medications have been reviewed. Discussed with other caregiving providers on the case. At present medical decision making cardiology martini is of moderate complexity. 40 minutes spent on this patient more than 50% of time spent in direct patient care. We will follow with you.
[2017-11-15] MEDS: MIRTAZAPINE 15 MG TABLET PO SCH (21:29)
[2017-11-15] MEDS: VANCOMYCIN HCL 1,000 MG in DEXTROSE 5%-WATER 250 ML IV SCH (21:50)
[2017-11-15 22:19] LABS: VANCOMYCIN,TROUGH 10.2 ug/mL (5.0-20.0)
[2017-11-16] MEDS: CEFEPIME 2 GM/D5W RTU 2 GM/50 ML RTUPB IV SCH ×2 (05:27→18:50)
[2017-11-16 06:21] LABS: HEMATOCRIT 27.8 % (36.0-47.0); HEMOGLOBIN 9.3 g/dL (12.0-15.5); MEAN CORPUSCULAR HEMOGLOBIN 29.1 pg (27.0-33.4); MEAN CORPUSCULAR HGB CONC 33.5 g/dL (32.0-36.0); MEAN CORPUSCULAR VOLUME 87 fl (80-97); PLATELET COUNT 135 10^3/uL (150-450); RED CELL DISTRIBUTION WIDTH 17.5 % (11.5-14.0); WHITE BLOOD COUNT 18.9 10^3/uL (4.0-10.5)
[2017-11-16 06:37] LABS: ALANINE AMINOTRANSFERASE 73 U/L (9-52); ALBUMIN 1.9 g/dL (3.5-5.0); ALKALINE PHOSPHATASE 265 U/L (38-126); ASPARTATE AMINO TRANSFERASE 49 U/L (14-36); BILIRUBIN,TOTAL 1.4 mg/dL (0.2-1.3); BLOOD UREA NITROGEN 10 mg/dL (7-20); CALCIUM 7.7 mg/dL (8.4-10.2); GLUCOSE 96 mg/dL (75-110); PHOSPHORUS 3.5 mg/dL (2.5-4.5); POTASSIUM 3.3 mmol/L (3.6-5.0)
[2017-11-16 06:41] LABS: CARBON DIOXIDE 34 mmol/L (22-30); CHLORIDE 106 mmol/L (98-107)
[2017-11-16 06:42] LABS: ANION GAP 1 (5-19)
[2017-11-16 07:56] LABS: ABSOLUTE LYMPHOCYTES# (MANUAL) 0.4 10^3/uL (0.5-4.7); ABSOLUTE MONOCYTES # (MANUAL) 0.9 10^3/uL (0.1-1.4); ABSOLUTE NEUTROPHILS# (MANUAL) 17.6 10^3/uL (1.7-8.2); BAND NEUTROPHILS % (MANUAL) 4 % (3-5); BASOPHILS % (MANUAL) 0 % (0-2); EOSINOPHILS % (MANUAL) 0 % (0-6); HYPERSEGMENTED NEUTROPHILS PRESENT; HYPOCHROMASIA 1+; LYMPHOCYTES % (MANUAL) 2 % (13-45); METAMYELOCYTES % (MANUAL) 1 % (0); MONOCYTES % (MANUAL) 5 % (3-13); PLATELET COMMENT DECREASED; POLYCHROMASIA SLIGHT; SEGMENTED NEUTROPHILS % (MAN) 88 % (42-78); STOMATOCYTES 1+; TOTAL CELLS COUNTED 100
[2017-11-16 07:57] LABS: ROULEAUX SLIGHT
[2017-11-16] MEDS: PHOSPHORUS #1 250 MG TABLET PO SCH ×2 (08:16→11:15)
[2017-11-16] MEDS: CALCIUM CARBONATE 250 MG/VITAMIN D3 125 UNIT TABLET PO SCH ×2 (08:16→17:03)
[2017-11-16] MEDS: GABAPENTIN 400 MG CAPSULE PO SCH ×4 (08:16→21:26)
--- NOTE | 2017-11-16 09:06 | RADIOLOGY REPORT (SQ) ---
EXAM DESCRIPTION: CHEST SINGLE VIEW COMPLETED DATE/TIME: 11/16/2017 7:58 am REASON FOR STUDY: Pneumonia COMPARISON: AP chest 11/14/2017, 11/11/2017, 11/06/2017, 10/28/2017 EXAM PARAMETERS: NUMBER OF VIEWS: One view. TECHNIQUE: Single frontal radiographic view of the chest acquired. RADIATION DOSE: NA LIMITATIONS: None. FINDINGS: LUNGS AND PLEURA: Bilateral lower lobe airspace disease is present left greater than right worrisome for pneumonia. This is unchanged from 11/14/2017 and slightly improved compared to 11/12/19 18. Trace left pleural effusion may be present. No pneumothorax. MEDIASTINUM AND HILAR STRUCTURES: No masses. Contour normal. HEART AND VASCULAR STRUCTURES: No cardiomegaly BONES: No acute findings. HARDWARE: None in the chest. OTHER: No other significant finding. IMPRESSION: Bilateral lower lobe consolidation left greater than right, unchanged compared to 018 TECHNICAL DOCUMENTATION: JOB ID: [id number] [employer]- All Rights Reserved Reading location - IP/workstation name: [facility]-[email or web address]
[2017-11-16] MEDS: NORMAL SALINE 10 ML SDV (SCHEDULED) IV SCH ×2 (11:13→21:26)
[2017-11-16] MEDS: DIGOXIN 0.125 MG TABLET PO SCH (11:15)
[2017-11-16] MEDS: MAGNESIUM OXIDE 400 MG TABLET PO SCH (11:15)
[2017-11-16] MEDS: BUSPIRONE HCL 10 MG TABLET PO SCH ×2 (11:18→21:27)
[2017-11-16] MEDS: FUROSEMIDE 20 MG TABLET PO SCH (11:18)
[2017-11-16] MEDS: SIMVASTATIN 10 MG TABLET PO SCH (11:19)
[2017-11-16] MEDS: METOPROLOL TARTRATE 25 MG TABLET PO SCH ×2 (11:19→21:27)
[2017-11-16] MEDS: AMIODARONE HCL 200 MG TABLET PO SCH ×2 (11:19→18:51)
[2017-11-16] MEDS: PREDNISONE 20 MG TABLET PO SCH ×2 (11:19→18:51)
[2017-11-16] MEDS: POTASSIUM CHLORIDE 20 MEQ/15 ML UDCUP PO SCH ×2 (11:20→21:25)
[2017-11-16] MEDS: MEGESTROL ACETATE SUSP 400 MG/10 ML UDCUP PO SCH (11:20)
--- NOTE | 2017-11-16 14:56 | PDOC PROGRESS REPORT ---
Subjective Subjective:: 67-year-old female less confused and agitated today. Seen by cardiology started on amiodarone drip for MAT. Currently in a flutter rhythm by telemetry. PICC line has been placed. Patient's phosphorus is low at 2.1 replacement has been ordered. Son present in the room a decision on CODE STATUS has not been reached yet. Patient on high caloric regular diet but has poor p.o. intake is taking supplements however. Patient's rhythm appears to be sinus with mild tachycardia 100-105. Overall patient feels improved she is not requiring oxygen. Patient's appetite improved today she states she is feeling better. Ate a significant amount of her breakfast. Reason For Visit: DIFFUSE COLITIS, ORTHOSTATIC HYPOTENSION, Physical Exam Vital Signs: Temp Pulse Resp BP Pulse Ox 98.0 F 115 H 24 H 126/71 H 96 11/16/17 11:43 11/16/17 11:43 11/16/17 11:43 11/16/17 11:43 11/16/17 11:43 Intake & Output 11/15/17 11/16/17 11/17/17 06:59 06:59 06:59 Intake Total 1204 650 417 Output Total 1325 2790 300 Balance -121 -2140 117 Weight 86.3 kg 86.6 kg General appearance: PRESENT: no acute distress, well-developed, well-nourished Neck exam: ABSENT: carotid bruit, JVD, lymphadenopathy, thyromegaly Respiratory exam: PRESENT: clear to auscultation dex. ABSENT: rales - Anterior inferior, rhonchi, wheezes Cardiovascular exam: PRESENT: RRR, tachycardia. ABSENT: diastolic murmur, rubs , systolic murmur GI/Abdominal exam: PRESENT: normal bowel sounds, soft. ABSENT: distended, guarding, mass, organolmegaly, rebound, tenderness Extremities exam: PRESENT: full ROM. ABSENT: calf tenderness - Anasarca, clubbing, pedal edema Results Laboratory Results: 11/16/17 05:38 11/16/17 05:38 11/15/17 11/16/17 11/16/17 21:40 05:38 05:38 WBC 18.9 H RBC 3.20 L Hgb 9.3 L Hct 27.8 L MCV 87 MCH 29.1 MCHC 33.5 RDW 17.5 H Plt Count 135 L Seg Neutrophils % Not Reportable Lymphocytes % Not Reportable Monocytes % Not Reportable Eosinophils % Not Reportable Basophils % Not Reportable Absolute Neutrophils Not Reportable Absolute Lymphocytes Not Reportable Absolute Monocytes Not Reportable Absolute Eosinophils Not Reportable Absolute Basophils Not Reportable Sodium 141.0 Potassium 3.3 L Chloride 106 Carbon Dioxide 34 H Anion Gap 1 L BUN 10 Creatinine 0.44 L 0.43 L Est GFR ( Amer) > 60 > 60 Est GFR (Non-Af Amer) > 60 > 60 Glucose 96 Calcium 7.7 L Phosphorus 3.5 Magnesium 1.8 Total Bilirubin 1.4 H AST 49 H ALT 73 H Alkaline Phosphatase 265 H Total Protein 4.0 L Albumin 1.9 L 11/10/17 11/10/17 11/10/17 09:30 09:30 15:30 Creatine Kinase < 20 L < 20 L CK-MB (CK-2) 1.28 Troponin I 0.035 11/10/17 11/10/17 11/10/17 15:30 21:06 21:06 Creatine Kinase < 20 L CK-MB (CK-2) 1.14 1.37 Troponin I 0.024 0.030 Impressions: Interventional Vascular Procedure 11/11/17 00:00 IMPRESSION: SUCCESSFUL PLACEMENT OF A 5 FR DUAL LUMEN 38 CM PICC IN THE LEFT BASILIC VEIN. PICC Line Insertion 11/11/17 00:00 IMPRESSION: SUCCESSFUL PLACEMENT OF A 5 FR DUAL LUMEN 38 CM PICC IN THE LEFT BASILIC VEIN. Chest X-Ray 11/16/17 06:00 IMPRESSION: Bilateral lower lobe consolidation left greater than right, unchanged compared to 11/14/2017 Assessment & Plan - Diagnosis (1) Healthcare-associated pneumonia Is this a current diagnosis for this admission?: Yes Plan: Left lower lobe pneumonitis continue vancomycin and cefepime patient to complete 7-day course of therapy November 19, 2017. CBC in a.m. clinically improving. Patient can be considered for transfer to SNF in a.m. (2) Acute diarrhea Is this a current diagnosis for this admission?: Yes Plan: Appears to be back to baseline chronic diarrhea. (3) Metastatic melanoma Is this a current diagnosis for this admission?: Yes Plan: Discussed various care pathways with family yesterday. Son will have conversation about CODE STATUS today further treatment of melanoma versus palliative versus hospice will be discussed with treating oncologist after patient discharged (4) Encephalopathy acute Is this a current diagnosis for this admission?: Yes Plan: Resolved secondary to pneumonia. (5) Atrial fibrillation Is this a current diagnosis for this admission?: Yes Plan: Remains tachycardic appeared to be sinus may be flutter with 2-1. Check dig level in a.m. replace potassium obtain EKG (6) Hypophosphatemia Is this a current diagnosis for this admission?: Yes Plan: Phosphorus 3.5 corrected discontinue supplementation (7) Protein calorie malnutrition Qualifiers: Protein-calorie malnutrition severity: severe Qualified Code(s): E43 - Unspecified severe protein-calorie malnutrition Is this a current diagnosis for this admission?: Yes Plan: Encourage supplements and expanded diet. Patient on Megace. Patient has improved dietary intake today. Continue to encourage increased intake. (8) Anasarca Is this a current diagnosis for this admission?: Yes Plan: Difficult to mobilize. No change in medication at this time primary causes severe protein malnutrition. (9) Sepsis Qualifiers: Sepsis type: sepsis due to unspecified organism Qualified Code(s): A41.9 - Sepsis, unspecified organism Is this a current diagnosis for this admission?: Yes - Time Time Spent with patient: 25-34 minutes Anticipated discharge: SNF Within: within 24 hours
[2017-11-16] MEDS: RIVAROXABAN 10 MG TABLET PO SCH (17:04)
--- NOTE | 2017-11-16 19:41 | EKG REPORT ---
SEVERITY:- BORDERLINE ECG - SINUS TACHYCARDIA PROBABLE LEFT ATRIAL ABNORMALITY NONSPECIFIC ST-T CHANGES : Confirmed by: Inge Wooten 16-Nov-2017 19:40:27
[2017-11-16] MEDS: MIRTAZAPINE 15 MG TABLET PO SCH (21:27)
[2017-11-16] MEDS: VANCOMYCIN HCL 1,000 MG in DEXTROSE 5%-WATER 250 ML IV SCH (21:28)
[2017-11-16] MEDS: INSULIN LISPRO 100 UNIT/ML 3 ML VIAL SUBCUT PRN (22:39)
--- NOTE | 2017-11-16 23:18 | Progress Note ---
Provider Note Provider Note: Note cardiology progress note for 11/16/2017. Subjective: The patient remains in sinus rhythm sinus tachycardia, but a heart rate is much improved. She denies any chest pain or discomfort. There is no PND orthopnea. There is no anginal symptoms. There is no bleeding on Xarelto. There is no TIA CVA symptoms. Her leg edema is slightly improved. Her appetite is still not very good. Patient being helped by physical therapy. PHYSICAL EXAM: The patient is a frail build, and appears to be chronically ill. Her confusion is slightly improved. Selected Entries 11/16/17 11:43 Temperature 98.0 F Temperature Oral Source Pulse Rate 115 H Respiratory 24 H Rate Blood Pressure 126/71 H Blood Pressure 89 Mean BP Location Right Arm BP Position Supine O2 Sat by Pulse 96 Oximetry Oxygen Flow 4.00 Rate Oxygen Delivery Nasal Cannula Method HEAD: Head is atraumatic normocephalic. EYES: Pupils are equal round regular reactive to light and accommodation. Extraocular movements are normal. There is no congenital pallor THERE IS NO SCLERAL ICTERUS. ENT is negative. NECK: Neck is supple. There is no JVD. There is a equal there is no bruits. There is no lymphadenopathy. There is no goiter. Trachea central. LUNGS: There is bronchial breath sounds and egophony in the left base. The right base and the lower most portion of the left base there are absent breath sounds and dullness. There are a few crackles about the area of egophony. On the left side. On the right lung about the area of dullness there is a few dry crackles. There is no rales of CHF. HEART: S1-S2 is heard S1 is of normal intensity. There is no S3 gallop there is no S3 gallop there is systolic murmur left sternal border and apex. ABDOMEN: Soft nontender there is no there is no hepatosplenomegaly, and bowel sounds well heard. There is no tender areas of masses. EXTREMITIES: Femorals are diminished there is no femoral bruits. Leg pulses are diminished. There is bilateral 2- edema. There is no sinus or clubbing. There is no DVT or cellulitis. 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 No focal deficits. PSYCHIATRIC: The patient does not appear to be agitated. She appears to be calm. 11/12/17 11/16/17 11/16/17 04:00 05:38 05:38 WBC 18.9 H Hgb 9.3 L Hct 27.8 L Plt Count 135 L Sodium 141.0 Potassium 3.3 L Chloride 106 Carbon Dioxide 34 H BUN 10 Creatinine 0.43 L Est GFR (Non-Af Amer) > 60 Glucose 96 Calcium 7.7 L Phosphorus 3.5 Magnesium 1.7 1.8 Total Bilirubin 2.0 H 1.4 H Direct Bilirubin 1.5 H 1.0 H Neonat Total Bilirubin Not Reportable Neonat Direct Bilirubin Not Reportable Neonat Indirect Bili Not Reportable AST 46 H 49 H ALT 57 H 73 H Alkaline Phosphatase 319 H 265 H CHEST X-ray: Shows unchanged bibasilar pneumonia. Her EKG shows sinus tachycardia. Probable left atrial abnormality. IMPRESSION/RECOMMENDATION: 1. ATRIAL Flutter, paroxysmal. At present patient is in sinus tachycardia.. Would recommend, in view of the patient converted to sinus tachycardia, and abnormal liver function tests the patient's amiodarone infusion was discontinued , and the patient started on p.o amiodarone at 200 mg p.o. twice daily.. Would recommend checking patient's thyroid function test, and liver function tests periodically. Later would get a pulmonary function test with DLCO. Also diet digoxin 0.125 mg p.o. daily 2. Melanoma with metastasis to the brain, breast and kidney.. Follow recommendation by oncologist. 3. Generalized edema secondary to malnutrition, with low albumin levels. 4. PNEUMONIA: Left retrocardiac pneumonia causing consolidation: Continue antibiotics. Will recheck chest x-ray in a.m. 5. 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 6. Hypertension: Blood pressure is stable at present. 7. Abnormal Liver function tests.: We will recheck since the patient is jose IV amiodarone. 8. Depression: We will recommend continue the patient's anti-depressants. 9 Chronic Diarrhea: Patient probably has diffuse colitis. 10. Probably has intravascular depletion of volume, in spite of the patient's edema which is generalized, most likely secondary to hypoalbuminemia. Consider albumin infusions. This may not work except probably temporary. 11. CONFUSION: Most likely secondary to cerebral metastases. Her mentation seems to be slightly improved. 12. Generalized DEBILITY: Agree with physical therapy helping the patient ambulate. 13. Hypokalemia: Replenish patient's potassium. Patient medications have been reviewed. Adjustments suggested. Medical decision making is still of moderate complexity. Note 40 minutes spent on this patient more than 50% of time spent in direct patient care. We will follow with you.
[2017-11-17] MEDS: CEFEPIME 2 GM/D5W RTU 2 GM/50 ML RTUPB IV SCH ×2 (05:39→17:19)
[2017-11-17 06:01] LABS: HEMATOCRIT 26.3 % (36.0-47.0); HEMOGLOBIN 8.7 g/dL (12.0-15.5); MEAN CORPUSCULAR HEMOGLOBIN 29.2 pg (27.0-33.4); MEAN CORPUSCULAR HGB CONC 33.2 g/dL (32.0-36.0); MEAN CORPUSCULAR VOLUME 88 fl (80-97); PLATELET COUNT 121 10^3/uL (150-450); RED BLOOD COUNT 2.99 10^6/uL (3.72-5.28); WHITE BLOOD COUNT 16.2 10^3/uL (4.0-10.5)
[2017-11-17 06:12] LABS: BLOOD UREA NITROGEN 11 mg/dL (7-20); CALCIUM 7.7 mg/dL (8.4-10.2); DIGOXIN 0.94 ng/mL (0.8-2.0); GLUCOSE 89 mg/dL (75-110)
[2017-11-17 06:15] LABS: CARBON DIOXIDE 34 mmol/L (22-30); CHLORIDE 106 mmol/L (98-107); SODIUM 140.2 mmol/L (137-145)
[2017-11-17 06:18] LABS: ANION GAP 0 (5-19)
[2017-11-17 06:22] LABS: ABSOLUTE LYMPHOCYTES# (MANUAL) 0.3 10^3/uL (0.5-4.7); ABSOLUTE MONOCYTES # (MANUAL) 0.5 10^3/uL (0.1-1.4); ABSOLUTE NEUTROPHILS# (MANUAL) 15.4 10^3/uL (1.7-8.2); BAND NEUTROPHILS % (MANUAL) 1 % (3-5); BASOPHILS % (MANUAL) 0 % (0-2); EOSINOPHILS % (MANUAL) 0 % (0-6); LYMPHOCYTES % (MANUAL) 1 % (13-45); MONOCYTES % (MANUAL) 3 % (3-13); SEGMENTED NEUTROPHILS % (MAN) 94 % (42-78); TOTAL CELLS COUNTED 100
[2017-11-17 06:33] LABS: ANISOCYTOSIS 1+
[2017-11-17 06:34] LABS: OVALOCYTES SLIGHT; PLATELET COMMENT DECREASED; POIKILOCYTOSIS SLIGHT
[2017-11-17] MEDS: GABAPENTIN 400 MG CAPSULE PO SCH ×4 (07:56→21:42)
[2017-11-17] MEDS: CALCIUM CARBONATE 250 MG/VITAMIN D3 125 UNIT TABLET PO SCH ×2 (07:56→17:19)
[2017-11-17] MEDS: NORMAL SALINE 10 ML SDV (SCHEDULED) IV SCH ×2 (10:00→21:28)
[2017-11-17] MEDS: MEGESTROL ACETATE SUSP 400 MG/10 ML UDCUP PO SCH (10:10)
[2017-11-17] MEDS: DIGOXIN 0.125 MG TABLET PO SCH (10:10)
[2017-11-17] MEDS: AMIODARONE HCL 200 MG TABLET PO SCH ×2 (10:11→17:18)
[2017-11-17] MEDS: BUSPIRONE HCL 10 MG TABLET PO SCH ×2 (10:11→21:44)
[2017-11-17] MEDS: SIMVASTATIN 10 MG TABLET PO SCH (10:12)
[2017-11-17] MEDS: PREDNISONE 20 MG TABLET PO SCH ×2 (10:12→17:19)
[2017-11-17] MEDS: FUROSEMIDE 20 MG TABLET PO SCH (10:12)
[2017-11-17] MEDS: METOPROLOL TARTRATE 25 MG TABLET PO SCH ×2 (10:12→21:43)
[2017-11-17] MEDS: MAGNESIUM OXIDE 400 MG TABLET PO SCH (10:13)
[2017-11-17] MEDS: NORMAL SALINE 10 ML SDV (AFTER EACH USE) IV PRN ×2 (10:17→13:50)
[2017-11-17] MEDS: POTASSIUM CHLORIDE 20 MEQ/15 ML UDCUP PO SCH ×2 (10:19→21:42)
--- NOTE | 2017-11-17 14:53 | PDOC TRANSFER SUMMARY ---
General - Admit/Disc Date/PCP Admission Date/Primary Care Provider: 10/21/17 16:36 SAE SANDHU PA-C Discharge Date: 11/17/17 - Discharge Diagnosis (1) Lower lobe pneumonia Is this a current diagnosis for this admission?: Yes Summary: Patient on vancomycin and cefepime I am until November 19, 2017 (2) Acute diarrhea Is this a current diagnosis for this admission?: Yes (3) Metastatic melanoma Is this a current diagnosis for this admission?: Yes Summary: And to follow-up with her oncologist for restaging of her melanoma in 7-10 days (4) Atrial fibrillation Is this a current diagnosis for this admission?: Yes Summary: Patient on amiodarone 200 twice daily for 14 days to be changed to 200 mg daily. Additionally on digoxin level on the day of discharge 0.98 and metoprolol EKG sinus tachycardia (5) Protein calorie malnutrition Is this a current diagnosis for this admission?: Yes Summary: On Megace diet improving on supplements continue to encourage p.o. feeds (6) Anasarca Is this a current diagnosis for this admission?: Yes Summary: Secondary to severe protein malnutrition currently on Megace improved appetite (7) Sepsis Is this a current diagnosis for this admission?: Yes (8) Encephalopathy acute Is this a current diagnosis for this admission?: Yes Summary: Resolved secondary to sepsis (9) Hypophosphatemia Is this a current diagnosis for this admission?: Yes Summary: Replaced (10) Colitis Is this a current diagnosis for this admission?: Yes (11) Chronic diarrhea Is this a current diagnosis for this admission?: Yes - Additional Information Resuscitation Status: Full Code Discharge Diet: As Tolerated Discharge Activity: Activity As Tolerated Prescriptions: Cefepime 1 gm/D5w RTU [Maxipime RTU 1 gm/D5w 50 ml Premix Bag] 1 gm IV Q12 3 Days #20 rtupb Home Medications: Buspirone HCl [Buspar 15 mg Tablet] 15 mg PO Q12 09/14/17 Simvastatin [Zocor 10 mg Tablet] 10 mg PO DAILY 10/19/17 Acetaminophen [Tylenol 325 mg Tablet] 650 mg PO Q6HP PRN tablet 11/17/17 Amiodarone HCl [Cordarone 200 mg Tablet] 200 mg PO BID tablet 11/17/17 Calcium Carbonate/Vitamin D3 [Os-Srinivasan 250 mg with Vitamin D 125 Units] 1 tab PO BIDBS tablet 11/17/17 Cefepime 1 gm/D5w RTU [Maxipime RTU 1 gm/D5w 50 ml Premix Bag] 1 gm IV Q12 3 Days #20 rtupb 11/17/17 Digoxin [Lanoxin 0.125 mg Tablet] 0.125 mg PO DAILY tablet 11/17/17 Furosemide [Lasix 20 mg Tablet] 20 mg PO DAILY tablet 11/17/17 Gabapentin [Neurontin 400 mg Capsule] 400 mg PO 0800,1100,1700,2200 capsule 05/02 Megestrol Acetate [Megace Lucia 400 mg/10 ml Udcup] 400 mg PO DAILY udc Metoprolol Tartrate [Lopressor 25 mg Tablet] 25 mg PO Q12 tablet 11/17/17 Mirtazapine [Remeron 15 mg Tablet] 7.5 mg PO QHS tablet 11/17/17 Normal Saline [NaCl 0.9% Inj/Pf 10 ml Sdv] 10 ml IV .AFTER EACH USE PRN vial Normal Saline [NaCl 0.9% Inj/Pf 10 ml Sdv] 10 ml IV Q12 vial 11/17/17 Potassium Chloride [Kaon-Cl 20 Meq/15 ml Udcup] 40 meq PO Q12 udc 11/17/17 Prednisone [Deltasone 20 mg Tablet] 20 mg PO BID tablet 11/17/17 Rivaroxaban [Xarelto 10 mg Tablet] 20 mg PO WSUPPER tablet 11/17/17 Vancomycin HCl [Vancocin Inj 1000 mg Vial] 1,000 mg IV QHS vial 11/17/17 History of Present Illness Admission Date/PCP: 10/21/17 16:36 SAE SANDHU PA-C History of Present Illness: HILARY PEDERSEN is a 67 year old female Hospital Course Hospital Course: Patient is a 67-year-old debilitated white female who has known metastatic melanoma. She presented to the hospital severely ill with chronic diarrhea that had escalated to copious amounts of watery stool. Patient was admitted to a telemetry bed she was evaluated with stool cultures which showed no enteric pathogens. Consultation with GI was obtained and it was felt that the patient had diarrhea secondary to her immunotherapy for her melanoma. She was given IV hydration unfortunately she had severe protein malnutrition with anasarca so intravascularly she was dry but yet volume overloaded. Attempts to mobilize the fluid were met with varying degrees of success. Patient subsequently became septic was found to have a left lower lobe pneumonia was placed on vancomycin and cefepime I am on 11 December. She was transferred to the medical intensive care unit for sepsis sided a PICC line was placed due to difficulty access. Patient steroids which initially were placed to help with the diarrhea were tapered down to prednisone 20 mg twice daily should be continued to slowly tapered over the next 10 days. Patient was started on Megace to help with her anorexia seem to improve her oral intake. Patient had been evaluated by oncology but her treating oncologist Kasie Reyna was discussed with Dr. Fuller treating hospitalist. Was a recommendation the patient return to our care for restaging of her melanoma. While in the hospital conversation with the son and the patient regarding the stage of her disease her CODE STATUS and other treatment options such as comfort and hospice was had while the patient was in the hospital. They were provided information but no decision with the patient's pneumonia and proven she was felt to be stable enough to be transferred to finish out her antibiotics at an SNF while receiving Physical Exam Vital Signs: Temp Pulse Resp BP Pulse Ox 98.1 F 91 20 119/62 100 11/17/17 11:16 11/17/17 11:16 11/17/17 11:16 11/17/17 11:16 11/17/17 11:16 Intake & Output 11/16/17 11/17/17 11/18/17 06:59 06:59 06:59 Intake Total 650 1247 350 Output Total 2790 1150 600 Balance -2140 97 -250 Weight 86.6 kg 84.7 kg General appearance: PRESENT: no acute distress, well-developed, other - Severe protein malnutrition with anasarca. ABSENT: well-nourished Ear exam: PRESENT: normal external ear exam Cardiovascular exam: PRESENT: RRR, tachycardia. ABSENT: diastolic murmur, rubs , systolic murmur GI/Abdominal exam: PRESENT: normal bowel sounds, soft. ABSENT: distended, guarding, mass, organolmegaly, rebound, tenderness Extremities exam: PRESENT: other - Sarka Neurological exam: PRESENT: alert, awake, oriented to person, oriented to place , oriented to time, oriented to situation, CN II-XII grossly intact, other - Debility. ABSENT: motor sensory deficit Skin exam: PRESENT: other - Small ulcer on coccyx Results Laboratory Results: 11/17/17 05:40 11/17/17 05:40 11/17/17 11/17/17 05:40 05:40 WBC 16.2 H RBC 2.99 L Hgb 8.7 L Hct 26.3 L MCV 88 MCH 29.2 MCHC 33.2 RDW 18.0 H Plt Count 121 L Seg Neutrophils % Not Reportable Lymphocytes % Not Reportable Monocytes % Not Reportable Eosinophils % Not Reportable Basophils % Not Reportable Absolute Neutrophils Not Reportable Absolute Lymphocytes Not Reportable Absolute Monocytes Not Reportable Absolute Eosinophils Not Reportable Absolute Basophils Not Reportable Sodium 140.2 Potassium 4.0 Chloride 106 Carbon Dioxide 34 H Anion Gap 0 L BUN 11 Creatinine 0.39 L Est GFR ( Amer) > 60 Est GFR (Non-Af Amer) > 60 Glucose 89 Calcium 7.7 L 11/10/17 11/10/17 11/10/17 09:30 09:30 15:30 Creatine Kinase < 20 L < 20 L CK-MB (CK-2) 1.28 Troponin I 0.035 11/10/17 11/10/17 11/10/17 15:30 21:06 21:06 Creatine Kinase < 20 L CK-MB (CK-2) 1.14 1.37 Troponin I 0.024 0.030 Impressions: Interventional Vascular Procedure 11/11/17 00:00 IMPRESSION: SUCCESSFUL PLACEMENT OF A 5 FR DUAL LUMEN 38 CM PICC IN THE LEFT BASILIC VEIN. PICC Line Insertion 11/11/17 00:00 IMPRESSION: SUCCESSFUL PLACEMENT OF A 5 FR DUAL LUMEN 38 CM PICC IN THE LEFT BASILIC VEIN. Chest X-Ray 11/16/17 06:00 IMPRESSION: Bilateral lower lobe consolidation left greater than right, unchanged compared to 11/14/2017 Transfer Plan - Time Spent with Patient Time spent with patient: Greater than 30 Minutes Qualifiers - * PATIENT BEING DISCHARGED WITH ANY OF THE FOLLOWING DIAGNOSIS: No Plan Time Spent: Greater than 30 Minutes
--- NOTE | 2017-11-17 16:32 | Physician Advisory Note ---
Physician Advisor ProgressNote .: Pursuant to the plan for [facility], I have reviewed the medical record for this patient. Physician Advisor Statement: With pneumonia dx.s, please state the most likely type of underlying organism ( gram-neg, gram pos, ...). It appears to this reviewer that this pneumonia was not present within 48 hrs of admission - if this impression is incorrect, please document findings that support attending impression. Thanks! CK Community-Acquired Pneumonia (CAP) = present on admission, usual community pathogens. HEALTHCARE-ACQUIRED pneumonia (HCAP) = due to recent contact w/healthcare setting, typically present on admission. HOSPITAL-ACQUIRED pneumonia (HAP) = NOT present at time of this admission. Developed 48+ hours after admission (or causing readmission within 48 hours). CAUSED BY THIS ADMISSION.
[2017-11-17] MEDS: RIVAROXABAN 10 MG TABLET PO SCH (17:18)
[2017-11-17] MEDS: VANCOMYCIN HCL 1,000 MG in DEXTROSE 5%-WATER 250 ML IV SCH (21:27)
--- NOTE | 2017-11-17 21:28 | Progress Note ---
Provider Note Provider Note: CARDIOLOGY PROGRESS NOTE by Dr. Irene Hathaway on 11/17/2017. SUBJECTIVE: The patient's thinking is very alert. She denies any chest pain or discomfort. She denies PND orthopnea. Her leg edema is improved but still 1+ bilaterally. She says her appetite is slightly increased. There is no bleeding on Xarelto. There is no TIA or CVA symptoms. She remains in sinus rhythm. There is no recurrence of atrial flutter. PHYSICAL EXAM the patient is a frail build, and appears to be chronically ill. At present she is well-groomed, and in no acute distress. Selected Entries 11/17/17 15:12 Temperature 98.0 F Temperature Oral Source Pulse Rate 95 Respiratory 19 Rate Blood Pressure 122/60 Blood Pressure 80 Mean BP Location Right Arm BP Position Supine O2 Sat by Pulse 98 Oximetry Oxygen Flow 6.00 Rate Oxygen Delivery Nasal Cannula Method HEAD: Head is atraumatic normocephalic. EYES: Pupils are equal round regular reactive to light and accommodation. Extraocular movements are normal. There is no congenital pallor THERE IS NO SCLERAL ICTERUS. ENT is negative. NECK: Neck is supple. There is no JVD. There is a equal there is no bruits. There is no lymphadenopathy. There is no goiter. Trachea central. LUNGS: There is bronchial breath sounds and egophony in the left base. The right base and the lower most portion of the left base there are absent breath sounds and dullness. There are a few crackles about the area of egophony. On the left side. On the right lung about the area of dullness there is a few dry crackles. There is no rales of CHF. HEART: S1-S2 is heard S1 is of normal intensity. There is no S3 gallop there is no S3 gallop there is systolic murmur left sternal border and apex. ABDOMEN: Soft nontender there is no there is no hepatosplenomegaly, and bowel sounds well heard. There is no tender areas of masses. EXTREMITIES: Femorals are diminished there is no femoral bruits. Leg pulses are diminished. There is bilateral 2- edema. There is no sinus or clubbing. There is no DVT or cellulitis. QA AUTOMATION ARCHITECT: Patient is conscious, and is not confused today. No focal deficits. Her thinking is pretty clear today her thinking is pretty clear today. PSYCHIATRIC: The patient does not appear to be agitated. She appears to be calm. 11/17/17 11/17/17 05:40 05:40 WBC 16.2 H Hgb 8.7 L Hct 26.3 L Plt Count 121 L Sodium 140.2 Potassium 4.0 Chloride 106 Carbon Dioxide 34 H BUN 11 Creatinine 0.39 L Est GFR (Non-Af Amer) > 60 Glucose 89 Calcium 7.7 L IMPRESSION/RECOMMENDATION: 1. ATRIAL Flutter, paroxysmal. At present patient is in sinus tachycardia.. Would recommend, in view of the patient converted to sinus tachycardia, and abnormal liver function tests the patient's amiodarone infusion was discontinued , and the patient started on p.o amiodarone at 200 mg p.o. twice daily.. Would recommend checking patient's thyroid function test, and liver function tests periodically. Later would get a pulmonary function test with DLCO. Also diet digoxin 0.125 mg p.o. daily 2. Melanoma with metastasis to the brain, breast and kidney.. Follow recommendation by oncologist. 3. Generalized edema secondary to malnutrition, with low albumin levels. 4. PNEUMONIA: Left retrocardiac pneumonia causing consolidation: Continue antibiotics. Will recheck chest x-ray in a.m. 5. 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 6. Hypertension: Blood pressure is stable at present. 7. Abnormal Liver function tests.: We will recheck since the patient is jose IV amiodarone. 8. Depression: We will recommend continue the patient's anti-depressants. 9 Chronic Diarrhea: Patient probably has diffuse colitis. 10. Probably has intravascular depletion of volume, in spite of the patient's edema which is generalized, most likely secondary to hypoalbuminemia. Consider albumin infusions. This may not work except probably temporary. 11. CONFUSION: Most likely secondary to cerebral metastases. This is resolved. At present mentation seems to be normal. 12. Generalized DEBILITY: Agree with physical therapy helping the patient ambulate. Medications have been reviewed. Case discussed with attending physician on the case. Medical decision making is of moderate complexity. Cardiac status stable. Will sign off. Patient if she so desires can follow-up with me as an outpatient. This has been discussed with the patient. She will decide. Thanking you for allowing me to participate in the care of this patient. 40 minutes spent on this patient, with more than 50% of time spent on direct patient care.
[2017-11-17] MEDS: MIRTAZAPINE 15 MG TABLET PO SCH (21:42)
[2017-11-18] MEDS: CEFEPIME 2 GM/D5W RTU 2 GM/50 ML RTUPB IV SCH (05:16)
[2017-11-18] MEDS: METOPROLOL TARTRATE 25 MG TABLET PO SCH (09:39)
[2017-11-18] MEDS: AMIODARONE HCL 200 MG TABLET PO SCH (09:39)
[2017-11-18] MEDS: SIMVASTATIN 10 MG TABLET PO SCH (09:39)
[2017-11-18] MEDS: CALCIUM CARBONATE 250 MG/VITAMIN D3 125 UNIT TABLET PO SCH (09:39)
[2017-11-18] MEDS: MAGNESIUM OXIDE 400 MG TABLET PO SCH (09:39)
[2017-11-18] MEDS: PREDNISONE 20 MG TABLET PO SCH (09:39)
[2017-11-18] MEDS: GABAPENTIN 400 MG CAPSULE PO SCH ×2 (09:39→12:52)
[2017-11-18] MEDS: FUROSEMIDE 20 MG TABLET PO SCH (09:39)
[2017-11-18] MEDS: POTASSIUM CHLORIDE 20 MEQ/15 ML UDCUP PO SCH (09:40)
[2017-11-18] MEDS: BUSPIRONE HCL 10 MG TABLET PO SCH (09:40)
[2017-11-18] MEDS: MEGESTROL ACETATE SUSP 400 MG/10 ML UDCUP PO SCH (09:40)
[2017-11-18] MEDS: NORMAL SALINE 10 ML SDV (SCHEDULED) IV SCH (09:41)
[2017-11-18] MEDS: DIGOXIN 0.125 MG TABLET PO SCH (09:41)
--- NOTE | 2017-11-18 14:34 | RADIOLOGY REPORT (SQ) ---
EXAM DESCRIPTION: PICC INSERTION; U/S GUIDE FOR VASCULAR ACCESS; FLUORO/CV PLACEMENT COMPLETED DATE/TIME: 11/18/2017 2:11 pm REASON FOR STUDY: outpatient IV antibiotic therapy; IV ABX COMPARISON: AP chest 11/16/2017 FLUOROSCOPY TIME: 36 seconds 1 ultrasound and 1 digital fluoroscopic images saved to PACS. TECHNIQUE: Fluoroscopic and ultrasound guided PICC placement. LIMITATIONS: None. PROCEDURE: After written consent and assessment were obtained, the patient was brought into the fluo roscopy room and placed supine on the table. Ultrasound evaluation of potential access sites were per formed. After successfully identifying a patent right basilic vein, the right arm was prepped and peggy ped in a sterile fashion along with the ultrasound probe. The entry site was anesthetized with 1% lid ocaine. A 21 gauge 7 cm needle was advanced through the skin and into the right basilic vein under li ve ultrasound guidance. An ultrasound image was saved to PACS confirming access site. A .018 guide wire was then inserted through the needle and into the venous system. The needle was then removed and an 11 blade scalpel was used to make a 1cm skin incision. A 5 fr peel-away sheath was advanced over the wire and into the venous system. A measurement was then made using the existing wire and live fl uoroscopic guidance. The wire was then removed and trimmed. The PICC was advanced through the peel-aw ay sheath and into the venous system. The peel-away sheath was removed and the catheter was adhered t o the patients arm with a stat lock. The catheter was then aspirated and flushed and a sterile bandag e was placed over the access site. A fluoroscopic spot image was saved to PACS confirming the cathet er tip within the superior vena cava. IMPRESSION: SUCCESSFUL PLACEMENT OF A 5 FR DUAL LUMEN 42 CM PICC IN THE RIGHT BASILIC VEIN. COMMENT: Patient medication list reviewed: Yes- Quality ID# 130:Eligible professional attests to doc umenting in the medical record they obtained, updated, or reviewed the patient's current medications. . Quality ID 145: Final reports for procedures using fluoroscopy that document radiation exposure yamilka hilary, or exposure time and number of fluorographic images (if radiation exposure indices are not avail able) Quality ID #76: The patient was prepped and draped using maximum sterile barrier technique including cap, mask, sterile gown, sterile gloves, a large sterile sheet, hand hygiene, and 2% Chlorhexidine fo r cutaneous antisepsis. When ultrasound is used, sterile ultrasound techniques are followed requiring sterile gel and sterile probes. TECHNICAL DOCUMENTATION: JOB ID: [id number] [employer]- All Rights Reserved rev-07/02 Reading location - IP/workstation name: [email or web address]
[2017-11-18] MEDS ORDERED: NORMAL SALINE 10 ML SDV (AFTER EACH USE) IV PRN (14:36)
[2017-11-18 15:16] VITALS: BP 130/59
[2017-11-18] MEDS ORDERED: NORMAL SALINE 10 ML SDV (SCHEDULED) IV SCH (22:00)
== END 2017-11-18 15:40 | DRG 393 ==
LOC: ER 07:49 → EH 18:12 → UNDOADMOB 18:12 → 3N 22:35 → OBSVTOIN 10-21 16:36 → 4N 10-21 17:46 → ICU 11-06 04:11 → 3W 11-13 06:30 → UNDODISIN 11-18 15:51
PROVIDERS: ADMIT Internal Medicine; ATTEND Internal Medicine
PROC: 0DBB8ZX Excision of Ileum, Via Natural or Artificial Opening Endoscopic, Diagnostic (ICD-10-PCS; 2017-10-21)
PROC: 0DBF8ZX Excision of Right Large Intestine, Via Natural or Artificial Opening Endoscopic, Diagnostic (ICD-10-PCS; 2017-10-21)
PROC: 06HM33Z Insertion of Infusion Device into Right Femoral Vein, Percutaneous Approach (ICD-10-PCS; principal; 2017-11-02)
PROC: 5A09457 Assistance with Respiratory Ventilation, 24-96 Consecutive Hours, Continuous Positive Airway Pressure (ICD-10-PCS; 2017-11-05)
PROC: 02HV33Z Insertion of Infusion Device into Superior Vena Cava, Percutaneous Approach (ICD-10-PCS; 2017-11-11)
PROC: B548ZZA Ultrasonography of Superior Vena Cava, Guidance (ICD-10-PCS; 2017-11-11)
DX: K52.1 Toxic gastroenteritis and colitis (principal); J18.9 Pneumonia, unspecified organism; A41.9 Sepsis, unspecified organism; E43 Unspecified severe protein-calorie malnutrition; G93.41 Metabolic encephalopathy; C79.31 Secondary malignant neoplasm of brain; I47.1 Supraventricular tachycardia; C49.9 Malignant neoplasm of connective and soft tissue, unspecified; C79.00 Secondary malignant neoplasm of unspecified kidney and renal pelvis; C50.919 Malignant neoplasm of unspecified site of unspecified female breast; T45.1X5A Adverse effect of antineoplastic and immunosuppressive drugs, initial encounter; E86.0 Dehydration; E03.9 Hypothyroidism, unspecified; I87.2 Venous insufficiency (chronic) (peripheral); Z98.890 Other specified postprocedural states; I95.1 Orthostatic hypotension; E86.9 Volume depletion, unspecified; R34 Anuria and oliguria; L98.8 Other specified disorders of the skin and subcutaneous tissue; K57.90 Diverticulosis of intestine, part unspecified, without perforation or abscess without bleeding; Z79.899 Other long term (current) drug therapy; E83.39 Other disorders of phosphorus metabolism; K57.30 Diverticulosis of large intestine without perforation or abscess without bleeding; R00.0 Tachycardia, unspecified; D72.829 Elevated white blood cell count, unspecified; E87.6 Hypokalemia; E83.51 Hypocalcemia; E88.09 Other disorders of plasma-protein metabolism, not elsewhere classified; R94.5 Abnormal results of liver function studies; Z68.29 Body mass index [BMI] 29.0-29.9, adult; I48.91 Unspecified atrial fibrillation; F32.9 Major depressive disorder, single episode, unspecified; Z86.718 Personal history of other venous thrombosis and embolism; Z79.02 Long term (current) use of antithrombotics/antiplatelets; Z92.25 Personal history of immunosuppression therapy; Z90.11 Acquired absence of right breast and nipple
CPT/HCPCS: 36415; 36569; 36600; 45380; 71045; 71046; 76937; 77001; 80048; 80053; 80076; 80162; 80202; 81001; 82330; 82550; 82553; 82565; 82803; 82962; 83605; 83735; 84100; 84439; 84443; 84481; 84484; 85025; 85027; 87040; 87045; 87086; 87205; 87493; 88305; 89055; 93005; 93010; 93306; 94660; 96360; 96361; 99285; C1751; G0378; G8978-GP; G8979-GP; G8987-GO; G8988-GO; J0171; J0282; J0692; J0696; J0744; J1160; J1200; J1610; J1642; J1650; J1815; J1940; J2060; J2250; J2310; J2354; J2405; J2920; J2930; J2997; J3010; J3370; J3480; J3490; J7030; J7040; J7060; J7120; J7512; P9047